=== PATIENT | female | born 1960 | race Caucasian/White ===

== ENCOUNTER 2019-10-17 05:40 | Emergency (ER) | payer MEDICAID, SELFPAY ==
[2019-10-17 05:41] VITALS: BP 102/75; PULSE 99; RESP 16; TEMP 36.6; O2SAT 94; BMI 17.9
--- NOTE | 2019-10-17 05:53 | W.ED.BACK ---
HPI - Back Pain/Injury General: Chief Complaint: Back Pain/Injury Stated Complaint: BACK PAIN Time Seen by Provider: 10/17/19 05:53 History of Present Illness: HPI Narrative: 58 yo female present by EMS with complaint of back pain that started 6 days ago. Pt states she pulled a muscle . She has had chronic back pain in the past. She also hsd neuropathy in her hands and feet, since this happened she reports increased pain in her arms and hands, particularly the L arm. She denies any dysuria urgency or frquency, no flank pain, no diarrhea, no abd pain. Pain is positional, she denies increased dyspnea. Pt reports hs has had small cell lung CA in the past and was told she was cured. She denies any known metastasis. MD elicited complaint: back pain Pertinent past history: prior back pain Onset (ago): day(s) (2) Timing: constant Severity: severe Similar Symptoms Previously: Yes Location: lumbar spine Radiation: none Exacerbating factors: movement Relieving factors: other (rest) Associated symptoms: Reports difficulty walking, fatigue, nausea, numbness and tingling/numbness/burning; Deny change in bowel habits, fecal incontinence, hematuria, myalgias, urinary frequency, urinary urgency, vomiting or weakness Review of Systems Const: Reports: fatigue ENMT: Denies: throat pain, ear pain, nasal discharge or nasal congestion Card: Denies: chest pain, edema, shortness of breath on exertion or shortness of breath when lying down Resp: Denies: shortness of breath, productive cough or non-productive cough GI: Reports: nausea; Denies: vomiting, fecal incontinence or change in bowel habits : Denies: urinary urgency or blood in urine Skin/Breast: Denies: rash or itching Neuro: Reports: difficulty walking PFSH ED PFSH: Statuses (acute, chronic, etc) shown below reflect problem list status as previously entered and may not be historically accurate Medical History Hypothyroidism (Acute) Small cell lung cancer in adult (Acute) Social History Smoking and tobacco status: former smoker Physical Exam Const: COMMON NORMALS: no apparent distress GENERAL APPEARANCE: cooperative and comfortable ORIENTATION/CONSCIOUSNESS: Yes awake, Yes oriented to person, Yes oriented to place and Yes oriented to time HENMT: COMMON NORMALS: normocephalic, head/scalp atraumatic, hearing grossly normal bilaterally, external ears normal, EAC's normal, TM's normal bilaterally, nasal mucous membranes and turbinates normal, moist oral mucous membranes and oropharynx normal HEAD & SCALP: normocephalic and atraumatic NOSE: nasal mucous membranes and turbinates normal EXTERNAL EAR: Yes external ears normal EXTERNAL AUDITORY CANAL: EAC's normal TYMPANIC MEMBRANE: TM's normal bilaterally Eye: COMMON NORMALS: PERRL, EOMs intact bilaterally, conjunctivae normal and no scleral icterus CONJUNCTIVA: Yes conjunctivae normal PUPIL: Yes PERRL Neck/C-Spine: COMMON NORMALS: full ROM, no lymphadenopathy, supple and no JVD Lymph: LYMPHATIC: no lymphadenopathy noted and no lymphedema noted Resp: COMMON NORMALS: normal respiratory effort, no retractions, no use of accessory muscles and clear to auscultation bilaterally AUSCULTATION: clear to auscultation bilaterally Cardio: COMMON NORMALS: no JVD, regular rate, regular rhythm and no murmurs RATE: regular rate RHYTHM: regular rhythm GI: COMMON NORMALS: soft to palpation and no hepatosplenomegaly AUSCULTATION: Yes normoactive bowel sounds PALPATION: Yes soft, No tender, No guarding and Yes no hepatosplenomegaly Back/Pelvis: OTHER: Tenderness to palpation on the middle thoracic spine T7-8-9 region. Extremity: COMMON NORMALS: normal to inspection, normal capillary refill, no clubbing, cyanosis or edema, no calf tenderness and no pedal edema Neuro: SENSORIUM/ORIENTATION: Yes oriented to person, Yes oriented to place and Yes oriented to time Skin: COMMON NORMALS: no rashes or lesions noted GENERAL SKIN EXAM: no rashes or lesions noted Course Vital Signs: Vital signs: Vital Signs Temperature 98 F 10/17/19 05:41 Pulse Rate 68 10/17/19 07:56 Respiratory Rate 15 10/17/19 07:56 Blood Pressure 122/68 10/17/19 07:56 Pulse Oximetry 95 10/17/19 07:56 MDM - Back Pain/Injury Lab Data: Labs: Lab Results 10/17/19 10/17/19 Range/Units 06:36 06:36 WBC 8.2 (4.0-10.0) 10^3/ uL RBC 4.19 (4.1-5.3) 10^6/u L Hgb 12.2 (11.5-15.3) g/dL Hct 37.6 (37.0-47.0) % MCV 89.7 (81-99) fL MCH 29.1 (28.0-34.0) pg MCHC 32.4 (30.0-36.0) g/dL RDW 13.9 (12.1-15.1) % Plt Count 275 (130-400) 10^3/c mm MPV 8.3 (7.4-10.4) fL Neut % (Auto) 69.9 % Lymph % (Auto) 20.4 % Gates % (Auto) 6.3 % Eos % (Auto) 1.8 % Baso % (Auto) 0.5 % Neut # (Auto) 5.7 (1.8-7.7) 10^3/u L Lymph # (Auto) 1.7 (0.8-4.8) 10^3/u L Gates # (Auto) 0.5 (0.2-0.9) 10^3/u L Eos # (Auto) 0.2 (0.0-0.8) 10^3/u L Baso # (Auto) 0.0 (0.0-0.1) 10^3/u L Nucleated RBC % (a uto) 0 % Nucleated RBCs # 0.0 /100WBC Sodium 139 (136-145) mmol/L Potassium 3.6 (3.5-5.1) mmol/L Chloride 99 (98-107) mmol/L Carbon Dioxide 26 (22-29) mmol/L Anion Gap 17.6 (5-19) BUN 6 (6-20) mg/dL Creatinine 0.5 (0.5-0.9) mg/dL GFR Calculation 126.7 (90-130) mL/min Glucose 108 (74-109) mg/dL Calcium 9.5 (8.5-10.5) mg/dL Total Bilirubin 0.2 (0.15-1.2) mg/dL AST 21 (0-32) U/L ALT 21 (0-33) U/L Alkaline Phosphata se 108 H (35-105) IU/L Total Protein 7.1 (6.6-8.7) g/dL Albumin 4.1 (3.5-5.2) g/dL Globulin 3.0 (1.3-4.6) g/dL Imaging Data^: Other CT: Radiologist's impression: FINDINGS: Tubes, catheters and devices: A right internal jugular vein central venous line is present with its tip at the level of the superior cavoatrial junction. Vertebrae: There is mild compression of the T7 vertebral body. Discs/Spinal canal/Neural foramina: No spinal canal stenosis. Soft tissues: Unremarkable. CT/CT thoracic spin wo con* [id number] IMPRESSION: Mild compression of the T7 vertebral body of indeterminate age. Radiation Dose CTDIVOL = (mGy): DLP = 691.96 (mGy-cm) Dictated By: Ancelmo Adames MD CXR: Radiologist's impression: FINDINGS: Lungs: There is a background of emphysematous change. Scattered calcified nodularity is are seen bilaterally that likely represent calcified granulomas. Pleural space: Unremarkable. No pleural effusion. No pneumothorax. Heart/Mediastinum: Unremarkable. No cardiomegaly. Vasculature: A MediPort is placed via the right internal jugular vein with its tip at the level of the superior cavoatrial junction. Bones/joints: Unremarkable. XR/XR chest 1V portable [id number] IMPRESSION: There are no acute chest findings. Dictated By: Ancelmo Adames MD Discharge Plan Discharge Patient Disposition: Home, Self-Care Clinical Impression: Acute midline thoracic back pain, Small cell lung cancer in adult Compression fracture of thoracic spine, non-traumatic Qualifiers: Encounter type: initial encounter Thoracic vertebra fracture level: T7 Qualified Code(s): M48.54XA - Collapsed vertebra, not elsewhere classified, thoracic region, initial encounter for fracture Hypothyroidism Qualifiers: Hypothyroidism type: acquired Qualified Code(s): E03.9 - Hypothyroidism, unspecified Condition: Stable Prescriptions: No Action gabapentin 600 mg Tablet 600 mg PO TID RF: 0 tizanidine 4 mg Tablet 4 mg PO Q8H PRN (Reason: Sleep) RF: 0 prednisone 20 mg Tablet 60 mg PO DAILY RF: 0 oxycodone-acetaminophen 5-325 mg Tablet 1 tab PO Q6H PRN (Reason: Pain) RF: 0 levothyroxine 88 mcg Tablet 88 mcg PO DAILY RF: 0 allopurinol 300 mg tablet 300 mg PO DAILY RF: 0 Adult One Daily Multivitamin 0.4 mg Tablet 0.4 mg PO DAILY RF: 0 Vitamin D3 2,000 unit Tablet 2,000 unit PO DAILY RF: 0 Stool Softener 50 mg 50 mg PO DAILY RF: 0 Referrals: Adela Stout [Family Provider] - Activity Restrictions/Additional Instructions: Case management will follow up with appointment to pain clinic for possible kyphoplasty. You should call you PCP for further evaluation as well. US previosuly prescribed pain meds. Discharge Date/Time: 10/17/19 07:56 Coding Level of Care Code ED Mobile [employer] G[employer]er for [employer] Fwd Exam Problem Focused
--- NOTE | 2019-10-17 06:02 | CTR_ITS ---
PROCEDURE INFORMATION: Exam: CT Thoracic Spine Without Contrast Exam date and time: 10/17/2019 6:04 AM Age: 58 years old Clinical indication: Pain in thoracic spine; Patient HX: Patient states she felt a pop in her upper back. C/O back pain. ; Additional info: Thoracic back pain. HX of small cell lung CA TECHNIQUE: Imaging protocol: Computed tomography images of the thoracic spine without contrast. Total DLP: 691.96 mGy-cm Radiation optimization: All CT scans at this facility use at least one of these dose optimization techniques: automated exposure control; mA and/or kV adjustment per patient size (includes targeted exams where dose is matched to clinical indication); or iterative reconstruction. COMPARISON: No relevant prior studies available. FINDINGS: Tubes, catheters and devices: A right internal jugular vein central venous line is present with its tip at the level of the superior cavoatrial junction. Vertebrae: There is mild compression of the T7 vertebral body. Discs/Spinal canal/Neural foramina: No spinal canal stenosis. Soft tissues: Unremarkable. CT/CT thoracic spin wo con* [id number] IMPRESSION: Mild compression of the T7 vertebral body of indeterminate age. Radiation Dose CTDIVOL = (mGy): DLP = 691.96 (mGy-cm)
--- NOTE | 2019-10-17 06:03 | XRR_ITS ---
PROCEDURE INFORMATION: Exam: XR Chest, 1 View Exam date and time: 10/17/2019 6:04 AM Age: 58 years old Clinical indication: Condition or disease; Lung condition and disease; Cancer of the lung; Left; [place]; Prior surgery; Surgery type: Port; Patient HX: History of lung cancer; Additional info: HX lung CA TECHNIQUE: Imaging protocol: XR of the chest Views: 1 view. COMPARISON: CR Chest 1 [place] [id number] 09/25/2018 2:24 PM FINDINGS: Lungs: There is a background of emphysematous change. Scattered calcified nodularity is are seen bilaterally that likely represent calcified granulomas. Pleural space: Unremarkable. No pleural effusion. No pneumothorax. Heart/Mediastinum: Unremarkable. No cardiomegaly. Vasculature: A MediPort is placed via the right internal jugular vein with its tip at the level of the superior cavoatrial junction. Bones/joints: Unremarkable. XR/XR chest 1V portable [id number] IMPRESSION: There are no acute chest findings.
[2019-10-17 06:41] LABS: Basophils % 0.5 %; Eosinophils # 0.2 10^3/uL (0.0-0.8); Eosinophils % 1.8 %; Hematocrit 37.6 % (37.0-47.0); Hemoglobin 12.2 g/dL (11.5-15.3); Lymphocytes # 1.7 10^3/uL (0.8-4.8); Lymphocytes % 20.4 %; Mean Corpuscular HGB Conc 32.4 g/dL (30.0-36.0); Mean Corpuscular Hemoglobin 29.1 pg (28.0-34.0); Mean Corpuscular Volume 89.7 fL (81-99); Mean Platelet Volume 8.3 fL (7.4-10.4); Monocytes # 0.5 10^3/uL (0.2-0.9); Monocytes % 6.3 %; Neutrophils # 5.7 10^3/uL (1.8-7.7); Neutrophils % 69.9 %; Nucleated Red Blood Cells % 0 %; Platelet Count 275 10^3/cmm (130-400); Red Blood Count 4.19 10^6/uL (4.1-5.3); Red Cell Distribution Width 13.9 % (12.1-15.1); White Blood Count 8.2 10^3/uL (4.0-10.0)
[2019-10-17 06:54] VITALS: RESP 16
[2019-10-17] MEDS: orphenadrine 30 mg/mL Inj 2 mL 60 MG IV (06:54)
[2019-10-17] MEDS: morphine 4 mg/mL SDV 1 mL IVP (06:54)
[2019-10-17 07:01] LABS: Alanine Aminotransferase 21 U/L (0-33); Albumin Level 4.1 g/dL (3.5-5.2); Alkaline Phosphatase 108 IU/L (35-105); Anion Gap 17.6 (5-19); Aspartate Amino Transferase 21 U/L (0-32); Blood Urea Nitrogen 6 mg/dL (6-20); Calcium 9.5 mg/dL (8.5-10.5); Carbon Dioxide 26 mmol/L (22-29); Chloride 99 mmol/L (98-107); Glomerular Filtration Rate 126.7 mL/min (90-130); Glucose 108 mg/dL (74-109); Potassium 3.6 mmol/L (3.5-5.1); Sodium 139 mmol/L (136-145); Total Bilirubin 0.2 mg/dL (0.15-1.2); Total Protein 7.1 g/dL (6.6-8.7)
[2019-10-17 07:56] VITALS: BP 122/68; PULSE 68; RESP 15; O2SAT 95
--- NOTE | 2019-10-19 14:09 | DCPLANNER ---
horse farm manager had message to schedule a follow up appointment for patient with the pain clinic for possible kyphoplasty. horse farm manager [place] [facility] [place] was told that they do not do that procedure at the clinic. horse farm manager called patient, and informed patient of this. Patient stated that she has an appointment at a pain clinic in [place] tomorrow, 10.20.19.
== END 2019-10-17 07:56 | disposition home or self-care (01) ==
PROVIDERS: Emergency Provider Family Medicine; Family Provider Internal Medicine
DX: S22.060A Wedge compression fracture of T7-T8 vertebra, initial encounter for closed fracture (principal); E03.9 Hypothyroidism, unspecified; C34.90 Malignant neoplasm of unspecified part of unspecified bronchus or lung; Z87.891 Personal history of nicotine dependence; X58.XXXA Exposure to other specified factors, initial encounter
CPT/HCPCS: 71045; 72128; 80053; 85025; 96365; 96374; 99281; J0131; J2270; J2360; L0456

== ENCOUNTER 2020-10-23 19:06 | Observation (INO) | payer MEDICARE, MEDICAID, SELFPAY ==
[2020-10-23 20:12] VITALS: BP 102/56; PULSE 99; RESP 20; TEMP 36.7; O2SAT 95; BMI 21.2
--- NOTE | 2020-10-23 20:51 | ECG_ITS ---
[facility] Test Date: 2020-10-23 Pat Name: Zulma Garcia Department: Room: Gender: Female [place]: : 1960 Requested By: Tyrell Willis Order Number: [id number] Darci MD: Keanu Lawson M.D. Measurements Intervals [place] Rate: 75 P: 78 FL: 168 QRS: 89 QRSD: 91 T: 80 QT: 389 QTc: 436 Interpretive Statements SINUS RHYTHM POSSIBLE RIGHT VENTRICULAR CONDUCTION DELAY [RSR (QR) IN V1/V2] Compared to ECG 09/25/2018 14:05:58 Sinus arrhythmia no longer present Electronically Signed On 10-24-2020 17:09:35 CHANNEL MANAGER by Keanu Lawson M.D. [email or web address]
--- NOTE | 2020-10-23 20:51 | XRR_ITS ---
PROCEDURE INFORMATION: Exam: XR Chest, 1 View Exam date and time: 10/23/2020 9:42 PM Age: 59 years old Clinical indication: Cough and shortness of breath; Prior surgery; Surgery type: Appy; Additional info: SOB x 3 days TECHNIQUE: Imaging protocol: XR of the chest Views: 1 view. COMPARISON: CR XR chest 1V portable [id number] 10/17/2019 6:15 AM FINDINGS: Lungs: Minor left mid lung pneumonitis, atelectasis or scarring. Suspect bilateral scattered calcified granulomata. Pleural spaces: Unremarkable. No pleural effusion. No pneumothorax. Heart/Mediastinum: Stable heart size. Bones/joints: Radiopaque material at T7. XR/XR chest 1V portable [id number] IMPRESSION: Left mid lung pneumonitis, atelectasis or scarring
--- NOTE | 2020-10-23 21:09 | W.ED.GENADLT ---
HPI - General Adult General: Chief complaint: General Medical Stated complaint: weakness, soreness, gen sick x3 days Time Seen by Provider: 10/23/20 20:32 History of Present Illness: HPI narrative: 59-year-old female with a history of non-small cell lung cancer presenting with widespread aches, night sweats, chills, generalized weakness, cough and wheezing for the past 3 days or so. She seems to be getting worse. Cough is essentially nonproductive. She has not had fever. No sick contacts. Onset (ago): day(s) Location: upper extremity and lower extremity Radiation: non-radiation Pain Consistency: constant Relieving factors: none Exacerbating factors: none Associated symptoms: Reports cough, decreased appetite, dyspnea, nausea and vomiting (once); Deny chest pain, headache(s), rash or palpitations Review of Systems Const: Reports: chills; Denies: fever(s) Eyes: Denies: change in vision ENMT: Reports: odynophagia and dental pain; Denies: swelling of lips/tongue, bleeding gums, change in hearing, epistaxis, post nasal drip or sinus pain Card: Denies: chest pain, palpitations, irregular heart rhythm, edema or swelling of feet/ankles Resp: Reports: dyspnea GI: Reports: nausea and vomiting (once) : Denies: dysuria, urinary frequency, urinary urgency or hematuria Musc: Reports: back pain; Denies: neck pain, joint redness or joint warmth Skin/Breast: Denies: rash or erythema Neuro: Denies: headache(s), dizziness or vertigo Psych: Denies: anxiety PFSH ED PFSH: Medical History (Updated 10/24/20 @ 01:29 by Jerri Gonzalez MD) COPD (chronic obstructive pulmonary disease) Former smoker Hypothyroidism Small cell lung cancer in adult Surgical History (Updated 10/24/20 @ 00:26 by Jerri Gonzalez MD) History of appendectomy Family History (Updated 10/24/20 @ 00:26 by Jerri Gonzalez MD) Father Cancer Lung cancer Social History (Updated 10/24/20 @ 00:26 by Jerri Gonzalez MD) Smoking and tobacco status: former smoker Alcohol intake: never Substance/Drug Use: never Household members: family Housing: House Physical Exam Const: GENERAL APPEARANCE: cooperative and frail appearing ORIENTATION/CONSCIOUSNESS: Yes oriented to person, Yes oriented to place and Yes oriented to time HENMT: COMMON NORMALS: normocephalic, external ears normal and Normal external nose present HEAD & SCALP: normocephalic FACE & SINUS: normal facial exam NOSE: Normal external nose present and No nasal discharge present EXTERNAL EAR: Yes external ears normal TEETH & GINGIVA: Yes abnormal tooth and associated gingiva (Swollen area to the gingiva behind the upper incisors. No pointing.), Yes poor dentition and Yes teeth discoloration THROAT: posterior oropharynx normal; no peritonsillar mass Eye: COMMON NORMALS: Equal, round and reactive pupils present, EOMs intact bilaterally and conjunctivae normal EYELID: eyelids normal CONJUNCTIVA: Yes conjunctivae normal PUPIL: Yes Equal, round and reactive pupils present Neck/C-Spine: GENERAL: No tracheal deviation CERVICAL SPINE: No Cervical spine tenderness Chest: COMMONS NORMALS: normal inspection of the chest CHEST: No tenderness Resp: COMMON NORMALS: clear to auscultation bilaterally EFFORT & INSPECTION: No tachypneic, No respiratory distress, No retractions, No uses accessory muscles and No tracheal deviation AUSCULTATION: clear to auscultation bilaterally, no rhonchi, wheezes and lung sounds not diminished Cardio: COMMON NORMALS: regular rate and regular rhythm RATE: regular rate RHYTHM: regular rhythm HEART SOUNDS: no murmurs PERIPHERAL PULSES: radial pulses present GI: INSPECTION: No abdominal distension AUSCULTATION: No Hyperactive bowel sounds present and No Hypoactive bowel sounds present PALPATION: No Guarding due to palpation present (GI) and No Rigid due to palpation PERCUSSION: no dullness to percussion and no tympanic to percussion Neuro: SENSORIUM/ORIENTATION: Yes oriented to person, Yes oriented to place and Yes oriented to time Psych: COMMON NORMALS: mental status grossly normal Skin: COMMON NORMALS: no rashes or lesions noted GENERAL SKIN EXAM: no rashes or lesions noted Course Consultations: Consultation #1: fartun Vital Signs: Vital signs: Vital Signs Temperature 98.0 F 10/24/20 01:52 Pulse Rate 92 10/24/20 02:35 Respiratory Rate 20 H 10/24/20 02:31 Blood Pressure 104/61 10/24/20 01:52 Pulse Oximetry 94 10/24/20 02:31 MDM - General Adult MDM Narrative: Medical decision making narrative: 59-year-old female with a history of lung cancer, COPD. She presents with chills and night sweats as well as shortness of breath and generalized weakness. She was not moving much air on exam and was found to be hypoxic on arrival. She does not normally use home oxygen, but was placed on 2 L with improvement in her oxygenation and breathing status. She was given a breathing treatment at which point she started to wheeze significantly. Blood pressure is 102/56 currently chest x-ray is free of infiltrate. Lab Data: Labs: Lab Results 10/23/20 10/23/20 10/23/20 Range/Units 21:41 21:41 21:41 WBC 6.4 (4.0-10.0) 10^3/ uL RBC 3.91 L (4.1-5.3) 10^6/u L Hgb 11.3 L (11.5-15.3) g/dL Hct 35.0 L (37.0-47.0) % MCV 89.5 (81-99) fL MCH 28.9 (28.0-34.0) pg MCHC 32.3 (30.0-36.0) g/dL RDW 13.8 (12.1-15.1) % Plt Count 223 (130-400) 10^3/c mm MPV 10.0 (7.4-10.4) fL Neut % (Auto) 58.2 % Lymph % (Auto) 30.0 % Brooke % (Auto) 7.4 % Eos % (Auto) 3.6 % Baso % (Auto) 0.8 % Neut # (Auto) 3.70 (1.8-7.7) 10^3/u L Lymph # (Auto) 1.9 (0.8-4.8) 10^3/u L Brooke # (Auto) 0.5 (0.2-0.9) 10^3/u L Eos # (Auto) 0.2 (0.0-0.8) 10^3/u L Baso # (Auto) 0.1 (0.0-0.1) 10^3/u L Nucleated RBC % (a uto) 0 % Nucleated RBCs # 0.0 /100WBC D-Dimer (0-0.59) ug/mIFE U Specimen Type Sample Site ABG pH (7.35-7.45) ABG pCO2 (35-45) mmHg ABG pO2 (80.0-100.0) mmH g ABG HCO3 (22-26) mmol/L ABG Base Excess (-2.0-2.0) mmol/ L Darrel Test Hematocrit (37-47) % Hgb O2 Saturation (95-100) % Carboxyhemoglobin (0.4-20.1) %THgb Methemoglobin (0.4-1.5) % Total Hemoglobin (12-16) g/dL O2 Delivery Device O2 Liters/Min % FiO2 % Senior Engineering Specialist ID Sodium Cancelled Potassium Cancelled Chloride Cancelled Carbon Dioxide Cancelled Anion Gap Cancelled BUN Cancelled Creatinine Cancelled GFR Calculation Cancelled Glucose Cancelled Calculated Osmolal ity Cancelled Lactic Acid Cancelled Lactate (0.5-2.2) mmol/L Calcium Cancelled Total Bilirubin Cancelled AST Cancelled ALT Cancelled Alkaline Phosphata se Cancelled NT-Pro-B Natriuret Pep Cancelled Total Protein Cancelled Albumin Cancelled Globulin Cancelled TSH (0.27-4.20) uIU/ mL Urine Color (Yellow) Urine Appearance (CLEAR) Urine pH (5-7) Ur Specific Gravit y (1.005-1.030) Urine Protein (Negative) Urine Glucose (UA) (Normal) Urine Ketones (Negative) Urine Blood (Negative) Urine Nitrate (Negative) Urine Bilirubin (Negative) Urine Urobilinogen (Negative) mg/dL Ur Leukocyte Kassandra ase (Negative) Influenza Type A A g (Negative) Influenza Type B A g (Negative) SARS-CoV-2 Ag (Rap id) (Negative) 10/23/20 10/23/20 10/23/20 Range/Units 21:41 21:41 21:50 WBC (4.0-10.0) 10^3/ uL RBC (4.1-5.3) 10^6/u L Hgb (11.5-15.3) g/dL Hct (37.0-47.0) % MCV (81-99) fL MCH (28.0-34.0) pg MCHC (30.0-36.0) g/dL RDW (12.1-15.1) % Plt Count (130-400) 10^3/c mm MPV (7.4-10.4) fL Neut % (Auto) % Lymph % (Auto) % Brooke % (Auto) % Eos % (Auto) % Baso % (Auto) % Neut # (Auto) (1.8-7.7) 10^3/u L Lymph # (Auto) (0.8-4.8) 10^3/u L Brooke # (Auto) (0.2-0.9) 10^3/u L Eos # (Auto) (0.0-0.8) 10^3/u L Baso # (Auto) (0.0-0.1) 10^3/u L Nucleated RBC % (a uto) % Nucleated RBCs # /100WBC D-Dimer (0-0.59) ug/mIFE U Specimen Type Arterial Sample Site Brachial, right ABG pH 7.39 (7.35-7.45) ABG pCO2 49.9 H (35-45) mmHg ABG pO2 77.8 L (80.0-100.0) mmH g ABG HCO3 30.0 H (22-26) mmol/L ABG Base Excess 4.1 H (-2.0-2.0) mmol/ L Darrel Test Pos Hematocrit 34.7 L (37-47) % Hgb O2 Saturation 94.0 L (95-100) % Carboxyhemoglobin 1.3 (0.4-20.1) %THgb Methemoglobin 0.7 (0.4-1.5) % Total Hemoglobin 11.3 L (12-16) g/dL O2 Delivery Device Nc O2 Liters/Min 2.0 % FiO2 28.0 % Senior Engineering Specialist ID [id number] Sodium Potassium Chloride Carbon Dioxide Anion Gap BUN Creatinine GFR Calculation Glucose Calculated Osmolal ity Lactic Acid Lactate (0.5-2.2) mmol/L Calcium Total Bilirubin AST ALT Alkaline Phosphata se NT-Pro-B Natriuret Pep Total Protein Albumin Globulin TSH (0.27-4.20) uIU/ mL Urine Color (Yellow) Urine Appearance (CLEAR) Urine pH (5-7) Ur Specific Gravit y (1.005-1.030) Urine Protein (Negative) Urine Glucose (UA) (Normal) Urine Ketones (Negative) Urine Blood (Negative) Urine Nitrate (Negative) Urine Bilirubin (Negative) Urine Urobilinogen (Negative) mg/dL Ur Leukocyte Kassandra ase (Negative) Influenza Type A A g Negative (Negative) Influenza Type B A g Negative (Negative) SARS-CoV-2 Ag (Rap id) Negative (Negative) 10/23/20 10/23/20 10/23/20 Range/Units 22:21 22:21 22:21 WBC (4.0-10.0) 10^3/ uL RBC (4.1-5.3) 10^6/u L Hgb (11.5-15.3) g/dL Hct (37.0-47.0) % MCV (81-99) fL MCH (28.0-34.0) pg MCHC (30.0-36.0) g/dL RDW (12.1-15.1) % Plt Count (130-400) 10^3/c mm MPV (7.4-10.4) fL Neut % (Auto) % Lymph % (Auto) % Brooke % (Auto) % Eos % (Auto) % Baso % (Auto) % Neut # (Auto) (1.8-7.7) 10^3/u L Lymph # (Auto) (0.8-4.8) 10^3/u L Brooke # (Auto) (0.2-0.9) 10^3/u L Eos # (Auto) (0.0-0.8) 10^3/u L Baso # (Auto) (0.0-0.1) 10^3/u L Nucleated RBC % (a uto) % Nucleated RBCs # /100WBC D-Dimer 0.37 (0-0.59) ug/mIFE U Specimen Type Sample Site ABG pH (7.35-7.45) ABG pCO2 (35-45) mmHg ABG pO2 (80.0-100.0) mmH g ABG HCO3 (22-26) mmol/L ABG Base Excess (-2.0-2.0) mmol/ L Darrel Test Hematocrit (37-47) % Hgb O2 Saturation (95-100) % Carboxyhemoglobin (0.4-20.1) %THgb Methemoglobin (0.4-1.5) % Total Hemoglobin (12-16) g/dL O2 Delivery Device O2 Liters/Min % FiO2 % Senior Engineering Specialist ID Sodium 138 Potassium 4.0 Chloride 103 Carbon Dioxide 30 H Anion Gap 9.0 BUN 6 Creatinine 0.6 GFR Calculation 102.3 Glucose 101 Calculated Osmolal ity 284 L Lactic Acid Lactate 0.7 (0.5-2.2) mmol/L Calcium 8.5 Total Bilirubin 0.3 AST 18 ALT 10 Alkaline Phosphata se 106 H NT-Pro-B Natriuret Pep 174 H Total Protein 6.0 L Albumin 3.5 Globulin 2.5 TSH (0.27-4.20) uIU/ mL Urine Color (Yellow) Urine Appearance (CLEAR) Urine pH (5-7) Ur Specific Gravit y (1.005-1.030) Urine Protein (Negative) Urine Glucose (UA) (Normal) Urine Ketones (Negative) Urine Blood (Negative) Urine Nitrate (Negative) Urine Bilirubin (Negative) Urine Urobilinogen (Negative) mg/dL Ur Leukocyte Kassandra ase (Negative) Influenza Type A A g (Negative) Influenza Type B A g (Negative) SARS-CoV-2 Ag (Rap id) (Negative) 10/23/20 10/24/20 Range/Units 22:21 00:13 WBC (4.0-10.0) 10^3/ uL RBC (4.1-5.3) 10^6/u L Hgb (11.5-15.3) g/dL Hct (37.0-47.0) % MCV (81-99) fL MCH (28.0-34.0) pg MCHC (30.0-36.0) g/dL RDW (12.1-15.1) % Plt Count (130-400) 10^3/c mm MPV (7.4-10.4) fL Neut % (Auto) % Lymph % (Auto) % Brooke % (Auto) % Eos % (Auto) % Baso % (Auto) % Neut # (Auto) (1.8-7.7) 10^3/u L Lymph # (Auto) (0.8-4.8) 10^3/u L Brooke # (Auto) (0.2-0.9) 10^3/u L Eos # (Auto) (0.0-0.8) 10^3/u L Baso # (Auto) (0.0-0.1) 10^3/u L Nucleated RBC % (a uto) % Nucleated RBCs # /100WBC D-Dimer (0-0.59) ug/mIFE U Specimen Type Sample Site ABG pH (7.35-7.45) ABG pCO2 (35-45) mmHg ABG pO2 (80.0-100.0) mmH g ABG HCO3 (22-26) mmol/L ABG Base Excess (-2.0-2.0) mmol/ L Darrel Test Hematocrit (37-47) % Hgb O2 Saturation (95-100) % Carboxyhemoglobin (0.4-20.1) %THgb Methemoglobin (0.4-1.5) % Total Hemoglobin (12-16) g/dL O2 Delivery Device O2 Liters/Min % FiO2 % Senior Engineering Specialist ID Sodium Potassium Chloride Carbon Dioxide Anion Gap BUN Creatinine GFR Calculation Glucose Calculated Osmolal ity Lactic Acid Lactate (0.5-2.2) mmol/L Calcium Total Bilirubin AST ALT Alkaline Phosphata se NT-Pro-B Natriuret Pep Total Protein Albumin Globulin TSH 0.51 (0.27-4.20) uIU/ mL Urine Color Yellow (Yellow) Urine Appearance Clear (CLEAR) Urine pH 6 (5-7) Ur Specific Gravit y 1.015 (1.005-1.030) Urine Protein Neg (Negative) Urine Glucose (UA) Norm (Normal) Urine Ketones Negative (Negative) Urine Blood Neg (Negative) Urine Nitrate Negative (Negative) Urine Bilirubin Neg (Negative) Urine Urobilinogen Norm (Negative) mg/dL Ur Leukocyte Kassandra ase Negative (Negative) Influenza Type A A g (Negative) Influenza Type B A g (Negative) SARS-CoV-2 Ag (Rap id) (Negative) Discharge Plan Discharge Patient Disposition: Admitted As Inpatient Admit Provider: Jerri Gonzalez Clinical Impression: Respiratory failure, COPD exacerbation Condition: Stable Coding Level of Care Code ED Slot Machine Repairer for Chg Fwd Exam Comprehensive
[2020-10-23 21:58] LABS: Basophils # 0.1 10^3/uL (0.0-0.1); Basophils % 0.8 %; Eosinophils # 0.2 10^3/uL (0.0-0.8); Eosinophils % 3.6 %; Hemoglobin 11.3 g/dL (11.5-15.3); Lymphocytes # 1.9 10^3/uL (0.8-4.8); Mean Corpuscular HGB Conc 32.3 g/dL (30.0-36.0); Mean Corpuscular Hemoglobin 28.9 pg (28.0-34.0); Mean Corpuscular Volume 89.5 fL (81-99); Monocytes # 0.5 10^3/uL (0.2-0.9); Monocytes % 7.4 %; Neutrophils % 58.2 %; Nucleated Red Blood Cells % 0 %; Platelet Count 223 10^3/cmm (130-400); Red Blood Count 3.91 10^6/uL (4.1-5.3); Red Cell Distribution Width 13.8 % (12.1-15.1); White Blood Count 6.4 10^3/uL (4.0-10.0)
[2020-10-23] MEDS: sodium chloride 0.9% 1,000 ML 999 ML IV (22:03)
[2020-10-23 22:05] LABS: ABG PCO2 49.9 mmHg (35-45); ABG PH Result 7.39 (7.35-7.45); Arterial Blood Gas Hematocrit 34.7 % (37-47); Base Excess ABG 4.1 mmol/L (-2.0-2.0); Blood Gas Allen Test Pos; Blood Gas Sample Site Brachial, right; Blood Gas Sample Type Arterial; Carboxyhemoglobin 1.3 %THgb (0.4-20.1); Methemoglobin 0.7 % (0.4-1.5); Oxygen Device NC; PO2 ABG 77.8 mmHg (80.0-100.0); Total Hemoglobin 11.3 g/dL (12-16)
[2020-10-23 22:23] VITALS: BP 110/56; PULSE 70; RESP 16; O2SAT 98
[2020-10-23 22:30] VITALS: BP 99/56; PULSE 79; RESP 16; O2SAT 99
[2020-10-23 22:57] LABS: Influenza A by IFA Negative (Negative); Influenza B by IFA Negative (Negative); SARS Covid-2 Antigen Negative (Negative)
[2020-10-23 23:00] VITALS: BP 109/64; PULSE 79; RESP 16; O2SAT 100
[2020-10-23 23:04] LABS: Lactate (Lactic Acid level) 0.7 mmol/L (0.5-2.2)
[2020-10-23 23:18] LABS: Alanine Aminotransferase 10 U/L (0-33); Albumin Level 3.5 g/dL (3.5-5.2); Alkaline Phosphatase 106 IU/L (35-105); Aspartate Amino Transferase 18 U/L (0-32); Blood Urea Nitrogen 6 mg/dL (6-20); Calcium 8.5 mg/dL (8.5-10.5); Carbon Dioxide 30 mmol/L (22-29); Chloride 103 mmol/L (98-107); Globulin 2.5 g/dL (1.3-4.6); Glomerular Filtration Rate 102.3 mL/min (90-130); Glucose 101 mg/dL (65-115); NT Pro B Type Natriuretic Pept 174 pg/mL (0-125); Osmolality Calculated 284 mOsm/kg (285-295); Sodium 138 mmol/L (136-145); Total Bilirubin 0.3 mg/dL (0.15-1.2)
[2020-10-23 23:45] VITALS: PULSE 87; RESP 20; O2SAT 95
[2020-10-23] MEDS: ipratropium-albuterol 3 mL Neb INHALATION (23:45)
[2020-10-24] VITALS (16 sets, daily range): BP systolic 95–149; BP diastolic 55–77; PULSE 80–105; RESP 17–20; TEMP 36.3–36.8; O2SAT 92–99
[2020-10-24 00:11] LABS: Reflex Lactate Order REFLEX LACTIC ORDERD
[2020-10-24 00:20] LABS: Add Urine Microscopic? NO
--- NOTE | 2020-10-24 00:24 | P.HP_ITS ---
Providers/Chief Complaint Primary Care Provider: Adela Stout Chief Complaint: weakness, soreness, gen sick x3 days History of Present Illness Zulma Garcia is a 59 year old female who has history of small cell lung cancer status post radiochemotherapy in remission since 2018 without any recurrence, recently had PICC line removed 1 month ago presented today with for generalized weakness and fatigue. Patient is stating that she also suffered from an ischemic stroke after her diagnosis of cancer which caused left-sided residual weakness, after chemo and radiotherapy she also suffered with neuropathy, she gets tremors in her arms and left side of the leg and uses wheelchair for ambulation but has some capacity to walk with assistance. The reason she presented to the hospital is because of worsening fatigue tiredness and she is also experiencing burning sensation in her back without any aggravating relieving factors. No vision changes. She has never been diagnosed with multiple sclerosis. Recently she has been tried on amitriptyline for neuropathic pains. She is denying fever, nausea, vomiting, dysuria, endorsing dry cough, rhinorrhea for last 2 to 3 days, alternating bowel movement with diarrhea and constipation. Diagnostics in the ER revealed acute hypoxic respiratory failure, tachycardia chest x-ray shows chronic changes no acute pathological findings ABG revealed relative hypoxia on 2 L nasal cannula no signs of sepsis no signs of pneumonia CBC unremarkable, UA unremarkable EKG showing sinus rhythm, Covid antigen negative requested PCR patient is endorsing that whenever she tries to eat everything feels very waxy however denying odynophagia and dysphagia, requested D-dimer, TSH Review of Systems Const: Reports: chills, body aches, change in appetite, fatigue, malaise and night sweats; Denies: fever(s) Eyes: Denies: change in vision ENMT: Reports: oral sores (Noticed a white patch around right side of heart palate) and dental pain; Denies: throat pain Card: Reports: chest pain and dyspnea on exertion; Denies: orthopnea Resp: Reports: dyspnea and non-productive cough GI: Reports: diarrhea and constipation; Denies: abdominal pain : Denies: flank pain Musc: Reports: muscle cramps; Denies: neck pain Skin/Breast: Reports: lesions Neuro: Denies: headache(s) Psych: Denies: anxiety Endo: Denies: polyuria Grabiel/Lymph: Denies: easy bruising All/Imm: Denies: urticaria Medications/Allergies Home Medications Medication Instructions Recorded Confirmed Last Taken Type Stool Softener 50 mg PO DAILY 10/17/19 10/17/19 Unknown History allopurinol 300 mg PO DAILY 10/17/19 10/17/19 Unknown History cholecalciferol (vitamin D3) 2,000 unit PO DAILY 10/17/19 10/17/19 Unknown History [Vitamin D3] gabapentin 600 mg PO TID 10/17/19 10/17/19 Unknown History levothyroxine 88 mcg PO DAILY 10/17/19 10/17/19 Unknown History multivit with min-folic acid 0.4 mg PO DAILY 10/17/19 10/17/19 Unknown History [Adult One Daily Multivitamin] oxycodone-acetaminophen 1 tab PO Q6H PRN 10/17/19 10/17/19 Unknown History prednisone 60 mg PO DAILY 10/17/19 10/17/19 Unknown History tizanidine 4 mg PO Q8H PRN 10/17/19 10/17/19 Unknown History Allergies Allergy/AdvReac Type Severity Reaction Status Date / Time ibuprofen Allergy ALGY-Swell Verified 10/23/20 20:23 Lip/Tongue/Throat flu shot Allergy Unknown Uncoded 10/23/20 20:23 PFSH Acute PFSH: Medical History (Updated 10/24/20 @ 01:29 by Jerri Gonzalez MD) COPD (chronic obstructive pulmonary disease) Former smoker Hypothyroidism Small cell lung cancer in adult Surgical History (Updated 10/24/20 @ 00:26 by Jerri Gonzalez MD) History of appendectomy Family History (Updated 10/24/20 @ 00:26 by Jerri Gonzalez MD) Father Cancer Lung cancer Social History (Updated 10/24/20 @ 00:26 by Jerri Gonzalez MD) Smoking and tobacco status: former smoker Alcohol intake: never Substance/Drug Use: never Household members: family Housing: House Vitals/I&O/Wt Last Vital Signs Temp 98.1 F 10/23/20 20:12 Pulse 95 10/24/20 00:00 Resp 19 H 10/24/20 00:00 BP 149/77 10/24/20 00:00 Pulse Ox 99 10/24/20 00:00 10/23/20 10/23/20 10/24/20 14:59 22:59 06:59 Intake Total 1000 / 1000 Balance 1000 / 1000 Weight last 48 hrs Weight 54.431 kg Physical Exam Narrative: EXAM NARRATIVE: elderly female who appears more than stated age Clinically looks dehydrated Poor dental hygiene She was sitting comfortably in her bed No audible wheezing however has mild expiratory wheezing on lung auscultation no acute respiratory distress was saturating well on 2 L nasal cannula S1, S2 sinus rhythm no murmur or signs of heart failure Left leg swollen as compared to right trace edema No skin cellulitis gangrene or ulcer No joint swelling EOMI, PERRLA no neurological deficit has chronic left sided residual weakness no facial droop, experiences tremors with voluntary movements Data : 10/23/20 21:41 10/23/20 22:21 Micro: Microbiology 10/23/20 22:21 Blood Culture - Preliminary Blood SPECIMEN COLLECTED 10/23/20 21:41 Blood Culture - Preliminary Blood SPECIMEN COLLECTED A&P Assessment and plan (1) COPD exacerbation: COPD exacerbation most likely due to recent sinusitis Chest x-ray unremarkable, would request procalcitonin level no signs of pneumonia or sepsis Covid antigen negative PCR requested I would start her on Augmentin for sinusitis DuoNeb with prednisone for mild wheezing Currently saturating well on 2 L nasal cannula rule out PE requested D-dimer Left leg swelling would get venous Doppler for DVT Status: Acute (2) Acute respiratory failure with hypoxia: Due to COPD exacerbation Follow-up with D-dimer No signs of pneumonia, rule out PE, no signs of heart failure, patient is not hypoventilating Patient does seem to have bicarb level of 30 which would explain possible obstructive sleep apnea, patient at home does not use any oxygen currently doing well on 2 L Will need home O2 evaluation before discharge Status: Acute Additional A&P Information Small cell lung cancer status post chemoradiotherapy in remission Anorexia without odynophagia or dysphagia, right hard palate white patches noted, does not show typical leukoplakia features, kindly reevaluate if she would benefit from a dermatology consult Hypothyroidism: Check TSH for now continue levothyroxine 88 mcg Full code Cardiac diet DVT prophylaxis Lovenox Attestations Medical Necessity Statement*: Anticipating discharge in less than 48 hours currently need evaluation and management for acute hypoxic respiratory failure has history of small cell lung cancer, rule out PE Time Spent in Patient Care: (>than 50% of time spent in counselling and/or direct pt care on unit) . 40mins Coding Level of Care Code Acute Identity Management Consultant for Beatrice Fwd Diagnoses COPD exacerbation J44.1 Acute respiratory failure with hypoxia J96.01
[2020-10-24] MEDS: morphine ER (12 HR) 30 mg tablet PO (01:02)
[2020-10-24] MEDS: morphine 4 mg/mL SDV 1 mL IVP (01:03)
[2020-10-24 01:25] LABS: Thyroid Stimulating Hormone 0.51 uIU/mL (0.27-4.20)
[2020-10-24 01:27] LABS: Bilirubin Urine Neg (Negative); Blood Urine Neg (Negative); Glucose Urine UA Norm (Normal); Ketones Urine Negative (Negative); Leukocyte Esterase Urine Negative (Negative); Nitrate Urine Negative (Negative); Protein Urine Neg (Negative); Specific Gravity, Urine 1.015 (1.005-1.030); Urine Appearance Clear (CLEAR); Urine Color Yellow (Yellow); Urobilinogen Urine Norm (Negative); pH Urine 6 (5-7)
[2020-10-24 01:39] LABS: D Dimer 0.37 ug/mIFEU (0-0.59)
[2020-10-24] MEDS: ipratropium-albuterol 3 mL Neb INHALATION (02:30)
[2020-10-24 02:57] LABS: Basophils % 0.5 %; Eosinophils % 0.5 %; Hematocrit 34.2 % (37.0-47.0); Hemoglobin 10.8 g/dL (11.5-15.3); Lymphocytes # 0.8 10^3/uL (0.8-4.8); Lymphocytes % 13.4 %; Mean Corpuscular HGB Conc 31.6 g/dL (30.0-36.0); Mean Corpuscular Hemoglobin 28.9 pg (28.0-34.0); Mean Corpuscular Volume 91.4 fL (81-99); Mean Platelet Volume 9.3 fL (7.4-10.4); Monocytes # 0.1 10^3/uL (0.2-0.9); Monocytes % 1.6 %; Neutrophils # 4.69 10^3/uL (1.8-7.7); Neutrophils % 83.6 %; Nucleated Red Blood Cells % 0 %; Platelet Count 208 10^3/cmm (130-400); Red Blood Count 3.74 10^6/uL (4.1-5.3); Red Cell Distribution Width 13.8 % (12.1-15.1); White Blood Count 5.6 10^3/uL (4.0-10.0)
[2020-10-24] MEDS: enoxaparin 40 mg/0.4 mL Syringe SUBCUT (03:07)
[2020-10-24 03:18] LABS: Lactic Acid level (Lactate) 1.9 mmol/L (0.5-2.2)
[2020-10-24 03:29] LABS: Procalcitonin 0.02 ng/mL (0-0.5)
[2020-10-24 03:42] LABS: Anion Gap 11.8 (5-19); Blood Urea Nitrogen 6 mg/dL (6-20); C Reactive Protein 5.1 mg/L (0.0-4.9); Calcium 8.6 mg/dL (8.5-10.5); Carbon Dioxide 29 mmol/L (22-29); Chloride 104 mmol/L (98-107); Creatinine Clr Calc Pharmacy 101.7687; Glomerular Filtration Rate 126.3 mL/min (90-130); Glucose 143 mg/dL (65-115); Osmolality Calculated 292 mOsm/kg (285-295); Potassium 3.8 mmol/L (3.5-5.1); Sodium 141 mmol/L (136-145)
--- NOTE | 2020-10-24 06:36 | USCV_ITS ---
Zulma Garcia Age: 59 Gender: F : 1960 Exam Date: 10/24/2020 08:48 Ordering Phys: Jerri Gonzalez MD Technologist: Denisse Garnett [place] [facility] [place]ication: LLE SWELLING HISTORY: Lower extremity swelling. PROCEDURES: Venous duplex imaging was performed in only the left lower extremity. The following venous structures were evaluated: common femoral vein, profunda vein, proximal portion of the greater saphenous vein, superficial femoral vein, and the popliteal vein. In addition, the posterior tibial veins were evaluated. Serial compression, augmentation maneuvers, and spectral Doppler flow evaluation were performed. FINDINGS: The veins of the left lower extremity are readily compressible with normal venous flow dynamics including spontaneous flow, respiratory phasic variation and augmentation. CONCLUSIONS No DVT left lower extremity. Dr. Deidre Hilliard DO (Electronically Signed) Final Date: 24 October 2020 09:19 S
[2020-10-24] MEDS: amoxicillin-clav 875-125 mg Tablet 1 TAB PO (08:14)
[2020-10-24] MEDS: gabapentin 300 mg Capsule PO ×3 (08:15→21:28)
[2020-10-24] MEDS: allopurinol 300 mg Tablet PO (08:15)
[2020-10-24] MEDS: predniSONE 20 mg Tablet 40 MG PO (08:15)
[2020-10-24] MEDS: levothyroxine 88 mcg Tablet PO (08:15)
[2020-10-24] MEDS: sennosides-docusate Tablet 1 TAB PO (08:15)
--- NOTE | 2020-10-24 09:38 | CT_ITS ---
WS: [id number] CT CHEST ANGIOGRAPHY WITH REFORMATS HISTORY: sob TECHNIQUE: Contiguous axial images are obtained through the chest during arterial injection of intrav enous contrast. Images are reconstructed to evaluate the pulmonary arteries. MIP imaging also reviewe d. All CT scans at [facility] use at least one of these dose optimization techniques: aut omated exposure control; mA and/or kV adjustment per patient size (includes targeted exams where dose is matched to clinical indication); or iterative reconstruction. CONTRAST: Omnipaque 350; 95 mL IV. DLP: 888.58 mGy.cm COMPARISON: 06/09/2018 Suboptimal opacification of the pulmonary arteries. Majority of the bolus is within the aorta. No isreal tral pulmonary embolism. Beyond the lobar branches the opacification is significantly suboptimal. Mil d enlargement of the pulmonary artery. Mild atherosclerosis of the aorta. No aneurysm. Heart size is normal. No pericardial or pleural effusions. Subcentimeter hilar lymph nodes. The LEFT hilar soft tis lennox mass is significantly decreased in size since the prior study. There is a soft tissue nodule at t he LEFT hilum measuring 7.6 mm in the region of bronchial wall thickening and probably postradiation changes. Moderate to severe centrilobular emphysema. There are a few benign calcified granulomata scattered th roughout both lungs. No mass or pneumonia. T7 vertebroplasty. Small hiatal hernia. Visualized liver and upper abdominal structures are negative. CT/CT angio chest PE protcl [id number] IMPRESSION: 1. Suboptimal opacification of the pulmonary arteries due to peripheral IV acc ess. 2. No central pulmonary embolism. 3. Chronic emphysema. 4. Significant resolution of the hilar and mediastinal lymph nodes and central lung mass since 06/09/2018. Now there are post radiation changes near the LEFT hilum.
--- NOTE | 2020-10-24 11:03 | P.PN_ITS ---
Subjective Subjective: Interval history: Patient was examined this morning, she is currently on 2 L, tells me that she came to [facility] because she was feeling weak fatigued and tired, shortness of breath at rest with exertion, denies any recent travel, denies any recent exposure to COVID-19, denies any cough, has not smoked in over 5 years, has had some left calf swelling, no chest pain, no lightheadedness, no dizziness denies a history of CHF, denies a history of CAD, no history of pulmonary emboli, no hemoptysis Vitals/I&O/Wt Last Vital Signs Temp 97.9 F 10/24/20 07:15 Pulse 96 10/24/20 07:15 Resp 18 10/24/20 07:15 BP 101/61 10/24/20 07:15 Pulse Ox 95 10/24/20 07:15 10/23/20 10/24/20 10/24/20 22:59 06:59 14:59 Intake Total 1000 / 1000 240 / 240 Output Total 0 / 0 Balance 1000 / 1000 240 / 240 Weight last 48 hrs Weight 54.431 kg Physical Exam Const: COMMON NORMALS: no acute distress and patient oriented x3 HENMT: COMMON NORMALS: normocephalic HEAD & SCALP: normocephalic Neck/C-Spine: COMMON NORMALS: no JVD Resp: COMMON NORMALS: normal respiratory effort, No retractions, No use of accessory muscles and clear to auscultation bilaterally AUSCULTATION: clear to auscultation bilaterally Cardio: COMMON NORMALS: no JVD, regular rate, regular rhythm, S1 normal heart sound present and S2 normal heart sound present RATE: regular rate RHYTHM: regular rhythm HEART SOUNDS: S1 normal heart sound present and S2 normal heart sound present GI: COMMON NORMALS: Normal to inspection, nondistended, normoactive bowel sounds present, Soft to palpation, non-tender, No hepatosplenomegaly present, no masses and no bruits PALPATION: Yes Soft to palpation and Yes No hepatosplenomegaly present Extremity: COMMON NORMALS: capillary refill normal, no clubbing, cyanosis or edema, no calf tenderness and no pedal edema Neuro: COMMON NORMALS: patient oriented x3 Psych: COMMON NORMALS: mental status grossly normal Data : 10/24/20 02:38 10/24/20 02:38 Micro: Microbiology 01/31/21 22:21 Blood Culture - Preliminary Blood SPECIMEN COLLECTED 10/23/20 21:41 Blood Culture - Preliminary Blood SPECIMEN COLLECTED A&P Assessment and plan (1) Acute respiratory failure with hypoxia: Likely secondary to COPD exacerbation Currently on 2 L Plan: -Solu-Medrol 40 every 12 hours -Ipratropium -Continue oxygen therapy -Change antibiotic therapy to Rocephin and azithromycin -Follow Covid PCR -Blood cultures, sputum cultures, urine bacterial antigens -Left lower extremity ultrasound to rule out DVT -Given her history of small cell lung cancer in the past, sudden onset of shortness of breath with rest and exertion, will order CT angiogram to rule out pulmonary emboli -In addition I have ordered a cardiac echocardiogram, as patient has received ra diation therapy to the chest, has a risk of radiation toxicity including heart failure Status: Acute (2) COPD exacerbation: Status: Acute Additional A&P Information Small cell lung cancer status post chemoradiotherapy in remission Anorexia without odynophagia or dysphagia, right hard palate white patches noted, does not show typical leukoplakia features, will have patient follow with dermatology as outpatient Hypothyroidism: TSH 0.51, for now continue levothyroxine 88 mcg Full code Cardiac diet DVT prophylaxis Lovenox Attestations Medical Necessity Statement*: Patient requires hospitalization for acute respiratory failure with hypoxia secondary to COPD Coding Level of Care Code Acute Device Processing Engineer for Beatrice Petersen Diagnoses Acute respiratory failure with hypoxia J96.01 COPD exacerbation J44.1
[2020-10-24] MEDS: iohexol 350 mg/mL 100 mL Btl IV (11:13)
--- NOTE | 2020-10-24 11:13 | ECG_ITS ---
[facility] Test Date: 2020-10-24 Pat Name: Zulma Garcia Department: Room: 252 Gender: Female Programming Internship: : 1960 Requested By: Damir Santoro Order Number: [id number] Darci MD: Keanu Lawson M.D. Measurements Intervals [place] Rate: 98 P: 81 FL: 174 QRS: 87 QRSD: 94 T: 73 QT: 349 QTc: 447 Interpretive Statements SINUS RHYTHM Compared to ECG 10/23/2020 22:20:19 No significant changes Electronically Signed On 10-24-2020 17:06:33 DYE RANGE TENDER by Keanu Lawson M.D. [email or web address] [email or web address] health madisonZYOMYXmercer county community hospitalFlareo/store/[id number]
[2020-10-24] MEDS: HYDROmorphone 1 mg/mL INJ 1 mL 0.5 MG IVP (12:09)
[2020-10-24] MEDS: cefTRIAXone 1,000 MG in sodium chloride 0.9% (plus) 50 ML 100 MG IV (12:09)
[2020-10-24] MEDS: azithromycin 500 MG in sodium chloride 0.9% 250 ML 250 MG IV (12:23)
--- NOTE | 2020-10-24 13:13 | ECG_ITS ---
[facility] Test Date: 2020-10-24 Pat Name: Zulma Garcia Department: Room: 252 Gender: Female Timber Buyer: : 1960 Requested By: Damir Santoro Order Number: [id number] Darci MD: Keanu Lawson M.D. Measurements Intervals [place] Rate: 91 P: 82 AL: 191 QRS: 84 QRSD: 90 T: 66 QT: 364 QTc: 448 Interpretive Statements SINUS RHYTHM MINIMAL ST DEPRESSION [0.025+ mV ST DEPRESSION] Compared to ECG 10/24/2020 13:03:49 ST (T wave) deviation now present Electronically Signed On 10-24-2020 17:10:21 HOGSHEAD WEIGHER by Keanu Lawson M.D. [id number]
[2020-10-24 13:58] LABS: Troponin(5th) Baseline 6 ng/L (0-10)
[2020-10-24 14:51] LABS: Coronavirus Test Green County Not Detected
[2020-10-24 16:00] LABS: Troponin 5 2HR Delta 0 ABS# (0-10)
--- NOTE | 2020-10-24 16:38 | PC.NURSE ---
Patient's son and bylmzksc-tr-sxd came in to see the patient today. Nurse was immediately called into the room. The son verbalized that he wanted to sign the patient out and wanted her to go to [place] for treatment for her lung cancer. Explained to the family that the patient was being treated for COPD exacerbation and that would need some antibiotics and steroids for a couple of days. Also explained to the family that the physician has not discharged the patient yet and if the patient wanted to leave as she was of sound mind; then it would considered AMA and the patient would be responsible for the hospital stay. Patient was unsure of what to do and asked to think. The family wanted to speak with the physician and then decide on what to do from there. Physician was contacted and was let known that the family wanted to speak to him via digiSchoole messaging by charge nurse.
--- NOTE | 2020-10-24 16:44 | PC.RESP ---
Pulmonary Rehab information sent to patient.
[2020-10-24] MEDS: ondansetron 2 mg/ML SDV 2 mL 4 MG IVP ×2 (17:35→22:55)
[2020-10-25] VITALS (16 sets, daily range): BP systolic 94–139; BP diastolic 53–76; PULSE 72–90; RESP 16–18; TEMP 36.6–37.2; O2SAT 87–100
[2020-10-25] MEDS: enoxaparin 40 mg/0.4 mL Syringe SUBCUT (01:58)
--- NOTE | 2020-10-25 05:00 | USCV_ITS ---
Jose Zulma Age: 59 Gender: F : 1960 Exam Date: 10/25/2020 06:10 Ordering Phys: Damir Santoro MD Technologist: Laith Chamberlain [place] [facility] [place]: CHEST PAIN BP: 101 / 61 HR: 101 Rhythm: Sinus Technical Quality: Fair MEASUREMENTS (Male / Female) Normal Values 2D ECHO LV Diastolic Diameter PLAX 3.5 cm 4.2 - 5.9 / 3.9 - 5.3 cm LV Systolic Diameter PLAX 1.9 cm IVS Diastolic Thickness 0.9 cm 0.6 - 1.0 / 0.6 - 0.9 cm IVS Systolic Thickness 1.0 cm LVPW Diastolic Thickness 1.0 cm 0.6 - 1.0 / 0.6 - 0.9 cm LVPW Systolic Thickness 1.1 cm LVOT Diameter 2.0 cm LV Ejection Fraction 2D Teich 75.6 % LV Ejection Fraction MOD 2C 72.3 % LV Ejection Fraction 2C AL 73.4 % LA Diameter 3.1 cm LA Width 2.9 cm LA Height 4.1 cm RA Width 3.2 cm RA Height 4.1 cm Aorta at Sinotubular Diameter 2.8 cm M-MODE LV Diastolic Diameter MM 4.1 cm 4.2 - 5.9 / 3.9 - 5.3 cm LV Systolic Diameter MM 2.9 cm LV Ejection Fraction MM Teich 56.7 % IVS Diastolic Thickness MM 0.9 cm 0.6 - 1.0 / 0.6 - 0.9 cm IVS Systolic Thickness MM 1.1 cm LVPW Diastolic Thickness MM 0.7 cm 0.6 - 1.0 / 0.6 - 0.9 cm LVPW Systolic Thickness MM 1.7 cm RV Diastolic Diameter MM 1.2 cm Aortic Annulus Diameter 3.5 cm LA Ao Ratio MM 1.0 MV E Point Septal Separation 1.2 cm DOPPLER AV Peak Velocity 149.0 cm/s LVOT Peak Velocity 118.0 cm/s AV Area Cont Eq vti 2.5 cm squared AV Area Cont Eq pk 2.4 cm squared MV Area PHT 5.0 cm squared Mitral E to A Ratio 1.2 MV E' Velocity 52.0 cm/s Mitral E to MV E' Ratio 6.5 Mitral E to LV E' Lateral Ratio 6.4 Mitral E to LV E' Septal Ratio 6.7 TR Peak Velocity 254.3 cm/s TR Peak Gradient 25.9 mmHg TV Peak E Velocity 98.0 cm/s Right Atrial Pressure 3.0 mmHg Pulmonary Artery Systolic Pressu 28.9 mmHg PV Peak Velocity 88.0 cm/s FINDINGS Left Ventricle Normal left ventricular size and systolic function, EF 69 %. No regional wall motion abnormalities. Right Ventricle Normal right ventricular size and systolic function. Right Atrium Appears to be of normal size Left Atrium Appears to be of normal size Mitral Valve Structurally normal mitral valve without significant stenosis or prolapse. There is no mitral regurgitation. Aortic Valve Yysa-lm-spmhfxyv aortic valve regurgitation. Tricuspid Valve Pdrl-ik-yomkbnfu tricuspid valve regurgitation. Pulmonic Valve Pulmonic valve not well visualized. Pericardium Normal pericardium without effusion. Aorta Normal ascending aorta dimension. CONCLUSIONS Normal left ventricular size and systolic function, EF 69 %. No significant wall motion normalities Bsbi-cj-jxvjiwwr aortic valve regurgitation. Shij-xv-kzwevrub tricuspid valve regurgitation. Similar pulmonary artery peak systolic pressure of 29 mmHg There is no pericardial effusion. Technically somewhat difficult study Dr Fe Negrete MD [facility] (Electronically Signed) Final Date: 25 October 2020 20:41 S
[2020-10-25 05:58] LABS: Hematocrit 39.3 % (37.0-47.0); Hemoglobin 12.4 g/dL (11.5-15.3); Lymphocytes # 0.6 10^3/uL (0.8-4.8); Lymphocytes % 9.2 %; Mean Corpuscular HGB Conc 31.6 g/dL (30.0-36.0); Mean Corpuscular Hemoglobin 28.5 pg (28.0-34.0); Mean Corpuscular Volume 90.3 fL (81-99); Mean Platelet Volume 9.6 fL (7.4-10.4); Monocytes # 0.1 10^3/uL (0.2-0.9); Monocytes % 2.2 %; Neutrophils # 5.67 10^3/uL (1.8-7.7); Neutrophils % 88.3 %; Nucleated Red Blood Cells % 0 %; Platelet Count 261 10^3/cmm (130-400); Red Blood Count 4.35 10^6/uL (4.1-5.3); Red Cell Distribution Width 13.7 % (12.1-15.1); White Blood Count 6.4 10^3/uL (4.0-10.0)
[2020-10-25 06:24] LABS: Alanine Aminotransferase 12 U/L (0-33); Albumin Level 4.1 g/dL (3.5-5.2); Alkaline Phosphatase 106 IU/L (35-105); Anion Gap 15.9 (5-19); Aspartate Amino Transferase 21 U/L (0-32); Blood Urea Nitrogen 11 mg/dL (6-20); Calcium 8.9 mg/dL (8.5-10.5); Carbon Dioxide 27 mmol/L (22-29); Chloride 99 mmol/L (98-107); Globulin 3.2 g/dL (1.3-4.6); Glomerular Filtration Rate 102.3 mL/min (90-130); Glucose 160 mg/dL (65-115); Osmolality Calculated 289 mOsm/kg (285-295); Phosphorus 3.8 mg/dL (2.5-4.5); Potassium 3.9 mmol/L (3.5-5.1); Sodium 138 mmol/L (136-145); Total Bilirubin 0.4 mg/dL (0.15-1.2); Total Protein 7.3 g/dL (6.6-8.7)
[2020-10-25 06:30] LABS: Procalcitonin 0.02 ng/mL (0-0.5)
[2020-10-25] MEDS: ondansetron 2 mg/ML SDV 2 mL 4 MG IVP (08:06)
[2020-10-25] MEDS: gabapentin 300 mg Capsule PO ×3 (08:06→23:06)
[2020-10-25] MEDS: sennosides-docusate Tablet 1 TAB PO (08:06)
[2020-10-25] MEDS: levothyroxine 88 mcg Tablet PO (08:06)
[2020-10-25] MEDS: allopurinol 300 mg Tablet PO (08:06)
[2020-10-25] MEDS: ipratropium-albuterol 3 mL Neb INHALATION ×3 (08:24→20:22)
--- NOTE | 2020-10-25 09:35 | PC.CHAP ---
Pastoral Care Encounter/Spiritual Assessment Type of Contact [] Declined bowl sander visit [] Patient/Family/Request visit [] Outpatient visit [] Follow-up visit [] Physician referral [] Code/Alert [x] Routine visit [] Staff referral [] Actively dying [] Patient sleeping [] Family support [] [] Out of room [] Palliative care [] [] Receiving care in room [] Pre-surgical visit [] Trauma [] Long length of stay [] ICU visit [] Other: Relational/Emotional Strength [x] Patient feels connected with others/family/visitors/staff [] Distress [] Loneliness/isolation [] Abandonment Spirituality of Patient [x] Person of Nancy [] Attends Buddhist of their Nancy [] Believes in Prayer [] Reads Bible or Rastafarian materials [] There are Spiritual issues to be addressed Clinical Laboratory Technologist Interventions [x] Prayer [x] Active listening [] Non-anxious presence [] Spiritual/emotional support [] Crisis/trauma care [] Spiritual counseling [] Bereavement support [] Provided bereavement packet [] Provided Bible/devotional materials [] Provided toy/stuffed animal, coloring book to patient or family member [] Provided Communion [] Anointing/[place] [] Salvation [] Completed spiritual assessment [] Other: Impact on Illness or Injury [] Angry [] Fearful [] Anxious [] Often cries [] Exhaustion [] Unable to work [] Unable to attend restoration [] Unable to walk/stand [] Unable to read [] Unable to drive [] Unable to eat/drink [] Unable to sleep [] Unable to be with family [] Patient intubated [] Other: Summary p[atient feeling much better today Time spent with patient 10 min
[2020-10-25] MEDS: HYDROmorphone 1 mg/mL INJ 1 mL 0.5 MG IVP ×3 (11:33→23:11)
--- NOTE | 2020-10-25 12:01 | P.PN_ITS ---
Subjective Subjective: Interval history: Patient reports that yesterday she was vomiting the whole day . Reports today she is feeling better and was able to keep down some food and drinks. Reports that breathing is comfortable. Denies cough or chest pain. Denies abdominal pain. Vitals/I&O/Wt Last Vital Signs Temp 98.6 F 10/25/20 11:22 Pulse 86 10/25/20 11:22 Resp 18 10/25/20 11:33 BP 117/64 10/25/20 11:22 Pulse Ox 100 10/25/20 11:22 10/24/20 10/25/20 10/25/20 22:59 06:59 14:59 Intake Total 240 / 780 120 / 120 Output Total 350 / 350 250 / 600 Balance -110 / 430 -250 / 180 120 / 120 Weight last 48 hrs Weight 54.431 kg Physical Exam Const: COMMON NORMALS: no acute distress and patient oriented x3 Resp: COMMON NORMALS: normal respiratory effort and clear to auscultation bilaterally AUSCULTATION: clear to auscultation bilaterally OTHER: Overall decreased air movement but clear. Cardio: COMMON NORMALS: regular rate, regular rhythm and S2 normal heart sound present RATE: regular rate RHYTHM: regular rhythm HEART SOUNDS: S2 normal heart sound present OTHER: No lower extremity edema GI: COMMON NORMALS: Normal to inspection, nondistended, normoactive bowel sounds present, Soft to palpation and non-tender PALPATION: Yes Soft to pa lpation Neuro: COMMON NORMALS: patient oriented x3 and no focal motor deficits Data : 10/25/20 05:17 10/25/20 05:17 Micro: Microbiology 10/23/20 21:41 Blood Culture - Preliminary Blood 10/23/20 22:21 Blood Culture - Preliminary Blood NEGATIVE TO DATE A&P Assessment and plan (1) Acute respiratory failure with hypoxia: Likely secondary to aspiration pneumonitis/pneumonia Currently on 2 L Plan: -Solu-Medrol 40 every 12 hours -Ipratropium -Continue oxygen therapy -Change antibiotic therapy to Rocephin and azithromycin -Follow Covid PCR -Blood cultures, sputum cultures, urine bacterial antigens -Left lower extremity ultrasound to rule out DVT -Given her history of small cell lung cancer in the past, sudden onset of shortness of breath with rest and exertion, will order CT angiogram to rule out pulmonary emboli -In addition I have ordered a cardiac echocardiogram, as patient has received radiation therapy to the chest, has a risk of radiation toxicity including heart failure Status: Acute (2) COPD exacerbation: Status: Acute Additional A&P Information Small cell lung cancer status post chemoradiotherapy in remission Anorexia without odynophagia or dysphagia, right hard palate white patches noted, does not show typical leukoplakia features, will have patient follow with dermatology as outpatient Hypothyroidism: TSH 0.51, for now continue levothyroxine 88 mcg Full code Cardiac diet DVT prophylaxis Lovenox PLAN: We will observe patient for 1 more day. Initiate nystatin swish and swallow. Continue antibiotic for now as pneumonia cannot be completely ruled out. If continues to improve we will discharge patient tomorrow morning. Attestations Medical Necessity Statement*: Patient with significant nausea and vomiting as well as hypoxic respiratory failure requires observation for monitoring and treatment. Time Spent in Patient Care: 16 - 35 minutes Coding Level of Care Code Acute Heavy Equipment Diesel Mechanic for Beatrice Petersen Diagnoses Acute respiratory failure with hypoxia J96.01 COPD exacerbation J44.1
[2020-10-25] MEDS: cefTRIAXone 1,000 MG in sodium chloride 0.9% (plus) 50 ML 100 MG IV (12:22)
[2020-10-25] MEDS: nystatin 100,000 unit/mL UDC 5 mL 500000 UNIT PO ×3 (12:25→23:06)
[2020-10-25] MEDS: azithromycin 500 MG in sodium chloride 0.9% 250 ML 250 MG IV (13:32)
[2020-10-26] VITALS (9 sets, daily range): BP systolic 98–110; BP diastolic 57–65; PULSE 67–92; RESP 16–18; TEMP 36.5–36.9; O2SAT 94–99
[2020-10-26] MEDS: enoxaparin 40 mg/0.4 mL Syringe SUBCUT (01:05)
[2020-10-26] MEDS: HYDROmorphone 1 mg/mL INJ 1 mL 0.5 MG IVP (02:54)
[2020-10-26] MEDS: ipratropium-albuterol 3 mL Neb INHALATION ×2 (03:21→08:28)
[2020-10-26 06:08] LABS: Hematocrit 39.8 % (37.0-47.0); Hemoglobin 12.4 g/dL (11.5-15.3); Lymphocytes # 0.5 10^3/uL (0.8-4.8); Lymphocytes % 8.9 %; Mean Corpuscular HGB Conc 31.2 g/dL (30.0-36.0); Mean Corpuscular Hemoglobin 28.6 pg (28.0-34.0); Mean Corpuscular Volume 91.7 fL (81-99); Mean Platelet Volume 9.7 fL (7.4-10.4); Monocytes # 0.1 10^3/uL (0.2-0.9); Monocytes % 1.5 %; Neutrophils # 5.24 10^3/uL (1.8-7.7); Neutrophils % 89.4 %; Nucleated Red Blood Cells % 0 %; Platelet Count 233 10^3/cmm (130-400); Red Blood Count 4.34 10^6/uL (4.1-5.3); Red Cell Distribution Width 13.6 % (12.1-15.1); White Blood Count 5.9 10^3/uL (4.0-10.0)
[2020-10-26 06:27] LABS: Alanine Aminotransferase 13 U/L (0-33); Albumin Level 4.1 g/dL (3.5-5.2); Alkaline Phosphatase 95 IU/L (35-105); Anion Gap 15.4 (5-19); Aspartate Amino Transferase 22 U/L (0-32); Blood Urea Nitrogen 14 mg/dL (6-20); Calcium 8.6 mg/dL (8.5-10.5); Carbon Dioxide 28 mmol/L (22-29); Chloride 97 mmol/L (98-107); Creatinine Clr Calc Pharmacy 101.7687; Globulin 3.1 g/dL (1.3-4.6); Glomerular Filtration Rate 126.3 mL/min (90-130); Glucose 173 mg/dL (65-115); Magnesium 2.1 mg/dL (1.7-2.3); Osmolality Calculated 289 mOsm/kg (285-295); Phosphorus 3.1 mg/dL (2.5-4.5); Potassium 3.4 mmol/L (3.5-5.1); Sodium 137 mmol/L (136-145); Total Bilirubin 0.3 mg/dL (0.15-1.2); Total Protein 7.2 g/dL (6.6-8.7)
[2020-10-26 07:29] LABS: Procalcitonin 0.03 ng/mL (0-0.5)
[2020-10-26] MEDS: gabapentin 300 mg Capsule PO (08:35)
[2020-10-26] MEDS: sennosides-docusate Tablet 1 TAB PO (08:35)
[2020-10-26] MEDS: allopurinol 300 mg Tablet PO (08:35)
[2020-10-26] MEDS: levothyroxine 88 mcg Tablet PO (08:35)
[2020-10-26] MEDS: nystatin 100,000 unit/mL UDC 5 mL 500000 UNIT PO ×2 (08:36→11:19)
[2020-10-26] MEDS: cefTRIAXone 1,000 MG in sodium chloride 0.9% (plus) 50 ML 100 MG IV (10:37)
[2020-10-26] MEDS: HYDROcodone-acetaminophen 5-325 mg Tablet 1 TAB PO (11:19)
--- NOTE | 2020-10-26 11:42 | PM.DCS ---
Discharge Providers Date of Admission: 10/24/20 01:50 Date of Discharge: October 26, 2020 Attending Provider at Admission: Jerri Gonazlez MD Attending Provider at Discharge: Todd Bernstein MD Primary Care Provider: Adela Stout Diagnoses at Discharge Discharge Diagnosis (1) Acute respiratory failure with hypoxia: Status: Acute Permanent problem details: Resolved (2) COPD exacerbation: Status: Acute Permanent problem details: Resolved (3) Pneumonitis: Status: Acute Reason for Visit Reason for Visit: weakness, soreness, gen sick x3 days Hospital Course Hospital Course Patient presents with 3 days of feeling ill and diagnosed with acute hypoxic respiratory failure and COPD exacerbation. Patient was treated with antibiotics and gradually improved and this morning reports feeling back to her normal baseline and wants to go home. She denies shortness of breath or chest pain. She walked yesterday and with ambulation did not require any oxygen. She was noted to have evidence of pneumonitis on imaging left perihilar area. This could be possibly related to post radiation changes but since infection process cannot be completely ruled out and since patient improved with treatment I will continue her on Augmentin for 5 more days. Patient denies any trouble swallowing or related cough. She denies chest pain. She mentioned that her oncologist wanted to have some test to be performed while she is here. At this point I do not see any need for inpatient work-up and patient was told to follow-up with oncologist after she is discharged. She had some findings of thrush therefore will give patient nystatin swish and swallow for several days. At this point I do not think patient requires any steroids. Patient has significant peripheral neuropathy and we will continue her home medications. Physical Exam Narrative: EXAM NARRATIVE: Exam shows overall decreased air movement but otherwise clear lungs. Heart is regular and lower extremities show no edema. Abdomen is soft and nontender with positive bowel sounds. Discharge Data Data Completed and Pending: Completed Studies During Hospitalization Category Date Time Status CT angio chest PE protcl 82129 Rout ine Cat Scan 10/24/20 09:38 Completed XR chest 1V mayco ble [id number] Urgent Exams 10/23/20 20:51 Completed CV echo complete* [id number] Routine Ultrasound 10/25/20 05:00 [place] [id number] Routin e Ultrasound 10/24/20 06:36 Completed Pending at discharge Category Date Time Status Bacterial Antigen Stat Lab 10/24/20 11:08 Uncollected Blood Culture Sta t Lab 10/23/20 22:21 Results Complete Blood Co unt w/Auto AM LABS Lab 10/27/20 04:00 Ordered Comprehensive Met abolic Panel AM LA BS Lab 10/27/20 04:00 Ordered Magnesium AM LABS Lab 10/27/20 04:00 Ordered Phosphorus AM LAB S Lab 10/27/20 04:00 Ordered Procalcitonin AM LABS Lab 10/27/20 04:00 Ordered Sputum Culture an d Gram Stain Stat Lab 10/23/20 20:52 Uncollected Labs from last 24 hours 10/26/20 10/26/20 10/26/20 05:03 05:03 05:03 WBC 5.9 RBC 4.34 Hgb 12.4 Hct 39.8 MCV 91.7 MCH 28.6 MCHC 31.2 RDW 13.6 Plt Count 233 MPV 9.7 Neut % (Auto) 89.4 Lymph % (Auto) 8.9 Hartley % (Auto) 1.5 Eos % (Auto) 0.0 Baso % (Auto) 0.0 Neut # (Auto) 5.24 Lymph # (Auto) 0.5 L Hartley # (Auto) 0.1 L Eos # (Auto) 0.0 Baso # (Auto) 0.0 Nucleated RBC % (a uto) 0 Nucleated RBCs # 0.0 Sodium 137 Potassium 3.4 L Chloride 97 L Carbon Dioxide 28 Anion Gap 15.4 BUN 14 Creatinine 0.5 GFR Calculation 126.3 Glucose 173 H Calculated Osmolal ity 289 Calcium 8.6 Phosphorus 3.1 Magnesium 2.1 Total Bilirubin 0.3 AST 22 ALT 13 Alkaline Phosphata se 95 Total Protein 7.2 Albumin 4.1 Globulin 3.1 Procalcitonin 0.03 Vitals: Last Vital Signs Temp 98.2 F 10/26/20 11:25 Pulse 84 10/26/20 11:25 Resp 18 10/26/20 11:25 BP 101/64 10/26/20 11:25 Pulse Ox 98 10/26/20 11:25 Discharge Plan Discharge Patient Disposition: Home Condition: Stable Prescriptions: New nystatin 100,000 unit/mL Suspension 500,000 unit PO QID Qty: 100 RF: 0 amoxicillin-pot clavulanate [Augmentin] 875-125 mg tablet 1 tab PO Q12H Qty: 10 RF: 0 albuterol sulfate 90 mcg/actuation HFA aerosol inhaler 1 inh inhalation Q6H PRN (Reason: shortness of breath or wheezing) Qty: 6.7 RF: 0 Continued gabapentin 600 mg Tablet 600 mg PO TID RF: 0 levothyroxine 88 mcg Tablet 88 mcg PO QAM RF: 0 allopurinol 300 mg tablet 300 mg PO QAM RF: 0 cholecalciferol (vitamin D3) [Vitamin D3] 2,000 unit Tablet 2,000 unit PO DAILY RF: 0 Stool Softener-Laxative 8.6-50 mg Tablet 2 tab PO BEDTIME RF: 0 morphine 30 mg tablet extended release 30 mg PO Q12H RF: 0 Tylenol Extra Strength 500 mg Tablet 1,000 mg PO PRN RF: 0 nortriptyline 25 mg capsule 25 - 50 mg PO DAILY RF: 0 Complete Multivitamin Tablet 1 tab PO DAILY RF: 0 duloxetine 20 mg capsule,delayed release(DR/EC) 40 mg PO BID RF: 0 oxycodone 10 mg tablet 10 mg PO Q6H PRN (Reason: Pain) RF: 0 gabapentin 300 mg capsule 300 mg PO BEDTIME RF: 0 Discharge Orders: Discharge Order (Routine); Ordered 10/26/20 Ordered By: Todd Bernstein Referrals: Adela Stout [Primary Care Provider] - 4-7 days Discharge Diet: Advance as tolerated Discharge Activity: Increase activity as tolerated Activity Restrictions/Additional Instructions: Please call your doctor or present to emergency department if your condition worsens or you develop diarrhea, lightheadedness, fatigue or see blood in your stool or black stool. Please follow-up with your oncologist regarding test you mentioned. Discharge Attestations Time Spent in Discharge Care*: greater than 30 min Quality Metrics Clinical Quality Measures During this hospital stay, did patient experience: None Coding Level of Care Code Acute Community Health Planning Director for Beatrice Fweagle Diagnoses Acute respiratory failure with hypoxia J96.01 COPD exacerbation J44.1 Pneumonitis J18.9
[2020-10-26] MEDS: potassium chloride ER 20 mEq Tablet 40 MEQ PO (11:43)
== END 2020-10-26 15:03 | disposition home or self-care (01) ==
LOC: ER 20:32 → MEDSURG 10-24 01:34
PROVIDERS: Family Medicine; Admitting Provider Internal Medicine; Emergency Provider Emergency Medicine; PCP Internal Medicine; Visit Provider Internal Medicine
DX: J44.1 Chronic obstructive pulmonary disease with (acute) exacerbation (principal); J96.01 Acute respiratory failure with hypoxia; J18.9 Pneumonia, unspecified organism; Z99.81 Dependence on supplemental oxygen; M79.89 Other specified soft tissue disorders; C34.90 Malignant neoplasm of unspecified part of unspecified bronchus or lung; R63.0 Anorexia; E03.9 Hypothyroidism, unspecified
CPT/HCPCS: 12345; 36415; 36600; 71045; 71275; 80048; 80053; 81003; 82805; 83605; 83735; 83880; 84100; 84145; 84443; 84484; 85025; 85378; 86140; 87040; 87205; 87426; 87635; 87804; 93005; 93306; 93971; 94640; 96361; 96372; 96374; 96375; 99283; 99285; G0378; J0456; J0696; J1170; J1650; J2270; J2405; J2920; J2930; J7030; J7050; J7512; Q9967

== ENCOUNTER 2021-03-28 12:25 | Inpatient (IN) | payer MEDICARE, MEDICAID, SELFPAY ==
[2021-03-28] VITALS (10 sets, daily range): BP systolic 92–107; BP diastolic 45–68; PULSE 76–94; RESP 16–20; TEMP 37.2; O2SAT 93–100; BMI 22.1
--- NOTE | 2021-03-28 13:07 | XRR_ITS ---
PROCEDURE INFORMATION: Exam: XR Chest Exam date and time: 03/28/2021 1:07 PM Age: 60 years old Clinical indication: Cough and fever; Additional info: Cough; Fever TECHNIQUE: Imaging protocol: XR of the chest. Views: 1 view. COMPARISON: CR XR chest 1V portable [id number] 10/23/2020 9:24 PM FINDINGS: Lungs: Unremarkable. No consolidation. Pleural spaces: Unremarkable. No pleural effusion. No pneumothorax. Heart/Mediastinum: Unremarkable. No cardiomegaly. Bones/joints: Unremarkable. XR/XR chest 1V portable [id number] IMPRESSION: No acute findings.
--- NOTE | 2021-03-28 13:07 | ECG_ITS ---
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
--- NOTE | 2021-03-28 13:17 | W.ED.FEVER ---
HPI - Fever General: Chief Complaint: Fever Stated Complaint: FEVER, COUGH, N/V, DIZZY, DIARRHEA Time Seen by Provider: 03/28/21 12:30 Source: patient and EMS Mode of arrival: EMS Limitations: no limitations History of Present Illness: HPI Narrative: Patient with complaints of fever since Saturday 3 days ago. Patient's had nonproductive cough, nausea, vomiting, diarrhea, mild right lower quadrant abdominal pain. Patient also has sore throat. She states she had temperature up to 102 today. She has not had any Tylenol today. Her oxygen saturation is 87% on room air. She states she normally wears oxygen at 2 L/min. When placed on oxygen at 2 L/min patient had oxygen saturation of 93 to 94%. Her blood pressure presently is 99/57 with heart rate of 83. Possible history includes COPD oxygen dependent, gout, hypothyroidism. Patient denies history of diabetes. Patient stop smoking 3 years ago. MD elicited complaint: fever and malaise Pertinent past history: other (COPD, gout, hypothyroidism) Onset (ago): day(s) (3) Exacerbating factors: nothing Relieving factors: nothing Associated symptoms: Reports abdominal pain, chills, cough, diarrhea, myalgias, nausea, short of breath, sore throat and vomiting; Deny flank pain (Mild lower back pain. No flank pain.), chest pain, confusion, dysuria, extremity pain, headache(s), nasal congestion or rash Treatments prior to arrival fever: none Review of Systems Const: Reports: fever(s), chills, body aches, fatigue and malaise Eyes: Denies: change in vision or blurry vision ENMT: Reports: throat pain; Denies: odynophagia or nasal congestion Card: Denies: chest pain, palpitations or lightheadedness Resp: Reports: non-productive cough; Denies: dyspnea, wheezing or stridor GI: Reports: abdominal pain, nausea, vomiting and diarrhea : Denies: flank pain (Mild lower back pain. No flank pain.) or dysuria Musc: Reports: back pain (Mild low back pain); Denies: neck pain, extremity pain, extremity swelling or joint pain Skin/Breast: Denies: rash or pruritus Neuro: Denies: headache(s) or confusion Psych: Denies: anxiety Grabiel/Lymph: Denies: enlarged lymph nodes PFSH ED PFSH: Medical History COPD (chronic obstructive pulmonary disease) Former smoker Hypothyroidism Small cell lung cancer in adult Surgical History History of appendectomy Family History Father Cancer Lung cancer Social History Smoking and tobacco status: former smoker Alcohol intake: never Household members: family Housing: House Physical Exam Const: COMMON NORMALS: patient oriented x3, no limitations, alert and well nourished EXAM LIMITATIONS: altered mental status GENERAL APPEARANCE: cooperative and disheveled ORIENTATION/CONSCIOUSNESS: Yes awake, Yes oriented to person, Yes oriented to place and Yes oriented to time OTHER: Moderate malaise. Blood pressure 94/58 with heart rate of 92, oxygen saturation 95% on 2.5 L/min by nasal cannula. Ox saturation was 87% on room air. HENMT: COMMON NORMALS: normocephalic and atraumatic HEAD & SCALP: normocephalic and atraumatic FACE & SINUS: normal facial exam MOUTH: Normal oral and palatal mucosa present THROAT: posterior oropharynx normal Eye: COMMON NORMALS: Equal, round and reactive pupils present and EOMs intact bilaterally PUPIL: Yes Equal, round and reactive pupils present Neck/C-Spine: COMMON NORMALS: full ROM, no lymphadenopathy, supple, no meningeal signs and no JVD GENERAL: Yes normal visual inspection Lymph: LYMPHATIC: no lymphadenopathy noted Chest: COMMONS NORMALS: normal inspection of the chest and normal palpation of entire chest wall CHEST: No Ecchymosis present and No rash Resp: COMMON NORMALS: normal respiratory effort and No retractions EFFORT & INSPECTION: No respiratory distress AUSCULTATION: wheezes (Bilateral expiratory wheezes.) expiratory wheezes Cardio: COMMON NORMALS: no JVD, regular rate, regular rhythm and Peripheral pulses 2+ throughout JUGULAR VENOUS DISTENTION: no JVD RATE: regular rate RHYTHM: regular rhythm PERIPHERAL PULSES: Peripheral pulses 2+ throughout GI: COMMON NORMALS: Normal to inspection, nondistended, normoactive bowel sounds present PALPATION: Yes Tenderness to palpation present (GI) (Mild right lower quad abdominal pain.) : COMMON NORMALS: Yes no CVA tenderness BLADDER/KIDNEY EXAM: Yes no CVA tenderness Back/Pelvis: COMMON NORMALS: no CVA tenderness Extremity: COMMON NORMALS: normal to inspection, full ROM and capillary refill normal Neuro: COMMON NORMALS: patient oriented x3, CN's II-XII intact bilaterally, no focal motor deficits and no sensory deficits noted SENSORIUM/ORIENTATION: Yes alert, Yes oriented to person, Yes oriented to place and Yes oriented to time MENINGEAL SIGNS: Yes no meningeal signs Psych: COMMON NORMALS: mental status grossly normal and Normal thought process present THOUGHT PROCESS: Normal thought process present Skin: COMMON NORMALS: no rashes or lesions noted and no wounds GENERAL SKIN EXAM: no rashes or lesions noted Course Vital Signs: Vital signs: Vital Signs Temperature 99 F 03/28/21 12:42 Pulse Rate 79 03/28/21 16:38 Respiratory Rate 18 03/28/21 16:38 Blood Pressure 102/52 03/28/21 16:38 Pulse Oximetry 100 03/28/21 16:38 MDM - Fever MDM Narrative: Medical decision making narrative: 1606: ct still pending. 1730: Discussed case with Dr. Patel. He wants patient admitted to [facility]. Lab Data: Attestation: I reviewed the patient's lab results. Labs: Lab Results 03/28/21 03/28/21 03/28/21 Range/Units 12:45 12:45 12:45 WBC 4.1 (4.0-10.0) 10^3/ uL RBC 4.31 (4.1-5.3) 10^6/u L Hgb 12.3 (11.5-15.3) g/dL Hct 38.5 (37.0-47.0) % MCV 89.3 (81-99) fL MCH 28.5 (28.0-34.0) pg MCHC 31.9 (30.0-36.0) g/dL RDW 13.9 (12.1-15.1) % Plt Count 207 (130-400) 10^3/c mm MPV 9.6 (7.4-10.4) fL Neut % (Auto) 59.7 % Lymph % (Auto) 30.2 % [place] % (Auto) 9.5 % Eos % (Auto) 0.2 % Baso % (Auto) 0.2 % Neut # (Auto) 2.45 (1.8-7.7) 10^3/u L Lymph # (Auto) 1.2 (0.8-4.8) 10^3/u L [place] # (Auto) 0.4 (0.2-0.9) 10^3/u L Eos # (Auto) 0.0 (0.0-0.8) 10^3/u L Baso # (Auto) 0.0 (0.0-0.1) 10^3/u L Nucleated RBC % (a uto) 0 % Nucleated RBCs # 0.0 /100WBC Sodium 133 L (136-145) mmol/L Potassium 4.3 (3.5-5.1) mmol/L Chloride 92 L (98-107) mmol/L Carbon Dioxide 32 H (22-29) mmol/L Anion Gap 13.3 (5-19) BUN 6 L (8-23) mg/dL Creatinine 0.7 (0.5-0.9) mg/dL GFR Calculation 85.4 L (90-130) mL/min Glucose 91 (65-115) mg/dL Calculated Osmolal ity 273 L (285-295) mOsm/k g Lactate 0.7 (0.5-2.2) mmol/L Calcium 8.0 L (8.5-10.5) mg/dL Total Bilirubin 0.2 (0.15-1.2) mg/dL AST 39 H (0-32) U/L ALT 20 (0-33) U/L Alkaline Phosphata se 113 H (35-105) IU/L NT-Pro-B Natriuret Pep 535 H (0-125) pg/mL Total Protein 6.4 L (6.6-8.7) g/dL Albumin 3.9 (3.5-5.2) g/dL Globulin 2.5 (1.3-4.6) g/dL Lipase 27 (13-60) U/L Urine Color (Yellow) Urine Appearance (CLEAR) Urine pH (5-7) Ur Specific Gravit y (1.005-1.030) Urine Protein (Negative) Urine Glucose (UA) (Normal) Urine Ketones (Negative) Urine Blood (Negative) Urine Nitrate (Negative) Urine Bilirubin (Negative) Urine Urobilinogen (Negative) mg/dL Ur Leukocyte Kassandra ase (Negative) Urine RBC (0-2) /hpf Urine WBC (0-5) /hpf Ur Squamous Epith Cells (0-5) /hpf Amorphous Sediment Urine Bacteria (NONE) /hpf Urine Mucus /hpf Influenza Type A A g (Negative) Influenza Type B A g (Negative) SARS-CoV-2 Ag (Rap id) (Negative) Group A Strep Rapi d (Negative) 03/28/21 03/28/21 03/28/21 Range/Units 13:50 13:50 14:00 WBC (4.0-10.0) 10^3/ uL RBC (4.1-5.3) 10^6/u L Hgb (11.5-15.3) g/dL Hct (37.0-47.0) % MCV (81-99) fL MCH (28.0-34.0) pg MCHC (30.0-36.0) g/dL RDW (12.1-15.1) % Plt Count (130-400) 10^3/c mm MPV (7.4-10.4) fL Neut % (Auto) % Lymph % (Auto) % [place] % (Auto) % Eos % (Auto) % Baso % (Auto) % Neut # (Auto) (1.8-7.7) 10^3/u L Lymph # (Auto) (0.8-4.8) 10^3/u L [place] # (Auto) (0.2-0.9) 10^3/u L Eos # (Auto) (0.0-0.8) 10^3/u L Baso # (Auto) (0.0-0.1) 10^3/u L Nucleated RBC % (a uto) % Nucleated RBCs # /100WBC Sodium (136-145) mmol/L Potassium (3.5-5.1) mmol/L Chloride (98-107) mmol/L Carbon Dioxide (22-29) mmol/L Anion Gap (5-19) BUN (8-23) mg/dL Creatinine (0.5-0.9) mg/dL GFR Calculation (90-130) mL/min Glucose (65-115) mg/dL Calculated Osmolal ity (285-295) mOsm/k g Lactate (0.5-2.2) mmol/L Calcium (8.5-10.5) mg/dL Total Bilirubin (0.15-1.2) mg/dL AST (0-32) U/L ALT (0-33) U/L Alkaline Phosphata se (35-105) IU/L NT-Pro-B Natriuret Pep (0-125) pg/mL Total Protein (6.6-8.7) g/dL Albumin (3.5-5.2) g/dL Globulin (1.3-4.6) g/dL Lipase (13-60) U/L Urine Color (Yellow) Urine Appearance (CLEAR) Urine pH (5-7) Ur Specific Gravit y (1.005-1.030) Urine Protein (Negative) Urine Glucose (UA) (Normal) Urine Ketones (Negative) Urine Blood (Negative) Urine Nitrate (Negative) Urine Bilirubin (Negative) Urine Urobilinogen (Negative) mg/dL Ur Leukocyte Kassandra ase (Negative) Urine RBC (0-2) /hpf Urine WBC (0-5) /hpf Ur Squamous Epith Cells (0-5) /hpf Amorphous Sediment Urine Bacteria (NONE) /hpf Urine Mucus /hpf Influenza Type A A g Negative (Negative) Influenza Type B A g Negative (Negative) SARS-CoV-2 Ag (Rap id) Positive H (Negative) Group A Strep Rapi d Negative (Negative) 03/28/21 Range/Units 14:45 WBC (4.0-10.0) 10^3/ uL RBC (4.1-5.3) 10^6/u L Hgb (11.5-15.3) g/dL Hct (37.0-47.0) % MCV (81-99) fL MCH (28.0-34.0) pg MCHC (30.0-36.0) g/dL RDW (12.1-15.1) % Plt Count (130-400) 10^3/c mm MPV (7.4-10.4) fL Neut % (Auto) % Lymph % (Auto) % [place] % (Auto) % Eos % (Auto) % Baso % (Auto) % Neut # (Auto) (1.8-7.7) 10^3/u L Lymph # (Auto) (0.8-4.8) 10^3/u L [place] # (Auto) (0.2-0.9) 10^3/u L Eos # (Auto) (0.0-0.8) 10^3/u L Baso # (Auto) (0.0-0.1) 10^3/u L Nucleated RBC % (a uto) % Nucleated RBCs # /100WBC Sodium (136-145) mmol/L Potassium (3.5-5.1) mmol/L Chloride (98-107) mmol/L Carbon Dioxide (22-29) mmol/L Anion Gap (5-19) BUN (8-23) mg/dL Creatinine (0.5-0.9) mg/dL GFR Calculation (90-130) mL/min Glucose (65-115) mg/dL Calculated Osmolal ity (285-295) mOsm/k g Lactate (0.5-2.2) mmol/L Calcium (8.5-10.5) mg/dL Total Bilirubin (0.15-1.2) mg/dL AST (0-32) U/L ALT (0-33) U/L Alkaline Phosphata se (35-105) IU/L NT-Pro-B Natriuret Pep (0-125) pg/mL Total Protein (6.6-8.7) g/dL Albumin (3.5-5.2) g/dL Globulin (1.3-4.6) g/dL Lipase (13-60) U/L Urine Color Yellow (Yellow) Urine Appearance Clear (CLEAR) Urine pH 5 (5-7) Ur Specific Gravit y 1.015 (1.005-1.030) Urine Protein Neg (Negative) Urine Glucose (UA) Norm (Normal) Urine Ketones 1+ H (Negative) Urine Blood Neg (Negative) Urine Nitrate Negative (Negative) Urine Bilirubin Neg (Negative) Urine Urobilinogen Norm (Negative) mg/dL Ur Leukocyte Kassandra ase Negative (Negative) Urine RBC None (0-2) /hpf Urine WBC 0-4 H (0-5) /hpf Ur Squamous Epith Cells 0-4 H (0-5) /hpf Amorphous Sediment Not Reportable Urine Bacteria Trace (NONE) /hpf Urine Mucus 1+ /hpf Influenza Type A A g (Negative) Influenza Type B A g (Negative) SARS-CoV-2 Ag (Rap id) (Negative) Group A Strep Rapi d (Negative) Imaging Data^: CXR: Attestation: I personally reviewed and interpreted this imaging study as follows: My impression: Chest x-ray shows nothing acute. Radiologist's impression: Suresh Garcianolan #: [id number]: 1960cct#:[id number]/Sex: 60 / FADM Date: 03/28/21Loc: ERRoom/Bed:Attending Dr: Ordering Provider/Ordering MD: Anton Ames MD Date of Service: 03/28/21 Procedure(s): XR chest 1V portable [id number] Accession Number(s): [id number] Report Number: [id number] PROCEDURE INFORMATION: Exam: XR Chest Exam date and time: 03/28/2021 1:07 PM Age: 60 years old Clinical indication: Cough and fever; Additional info: Cough; Fever TECHNIQUE: Imaging protocol: XR of the chest. Views: 1 view. COMPARISON: CR XR chest 1V portable [id number] 10/23/2020 9:24 PM FINDINGS: Lungs: Unremarkable. No consolidation. Pleural spaces: Unremarkable. No pleural effusion. No pneumothorax. Heart/Mediastinum: Unremarkable. No cardiomegaly. Bones/joints: Unremarkable. XR/XR chest 1V portable [id number] IMPRESSION: No acute findings. Dictated By:Tiago Mcbride By:Tiago Mcbride Date/Time:03/28/[address] Abd/Pel: Radiologist's impression: JoseRichy #: [id number]: 1960cct#:[id number]/Sex: 60 / FADM Date: 03/28/21Loc: ERRoom/Bed:Attending Dr: Ordering Provider/Ordering MD: Anton Ames MD Date of Service: 03/28/21 Procedure(s): CT abdomen pelvis w con* [id number] Accession Number(s): [id number] Report Number: [id number] PROCEDURE INFORMATION: Exam: CT Abdomen And Pelvis With Contrast Exam date and time: 03/28/2021 1:56 PM Age: 60 years old Clinical indication: Abdominal pain; Acute; Prior surgery; Surgery date: 6+ months; Additional info: Rlq abd pain; N/v/d; Fever, h/o previous appendectomy TECHNIQUE: Imaging protocol: Computed tomography of the abdomen and pelvis with contrast. Radiation optimization: All CT scans at this facility use at least one of these dose optimization techniques: automated exposure control; mA and/or kV adjustment per patient size (includes targeted exams where dose is matched to clinical indication); or iterative reconstruction. Contrast material: OMNI 300; Contrast volume: 95 ml; Contrast route: INTRAVENOUS (IV); COMPARISON: CT Abdomen/Pelvis Renal [id number] 03/29/2018 5:03 PM RADIATION DOSE METRICS: Total DLP (mGy-cm): 909.85 FINDINGS: Liver: Normal. No mass. Gallbladder and bile ducts: Normal. No calcified stones. No ductal dilation. Pancreas: Normal. No ductal dilation. Spleen: Normal. No splenomegaly. Adrenal glands: Normal. No mass. Kidneys and ureters: Normal. No hydronephrosis. Stomach and bowel: Unremarkable. No obstruction. No mucosal thickening. Appendix: No evidence of appendicitis. Intraperitoneal space: Unremarkable. No free air. No significant fluid collection. Vasculature: Unremarkable. No abdominal aortic aneurysm. Lymph nodes: Unremarkable. No enlarged lymph nodes. Urinary bladder: Unremarkable as visualized. Reproductive: Unremarkable as visualized. Bones/joints: Unremarkable. No acute fracture. Soft tissues: Unremarkable. CT/CT abdomen pelvis w con* [id number] IMPRESSION: 1. No acute findings. 2. Negative abdomen and pelvis CT examination. Radiation Dose CTDIVOL = (mGy): DLP = 909.85 (mGy-cm) Dictated By:Tiago Mcbride By:Tiago Mcbride Date/Time:03/28/21 1643 EKG Data^: EKG 1: Attestation: I personally reviewed and interpreted this EKG as follows: EKG interpretation date: 03/28/21 EKG interpretation time: 13:41 Prior EKG tracings: not available for review Interpretation: EKG shows normal sinus rhythm with normal QRS normal P wave, normal CT interval, normal ST segment, normal T waves, normal axis, impression normal EKG. Critical Care Time Critical Care Time: Critical Care Time: Yes Total Critical Care Time: 50 Attestation: Hypoxia, mild hypotension, see orders Discharge Plan Discharge Patient Disposition: Admitted As Inpatient Clinical Impression: COVID-19, Hypoxia, Diarrhea due to COVID-19 Abdominal pain Qualifiers: Abdominal location: right lower quadrant Qualified Code(s): R10.31 - Right lower quadrant pain Nausea & vomiting Qualifiers: Vomiting type: unspecified Vomiting Intractability: non-intractable Qualified Code(s): R11.2 - Nausea with vomiting, unspecified Condition: Stable Coding Level of Care Code ED Sulky Driver for Chg Fwd Exam Comprehensive
[2021-03-28 13:21] LABS: Basophils % 0.2 %; Eosinophils % 0.2 %; Hematocrit 38.5 % (37.0-47.0); Hemoglobin 12.3 g/dL (11.5-15.3); Lymphocytes # 1.2 10^3/uL (0.8-4.8); Lymphocytes % 30.2 %; Mean Corpuscular HGB Conc 31.9 g/dL (30.0-36.0); Mean Corpuscular Hemoglobin 28.5 pg (28.0-34.0); Mean Corpuscular Volume 89.3 fL (81-99); Mean Platelet Volume 9.6 fL (7.4-10.4); Monocytes # 0.4 10^3/uL (0.2-0.9); Monocytes % 9.5 %; Neutrophils # 2.45 10^3/uL (1.8-7.7); Neutrophils % 59.7 %; Nucleated Red Blood Cells % 0 %; Platelet Count 207 10^3/cmm (130-400); Red Blood Count 4.31 10^6/uL (4.1-5.3); Red Cell Distribution Width 13.9 % (12.1-15.1); White Blood Count 4.1 10^3/uL (4.0-10.0)
[2021-03-28 13:34] LABS: Lactate (Lactic Acid level) 0.7 mmol/L (0.5-2.2)
[2021-03-28 13:44] LABS: Alanine Aminotransferase 20 U/L (0-33); Albumin Level 3.9 g/dL (3.5-5.2); Alkaline Phosphatase 113 IU/L (35-105); Anion Gap 13.3 (5-19); Aspartate Amino Transferase 39 U/L (0-32); Blood Urea Nitrogen 6 mg/dL (8-23); Carbon Dioxide 32 mmol/L (22-29); Chloride 92 mmol/L (98-107); Globulin 2.5 g/dL (1.3-4.6); Glomerular Filtration Rate 85.4 mL/min (90-130); Glucose 91 mg/dL (65-115); Lipase 27 U/L (13-60); NT Pro B Type Natriuretic Pept 535 pg/mL (0-125); Osmolality Calculated 273 mOsm/kg (285-295); Potassium 4.3 mmol/L (3.5-5.1); Sodium 133 mmol/L (136-145); Total Bilirubin 0.2 mg/dL (0.15-1.2); Total Protein 6.4 g/dL (6.6-8.7)
[2021-03-28] MEDS: albuterol 8 gm MDI 2 PUFF INHALATION (13:45)
--- NOTE | 2021-03-28 13:56 | CTR_ITS ---
PROCEDURE INFORMATION: Exam: CT Abdomen And Pelvis With Contrast Exam date and time: 03/28/2021 1:56 PM Age: 60 years old Clinical indication: Abdominal pain; Acute; Prior surgery; Surgery date: 6+ months; Additional info: Rlq abd pain; N/v/d; Fever, h/o previous appendectomy TECHNIQUE: Imaging protocol: Computed tomography of the abdomen and pelvis with contrast. Radiation optimization: All CT scans at this facility use at least one of these dose optimization techniques: automated exposure control; mA and/or kV adjustment per patient size (includes targeted exams where dose is matched to clinical indication); or iterative reconstruction. Contrast material: OMNI 300; Contrast volume: 95 ml; Contrast route: INTRAVENOUS (IV); COMPARISON: CT Abdomen/Pelvis Renal [id number] 03/29/2018 5:03 PM RADIATION DOSE METRICS: Total DLP (mGy-cm): 909.85 FINDINGS: Liver: Normal. No mass. Gallbladder and bile ducts: Normal. No calcified stones. No ductal dilation. Pancreas: Normal. No ductal dilation. Spleen: Normal. No splenomegaly. Adrenal glands: Normal. No mass. Kidneys and ureters: Normal. No hydronephrosis. Stomach and bowel: Unremarkable. No obstruction. No mucosal thickening. Appendix: No evidence of appendicitis. Intraperitoneal space: Unremarkable. No free air. No significant fluid collection. Vasculature: Unremarkable. No abdominal aortic aneurysm. Lymph nodes: Unremarkable. No enlarged lymph nodes. Urinary bladder: Unremarkable as visualized. Reproductive: Unremarkable as visualized. Bones/joints: Unremarkable. No acute fracture. Soft tissues: Unremarkable. CT/CT abdomen pelvis w con* [id number] IMPRESSION: 1. No acute findings. 2. Negative abdomen and pelvis CT examination. Radiation Dose CTDIVOL = (mGy): DLP = 909.85 (mGy-cm)
[2021-03-28] MEDS: acetaminophen 500 mg Tablet 1000 MG PO (13:57)
[2021-03-28] MEDS: sodium chloride 0.9% 500 ML 1000 ML IV (13:58)
[2021-03-28] MEDS: ondansetron 2 mg/ML SDV 2 mL 4 MG IVP (13:58)
[2021-03-28 14:16] LABS: Rapid Strep A Test Negative (Negative)
[2021-03-28 14:29] LABS: SARS Covid-2 Antigen Positive (Negative)
[2021-03-28 14:30] LABS: Influenza A by IFA Negative (Negative); Influenza B by IFA Negative (Negative)
[2021-03-28 15:04] LABS: Urine Color Yellow (Yellow)
[2021-03-28 15:05] LABS: Bilirubin Urine Neg (Negative); Blood Urine Neg (Negative); Glucose Urine UA Norm (Normal); Ketones Urine 1+ (Negative); Leukocyte Esterase Urine Negative (Negative); Mucus Urine 1+ /hpf; Nitrate Urine Negative (Negative); Protein Urine Neg (Negative); Specific Gravity, Urine 1.015 (1.005-1.030); Urine Appearance Clear (CLEAR); Urobilinogen Urine Norm (Negative); pH Urine 5 (5-7)
[2021-03-28 15:06] LABS: Add Urine Culture? No; Bacteria Urine TRACE /hpf; Squamous Epithelial Cell Urine 0-4 /hpf (0-5); WBC Urine 0-4 /hpf (0-5)
[2021-03-28] MEDS: iohexol 300 mg/mL 100 mL Btl IV (16:09)
--- NOTE | 2021-03-28 18:35 | P.HP_ITS ---
Providers/Chief Complaint Admitting Physician: Uvaldo Patel MD Primary Care Provider: Adela Stout Chief Complaint: FEVER, COUGH, N/V, DIZZY, DIARRHEA History of Present Illness Zulma Garcia is a 60 year old female with pmh of COPD on 2ls home oxygen,hypothyroidism, small cell lung cancer status post chemo radiochemotherapy in remission since 2018 without any recurrence,CVA with r esidual lt sided weakness, came in with c/o fever since Saturday, nonproductive cough, nausea, vomiting, diarrhea, mild right lower quadrant abdominal pain and sore throat. She states she had temperature up to 102 today. upon arrival in the ER her oxygen saturation was 87% on room air. She was worked up for above mention complaint: Imaging studies : XR chest: No infiltrates, no effusion. C.T abdomen and pelvis without contrast:No acute findings. Pertinent Labs : CBC :WNL COVID Rapid antigen :Positive Review of Systems Const: Denies: change in appetite or diaphoresis Card: Denies: palpitations, edema or swelling of feet/ankles Resp: Denies: wheezing or pain on inspiration : Denies: flank pain Musc: Denies: extremity swelling Neuro: Denies: headache(s) Medications/Allergies Home Medications Medication Instructions Recorded Confirmed Last Taken Type allopurinol 300 mg PO DAILY@0600 10/17/19 03/28/21 03/28/21 History cholecalciferol (vitamin D3) 2,000 unit PO DAILY@0800 10/17/19 03/28/21 03/27/21 History [Vitamin D3] gabapentin 600 mg PO TID@0800,1200,1800 10/17/19 03/28/21 03/28/21 History levothyroxine 88 mcg PO DAILY@0800 10/17/19 03/28/21 03/28/21 History acetaminophen [Tylenol Extra 1,000 mg PO PRN 10/24/20 03/28/21 Unknown History Strength] duloxetine 40 mg PO BID@0800,1800 10/24/20 03/28/21 03/28/21 History gabapentin 300 mg PO BEDTIME@1800 10/24/20 03/28/21 03/27/21 History nortriptyline 25 - 50 mg PO DAILY 10/24/20 03/28/21 03/27/21 History oxycodone 10 mg PO Q6H PRN 10/24/20 03/28/21 03/28/21 History sennosides-docusate sodium [Stool 2 tab PO BEDTIME 10/24/20 03/28/21 Unknown H istory Softener-Laxative] nystatin 500,000 unit PO QID #100 ml 10/26/20 03/28/21 Unknown Rx ukdpjgmo-bib-CH-lycopen-lutein 1 tab PO DAILY@0800 03/28/21 03/28/21 03/28/21 History [Complete Multi 50+] ondansetron 4 mg PO Q8H PRN 03/28/21 03/28/21 Unknown History Allergies Allergy/AdvReac Type Severity Reaction Status Date / Time ibuprofen Allergy ALGY-Swell Verified 10/23/20 20:23 Lip/Tongue/Throat flu shot Allergy Unknown Uncoded 10/23/20 20:23 PFSH Acute PFSH: Medical History COPD (chronic obstructive pulmonary disease) Former smoker Hypothyroidism Small cell lung cancer in adult Surgical History History of appendectomy Family History Father Cancer Lung cancer Social History Smoking and tobacco status: former smoker Alcohol intake: never Household members: family Housing: House Vitals/I&O/Wt Last Vital Signs Temp 99 F 03/28/21 12:42 Pulse 76 03/28/21 18:20 Resp 18 03/28/21 16:38 BP 107/61 03/28/21 18:20 Pulse Ox 100 03/28/21 18:20 03/28/21 03/28/21 03/28/21 06:59 14:59 22:59 Intake Total 500 / 500 Balance 500 / 500 Weight last 48 hrs Weight 56.699 kg Physical Exam Const: COMMON NORMALS: patient oriented x3 HENMT: COMMON NORMALS: normocephalic and atraumatic Resp: OTHER: B/L Diminished air entry Cardio: COMMON NORMALS: regular rate, regular rhythm, S1 normal heart sound present, S2 normal heart sound present, No gallops present (Cardio), No murmurs present (Cardio), No rub (Cardio) and Peripheral pulses 2+ throughout RATE: regular rate RHYTHM: regular rhythm HEART SOUNDS: S1 normal heart sound present and S2 normal heart sound present PERIPHERAL PULSES: Peripheral pulses 2+ throughout GI: COMMON NORMALS: Normal to inspection, nondistended, normoactive bowel sounds present, Soft to palpation, non-tender, No hepatosplenomegaly present and no masses AUSCULTATION: Yes normoactive bowel sounds PALPATION: Yes Soft to palpation and Yes No hepatosplenomegaly present RECTAL EXAM: deferred Extremity: COMMON NORMALS: no clubbing, cyanosis or edema and no pedal edema Neuro: COMMON NORMALS: patient oriented x3 Data : 03/28/21 12:45 03/28/21 12:45 Micro: Microbiology 03/28/21 13:40 Blood Culture - Preliminary Blood SPECIMEN COLLECTED 03/28/21 13:35 Blood Culture - Preliminary Blood SPECIMEN COLLECTED A&P Assessment and plan (1) Pneumonia due to COVID-19 virus: Currently on COVID Protocol D-dimer ESR CRP Ferittin Fibrinigen Remdesivir 5 Day course Dexamethasone 6 mg I.V Daily Cef 1gm q24h Azithromycin 500 mg I.V Daily Lovenox 40 mg sc Daily Advair inhalation Pulmicort inhalation Ascorbic acid po Zinc gluconate po Incentive Spirometry flutter valve Supplemental oxygen Status: Acute (2) Hypothyroidism: Status: Acute Qualifiers: Hypothyroidism type: acquired Qualified Code(s): E03.9 - Hyp othyroidism, unspecified (3) Hypothyroidism: Status: Acute (4) H/O: CVA (cerebrovascular accident): Status: Acute (5) Small cell lung cancer in adult: H/O Small cell lung cancer Status: Acute Additional A&P Information Code Status :Full code DVT PPX: Lovenox Disposition : Discharge to home. Attestations Medical Necessity Statement*: Patient needs to be in hospital for the management of COVID PNA.Anticipated LOS Greater then 2 midnights. Coding Level of Care Code Acute [place] Floor for [facility] Fwd Exam Detailed Diagnoses Pneumonia due to COVID-19 virus U07.1; J12.82 Hypothyroidism E03.9 Hypothyroidism type: acquired Hypothyroidism E03.9 H/O: CVA (cerebrovascular accident) Z86.73 Small cell lung cancer in adult C34.90
[2021-03-28] MEDS: remdesivir 200 MG in sodium chloride 0.9% (100 ml) 100 ML 100 MG IV (19:04)
--- NOTE | 2021-03-28 19:24 | PC.NURSE ---
tried to call report>>room is not clean will call us when room is ready
--- NOTE | 2021-03-28 21:13 | PC.NURSE ---
report to Torie FERREIRA
[2021-03-29] VITALS (12 sets, daily range): BP systolic 90–120; BP diastolic 50–66; PULSE 67–102; RESP 13–20; TEMP 36.6–37.7; O2SAT 93–98
[2021-03-29] MEDS: cefTRIAXone 1,000 MG in sodium chloride 0.9% (plus) 50 ML 100 MG IV ×2 (00:02→23:17)
[2021-03-29] MEDS: dexamethasone 4 mg/mL INJ 6 MG IVP ×2 (00:02→23:48)
[2021-03-29] MEDS: oxyCODONE-APAP 5-325 mg Tablet 1 TAB PO ×2 (01:36→10:46)
[2021-03-29] MEDS: allopurinol 300 mg Tablet PO (05:40)
[2021-03-29 06:44] LABS: Hematocrit 41.1 % (37.0-47.0); Hemoglobin 13.2 g/dL (11.5-15.3); Lymphocytes # 0.4 10^3/uL (0.8-4.8); Lymphocytes % 13.3 %; Mean Corpuscular HGB Conc 32.1 g/dL (30.0-36.0); Mean Corpuscular Hemoglobin 28.3 pg (28.0-34.0); Mean Platelet Volume 9.8 fL (7.4-10.4); Monocytes # 0.1 10^3/uL (0.2-0.9); Monocytes % 2.9 %; Neutrophils # 2.59 10^3/uL (1.8-7.7); Neutrophils % 83.8 %; Nucleated Red Blood Cells % 0 %; Platelet Count 207 10^3/cmm (130-400); Red Blood Count 4.67 10^6/uL (4.1-5.3); Red Cell Distribution Width 14.1 % (12.1-15.1); White Blood Count 3.1 10^3/uL (4.0-10.0)
[2021-03-29 07:13] LABS: Fibrinogen 516 mg/dL (174-498)
[2021-03-29 07:15] LABS: D Dimer 0.48 ug/mIFEU (0-0.59)
[2021-03-29 07:21] LABS: Anion Gap 16.4 (5-19); Blood Urea Nitrogen 9 mg/dL (8-23); Calcium 8.5 mg/dL (8.5-10.5); Carbon Dioxide 31 mmol/L (22-29); Chloride 94 mmol/L (98-107); Glucose 145 mg/dL (65-115); Osmolality Calculated 285 mOsm/kg (285-295); Potassium 4.4 mmol/L (3.5-5.1); Sodium 137 mmol/L (136-145)
[2021-03-29 07:26] LABS: Procalcitonin 0.03 ng/mL (0-0.5)
[2021-03-29] MEDS: ascorbic acid 500 mg Tablet PO (10:25)
[2021-03-29] MEDS: duloxetine 20 mg Capsule 40 MG PO ×2 (10:25→17:31)
[2021-03-29] MEDS: zinc gluconate 50 mg Tablet PO (10:25)
[2021-03-29] MEDS: nortriptyline 25 mg Capsule PO (10:26)
[2021-03-29] MEDS: levothyroxine 88 mcg Tablet PO (10:47)
[2021-03-29] MEDS: enoxaparin 40 mg/0.4 mL Syringe SUBCUT (10:48)
[2021-03-29] MEDS: cholecalciferol (vitamin D3) 1,000 unit Tablet 2000 UNIT PO (10:48)
--- NOTE | 2021-03-29 12:39 | PM.PN ---
Subjective Subjective: Interval history: Patient was seen and examined this morning, overall she is feeling better today, has remained afebrile, coughing has improved, shortness of breath has improved. Her other vitals and labs have been reviewed. Medications: Reviewed: Yes Vitals/I&O/Wt Last Vital Signs Temp 98.2 F 03/29/21 12:00 Pulse 67 03/29/21 12:00 Resp 18 03/29/21 12:00 BP 120/57 03/29/21 12:00 Pulse Ox 94 03/29/21 12:00 03/28/21 03/29/21 03/29/21 22:59 06:59 14:59 Intake Total 150 / 650 120 / 120 Output Total 400 / 400 150 / 150 Balance -250 / 250 -30 / -30 Weight last 48 hrs Weight 56.699 kg Physical Exam Const: COMMON NORMALS: patient oriented x3 HENMT: COMMON NORMALS: normocephalic and atraumatic HEAD & SCALP: normocephalic and atraumatic Resp: OTHER: B/L Diminished air entry Cardio: COMMON NORMALS: regular rate, regular rhythm, S1 normal heart sound present, S2 normal heart sound present, No gallops present (Cardio), No murmurs present (Cardio), No rub (Cardio) and Peripheral pulses 2+ throughout RATE: regular rate RHYTHM: regular rhythm HEART SOUNDS: S1 normal heart sound present and S2 normal heart sound present PERIPHERAL PULSES: Peripheral pulses 2+ throughout GI: COMMON NORMALS: Normal to inspection, nondistended, normoactive bowel sounds present, Soft to palpation, non-tender, No hepatosplenomegaly present and no masses AUSCULTATION: Yes normoactive bowel sounds PALPATION: Yes Soft to palpation and Yes No hepatosplenomegaly present RECTAL EXAM: deferred Extremity: COMMON NORMALS: no clubbing, cyanosis or edema and no pedal edema Neuro: COMMON NORMALS: patient oriented x3 Data : 03/29/21 05:57 03/29/21 05:57 Micro: Microbiology 03/28/21 13:40 Blood Culture - Preliminary Blood SPECIMEN COLLECTED 03/28/21 13:35 Blood Culture - Preliminary Blood SPECIMEN COLLECTED A&P Assessment and plan (1) Pneumonia due to COVID-19 virus: Currently on COVID Protocol D-dimer: ESR CRP Ferittin Fibrinigen Remdesivir 5 Day course Dexamethasone 6 mg I.V Daily Cef 1gm q24h Azithromycin 500 mg I.V Daily Lovenox 40 mg sc Daily Advair inhalation Pulmicort inhalation Ascorbic acid po Zinc gluconate po Incentive Spirometry flutter valve Supplemental oxygen Status: Acute (2) Hypothyroidism: Levothyroxine 88 mcg p.o. daily Status: Acute Qualifiers: Hypothyroidism type: acquired Qualified Code(s): E03.9 - Hypothyroidism, unspecified (3) H/O: CVA (cerebrovascular accident): Status: Acute (4) Small cell lung cancer in adult: H/O Small cell lung cancer Status: Acute (5) Gout: Allopurinol 300 mg po daily Status: Acute Additional A&P Information Code Status :Full code DVT PPX: Lovenox Disposition : Discharge to home. Attestations Medical Necessity Statement*: Patient needs to be in the hospital for management of Covid pneumonia. Coding Level of Care Code Acute Land Clearer for [facility] Fwd Diagnoses Pneumonia due to COVID-19 virus U07.1; J12.82 Hypothyroidism E03.9 Hypothyroidism type: acquired H/O: CVA (cerebrovascular accident) Z86.73 Small cell lung cancer in adult C34.90 Gout M10.9
[2021-03-29] MEDS: ondansetron 2 mg/ML SDV 2 mL 4 MG IVP (17:31)
[2021-03-29] MEDS: gabapentin 300 mg Capsule PO (17:31)
[2021-03-29] MEDS: remdesivir 100 MG in sodium chloride 0.9% (100 ml) 100 ML IV (18:27)
[2021-03-29] MEDS: albuterol 8 gm MDI 2 PUFF INHALATION (20:52)
[2021-03-30] VITALS (12 sets, daily range): BP systolic 100–107; BP diastolic 56–63; PULSE 70–90; RESP 16–18; TEMP 36.7–37.2; O2SAT 94–98
[2021-03-30] MEDS: vancomycin 1,000 MG in sodium chloride 0.9% 250 ML 250 MG IV (00:28)
[2021-03-30] MEDS: ondansetron 2 mg/ML SDV 2 mL 4 MG IVP ×2 (01:08→15:53)
[2021-03-30] MEDS: oxyCODONE-APAP 5-325 mg Tablet 1 TAB PO ×2 (03:57→13:50)
[2021-03-30] MEDS: allopurinol 300 mg Tablet PO (05:36)
[2021-03-30 06:56] LABS: Basophils % 0.3 %; Hematocrit 39.5 % (37.0-47.0); Hemoglobin 12.4 g/dL (11.5-15.3); Lymphocytes # 0.4 10^3/uL (0.8-4.8); Lymphocytes % 12.5 %; Mean Corpuscular HGB Conc 31.4 g/dL (30.0-36.0); Mean Corpuscular Hemoglobin 28.2 pg (28.0-34.0); Mean Corpuscular Volume 89.8 fL (81-99); Mean Platelet Volume 9.1 fL (7.4-10.4); Monocytes # 0.2 10^3/uL (0.2-0.9); Monocytes % 4.4 %; Neutrophils # 2.84 10^3/uL (1.8-7.7); Neutrophils % 82.5 %; Nucleated Red Blood Cells % 0 %; Platelet Count 213 10^3/cmm (130-400); White Blood Count 3.4 10^3/uL (4.0-10.0)
[2021-03-30 07:04] LABS: D Dimer 0.43 ug/mIFEU (0-0.59)
[2021-03-30 07:16] LABS: Anion Gap 15.8 (5-19); Blood Urea Nitrogen 14 mg/dL (8-23); C Reactive Protein 13.7 mg/L (0.0-4.9); Calcium 8.3 mg/dL (8.5-10.5); Carbon Dioxide 28 mmol/L (22-29); Chloride 99 mmol/L (98-107); Glucose 175 mg/dL (65-115); Osmolality Calculated 291 mOsm/kg (285-295); Potassium 4.8 mmol/L (3.5-5.1); Sodium 138 mmol/L (136-145)
--- NOTE | 2021-03-30 07:23 | PC.RESP ---
PULMONARY REHAB INFORMATION SENT TO PATIENT.
[2021-03-30] MEDS: cholecalciferol (vitamin D3) 1,000 unit Tablet 2000 UNIT PO (09:16)
[2021-03-30] MEDS: nortriptyline 25 mg Capsule PO (09:16)
[2021-03-30] MEDS: ascorbic acid 500 mg Tablet PO (09:16)
[2021-03-30] MEDS: levothyroxine 88 mcg Tablet PO (09:16)
[2021-03-30] MEDS: duloxetine 20 mg Capsule 40 MG PO ×2 (09:16→17:25)
[2021-03-30] MEDS: zinc gluconate 50 mg Tablet PO (09:16)
[2021-03-30] MEDS: enoxaparin 40 mg/0.4 mL Syringe SUBCUT (09:16)
--- NOTE | 2021-03-30 14:50 | PM.PN ---
Subjective Subjective: Interval history: Patient was seen and examined this morning,complaining of nausea and 2 episodes of loose stool.Has minimal coughing. Medications: Reviewed: Yes Vitals/I&O/Wt Last Vital Signs Temp 98.9 F 03/30/21 13:03 Pulse 82 03/30/21 13:03 Resp 17 03/30/21 13:50 BP 100/61 03/30/21 13:03 Pulse Ox 94 03/30/21 13:03 03/29/21 03/30/21 03/30/21 22:59 06:59 14:59 Intake Total 340 / 580 780 / 1360 240 / 240 Output Total 125 / 275 50 / 50 Balance 340 / 430 655 / 1085 190 / 190 Physical Exam Const: COMMON NORMALS: patient oriented x3 HENMT: COMMON NORMALS: normocephalic and atraumatic HEAD & SCALP: normocephalic and atraumatic Resp: OTHER: Slightly diminished air entry at bases, mostly clear to auscultation bilaterally Cardio: COMMON NORMALS: regular rate, regular rhythm, S1 normal heart sound present, S2 normal heart sound present, No gallops present (Cardio), No murmurs present (Cardio), No rub (Cardio) and Peripheral pulses 2+ throughout RATE: regular rate RHYTHM: regular rhythm HEART SOUNDS: S1 normal heart sound present and S2 normal heart sound present PERIPHERAL PULSES: Peripheral pulses 2+ throughout GI: COMMON NORMALS: Normal to inspection, nondistended, normoactive bowel sounds present, Soft to palpation, non-tender, No hepatosplenomegaly present and no masses AUSCULTATION: Yes normoactive bowel sounds PALPATION: Yes Soft to palpation and Yes No hepatosplenomegaly present RECTAL EXAM: deferred Extremity: COMMON NORMALS: no clubbing, cyanosis or edema and no pedal edema Neuro: COMMON NORMALS: patient oriented x3 Data : 03/30/21 06:39 03/30/21 06:39 Micro: Microbiology 03/28/21 13:40 Blood Culture - Preliminary Blood Coagulase negativ staphylococc 03/28/21 14:45 Urine Culture - Preliminary Urine Catheterized Enterococcus species 03/28/21 13:35 Blood Culture - Preliminary Blood NEGATIVE TO DATE A&P Assessment and plan (1) Pneumonia due to COVID-19 virus: Currently on COVID Protocol D-dimer: ESR CRP Ferittin Fibrinigen Remdesivir 5 Day course Dexamethasone 6 mg I.V Daily Cef 1gm q24h Azithromycin 500 mg I.V Daily Lovenox 40 mg sc Daily Advair inhalation Pulmicort inhalation Ascorbic acid po Zinc gluconate po Incentive Spirometry flutter valve Supplemental oxygen Status: Acute (2) Hypothyroidism: Levothyroxine 88 mcg p.o. daily Status: Acute Qualifiers: Hypothyroidism type: acquired Qualified Code(s): E03.9 - Hypothyroidism, unspecified (3) H/O: CVA (cerebrovascular accident): Status: Acute (4) Small cell lung cancer in adult: H/O Small cell lung cancer Status: Acute (5) Gout: Allopurinol 300 mg po daily Status: Acute Additional A&P Information Code Status :Full code DVT PPX: Lovenox Disposition : Discharge to home. Attestations Medical Necessity Statement*: Patient needs to in hospital for management of Covid pneumonia. Coding Level of Care Code Acute Portfolio Director for [facility] Fwd Diagnoses Pneumonia due to COVID-19 virus U07.1; J12.82 Hypothyroidism E03.9 Hypothyroidism type: acquired H/O: CVA (cerebrovascular accident) Z86.73 Small cell lung cancer in adult C34.90 Gout M10.9
[2021-03-30] MEDS: gabapentin 300 mg Capsule PO (17:25)
[2021-03-30] MEDS: remdesivir 100 MG in sodium chloride 0.9% (100 ml) 100 ML IV (17:25)
[2021-03-30] MEDS: albuterol 8 gm MDI 2 PUFF INHALATION (22:29)
[2021-03-30] MEDS: cefTRIAXone 1,000 MG in sodium chloride 0.9% (plus) 50 ML 100 MG IV (23:19)
[2021-03-30] MEDS: dexamethasone 4 mg/mL INJ 6 MG IVP (23:28)
[2021-03-31] VITALS (8 sets, daily range): BP systolic 101–109; BP diastolic 57–67; PULSE 66–80; RESP 16–18; TEMP 36.4–37.2; O2SAT 92–96
[2021-03-31] MEDS: oxyCODONE-APAP 5-325 mg Tablet 1 TAB PO ×2 (05:14→09:30)
[2021-03-31] MEDS: allopurinol 300 mg Tablet PO (05:14)
[2021-03-31] MEDS: ondansetron 2 mg/ML SDV 2 mL 4 MG IVP (05:46)
[2021-03-31 06:43] LABS: Basophils % 0.3 %; Hematocrit 38.5 % (37.0-47.0); Lymphocytes # 0.4 10^3/uL (0.8-4.8); Lymphocytes % 12.2 %; Mean Corpuscular HGB Conc 31.2 g/dL (30.0-36.0); Mean Corpuscular Hemoglobin 27.9 pg (28.0-34.0); Mean Corpuscular Volume 89.5 fL (81-99); Mean Platelet Volume 9.6 fL (7.4-10.4); Monocytes # 0.1 10^3/uL (0.2-0.9); Monocytes % 3.6 %; Neutrophils % 83.6 %; Nucleated Red Blood Cells % 0 %; Platelet Count 217 10^3/cmm (130-400); Red Cell Distribution Width 14.1 % (12.1-15.1); White Blood Count 3.4 10^3/uL (4.0-10.0)
[2021-03-31 06:56] LABS: D Dimer 0.41 ug/mIFEU (0-0.59)
[2021-03-31 07:02] LABS: Blood Urea Nitrogen 11 mg/dL (8-23); C Reactive Protein 8.6 mg/L (0.0-4.9); Calcium 8.5 mg/dL (8.5-10.5); Carbon Dioxide 30 mmol/L (22-29); Chloride 98 mmol/L (98-107); Glucose 156 mg/dL (65-115); Osmolality Calculated 291 mOsm/kg (285-295); Sodium 139 mmol/L (136-145)
[2021-03-31 07:10] LABS: Anion Gap 15.1 (5-19); Potassium 4.1 mmol/L (3.5-5.1)
[2021-03-31] MEDS: albuterol 8 gm MDI 2 PUFF INHALATION (08:40)
[2021-03-31] MEDS: cholecalciferol (vitamin D3) 1,000 unit Tablet 2000 UNIT PO (09:20)
[2021-03-31] MEDS: enoxaparin 40 mg/0.4 mL Syringe SUBCUT (09:21)
[2021-03-31] MEDS: zinc gluconate 50 mg Tablet PO (09:21)
[2021-03-31] MEDS: ascorbic acid 500 mg Tablet PO (09:21)
[2021-03-31] MEDS: duloxetine 20 mg Capsule 40 MG PO (09:21)
[2021-03-31] MEDS: nortriptyline 25 mg Capsule PO (09:21)
[2021-03-31] MEDS: levothyroxine 88 mcg Tablet PO (09:21)
--- NOTE | 2021-03-31 10:28 | PM.PN ---
Vitals/I&O/Wt Last Vital Signs Temp 98.9 F 03/31/21 08:00 Pulse 76 03/31/21 08:45 Resp 18 03/31/21 09:30 BP 105/57 03/31/21 08:00 Pulse Ox 93 03/31/21 08:45 03/30/21 03/31/21 03/31/21 22:59 06:59 14:59 Intake Total 250 / 490 50 / 540 240 / 240 Output Total 100 / 150 150 / 300 Balance 150 / 340 -100 / 240 240 / 240 Data : 03/31/21 05:40 03/31/21 05:40 Micro: Microbiology 03/28/21 14:00 Group A Streptococcus Rapid Screen - Preliminary Throat 03/28/21 13:40 Blood Culture - Preliminary Blood Coagulase negativ staphylococc 03/28/21 14:45 Urine Culture - Preliminary Urine Catheterized Enterococcus species Coding Level of Care Code Acute 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
--- NOTE | 2021-03-31 11:09 | PM.DCS ---
Discharge Providers Date of Admission: 03/28/21 17:33 Date of Discharge: March 31, 2021 Attending Provider at Admission: Uvaldo Patel MD Attending Provider at Discharge: Uvaldo Patel MD Primary Care Provider: Adela Stout Diagnoses at Discharge Discharge Diagnosis (1) Pneumonia due to COVID-19 virus: Status: Resolved (2) Hypothyroidism: Status: Chronic Qualifiers: Hypothyroidism type: acquired Qualified Code(s): E03.9 - Hypothyroidism, unspecified (3) H/O: CVA (cerebrovascular accident): Status: Chronic (4) Small cell lung cancer in adult: Status: Acute Permanent problem details: History of small cell lung cancer (5) Gout: Status: Chronic Reason for Visit Reason for Visit: FEVER, COUGH, N/V, DIZZY, DIARRHEA Hospital Course Hospital Course 60 year old female with pmh of COPD on 2ls home oxygen,hypothyroidism, small cell lung cancer status post chemo radiochemotherapy in remission since 2017 without any recurrence,CVA with residual lt sided weakness, came in with c/o fever since Saturday, nonproductive cough, nausea, worsening shortness of breath, increasing oxygen requirement from her baseline , vomiting, diarrhea, mild right lower quadrant abdominal pain and sore throat. Upon arrival in the ER she was worked up with above-mentioned complaint, XR chest: No infiltrates, no effusion. C.T abdomen and pelvis without contrast:No acute findings. COVID Rapid antigen :Positive. She was admitted for the management of Covid pneumonia. She was kept on Covid protocol received short course of remdesivir, IV dexamethasone, broad-spectrum antibiotic, inflammatory markers were trended. Blood culture grew staph coagulase-negative staph in 1 bottle, urine culture grew E faecalis, sensitive to ampicillin. At the time of discharge she was not complaining of any nausea vomiting diarrhea abdominal pain, shortness of breath has improved a lot, she was at her baseline oxygen requirement, she was afebrile during the entire hospital stay. She was discharged on Augmentin for additional 7 days.Repeat blood culture have been drawn given the fact that 1 out of 4 bottles grew coagulase-negative staph, likely contaminant. Patient has overall responded well to the above medical management and is being discharged in stable condition to home.Patient will continue to follow the primary care physician as an outpatient. Physical Exam Const: COMMON NORMALS: patient oriented x3 HENMT: COMMON NORMALS: normocephalic and atraumatic HEAD & SCALP: normocephalic and atraumatic Cardio: COMMON NORMALS: regular rate, regular rhythm, S1 normal heart sound present, S2 normal heart sound present, No gallops present (Cardio), No murmurs present (Cardio), No rub (Cardio) and Peripheral pulses 2+ throughout RATE: regular rate RHYTHM: regular rhythm HEART SOUNDS: S1 normal heart sound present and S2 normal heart sound present PERIPHERAL PULSES: Peripheral pulses 2+ throughout GI: COMMON NORMALS: Normal to inspection, nondistended, normoactive bowel sounds present, Soft to palpation, non-tender, No hepatosplenomegaly present and no masses AUSCULTATION: Yes normoactive bowel sounds PALPATION: Yes Soft to palpation and Yes No hepatosplenomegaly present RECTAL EXAM: deferred Extremity: COMMON NORMALS: no clubbing, cyanosis or edema and no pedal edema Neuro: COMMON NORMALS: patient oriented x3 Discharge Data Data Completed and Pending: Completed Studies During Hospitalization Category Date Time Status CT abdomen pelvis w con* [id number] Urge nt Cat Scan 03/28/21 13:56 Completed XR chest 1V mayco ble [id number] Urgent Exams 03/28/21 13:07 Completed Pending at discharge Category Date Time Status Blood Culture Sta t Lab 03/28/21 13:35 Results Blood Culture Sta t Lab 03/31/21 10:41 Ordered Streptococcus Cul ture Group A Stat Lab 03/28/21 14:00 Results Urine Culture Sta t Lab 03/28/21 14:45 Results Urine Culture Sta t Lab 03/31/21 10:41 Uncollected Labs from last 24 hours 03/31/21 03/31/21 03/31/21 05:40 05:40 05:40 WBC 3.4 L RBC 4.30 Hgb 12.0 Hct 38.5 MCV 89.5 MCH 27.9 L MCHC 31.2 RDW 14.1 Plt Count 217 MPV 9.6 Neut % (Auto) 83.6 Lymph % (Auto) 12.2 [place] % (Auto) 3.6 Eos % (Auto) 0.0 Baso % (Auto) 0.3 Neut # (Auto) 2.80 Lymph # (Auto) 0.4 L [place] # (Auto) 0.1 L Eos # (Auto) 0.0 Baso # (Auto) 0.0 Nucleated RBC % (a uto) 0 Nucleated RBCs # 0.0 D-Dimer 0.41 Sodium 139 Potassium 4.1 Chloride 98 Carbon Dioxide 30 H Anion Gap 15.1 BUN 11 Creatinine 0.6 GFR Calculation 102.0 Glucose 156 H Calculated Osmolal ity 291 Calcium 8.5 C-Reactive Protein 8.6 H Vitals: Last Vital Signs Temp 98.9 F 03/31/21 08:00 Pulse 76 03/31/21 08:45 Resp 18 03/31/21 09:30 BP 105/57 03/31/21 08:00 Pulse Ox 93 03/31/21 08:45 Discharge Plan Discharge Patient Disposition: Home Condition: Stable Prescriptions: New budesonide 90 mcg/actuation aerosol powdr breath activated 1 inh inhalation BID Qty: 1 RF: 0 Augmentin 500-125 mg tablet 1 tab PO BID Qty: 14 RF: 0 Continued gabapentin 600 mg Tablet 600 mg PO TID@0800,1200,1800 RF: 0 levothyroxine 88 mcg Tablet 88 mcg PO DAILY@0800 RF: 0 allopurinol 300 mg tablet 300 mg PO DAILY@0600 RF: 0 cholecalciferol (vitamin D3) [Vitamin D3] 2,000 unit Tablet 2,000 unit PO DAILY@0800 RF: 0 sennosides-docusate sodium [Stool Softener-Laxative] 8.6-50 mg Tablet 2 tab PO BEDTIME RF: 0 acetaminophen [Tylenol Extra Strength] 500 mg Tablet 1,000 mg PO PRN RF: 0 nortriptyline 25 mg capsule 25 - 50 mg PO DAILY RF: 0 duloxetine 20 mg capsule,delayed release(DR/EC) 40 mg PO BID@0800,1800 RF: 0 oxycodone 10 mg tablet 10 mg PO Q6H PRN (Reason: Pain) RF: 0 gabapentin 300 mg capsule 300 mg PO BEDTIME@1800 RF: 0 nystatin 100,000 unit/mL Suspension 500,000 unit PO QID Qty: 100 RF: 0 mkcmpwlf-miu-ZI-lycopen-lutein 500-300-250 mcg Tablet 1 tab PO DAILY@0800 RF: 0 ondansetron 4 mg tablet,disintegrating 4 mg PO Q8H PRN (Reason: NAUSEA/VOMITING) 7 Days Qty: 21 RF: 0 Discharge Orders: Discharge Order (Routine); Ordered 03/31/21 Ordered By: Uvaldo Patel Referrals: Adela Stout [Primary Care Provider] - 2 weeks (please call and set up an appt with Girish within the next two weeks.) Discharge Diet: Regular Discharge Activity: Resume usual activity Patient Instructions: Amoxicillin/Clavulanate Potassium (By mouth), Viral Pneumonia (DC), Using Oxygen at Home (DC), Abdominal Pain (ED), Opioid Safety Discharge Attestations Time Spent in Discharge Care*: less than 30 min Specific Discharge Activities: educating patient, educating and/or supporting family/caregiver, discussing with pcp/other providers, discussing with disability case manager/social workers/dc planners, documenting/other paperwork and evaluating patient/reviewing data Status at Discharge: Cognitive status at discharge: cognitively intact, Behavioral status at discharge: cooperative, Functional status at discharge: uses cane/walker Overall status at discharge: patient is back to baseline Quality Metrics Clinical Quality Measures During this hospital stay, did patient experience: None Coding Level of Care Code Acute Chg FW DC note Diagnoses Pneumonia due to COVID-19 virus U07.1; J12.82 Hypothyroidism E03.9 Hypothyroidism type: acquired H/O: CVA (cerebrovascular accident) Z86.73 Small cell lung cancer in adult C34.90 Gout M10.9
--- NOTE | 2021-03-31 11:34 | PC.SOCIAL ---
IMM UPDATE Gave patient IMM update. She verbalized understanding. 03/31/21 @ 1055. Initialed, dated, timed and placed in chart.
== END 2021-03-31 14:00 | disposition home or self-care (01) | DRG 177 ==
LOC: ER 17:31 → MEDSURG 20:33
PROVIDERS: Admitting Provider Internal Medicine; Emergency Provider Family Medicine; PCP Internal Medicine; Visit Provider Internal Medicine
DX: U07.1 COVID-19 (principal); J12.82 Pneumonia due to coronavirus disease 2019; I69.954 Hemiplegia and hemiparesis following unspecified cerebrovascular disease affecting left non-dominant side; J44.9 Chronic obstructive pulmonary disease, unspecified; E03.9 Hypothyroidism, unspecified; Z85.118 Personal history of other malignant neoplasm of bronchus and lung; Z92.3 Personal history of irradiation; Z92.21 Personal history of antineoplastic chemotherapy; M10.9 Gout, unspecified; B96.89 Other specified bacterial agents as the cause of diseases classified elsewhere; Z79.891 Long term (current) use of opiate analgesic
CPT/HCPCS: 36415; 71045; 74177; 80048; 80053; 81001; 83605; 83690; 83880; 84145; 85025; 85378; 85384; 86140; 87040; 87077; 87081; 87086; 87186; 87205; 87426; 87804; 87880; 93005; 94640; 96372; J0696; J1100; J1650; J2405; J3370; J3535; J7050; Q9967

== ENCOUNTER 2021-07-23 17:57 | Emergency (ER) | payer MEDICARE, MEDICAID, SELFPAY ==
--- NOTE | 2021-07-23 18:01 | XRR_ITS ---
PROCEDURE INFORMATION: Exam: XR Chest Exam date and time: 07/23/2021 6:01 PM Age: 60 years old Clinical indication: Pain; Chest pressure; Additional info: Cp TECHNIQUE: Imaging protocol: XR of the chest. Views: 1 view. Total images: 1 COMPARISON: CR XR chest 1V portable [id number] 03/28/2021 1:13 PM FINDINGS: Lungs: No visible active interstitial or alveolar airspace disease. Evidence of antecedent granulomatous disease. COPD/chronic bronchitis. Minimal scar atelectasis left mid lung. Pleural spaces: No pleural effusion. No pneumothorax. Heart/Mediastinum: Cardiac structures and configuration stable and unremarkable for age. Bones/joints: Suspected previous midthoracic vertebroplasty. XR/XR chest 1V portable [id number] IMPRESSION: Nonacute. Radiation Dose CTDIVOL = (mGy): DLP = (mGy-cm)
--- NOTE | 2021-07-23 18:01 | ECG_ITS ---
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: : 1960 Requested By: Ely Feliciano Order Number: [id number] Reading MD: PATRICIA CARUSO Measurements Intervals [place] Rate: 85 P: 74 IN: 174 QRS: 78 QRSD: 90 T: 62 QT: 354 QTc: 422 Interpretive Statements SINUS RHYTHM POSSIBLE RIGHT VENTRICULAR CONDUCTION DELAY [RSR (QR) IN V1/V2] MODERATE T-WAVE ABNORMALITY, CONSIDER ANTERIOR ISCHEMIA [-0.1+ mV T-WAVE IN V3/V4] Compared to ECG 03/28/2021 13:38:27 T-wave abnormality now present Possible ischemia now present Electronically Signed On 07-24-2021 0:10:17 CDT by PATRICIA CARUSO [email or web address]
[2021-07-23 18:05] VITALS: BP 93/58; PULSE 90; RESP 9; TEMP 36.1; O2SAT 90; BMI 23.6
--- NOTE | 2021-07-23 18:07 | ED_ITS ---
HPI - Chest Pain General: Chief Complaint: Chest Pain Stated Complaint: RIGHT SIDE CHEST PAIN Time Seen by Provider: 07/23/21 18:00 Source: patient and EMS Mode of arrival: EMS Limitations: no limitations History of Present Illness: HPI narrative: 60-year-old female states that she been having some right-sided chest pain since yesterday morning. States the pain worsened today is on the right side is a pressure type pain she rates it a 3 out of 10 currently denies any nausea vomiting or shortness of breath denies any worsening improving factors. Patient was given aspirin in route. Associated symptoms: Deny abdominal pain, dyspnea, fever(s), nausea or vomiting Review of Systems Const: Denies: fever(s), chills, body aches or change in appetite Eyes: Denies: blurry vision or eye discomfort ENMT: Denies: throat pain or dental pain Card: Reports: chest pain Resp: Denies: dyspnea GI: Denies: abdominal pain, nausea, vomiting or diarrhea : Denies: dysuria Musc: Denies: neck pain or back pain Skin/Breast: Denies: rash Neuro: Denies: headache(s) Psych: Denies: depression Grabiel/Lymph: Denies: easy bruising All/Imm: Denies: urticaria PFSH ED PFSH: Medical History Abdominal pain COPD (chronic obstructive pulmonary disease) COVID-19 Diarrhea due to COVID-19 Former smoker Gout H/O: CVA (cerebrovascular accident) Hypothyroidism Hypothyroidism Hypoxia Nausea & vomiting Pneumonia due to COVID-19 virus Small cell lung cancer in adult History of small cell lung cancer Surgical History History of appendectomy Family History Father Cancer Lung cancer Social History Smoking and tobacco status: former smoker Alcohol intake: never Household members: family Housing: House Physical Exam Const: COMMON NORMALS: no acute distress, patient oriented x3 and healthy appearing HENMT: COMMON NORMALS: normocephalic and atraumatic HEAD & SCALP: normocephalic and atraumatic Eye: COMMON NORMALS: Equal, round and reactive pupils present and EOMs intact bilaterally PUPIL: Yes Equal, round and reactive pupils present Neck/C-Spine: COMMON NORMALS: full ROM and supple Chest: COMMONS NORMALS: normal inspection of the chest and normal palpation of entire chest wall Resp: COMMON NORMALS: normal respiratory effort, No retractions, No use of accessory muscles and clear to auscultation bilaterally AUSCULTATION: clear to auscultation bilaterally Cardio: COMMON NORMALS: regular rate, regular rhythm and No murmurs present (Cardio) RATE: regular rate RHYTHM: regular rhythm GI: COMMON NORMALS: Normal to inspection, nondistended, normoactive bowel sounds present, Soft to palpation, non-tender and no masses PALPATION: Yes Soft to palpation Extremity: COMMON NORMALS: normal to inspection and full ROM Neuro: COMMON NORMALS: patient oriented x3, moves all extremities and no focal motor deficits Psych: COMMON NORMALS: mental status grossly normal, Normal thought process present and cooperative THOUGHT PROCESS: Normal thought process present Skin: COMMON NORMALS: no rashes or lesions noted and no wounds GENERAL SKIN EXAM: no rashes or lesions noted Course Vital Signs: Vital signs: Vital Signs Temperature 97.0 F L 07/23/21 18:05 Pulse Rate 94 07/23/21 20:31 Respiratory Rate 16 07/23/21 20:31 Blood Pressure 118/67 07/23/21 20:31 Pulse Oximetry 97 07/23/21 20:31 MDM - Chest Pain MDM Narrative: Medical decision making narrative: 60-year-old female who presents here with chest pain is atypical in nature initial and repeat troponins are negative x-ray is normal she feels improved here she has no signs of pulmonary embolism or acute coronary syndrome she is stable for discharge she is to follow-up with PCP and return if worsening she understands agrees to plan. Lab Data: Labs: Lab Results 07/23/21 07/23/21 07/23/21 18:41 18:41 18:41 WBC 7.6 10^3/uL 10^3/ uL (4.0-10.0) RBC 4.32 10^6/uL 10^6 /uL (4.1-5.3) Hgb 12.2 g/dL g/dL (11.5-15.3) Hct 39.6 % % (37.0-47.0) MCV 91.7 fl fl (81-99) MCH 28.2 pg pg (28.0-34.0) MCHC 30.8 g/dL g/dL (30.0-36.0) RDW 13.2 % % (12.1-15.1) Plt Count 258 10^3/cmm 10^3 /cmm (130-400) MPV 9.1 fL fL (7.4-10.4) Neut % (Auto) 67.6 % % Lymph % (Auto) 22.0 % % [place] % (Auto) 7.1 % % Eos % (Auto) 2.1 % % Baso % (Auto) 0.9 % % Neut # (Auto) 5.12 10^3/uL 10^3 /uL (1.8-7.7) Lymph # (Auto) 1.7 10^3/uL 10^3/ uL (0.8-4.8) [place] # (Auto) 0.5 10^3/uL 10^3/ uL (0.2-0.9) Eos # (Auto) 0.2 10^3/uL 10^3/ uL (0.0-0.8) Baso # (Auto) 0.1 10^3/uL 10^3/ uL (0.0-0.1) Nucleated RBC % (a uto) 0 % % Nucleated RBCs # 0.0 /100WBC /100W BC Sodium 137 mmol/L mmol/L (136-145) Potassium 4.7 mmol/L mmol/L (3.5-5.1) Chloride 99 mmol/L mmol/L (98-107) Carbon Dioxide 27 mmol/L mmol/L (22-29) Anion Gap 15.7 (5-19) BUN 8 mg/dL mg/dL (8-23) Creatinine 0.6 mg/dL mg/dL (0.5-0.9) GFR Calculation 102.0 mL/min mL/m in (90-130) Glucose 105 mg/dL mg/dL (65-115) Calculated Osmolal ity 283 mOsm/kg L mOs m/kg (285-295) Calcium 9.1 mg/dL mg/dL (8.5-10.5) Total Bilirubin 0.2 mg/dL mg/dL (0.15-1.2) AST 32 U/L U/L (0-32) ALT 16 U/L U/L (0-33) Alkaline Phosphata se 116 IU/L H IU/L (35-105) Troponin T Baselin e 6 ng/L ng/L (0-10) Troponin T 120 Min [place] Troponin T Total Protein 6.9 g/dL g/dL (6.6-8.7) Albumin 4.0 g/dL g/dL (3.5-5.2) Globulin 2.9 g/dL g/dL (1.3-4.6) Lipase 17 U/L U/L (13-60) 07/23/21 20:53 WBC RBC Hgb Hct MCV MCH MCHC RDW Plt Count MPV Neut % (Auto) Lymph % (Auto) [place] % (Auto) Eos % (Auto) Baso % (Auto) Neut # (Auto) Lymph # (Auto) [place] # (Auto) Eos # (Auto) Baso # (Auto) Nucleated RBC % (a uto) Nucleated RBCs # Sodium Potassium Chloride Carbon Dioxide Anion Gap BUN Creatinine GFR Calculation Glucose Calculated Osmolal ity Calcium Total Bilirubin AST ALT Alkaline Phosphata se Troponin T Baselin e Troponin T 120 Min [place] 6.00 ng/L ng/L (0-10) Delta Troponin T 0 ABS# ABS# (0-10) Total Protein Albumin Globulin Lipase Imaging Data^: CXR: Attestation: I personally reviewed and interpreted this imaging study as follows: Radiologist's impression: [address] [address] XRay Report Signed Patient: Zulma Garcia Unit #: [id number] : 1960 Age/Sex: 60 / F ADM Date: 07/23/21 Loc: ER Room/Bed: Attending Dr: Ordering Provider/Ordering MD: Ely Feliciano MD Date of Service: 07/23/21 Procedure(s): XR chest 1V portable [id number] Accession Number(s): [id number] Report Number: [id number] PROCEDURE INFORMATION: Exam: XR Chest Exam date and time: 07/23/2021 6:01 PM Age: 60 years old Clinical indication: Pain; Chest pressure; Additional info: Cp TECHNIQUE: Imaging protocol: XR of the chest. Views: 1 view. Total images: 1 COMPARISON: CR XR chest 1V portable [id number] 03/28/2021 1:13 PM FINDINGS: Lungs: No visible active interstitial or alveolar airspace disease. Evidence of antecedent granulomatous disease. COPD/chronic bronchitis. Minimal scar atelectasis left mid lung. Pleural spaces: No pleural effusion. No pneumothorax. Heart/Mediastinum: Cardiac structures and configuration stable and unremarkable for age. Bones/joints: Suspected previous midthoracic vertebroplasty. XR/XR chest 1V portable [id number] IMPRESSION: Nonacute. Radiation Dose CTDIVOL = (mGy): DLP = (mGy-cm) Dictated By: Aguilar Martin Signed By: Aguilar Martin Signed Date/Time: 07/23/211919 DD/ 00 EKG Data^: EKG 1: Attestation: I personally reviewed and interpreted this EKG as follows: EKG interpretation date: 07/23/21 EKG interpretation time: 18:26 Interpretation: nsr hr [address] or t wave abnormalities qrs 90 qtc 396 EKG 2: Attestation: I personally reviewed and interpreted this EKG as follows: EKG interpretation date: 07/23/21 EKG interpretation time: 20:55 Interpretation: nsr hr [address] or t wave abnormalities qrs 87 qtc 405 Discharge Plan Discharge Patient Disposition: Home Clinical Impression: Chest pain Qualifiers: Chest pain type: unspecified Qualified Code(s): R07.9 - Chest pain, unspecified Condition: Stable Prescriptions: No Action gabapentin 600 mg Tablet 600 mg PO TID@0800,1200,1800 RF: 0 levothyroxine 88 mcg Tablet 88 mcg PO DAILY@0800 RF: 0 allopurinol 300 mg tablet 300 mg PO DAILY@0600 RF: 0 cholecalciferol (vitamin D3) [Vitamin D3] 2,000 unit Tablet 2,000 unit PO DAILY@0800 RF: 0 sennosides-docusate sodium [Stool Softener-Laxative] 8.6-50 mg Tablet 2 tab PO BEDTIME RF: 0 acetaminophen [Tylenol Extra Strength] 500 mg Tablet 1,000 mg PO PRN RF: 0 nortriptyline 25 mg capsule 25 - 50 mg PO DAILY RF: 0 duloxetine 20 mg capsule,delayed release(DR/EC) 40 mg PO BID@0800,1800 RF: 0 oxycodone 10 mg tablet 10 mg PO Q6H PRN (Reason: Pain) RF: 0 gabapentin 300 mg capsule 300 mg PO BEDTIME@1800 RF: 0 nystatin 100,000 unit/mL Suspension 500,000 unit PO QID Qty: 100 RF: 0 ohlaigce-wms-CN-lycopen-lutein 500-300-250 mcg Tablet 1 tab PO DAILY@0800 RF: 0 ondansetron 4 mg tablet,disintegrating 4 mg PO Q8H PRN (Reason: NAUSEA/VOMITING) 7 Days Qty: 21 RF: 0 budesonide 90 mcg/actuation aerosol powdr breath activated 1 inh inhalation BID Qty: 1 RF: 0 Augmentin 500-125 mg tablet 1 tab PO BID Qty: 14 RF: 0 Discharge Orders: Discharge ED (Routine); Ordered 07/23/21 Ordered By: Ely Feliciano Referrals: Adela Stout [Primary Care Provider] - 1-3 days Discharge Diet: Advance as tolerated Discharge Activity: Resume usual activity Patient Instructions: Chest Pain (ED) Coding Level of Care Code ED Tomato Pulper Operator for Chg Fwd Exam Comprehensive
--- NOTE | 2021-07-23 18:43 | PC.NURSE ---
PT PLACED ON CONTINUOUS SPO2, NIBP, AND CM.
[2021-07-23 18:44] VITALS: BP 111/57; PULSE 90; RESP 21; O2SAT 100
[2021-07-23 18:47] LABS: Basophils # 0.1 10^3/uL (0.0-0.1); Basophils % 0.9 %; Eosinophils # 0.2 10^3/uL (0.0-0.8); Eosinophils % 2.1 %; Hematocrit 39.6 % (37.0-47.0); Hemoglobin 12.2 g/dL (11.5-15.3); Lymphocytes # 1.7 10^3/uL (0.8-4.8); Mean Corpuscular HGB Conc 30.8 g/dL (30.0-36.0); Mean Corpuscular Hemoglobin 28.2 pg (28.0-34.0); Mean Corpuscular Volume 91.7 fl (81-99); Mean Platelet Volume 9.1 fL (7.4-10.4); Monocytes # 0.5 10^3/uL (0.2-0.9); Monocytes % 7.1 %; Neutrophils # 5.12 10^3/uL (1.8-7.7); Neutrophils % 67.6 %; Nucleated Red Blood Cells % 0 %; Platelet Count 258 10^3/cmm (130-400); Red Blood Count 4.32 10^6/uL (4.1-5.3); Red Cell Distribution Width 13.2 % (12.1-15.1); White Blood Count 7.6 10^3/uL (4.0-10.0)
[2021-07-23] MEDS: sodium chloride 0.9% 1,000 ML 999 ML IV (18:54)
[2021-07-23 19:04] LABS: Troponin(5th) Baseline 6 ng/L (0-10)
[2021-07-23 19:06] LABS: Alanine Aminotransferase 16 U/L (0-33); Alkaline Phosphatase 116 IU/L (35-105); Blood Urea Nitrogen 8 mg/dL (8-23); Calcium 9.1 mg/dL (8.5-10.5); Carbon Dioxide 27 mmol/L (22-29); Chloride 99 mmol/L (98-107); Globulin 2.9 g/dL (1.3-4.6); Glucose 105 mg/dL (65-115); Lipase 17 U/L (13-60); Osmolality Calculated 283 mOsm/kg (285-295); Sodium 137 mmol/L (136-145); Total Bilirubin 0.2 mg/dL (0.15-1.2); Total Protein 6.9 g/dL (6.6-8.7)
--- NOTE | 2021-07-23 19:06 | PC.NURSE ---
REPORT GIVEN TO ALMA DELIA FERREIRA ASSUMED CARE.
[2021-07-23 19:07] LABS: Anion Gap 15.7 (5-19); Aspartate Amino Transferase 32 U/L (0-32); Potassium 4.7 mmol/L (3.5-5.1)
--- NOTE | 2021-07-23 20:01 | ECG_ITS ---
[facility] Test Date: 2021-07-23 Pat Name: Zulma Garcia Department: Room: Gender: Female Director Strategy: : 1960 Requested By: Ely Feliciano Order Number: [id number] Reading MD: PATRICIA CARUSO Measurements Intervals [place] Rate: 87 P: 75 VA: 165 QRS: 81 QRSD: 87 T: 70 QT: 360 QTc: 435 Interpretive Statements SINUS RHYTHM WITH MARKED SINUS ARRHYTHMIA POSSIBLE RIGHT VENTRICULAR CONDUCTION DELAY [RSR (QR) IN V1/V2] NONSPECIFIC T-WAVE ABNORMALITY Compared to ECG 07/23/2021 18:26:32 Possible ischemia no longer present T-wave abnormality still present Electronically Signed On 07-24-2021 0:15:23 CDT by PATRICIA CARUSO [id number]
[2021-07-23 20:31] VITALS: BP 118/67; PULSE 94; RESP 16; O2SAT 97
[2021-07-23 21:32] LABS: Troponin 5 2HR Delta 0 ABS# (0-10)
[2021-07-23 22:05] VITALS: BP 124/97; PULSE 97; RESP 16; O2SAT 98
== END 2021-07-23 22:07 | disposition home or self-care (01) ==
PROVIDERS: Emergency Provider Emergency Medicine; PCP Internal Medicine
DX: R07.89 Other chest pain (principal); Z87.891 Personal history of nicotine dependence; Z86.16 Personal history of COVID-19; Z85.118 Personal history of other malignant neoplasm of bronchus and lung
CPT/HCPCS: 36415; 71045; 80053; 83690; 84484; 85025; 93005; 96360; 99283; J7030

== ENCOUNTER 2022-07-18 02:26 | Observation (INO) | payer MEDICARE, MEDICAID, SELFPAY ==
[2022-07-18] VITALS (9 sets, daily range): BP systolic 121–138; BP diastolic 55–78; PULSE 79–94; RESP 14–18; TEMP 36.6–36.9; O2SAT 90–97; BMI 24.1
--- NOTE | 2022-07-18 02:32 | CTR_ITS ---
PROCEDURE INFORMATION: Exam: CT Head Without Contrast Exam date and time: 07/18/2022 2:53 AM Age: 61 years old Clinical indication: Weakness, extremity; Bilateral; Patient HX: General weakness with numbness to bilat lower ext. History of CVA. TECHNIQUE: Imaging protocol: Computed tomography of the head without contrast. Radiation optimization: All CT scans at this facility use at least one of these dose optimization techniques: automated exposure control; mA and/or kV adjustment per patient size (includes targeted exams where dose is matched to clinical indication); or iterative reconstruction. COMPARISON: CT head wo con* [id number] 06/10/2018 10:56 AM RADIATION DOSE METRICS: Total DLP (mGy-cm): 944.98 FINDINGS: Brain: No acute intracranial hemorrhage or mass effect. No definite acute infarct by CT. MRI could be more sensitive/specific for detection, as clinically directed. Cerebral ventricles: Ventricle size is normal for age. Paranasal sinuses: Included paranasal sinuses are essentially clear. Mastoid air cells: No significant acute finding. Bones/joints: No definite acute skull fracture. Soft tissues: No significant acute finding. CT/CT head wo con* [id number] IMPRESSION: 1. No acute intracranial hemorrhage or mass effect. 2. No definite acute infarct by CT, see above. 3. Other findings discussed above.
--- NOTE | 2022-07-18 02:35 | ED_ITS ---
HPI - Female Genitourinary General: Chief complaint: Urogenital-Female Stated complaint: Possible UTI/Numbness/Weakness Time Seen by Provider: 07/18/22 02:28 Source: patient and EMS Mode of arrival: EMS Limitations: no limitations History of Present Illness: 61-year-old female who states that today she has been having dysuria along with vomiting and generalized weakness. He states she has weakness and tingling down both legs having difficulty walking due to the weakness in her legs she has no other deficits no upper extremity weakness no slurred speech or change in vision she states she has had this before when she has a UTI she states she has extreme burning with urination. Denies any pain at rest Associated symptoms: Reports nausea; Deny abdominal pain or headache(s) Review of Systems Const: Denies: fever(s), chills, body aches or change in appetite Eyes: Denies: blurry vision or eye discomfort ENMT: Denies: throat pain or dental pain Card: Denies: chest pain Resp: Denies: dyspnea GI: Reports: nausea and vomiting; Denies: abdominal pain or diarrhea : Reports: dysuria Musc: Denies: neck pain or back pain Skin/Breast: Denies: rash Neuro: Reports: weakness in extremities; Denies: headache(s) Psych: Denies: depression Grabiel/Lymph: Denies: easy bruising All/Imm: Denies: urticaria PFSH ED PFSH: Medical History Abdominal pain COPD (chronic obstructive pulmonary disease) COVID-19 Diarrhea due to COVID-19 Former smoker Gout H/O: CVA (cerebrovascular accident) Hypothyroidism Hypothyroidism Hypoxia Nausea & vomiting Pneumonia due to COVID-19 virus Small cell lung cancer in adult History of small cell lung cancer Surgical History History of appendectomy Family History Father Cancer Lung cancer Social History Smoking and tobacco status: former smoker Alcohol intake: never Household members: family Housing: House Physical Exam Const: COMMON NORMALS: no acute distress, patient oriented x3 and healthy appearing HENMT: COMMON NORMALS: normocephalic and atraumatic HEAD & SCALP: normocephalic and atraumatic Eye: COMMON NORMALS: Equal, round and reactive pupils present and EOMs intact bilaterally PUPIL: Yes Equal, round and reactive pupils present Neck/C-Spine: COMMON NORMALS: full ROM and supple Chest: COMMONS NORMALS: normal inspection of the chest and normal palpation of entire chest wall Resp: COMMON NORMALS: normal respiratory effort, No retractions, No use of accessory muscles and clear to auscultation bilaterally AUSCULTATION: clear to auscultation bilaterally Cardio: COMMON NORMALS: regular rate, regular rhythm and No murmurs present (Cardio) RATE: regular rate RHYTHM: regular rhythm GI: COMMON NORMALS: Normal to inspection, nondistended, normoactive bowel sounds present, Soft to palpation, non-tender and no masses PALPATION: Yes Soft to palpation Extremity: COMMON NORMALS: normal to inspection and full ROM Neuro: COMMON NORMALS: patient oriented x3 CRANIAL NERVES: Yes CN normal except as noted SPEECH: speech normal OTHER: 5 out of 5 strength bilateral upper extremities minimal movement against gravity to bilateral lower extremities Psych: COMMON NORMALS: mental status grossly normal, Normal thought process present and cooperative THOUGHT PROCESS: Normal thought process present Skin: COMMON NORMALS: no rashes or lesions noted and no wounds GENERAL SKIN EXAM: no rashes or lesions noted Course Vital Signs: Vital signs: Vital Signs Temperature 97.9 F 07/18/22 02:27 Pulse Rate 88 07/18/22 02:27 Respiratory Rate 18 07/18/22 02:27 Blood Pressure 131/66 07/18/22 02:27 Pulse Oximetry 96 07/18/22 02:27 Oxygen Delivery Me thod 07/18/22 02:27 MDM - Female Medical Decision Making Patient presents with urinary tract infection along with weakness patient states she is not able ambulate she has had this before with UTI she also has had vomiting she is nonseptic appearing head CT shows no signs of stroke she has no focal deficits we will start on IV antibiotics I spoke to Dr. Vásquez and will admit for observation Lab Data : 07/18/22 02:45 07/18/22 02:[address] 07/18/22 02:32 IMPRESSION: 1. No acute intracranial hemorrhage or mass effect. 2. No definite acute infarct by CT, see above. 3. Other findings discussed above. Laboratory Results WBC 8.3 10^3/uL (4.0-10.0) 07/18/22 02:45 RBC 3.93 10^6/uL (4.1-5.3) L 07/18/22 02:45 Hgb 11.4 g/dL (11.5-15.3) L 07/18/22 02:45 Hct 35.6 % (37.0-47.0) L 07/18/22 02:45 MCV 90.6 fl (81-99) 07/18/22 02:45 MCH 29.0 pg (28.0-34.0) 07/18/22 02:45 MCHC 32.0 g/dL (30.0-36.0) 07/18/22 02:45 RDW 13.2 % (12.1-15.1) 07/18/22 02:45 Plt Count 246 10^3/cmm (130-400) 07/18/22 02:45 MPV 8.9 fL (7.4-10.4) 07/18/22 02:45 Neut % (Auto) 82.4 % 07/18/22 02:45 Lymph % (Auto) 10.7 % 07/18/22 02:45 [place] % (Auto) 5.4 % 07/18/22 02:45 Eos % (Auto) 0.5 % 07/18/22 02:45 Baso % (Auto) 0.4 % 07/18/22 02:45 Neut # (Auto) 6.81 10^3/uL (1.8-7.7) 07/18/22 02:45 Lymph # (Auto) 0.9 10^3/uL (0.8-4.8) 07/18/22 02:45 [place] # (Auto) 0.5 10^3/uL (0.2-0.9) 07/18/22 02:45 Eos # (Auto) 0.0 10^3/uL (0.0-0.8) 07/18/22 02:45 Baso # (Auto) 0.0 10^3/uL (0.0-0.1) 07/18/22 02:45 Nucleated RBC % (auto) 0 % 07/18/22 02:45 Nucleated RBCs # 0.0 /100WBC 07/18/22 02:45 Sodium 134 mmol/L (136-145) L 07/18/22 02:45 Potassium 3.8 mmol/L (3.5-5.1) 07/18/22 02:45 Chloride 96 mmol/L (98-107) L 07/18/22 02:45 Carbon Dioxide 26 mmol/L (22-29) 07/18/22 02:45 Anion Gap 15.8 (5-19) 07/18/22 02:45 BUN 7 mg/dL (8-23) L 07/18/22 02:45 Creatinine 0.6 mg/dL (0.5-0.9) 07/18/22 02:45 GFR Calculation 101.6 mL/min (90-130) 07/18/22 02:45 Glucose 94 mg/dL (65-115) 07/18/22 02:45 Calculated Osmolality 276 mOsm/kg (285-295) L 07/18/22 02:45 Calcium 8.9 mg/dL (8.5-10.5) 07/18/22 02:45 Total Bilirubin 0.3 mg/dL (0.15-1.2) 07/18/22 02:45 AST 36 U/L (0-32) H 07/18/22 02:45 ALT 27 U/L (0-33) 07/18/22 02:45 Alkaline Phosphatase 125 U/L (35-105) H 07/18/22 02:45 Total Protein 6.4 g/dL (6.6-8.7) L 07/18/22 02:45 Albumin 4.0 g/dL (3.5-5.2) 07/18/22 02:45 Globulin 2.4 g/dL (1.3-4.6) 07/18/22 02:45 Lipase 12 U/L (13-60) L 07/18/22 02:45 Urine Color Yellow (Yellow) 07/18/22 03:15 Urine Appearance Sl hazy (CLEAR) A 07/18/22 03:15 Urine pH 5 (5-7) 07/18/22 03:15 Ur Specific Glennie 1.020 (1.005-1.030) 07/18/22 03:15 Urine Protein Trace (Negative) 07/18/22 03:15 Urine Glucose (UA) Norm (Normal) 07/18/22 03:15 Urine Ketones 3+ (Negative) H 07/18/22 03:15 Urine Blood 2+ (Negative) H 07/18/22 03:15 Urine Nitrate Negative (Negative) 07/18/22 03:15 Urine Bilirubin Neg (Negative) 07/18/22 03:15 Urine Urobilinogen Norm mg/dL (Negative) 07/18/22 03:15 Ur Leukocyte Esterase 1+ (Negative) H 07/18/22 03:15 Urine RBC Too numerous to cnt /hpf (0-2) H 07/18/22 03:15 Urine WBC Too numerous to cnt /hpf (0-5) H 07/18/22 03:15 Ur Squamous Epith Cells 0-4 /hpf (0-5) H 07/18/22 03:15 Amorphous Sediment Not Reportable 07/18/22 03:15 Urine Bacteria 2+ /hpf (NONE) H 07/18/22 03:15 Discharge Plan Discharge Patient Disposition: Placed in Observation Clinical Impression: Urinary tract infection, Weakness Coding Level of Care Code ED Windows Desktop Engineer for Chg Fwd Exam Comprehensive
[2022-07-18] MEDS: ondansetron 2 mg/ML SDV 2 mL 4 MG IVP ×3 (02:45→21:51)
[2022-07-18] MEDS: sodium chloride 0.9% 1,000 ML 999 ML IV (02:45)
[2022-07-18 02:50] LABS: Basophils % 0.4 %; Eosinophils % 0.5 %; Hematocrit 35.6 % (37.0-47.0); Hemoglobin 11.4 g/dL (11.5-15.3); Lymphocytes # 0.9 10^3/uL (0.8-4.8); Lymphocytes % 10.7 %; Mean Corpuscular Volume 90.6 fl (81-99); Mean Platelet Volume 8.9 fL (7.4-10.4); Monocytes # 0.5 10^3/uL (0.2-0.9); Monocytes % 5.4 %; Neutrophils # 6.81 10^3/uL (1.8-7.7); Neutrophils % 82.4 %; Nucleated Red Blood Cells % 0 %; Platelet Count 246 10^3/cmm (130-400); Red Blood Count 3.93 10^6/uL (4.1-5.3); Red Cell Distribution Width 13.2 % (12.1-15.1); White Blood Count 8.3 10^3/uL (4.0-10.0)
[2022-07-18 03:11] LABS: Alanine Aminotransferase 27 U/L (0-33); Alkaline Phosphatase 125 U/L (35-105); Anion Gap 15.8 (5-19); Aspartate Amino Transferase 36 U/L (0-32); Blood Urea Nitrogen 7 mg/dL (8-23); Calcium 8.9 mg/dL (8.5-10.5); Carbon Dioxide 26 mmol/L (22-29); Chloride 96 mmol/L (98-107); Globulin 2.4 g/dL (1.3-4.6); Glomerular Filtration Rate 101.6 mL/min (90-130); Glucose 94 mg/dL (65-115); Lipase 12 U/L (13-60); Osmolality Calculated 276 mOsm/kg (285-295); Potassium 3.8 mmol/L (3.5-5.1); Sodium 134 mmol/L (136-145); Total Bilirubin 0.3 mg/dL (0.15-1.2); Total Protein 6.4 g/dL (6.6-8.7)
[2022-07-18 04:01] LABS: Urine Appearance SL Hazy (CLEAR); Urine Color Yellow (Yellow)
[2022-07-18 04:02] LABS: Add Urine Culture? Yes; Add Urine Microscopic? YES; Bacteria Urine 2+ /hpf; Bilirubin Urine Neg (Negative); Blood Urine 2+ (Negative); Glucose Urine UA Norm (Normal); Ketones Urine 3+ (Negative); Leukocyte Esterase Urine 1+ (Negative); Nitrate Urine Negative (Negative); Protein Urine Trace (Negative); RBC Urine TOO NUMEROUS TO CNT /hpf (0-2); Squamous Epithelial Cell Urine 0-4 /hpf (0-5); Urobilinogen Urine Norm (Negative); WBC Urine TOO NUMEROUS TO CNT /hpf (0-5); pH Urine 5 (5-7)
[2022-07-18] MEDS: cefTRIAXone 1,000 MG in sodium chloride 0.9% (plus) 50 ML 100 MG IV (04:34)
--- NOTE | 2022-07-18 05:07 | CT_ITS ---
WS: [id number] CT ABDOMEN AND PELVIS NONCONTRAST HISTORY: UTI, vomiting, hematuria TECHNIQUE: Imaging performed through the abdomen and pelvis. Coronal and sagittal reformats are submi tted. All CT scans at [facility] use at least one of these dose optimization techniques: auto mated exposure control; mA and/or kV adjustment per patient size (includes targeted exams where dose is matched to clinical indication); or iterative reconstruction. DLP: 387.29 mGy.cm COMPARISON: 03/28/2021 Lower thorax: Hyperinflated lung bases. Benign granulomata. Liver: Normal size liver. No mass or bile duct dilatation. Gallbladder: Normal gallbladder. Pancreas: Normal size and attenuation. Normal pancreatic duct. No pancreatitis or mass. Spleen: Normal. Adrenal glands: Normal. No mass. Right kidney: Normal size kidney with no mass or hydronephrosis. Left kidney: Normal size kidney with no mass or hydronephrosis. Aorta: Mild atherosclerosis abdominal aorta with no aneurysm. No free fluid, intraperitoneal air or significant lymphadenopathy. GI tract: Stomach is moderately distended with air and fluid. No small bowel obstruction. Appendix is normal. No colitis. Abdominal wall: Small hiatal hernia. Soft tissue stranding in the LEFT abdominal wall from a prior in jection site. Pelvis: No free fluid or adenopathy. Urinary bladder is well distended. Normal anteverted uterus. No adnexal mass. Osseous structures: Unremarkable. CT/CT kidney stone [id number] IMPRESSION: 1. No renal obstruction or calcification. 2. Negative urinary bladder on unenhanced CT imaging. 3. No GI tract obstruction.
--- NOTE | 2022-07-18 05:14 | MR_ITS ---
WS: [id number] MRI LUMBAR SPINE NONCONTRAST TECHNIQUE: Sagittal T1, T2 and STIR imaging. Axial T1 and T2 imaging. CLINICAL INFORMATION: Reported could not feel her legs in ambulance COMPARISON: None. FINDINGS: Mild lumbar curve. No acute compression. No high-grade central canal stenosis. A few Schmorl's nodes in the lower thoracic spine. L1-L2: Normal. L2-L3: Mild annular bulging. Mild facet arthropathy. Tiny LEFT foraminal protrusion with mild LEFT fo raminal narrowing. Spinal canal is patent. L3-L4: Mild annular bulging. Mild LEFT and no significant RIGHT foraminal narrowing. Mild facet arthr opathy. Spinal canal is patent. L4-L5: Mild disc bulging with a tiny shallow central protrusion. Slight effacement of ventral thecal sac. Slight impingement traversing L5 nerve roots bilaterally. Mild LEFT foraminal narrowing. RIGHT f oramen is patent. Moderate facet arthropathy. L5-S1: No significant disc bulging. Spinal canal and foramen are patent. Mild to moderate facet arthr opathy. Visualized pelvic bony structures: Normal. Paravertebral soft tissues: Normal. MR/MR lumbar spine wo con* [id number] IMPRESSION: 1. Mild lumbar curve. No acute compression. No high-grade central canal stenos is. 2. Mild annular bulging with narrowing of the subarticular recess bilaterally L4-L5. Slight impingement traversing L5 nerve roots LEFT greater than RIGHT. 3. Mild LEFT L4-L5 foraminal narrowing. 4. Mild LEFT L3-L4 foraminal narrowing. 5. Moderate facet arthropathy L4-L5 and L5-S1.
--- NOTE | 2022-07-18 05:17 | P.HP_ITS ---
Providers/Chief Complaint Admitting Physician: Matt Loredo Primary Care Provider: Adela Stout Chief Complaint: Possible UTI/Numbness/Weakness History of Present Illness Pleasant 61-year-old lady with history of COPD, hypothyroidism, small cell lung cancer in remission since 2018, prior T7 compression fracture, prior CVA with residual left-sided weakness, presented to ER for evaluation due to generalized weakness, recurrent vomiting, weakness to the point of difficulty walking. She states she was feeling well up until Saturday, then she states that it hurt like a ton of bricks with feeling generally weak, and recurrent vomiting. She is having mild headache, she is having mild cough. Nonproductive. She states she was tested for COVID yesterday at [facility] ER and was negative there. In ER here UA suggestive of UTI with both RBC and WBC too numerous to count. 2+ bacteria. Head CT without acute intracranial hemorrhage or mass-effect. She reports also in the ambulance on assessment could not feel her legs, although this so far has resolved. She states only other time this is ever occurred was when she had UTI previously. Review of Systems Const: Denies: fever(s), chills, body aches or malaise Eyes: Denies: change in vision, eye discomfort or eye redness ENMT: Denies: throat pain, oral sores or ear or mastoid pain Card: Denies: chest pain, edema, pre-syncope or dyspnea on exertion Resp: Denies: dyspnea, productive cough, change in phlegm color or hemoptysis GI: Reports: nausea and vomiting; Denies: abdominal pain, diarrhea, constipation, hematochezia or melena : Reports: flank pain (R); Denies: urinary frequency or hematuria Musc: Reports: back pain; Denies: joint swelling or joint redness Skin/Breast: Denies: rash or new lesions Neuro: Denies: headache(s), numbness in extremities, weakness in extremities, dizziness, confusion or seizure-like activity Endo: Denies: polyuria or polydipsia Grabiel/Lymph: Denies: easy bleeding or tender lymph nodes All/Imm: Denies: urticaria or tongue swelling Medications/Allergies Home Medications Medication Instructions Recorded Confirmed Last Taken Type allopurinol 300 mg tablet 300 mg PO DAILY@0600 10/17/19 03/28/21 03/28/21 History cholecalciferol (vitamin D3) 50 2,000 unit PO DAILY@0800 10/17/19 03/28/21 03/27/21 History mcg (2,000 unit) tablet (Vitamin D3) gabapentin 600 mg tablet 600 mg PO TID@0800,1200,1800 10/17/19 03/28/21 03/28/21 History levothyroxine 88 mcg tablet 88 mcg PO DAILY@0800 10/17/19 03/28/21 03/28/21 History acetaminophen 500 mg tablet 1,000 mg PO PRN 10/24/20 03/28/21 Unknown History (Tylenol Extra Strength) duloxetine 20 mg capsule,delayed 40 mg PO BID@0800,1800 10/24/20 03/28/21 03/28/21 History release gabapentin 300 mg capsule 300 mg PO BEDTIME@1800 10/24/20 03/28/21 03/27/21 History nortriptyline 25 mg capsule 25 - 50 mg PO DAILY 10/24/20 03/28/21 03/27/21 History oxycodone 10 mg tablet 10 mg PO Q6H PRN Pain 10/24/20 03/28/21 03/28/21 History sennosides 8.6 mg-docusate sodium 2 tab PO BEDTIME 10/24/20 03/28/21 Unknown History 50 mg tablet (Stool Softener-Laxative) nystatin 100,000 unit/mL oral 500,000 unit (5 mL) PO QID #100 mL 10/26/20 03/28/21 Unknown Rx suspension yhhirxvb-yaq-nygyg acid 500 1 tab PO DAILY@0800 03/28/21 03/28/21 03/28/21 History mcg-lycopene 300 mcg-lutein 250 mcg tablet amoxicillin 500 mg-potassium 1 tab PO BID #14 tabs 03/31/21 Unknown Rx clavulanate 125 mg tablet (Augmentin) budesonide 90 mcg/actuation breath 1 inh inhalation BID #1 ea 03/31/21 Unknown Rx activated powder inhaler ondansetron 4 mg disintegrating 4 mg PO Q8H PRN NAUSEA/VOMITING 7 03/31/21 Unknown Rx tablet days #21 tabs ondansetron 4 mg disintegrating 4 mg PO Q6H PRN nausea and 07/23/21 Unknown Rx tablet vomiting #14 tabs Allergies Allergy/AdvReac Type Severity Reaction Status Date / Time ibuprofen Allergy ROCKY-Swell Verified 10/23/20 20:23 Lip/Tongue/Throat flu shot Allergy Unknown Uncoded 10/23/20 20:23 PFSH Acute PFSH: Medical History Abdominal pain Compression fracture of T7 vertebra COPD (chronic obstructive pulmonary disease) COVID-19 Diarrhea due to COVID-19 Former smoker Gout H/O: CVA (cerebrovascular accident) Hypothyroidism Hypothyroidism Hypoxia Nausea & vomiting Pneumonia due to COVID-19 virus Small cell lung cancer in adult History of small cell lung cancer Surgical History History of appendectomy Family History Father Cancer Lung cancer Social History Smoking and tobacco status: former smoker Alcohol intake: never Household members: family Housing: House Vitals/I&O/Wt Last Vital Signs Temp 97.9 F 07/18/22 02:27 Pulse 94 07/18/22 04:35 Resp 17 07/18/22 04:35 BP 138/55 07/18/22 04:35 Pulse Ox 95 07/18/22 04:35 O2 Del Method 07/18/22 04:35 07/17/22 07/17/22 07/18/22 14:59 22:59 06:59 Intake Total 1050 / 1050 Balance 1050 / 1050 Physical Exam Const: COMMON NORMALS: patient oriented x3 and alert GENERAL APPEARANCE: cooperative ORIENTATION/CONSCIOUSNESS: Yes awake HENMT: COMMON NORMALS: oropharynx normal Neck/C-Spine: COMMON NORMALS: no JVD Resp: COMMON NORMALS: normal respiratory effort and clear to auscultation bilaterally AUSCULTATION: clear to auscultation bilaterally Cardio: COMMON NORMALS: no JVD, regular rhythm, S1 normal heart sound present, S2 normal heart sound present and No murmurs present (Cardio) RHYTHM: regular rhythm HEART SOUNDS: S1 normal heart sound present and S2 normal heart sound present GI: COMMON NORMALS: Normal to inspection, nondistended, normoactive bowel sounds present, Soft to palpation and non-tender PALPATION: Yes Soft to palpation Extremity: COMMON NORMALS: no joint enlargement and no pedal edema OTHER: Can move BL LE. Sensation symmetrical. Neuro: COMMON NORMALS: patient oriented x3 and moves all extremities SEN SORIUM/ORIENTATION: Yes alert Skin: COMMON NORMALS: no rashes or lesions noted GENERAL SKIN EXAM: no rashes or lesions noted Data : 07/18/22 02:45 07/18/22 02:45 A&P Assessment and plan (1) Urinary tract infection: Noted UTI both with RBC and WBC. She reports some lower back, right flank pain. With vomiting. We will additionally assess CT kidney stone. Continue ceftriaxone. Follow-up urine culture. (2) Recurrent vomiting: Recurrent vomiting, possibly secondary to UTI, additional assessment as above for kidney stone. Zofran as needed. PPI. Additional assessment for COVID-19 by PCR. Yesterday was found negative states at [facility], although unclear if this was a rapid test or PCR. (3) Weakness: Generalized weakness, related to UTI, but reports also lower extremity sensory loss that she felt in the ambulance on the way here. Having some lower back pain. Does have some history of lung cancer. We will additionally assess MRI lumbar spine. Mild transaminitis. Check CK. With vomiting, mild cough, mild headache. Check COVID-19 PCR Check TSH. PT evaluation. (4) Transaminitis: Check CK, COVID-19 PCR. Follow-up liver parameters. Plan Please review and order home medications once they are confirmed. COPD, Hypothyroidism, check TSH Small cell lung cancer in remission since 2018, Prior T7 compression fracture, Prior CVA with residual left-sided weakness Attestations Medical Necessity Statement*: Place in observation for additional assessment and management of recurrent vomiting, additional assessment of UTI with hematuria, flank pain, generalized weakness, lower extremity weakness and transient sensory deficits. Coding Level of Care Code Acute Peoplesoft Consultant for Chg Fwd Diagnoses Urinary tract infection N39.0 Recurrent vomiting R11.10 Weakness R53.1 Transaminitis R74.01
[2022-07-18] MEDS: heparin 5,000 unit/mL INJ 1 mL 5000 UNIT SUBCUT ×2 (05:21→17:49)
--- NOTE | 2022-07-18 05:22 | XR_ITS ---
WS: [id number] Exam: XR chest 1V portable [id number] Date/Time of Exam: 07/18/2022 5:27 AM Reason For Exam: weak, mild cough Comparison 07/23/2021. The lungs are clear and hyperinflated. Normal cardiomediastinal silhouette. No pleural effusions. Chr onic plaque atelectasis in the mid left lung. Signs of kyphoplasty involving a single midthoracic donavon tebra. Remaining bony structures are unremarkable. XR/XR chest 1V portable [id number] IMPRESSION: 1. Pulmonary hyperinflation. No acute process.
--- NOTE | 2022-07-18 05:29 | MR_ITS ---
WS: [id number] MRI THORACIC SPINE WITHOUT CONTRAST TECHNIQUE: Sagittal T1, T2 and STIR imaging. Axial T2 imaging. Noncontrast imaging obtained. CLINICAL INFORMATION: Reported could not feel her legs in ambulance COMPARISON: CT October 17, 2019 FINDINGS: Mild thoracic curve. Mild thoracic kyphosis. No acute compression fractures. Chronic compression with kyphoplasty changes in the mid thoracic spine at T7. Cord signal is normal. Mild to moderate facet arthropathy lower thoracic spine. Small central disc protrusion C6-C7 with mil d central canal stenosis. Slight contact of the cervical cord. A few Schmorl's nodes in the lower tho racic spine. Mild LEFT T9-T10 foraminal narrowing with a small LEFT foraminal superior foraminal prot rusion. Mild LEFT T10-T11 bony foraminal narrowing. Normal caliber descending thoracic aorta. MR/MR thoracic spin wo con* [id number] IMPRESSION: 1. Mild thoracic curve. Mild thoracic kyphosis. 2. Chronic compression with kyphoplasty changes at T7. No acute compression fr actures. 3. Mild to moderate facet arthropathy lower thoracic spine. 4. Mild LEFT T9-T10 and LEFT T10-T11 foraminal narrowing. 5. Small central protrusion C6-C7 with mild central canal stenosis and slight contact of the cervical cord.
[2022-07-18 05:43] LABS: Creatine Phosphokinase 66 U/L (26-192)
[2022-07-18] MEDS: acetaminophen 325 mg Tablet 650 MG PO ×3 (06:29→21:56)
[2022-07-18 09:31] LABS: Adenovirus Not Detected (NOT DETECT); Chlamydia Pneumoniae Not Detected (NOT DETECT); Coronavirus 229E,HKU1,NL63,OC4 Not Detected (NOT DETECT); Human Metapneumovirus Not Detected (NOT DETECT); Human Rhinovirus/Enterovirus Not Detected (NOT DETECT); Influenza A Not Detected (NOT DETECT); Influenza A H1 Not Detected (NOT DETECT); Influenza A H1-2009 Not Detected (NOT DETECT); Influenza A H3 Not Detected (NOT DETECT); Influenza B Not Detected (NOT DETECT); Mycoplasma Pneumoniae Not Detected (NOT DETECT); Parainfluenza Virus Type 1 Not Detected (NOT DETECT); Parainfluenza Virus Type 2 Not Detected (NOT DETECT); Parainfluenza Virus Type 3 Not Detected (NOT DETECT); Parainfluenza Virus Type 4 Not Detected (NOT DETECT); Respiratory Syncytial Virus A Not Detected (NOT DETECT); Respiratory Syncytial Virus B Not Detected (NOT DETECT); SARS-COV-2 Not Detected (NOT DETECT)
[2022-07-18] MEDS: pantoprazole DR 40 mg Tablet PO (09:39)
--- NOTE | 2022-07-18 11:20 | PM.MISC ---
Miscellaneous Note Note: Seen this AM. no acute events overnight pt feels slightly better. abdomen soft, non tender lungs cta, continue mgmt as per HnP document.
--- NOTE | 2022-07-18 12:30 | PC.NURSE ---
1122 pt to MRI via Wheel chair
[2022-07-18] MEDS: lanolin oint 7 gm 1 APPLIC TOPICAL (19:24)
[2022-07-18] MEDS: duloxetine 20 mg Capsule 40 MG PO (22:25)
[2022-07-18] MEDS: oxyCODONE 5 mg IR Tab/Cap 10 MG PO (23:44)
[2022-07-19] VITALS (8 sets, daily range): BP systolic 120–181; BP diastolic 64–94; PULSE 78–91; RESP 14–24; TEMP 36.5–36.9; O2SAT 93–96
[2022-07-19] MEDS: heparin 5,000 unit/mL INJ 1 mL 5000 UNIT SUBCUT ×2 (04:19→17:33)
[2022-07-19] MEDS: cefTRIAXone 1,000 MG in sodium chloride 0.9% (plus) 50 ML 100 MG IV (04:19)
[2022-07-19] MEDS: allopurinol 300 mg Tablet PO (05:04)
[2022-07-19 05:14] LABS: Basophils % 0.6 %; Eosinophils % 0.6 %; Hemoglobin 10.9 g/dL (11.5-15.3); Lymphocytes # 1.3 10^3/uL (0.8-4.8); Mean Corpuscular HGB Conc 32.1 g/dL (30.0-36.0); Mean Corpuscular Hemoglobin 29.3 pg (28.0-34.0); Mean Corpuscular Volume 91.4 fl (81-99); Mean Platelet Volume 8.9 fL (7.4-10.4); Monocytes # 0.3 10^3/uL (0.2-0.9); Monocytes % 5.4 %; Neutrophils # 3.67 10^3/uL (1.8-7.7); Neutrophils % 68.7 %; Nucleated Red Blood Cells % 0 %; Platelet Count 258 10^3/cmm (130-400); Red Blood Count 3.72 10^6/uL (4.1-5.3); Red Cell Distribution Width 13.2 % (12.1-15.1); White Blood Count 5.3 10^3/uL (4.0-10.0)
[2022-07-19 05:54] LABS: Alanine Aminotransferase 21 U/L (0-33); Albumin Level 3.8 g/dL (3.5-5.2); Alkaline Phosphatase 115 U/L (35-105); Anion Gap 20.3 (5-19); Aspartate Amino Transferase 26 U/L (0-32); Blood Urea Nitrogen 8 mg/dL (8-23); Calcium 8.3 mg/dL (8.5-10.5); Carbon Dioxide 19 mmol/L (22-29); Chloride 96 mmol/L (98-107); Globulin 2.7 g/dL (1.3-4.6); Glomerular Filtration Rate 101.6 mL/min (90-130); Glucose 76 mg/dL (65-115); Osmolality Calculated 269 mOsm/kg (285-295); Potassium 4.3 mmol/L (3.5-5.1); Sodium 131 mmol/L (136-145); Thyroid Stimulating Hormone 0.98 uIU/mL (0.27-4.20); Total Bilirubin 0.3 mg/dL (0.15-1.2); Total Protein 6.5 g/dL (6.6-8.7)
[2022-07-19] MEDS: ondansetron 2 mg/ML SDV 2 mL 4 MG IVP (05:55)
[2022-07-19] MEDS: duloxetine 20 mg Capsule 40 MG PO ×2 (09:24→17:33)
[2022-07-19] MEDS: pantoprazole DR 40 mg Tablet PO (09:24)
[2022-07-19] MEDS: gabapentin 300 mg Capsule 600 MG PO ×3 (09:25→20:45)
[2022-07-19 10:04] LABS: Lactate (Lactic Acid level) 0.8 mmol/L (0.5-2.2)
--- NOTE | 2022-07-19 10:40 | PC.CHAP ---
Pastoral Care Encounter/Spiritual Assessment Type of Contact [] Declined lead project manager visit [] Patient/Family/Request visit [] Outpatient visit [] Follow-up visit [] Physician referral [] Code/Alert [x] Routine visit [] Staff referral [] Actively dying [] Patient sleeping [] Family support [] [] Out of room [] Palliative care [] [x] Receiving care in room [] Pre-surgical visit [] Trauma [] Long length of stay [] ICU visit [] Other: Relational/Emotional Strength [x] Patient feels connected with others/family/visitors/staff [] Distress [] Loneliness/isolation [] Abandonment Spirituality of Patient [x] Person of Nancy [] Attends Restoration of their Nancy [x] Believes in Prayer [] Reads Bible or Church materials [] There are Spiritual issues to be addressed Interactive Art Director Interventions [x] Prayer [x] Active listening [x] Non-anxious presence [x] Spiritual/emotional support [] Crisis/trauma care [x] Spiritual counseling [] Bereavement support [] Provided bereavement packet [] Provided Bible/devotional materials [] Provided toy/stuffed animal, coloring book to patient or family member [] Provided Communion [] Anointing/[place] [] Salvation [x] Completed spiritual assessment [] Other: Impact on Illness or Injury [] Angry [] Fearful [x] Anxious [] Often cries [] Exhaustion [] Unable to work [] Unable to attend tenriism [] Unable to walk/stand [] Unable to read [] Unable to drive [] Unable to eat/drink [] Unable to sleep [] Unable to be with family [] Patient intubated [] Other: Summary kindy infection feeling better has a good attitude going home soon Time spent with patient 10 mins
--- NOTE | 2022-07-19 11:14 | P.PN_ITS ---
Subjective Subjective: seen this morning pt states she had another episode of loss of sensation in lower extremity last n ight that went away on its own. MRI results discussed with patient Vitals/I&O/Wt Last Vital Signs Temp 98.5 F 07/19/22 04:00 Pulse 85 07/19/22 04:00 Resp 14 07/19/22 04:00 BP 132/67 07/19/22 08:00 Pulse Ox 95 07/19/22 04:00 O2 Del Method 07/19/22 04:00 07/18/22 07/19/22 07/19/22 22:59 06:59 14:59 Intake Total 360 / 360 110 / 470 0 / 0 Balance 360 / 360 110 / 470 0 / 0 Weight last 48 hrs Weight 60.98 kg Weight 61.83 kg Weight 64.07 kg Physical Exam Const: COMMON NORMALS: patient oriented x3 and alert GENERAL APPEARANCE: cooperative ORIENTATION/CONSCIOUSNESS: Yes awake HENMT: COMMON NORMALS: oropharynx normal Neck/C-Spine: COMMON NORMALS: no JVD Resp: COMMON NORMALS: normal respiratory effort and clear to auscultation bilaterally AUSCULTATION: clear to auscultation bilaterally Cardio: COMMON NORMALS: no JVD, regular rhythm, S1 normal heart sound present, S2 normal heart sound present and No murmurs present (Cardio) RHYTHM: regular rhythm HEART SOUNDS: S1 normal heart sound present and S2 normal heart sound present GI: COMMON NORMALS: Normal to inspection, nondistended, normoactive bowel sounds present, Soft to palpation and non-tender PALPATION: Yes Soft to palpation Extremity: COMMON NORMALS: no joint enlargement and no pedal edema OTHER: Can move BL LE. Sensation symmetrical. Neuro: COMMON NORMALS: patient oriented x3 and moves all extremities SENSORIUM/ORIENTATION: Yes alert Skin: COMMON NORMALS: no rashes or lesions noted GENERAL SKIN EXAM: no rashes or lesions noted Data : 07/19/22 04:56 07/19/22 04:56 A&P Assessment and plan (1) Urinary tract infection: Noted UTI both with RBC and WBC. She reports some lower back, right flank pain. With vomiting. CT abdomen pelvis did not show acute renal pathology. Continue ceftriaxone. Follow-up urine culture. (2) Recurrent vomiting: Recurrent vomiting, possibly secondary to UTI, additional assessment as above for kidney stone. Zofran as needed. PPI. Additional assessment for COVID-19 by PCR. Yesterday was found negative states at [facility], although unclear if this was a rapid test or PCR. (3) Weakness: Generalized weakness, related to UTI, but reports also lower extremity sensory loss that she felt in the ambulance on the way here. Having some lower back pain. Does have some history of lung cancer. We will additionally assess MRI lumbar spine. Mild transaminitis. Check CK. With vomiting, mild cough, mild headache. COVID negative TSH 0.98 PT evaluation. (4) Transaminitis: Check CK, COVID-19 PCR. Follow-up liver parameters. Plan COPD, Hypothyroidism, Small cell lung cancer in remission since 2018, Prior T7 compression fracture, Prior CVA with residual left-sided weakness MRI lumbar and thoracic spine reviewed. Consult Dr. Hays. Will follow recommendations. PT/OT Full Code Attestations Medical Necessity Statement*: Awaiting ortho consult. Coding Level of Care Code Acute Printing Specialist for Chg Fwd Diagnoses Urinary tract infection N39.0 Recurrent vomiting R11.10 Weakness R53.1 Transaminitis R74.01
--- NOTE | 2022-07-19 13:44 | PM.CONSULT ---
Providers/Reason For Consult Consulting Physician/Specialty*: Ortho Spine Reason for Consult*: Back and leg pain Attending Physician: Lisa Weeks MD Primary Care Provider: Adela Stout History of Present Illness History of Present Illness Zulma Garcia is a 61 year old female who is a patient on [facility] 259 bed 1. No family was present. Orthopedic spine was consulted for low back and leg pain. She does have a history of a kyphoplasty at T7 which was performed in [place] at [facility]. 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 She denies any specific injury to her low back denies any recent falls. She has had primarily low back pain with intermittent pains down her legs and weakness in the left lower extremity. Activities seem to make her symptoms much worse rest gives her some temporary relief. She denies any loss of bowel or bladder control. She tries to do home stretching exercises but its been difficult for her because of the pain. She denies any injections at a pain clinic. She ranks the pain as 7 out of 10 on the pain scale. An extensive review of the patient's past medical history, surgical history, allergies, medications, family history, social history, and review of systems was completed Review of Systems Const: Denies: fever(s), chills, body aches or malaise Eyes: Denies: change in vision, eye discomfort or eye redness ENMT: Denies: throat pain, oral sores or ear or mastoid pain Card: Denies: chest pain, edema, pre-syncope or dyspnea on exertion Resp: Denies: dyspnea, productive cough, change in phlegm color or hemoptysis GI: Reports: nausea and vomiting; Denies: abdominal pain, diarrhea, constipation, hematochezia or melena : Reports: flank pain (R); Denies: urinary frequency or hematuria Musc: Reports: back pain; Denies: joint swelling or joint redness Skin/Breast: Denies: rash or new lesions Neuro: Denies: headache(s), numbness in extremities, weakness in extremities, dizziness, confusion or seizure-like activity Endo: Denies: polyuria or polydipsia [place]/Lymph: Denies: easy bleeding or tender lymph nodes All/Imm: Denies: urticaria or tongue swelling Medications/Allergies Home Medications Medication Instructions Recorded Confirmed Last Taken Type allopurinol 300 mg tablet 300 mg PO DAILY@0600 10/17/19 07/18/22 03/28/21 History cholecalciferol (vitamin D3) 50 2,000 unit PO DAILY@0800 10/17/19 07/18/22 03/27/21 History mcg (2,000 unit) tablet (Vitamin D3) gabapentin 600 mg tablet 600 mg PO TID@0800,1200,1800 10/17/19 07/18/22 03/28/21 History levothyroxine 88 mcg tablet 88 mcg PO DAILY@0800 10/17/19 07/18/22 03/28/21 History acetaminophen 500 mg tablet 1,000 mg PO PRN 10/24/20 07/18/22 Unknown History (Tylenol Extra Strength) duloxetine 20 mg capsule,delayed 40 mg PO BID@0800,1800 10/24/20 07/18/22 03/28/21 History release gabapentin 300 mg capsule 300 mg PO BEDTIME@1800 10/24/20 07/18/22 03/27/21 History nortriptyline 25 mg capsule 25 - 50 mg PO DAILY 10/24/20 07/18/22 03/27/21 History oxycodone 10 mg tablet 10 mg PO Q6H PRN Pain 10/24/20 07/18/22 03/28/21 History sennosides 8.6 mg-docusate sodium 2 tab PO BEDTIME 10/24/20 07/18/22 Unknown History 50 mg tablet (Stool Softener-Laxative) hnluczga-gui-pzrdd acid 500 1 tab PO DAILY@0800 03/28/21 07/18/22 03/28/21 History mcg-lycopene 300 mcg-lutein 250 mcg tablet budesonide 90 mcg/actuation breath 1 inh inhalation BID #1 ea 03/31/21 07/18/22 Unknown Rx activated powder inhaler ondansetron 4 mg disintegrating 4 mg PO Q8H PRN NAUSEA/VOMITING 7 03/31/21 07/18/22 Unknown Rx tablet days #21 tabs Allergies Allergy/AdvReac Type Severity Reaction Status Date / Time ibuprofen Allergy ALGY-Swell Verified 10/23/20 20:23 Lip/Tongue/Throat flu shot Allergy Unknown Uncoded 10/23/20 20:23 Current Medications Generic Name Dose Route Start Last Admin Trade Name Freq PRN Reason Stop Dose Admin Acetaminophen 650 mg 07/18/22 05:10 07/18/22 21:56 Acetaminophen 325 Mg Tablet PO 650 mg Q6H PRN Administration Mild/Mod Pain Or Temp >/= 101 Allopurinol 300 mg 07/19/22 06:00 07/19/22 05:04 Allopurinol 300 Mg Tablet PO 300 mg DAILY@0600 KELLEN Administration Duloxetine HCl 40 mg 07/18/22 22:10 07/19/22 09:24 Duloxetine 20 Mg Capsule PO 40 mg BID@0800,1800 KELLEN Administration Gabapentin 600 mg 07/19/22 09:00 07/19/22 09:25 Gabapentin 300 Mg Capsule PO 600 mg TID KELLEN Administration Heparin Sodium (Porcine) 5,000 unit 07/18/22 05:15 07/19/22 04:19 Heparin 5,000 Unit/Ml Inj 1 Ml SUBCUT 5,000 unit Q12H KELLEN Administration Ceftriaxone Sodium 1,000 mg/ 50 mls @ 100 mls/hr 07/19/22 04:00 07/19/22 04:53 Sodium Chloride IV Infused Q24H KELLEN Infusion Protocol Lanolin 1 applic 07/18/22 19:18 07/18/22 19:24 Lanolin Oint 7 Gm TOPICAL 1 applic PRN PRN Administration DRYNESS Ondansetron HCl 4 mg 07/19/22 02:45 07/19/22 05:55 Ondansetron 2 Mg/Ml Sdv 2 Ml IVP 4 mg Q6H PRN Administration vomiting, or N/V if npo Oxycodone HCl 10 mg 07/18/22 22:06 07/18/22 23:44 Oxycodone 5 Mg Ir Tab/Cap PO 10 mg Q6H PRN Administration Pain Pantoprazole Sodium 40 mg 07/18/22 09:00 07/19/22 09:[address] 40 Mg Tablet PO 40 mg DAILY KELLEN Administration PFSH Acute PFSH: Medical History Abdominal pain Compression fracture of T7 vertebra COPD (chronic obstructive pulmonary disease) COVID-19 Diarrhea due to COVID-19 Former smoker Gout H/O: CVA (cerebrovascular accident) Hypothyroidism Hypothyroidism Hypoxia Nausea & vomiting Pneumonia due to COVID-19 virus Small cell lung cancer in adult History of small cell lung cancer Surgical History History of appendectomy Family History Father Cancer Lung cancer Social History Smoking and tobacco status: former smoker Alcohol intake: never Household members: family Housing: House Vitals/I&O/Wt Last Vital Signs Temp 97.7 F 07/19/22 11:32 Pulse 78 07/19/22 11:32 Resp 15 07/19/22 11:32 BP 120/67 07/19/22 11:32 Pulse Ox 93 07/19/22 11:32 O2 Del Method 07/19/22 11:32 07/18/22 07/19/22 07/19/22 22:59 06:59 14:59 Intake Total 360 / 360 110 / 470 0 / 0 Balance 360 / 360 110 / 470 0 / 0 Weight last 48 hrs Weight 134 lb 7 oz Weight 136 lb 5 oz Weight 141 lb 4 oz Physical Exam Narrative: She is alert orient x3 she has good general appearance normal mood and affect. She is sitting at the bedside having an afternoon meal. Patient does not appear in any apparent distress. She is tender with palpation diffusely through the paraspinous musculature of the lumbar spine. She is able to switch sides in the bed and stand with some instability due to her left-sided hemiplegia. She can forward bend approximately 35 degrees she extends to neutral she rotates without any apparent distress. She has normal station light touch down the right lower extremity numbness and tingling down the left. She has a left foot drop due to the hemiplegia. Her skin is warm to the touch feet are warm with good cap refill dorsalis pedis posterior pulses are weak but palpable. She has 5/5 strength in the right lower extremity in all motor groups. She has negative logroll bilaterally. She has full range of motion of both upper extremities at the shoulders elbows and wrists hands warm good cap refill. She has full range of motion of the cervical spine. She has good sensation light touch in all digits radial pulses are palpable. HENMT: COMMON NORMALS: normocephalic and atraumatic HEAD & SCALP: normocephalic and atraumatic Resp: COMMON NORMALS: normal respiratory effort Cardio: COMMON NORMALS: regular rate and regular rhythm RATE: regular rate RHYTHM: regular rhythm GI: COMMON NORMALS: Soft to palpation and non-tender PALPATION: Yes Soft to palpation : COMMON NORMALS: Yes no CVA tenderness BLADDER/KIDNEY EXAM: Yes no CVA tenderness Back/Pelvis: COMMON NORMALS: no CVA tenderness Psych: COMMON NORMALS: mental status grossly normal and cooperative Data : 07/19/22 04:56 07/19/22 04:56 MRI: Radiologist's impression: MR/MR thoracic spin wo con* [id number] IMPRESSION: ? 1.? Mild thoracic curve. Mild thoracic kyphosis. 2.? Chronic compression with kyphoplasty changes at T7. No acute compression fractures. 3.? Mild to moderate facet arthropathy lower thoracic spine. 4.? Mild LEFT T9-T10 and LEFT T10-T11 foraminal narrowing. 5.? Small central protrusion C6-C7 with mild central canal stenosis and slight contact of the cervical cor MR/MR lumbar spine wo con* [id number] IMPRESSION: ? 1.? Mild lumbar curve. No acute compression. No high-grade central canal stenosis. 2.? Mild annular bulging with narrowing of the subarticular recess bilaterally L4-L5. Slight impingement traversing L5 nerve roots LEFT greater than RIGHT. 3.? Mild LEFT L4-L5 foraminal narrowing. 4.? Mild LEFT L3-L4 foraminal narrowing. 5.? Moderate facet arthropathy L4-L5 and L5-S1. A&P Assessment and plan (1) Lumbar spondylosis: Discussed the MRI scan at length with her. Recommended basic conservative treatment course which includes: First being anaerobically active conditioning that should be done 4 to 6 days/week, 20 to 40 minutes/day and can include such activities as walking, stretching program, biking, pool aerobics, [place] track, elliptical cross business trainer and so forth. Secondly, core strengthening program. This program could be initiated in physical therapy to learn the proper lifting and stretching techniques. Pilates and/or yoga program would also be an additional option. Discussed physical therapy with her with home stretching exercises and consideration of an AFO for her left lower extremity due to the foot drop from the hemiplegia. Discussed with her also outpatient consultation with the pain clinic for consideration of facet blocks. We will see her back in the office in 6 weeks time for reevaluation after the pain clinic consultation. More than 50% of the time spent with the patient today involved coordination of care, counseling and discussion of conservative versus surgical treatment options. Total amount of time spent with the patient was 30 minutes. 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
--- NOTE | 2022-07-19 13:54 | PM.DCS ---
Discharge Providers Date of Admission: 07/18/22 04:33 Date of Discharge: July 19, 2022 Attending Provider at Admission: Matt Lordeo Attending Provider at Discharge: Lisa Weeks MD Primary Care Provider: Adela Stout Diagnoses at Discharge Discharge Diagnosis (1) Urinary tract infection: Status: Acute (2) Recurrent vomiting: Status: Acute (3) Weakness: Status: Acute (4) Transaminitis: Status: Acute Reason for Visit Reason for Visit: Possible UTI/Numbness/Weakness Brief History: Pleasant 61-year-old lady with history of COPD, hypothyroidism, small cell lung cancer in remission since 2018, prior T7 compression fracture, prior CVA with residual left-sided weakness, presented to ER for evaluation due to generalized weakness, recurrent vomiting, weakness to the point of difficulty walking.? She states she was feeling well up until Saturday, then she states that it hurt like a ton of bricks with feeling generally weak, and recurrent vomiting.? She is having mild headache, she is having mild cough.? Nonproductive.? She states she was tested for COVID yesterday at [facility] ER and was negative there. In ER here UA suggestive of UTI with both RBC and WBC too numerous to count.? 2+ bacteria.? Head CT without acute intracranial hemorrhage or mass-effect. She reports also in the ambulance on assessment could not feel her legs, although this so far has resolved.? She states only other time this is ever occurred was when she had UTI previously. Hospital Course Hospital Course Patient presented with nausea, vomiting, weakness to the point of difficulty walking. She was diagnosed with UTI. She was placed on IV antibiotics. Head CT negative for any mass-effect or intracranial hemorrhage. At 1 point in the ambulance she stated she could not feel her legs. MRI thoracic and lumbar spine were completed. MRI: ? ? ? Radiologist's impression: MR/MR thoracic spin wo con* [id number] IMPRESSION: ? 1.? Mild thoracic curve. Mild thoracic kyphosis. 2.? Chronic compression with kyphoplasty changes at T7. No acute compression fractures. 3.? Mild to moderate facet arthropathy lower thoracic spine. 4.? Mild LEFT T9-T10 and LEFT T10-T11 foraminal narrowing. 5.? Small central protrusion C6-C7 with mild central canal stenosis and slight contact of the cervical cor MR/MR lumbar spine wo con* [id number] IMPRESSION: ? 1.? Mild lumbar curve. No acute compression. No high-grade central canal stenosis. 2.? Mild annular bulging with narrowing of the subarticular recess bilaterally L4-L5. Slight impingement traversing L5 nerve roots LEFT greater than RIGHT. 3.? Mild LEFT L4-L5 foraminal narrowing. 4.? Mild LEFT L3-L4 foraminal narrowing. 5.? Moderate facet arthropathy L4-L5 and L5-S1. Patient was recommended conservative treatment. She was asked to follow-up with Dr. Hays as an outpatient for potential epidural injections for pain control. Dr. Hays will see her as an outpatient and then possibly refer her to pain management as well. No acute indication for surgery at this time. Patient was also evaluated by Dr. Hartman in the hospital in consultation. Patient agreeable and understands. He was also noted to be hyponatremic. Urine studies ordered. She was given IV fluids with improvement in sodium. She was asked to follow-up with primary care doctor outpatient and to have repeat BMP done in 1 week. For UTI she was given Augmentin. Home health was set up with the patient. Physical Exam Const: COMMON NORMALS: patient oriented x3 and alert GENERAL APPEARANCE: cooperative ORIENTATION/CONSCIOUSNESS: Yes awake HENMT: COMMON NORMALS: oropharynx normal Neck/C-Spine: COMMON NORMALS: no JVD Resp: COMMON NORMALS: normal respiratory effort and clear to auscultation bilaterally AUSCULTATION: clear to auscultation bilaterally Cardio: COMMON NORMALS: no JVD, regular rhythm, S1 normal heart sound present, S2 normal heart sound present and No murmurs present (Cardio) RHYTHM: regular rhythm HEART SOUNDS: S1 normal heart sound present and S2 normal heart sound present GI: COMMON NORMALS: Normal to inspection, nondistended, normoactive bowel sounds present, Soft to palpation and non-tender PALPATION: Yes Soft to palpation Extremity: COMMON NORMALS: no joint enlargement and no pedal edema OTHER: Can move BL LE. Sensation symmetrical. Neuro: COMMON NORMALS: patient oriented x3 and moves all extremities SENSORIUM/ORIENTATION: Yes alert Skin: COMMON NORMALS: no rashes or lesions noted GENERAL SKIN EXAM: no rashes or lesions noted Discharge Data Studies Completed and Pending Completed Studies During Hospitalization Category Date Time Status CT abdomen renal stone [CT kidney stone 11414] Routine Cat Scan 07/18/22 05:[address] head wo con* [id number] Stat Cat Scan 07/18/22 02:32 Completed CXRP [XR chest 1V portable [id number]] Routine Exams 07/18/22 05:22 Completed MR lumbar spine wo con* [id number] Routine MRI 07/18/22 05:14 Completed MR thoracic spin wo con* [id number] Routine MRI 07/18/22 05:29 Completed Pending at discharge Category Date Time Status Complete Blood Count w/Auto AM LABS Lab 07/20/22 04:00 Ordered Complete Blood Count w/Auto AM LABS Lab 07/21/22 04:00 Ordered Comprehensive Metabolic Panel AM LABS Lab 07/20/22 04:00 Ordered Comprehensive Metabolic Panel AM LABS Lab 07/21/22 04:00 Ordered Urine Culture Stat Lab 07/18/22 03:15 Received Radiology Impressions Head CT 07/18/22 02:32 IMPRESSION: 1. No acute intracranial hemorrhage or mass effect. 2. No definite acute infarct by CT, see above. 3. Other findings discussed above. Abdomen/Pelvis CT 07/18/22 05:07 IMPRESSION: 1. No renal obstruction or calcification. 2. Negative urinary bladder on unenhanced CT imaging. 3. No GI tract obstruction. Lumbar Spine MRI 07/18/22 05:14 IMPRESSION: 1. Mild lumbar curve. No acute compression. No high-grade central canal stenosis. 2. Mild annular bulging with narrowing of the subarticular recess bilaterally L4-L5. Slight impingement traversing L5 nerve roots LEFT greater than RIGHT. 3. Mild LEFT L4-L5 foraminal narrowing. 4. Mild LEFT L3-L4 foraminal narrowing. 5. Moderate facet arthropathy L4-L5 and L5-S1. Chest X-Ray 07/18/22 05:22 IMPRESSION: 1. Pulmonary hyperinflation. No acute process. Thoracic Spine MRI 07/18/22 05:29 IMPRESSION: 1. Mild thoracic curve. Mild thoracic kyphosis. 2. Chronic compression with kyphoplasty changes at T7. No acute compression fractures. 3. Mild to moderate facet arthropathy lower thoracic spine. 4. Mild LEFT T9-T10 and LEFT T10-T11 foraminal narrowing. 5. Small central protrusion C6-C7 with mild central canal stenosis and slight contact of the cervical cord. Laboratory Results WBC 5.3 10^3/uL (4.0-10.0) 07/19/22 04:56 RBC 3.72 10^6/uL (4.1-5.3) L 07/19/22 04:56 Hgb 10.9 g/dL (11.5-15.3) L 07/19/22 04:56 Hct 34.0 % (37.0-47.0) L 07/19/22 04:56 MCV 91.4 fl (81-99) 07/19/22 04:56 MCH 29.3 pg (28.0-34.0) 07/19/22 04:56 MCHC 32.1 g/dL (30.0-36.0) 07/19/22 04:56 RDW 13.2 % (12.1-15.1) 07/19/22 04:56 Plt Count 258 10^3/cmm (130-400) 07/19/22 04:56 MPV 8.9 fL (7.4-10.4) 07/19/22 04:56 Neut % (Auto) 68.7 % 07/19/22 04:56 Lymph % (Auto) 24.0 % 07/19/22 04:56 [place] % (Auto) 5.4 % 07/19/22 04:56 Eos % (Auto) 0.6 % 07/19/22 04:56 Baso % (Auto) 0.6 % 07/19/22 04:56 Neut # (Auto) 3.67 10^3/uL (1.8-7.7) 07/19/22 04:56 Lymph # (Auto) 1.3 10^3/uL (0.8-4.8) 07/19/22 04:56 [place] # (Auto) 0.3 10^3/uL (0.2-0.9) 07/19/22 04:56 Eos # (Auto) 0.0 10^3/uL (0.0-0.8) 07/19/22 04:56 Baso # (Auto) 0.0 10^3/uL (0.0-0.1) 07/19/22 04:56 Nucleated RBC % (auto) 0 % 07/19/22 04:56 Nucleated RBCs # 0.0 /100WBC 07/19/22 04:56 Sodium 131 mmol/L (136-145) L 07/19/22 04:56 Potassium 4.3 mmol/L (3.5-5.1) 07/19/22 04:56 Chloride 96 mmol/L (98-107) L 07/19/22 04:56 Carbon Dioxide 19 mmol/L (22-29) L 07/19/22 04:56 Anion Gap 20.3 (5-19) H 07/19/22 04:56 BUN 8 mg/dL (8-23) 07/19/22 04:56 Creatinine 0.6 mg/dL (0.5-0.9) 07/19/22 04:56 GFR Calculation 101.6 mL/min (90-130) 07/19/22 04:56 Glucose 76 mg/dL (65-115) 07/19/22 04:56 Calculated Osmolality 269 mOsm/kg (285-295) L 07/19/22 04:56 Lactate 0.8 mmol/L (0.5-2.2) 07/19/22 09:31 Calcium 8.3 mg/dL (8.5-10.5) L 07/19/22 04:56 Total Bilirubin 0.3 mg/dL (0.15-1.2) 07/19/22 04:56 AST 26 U/L (0-32) 07/19/22 04:56 ALT 21 U/L (0-33) 07/19/22 04:56 Alkaline Phosphatase 115 U/L (35-105) H 07/19/22 04:56 Creatine Kinase 66 U/L (26-192) 07/18/22 02:45 Total Protein 6.5 g/dL (6.6-8.7) L 07/19/22 04:56 Albumin 3.8 g/dL (3.5-5.2) 07/19/22 04:56 Globulin 2.7 g/dL (1.3-4.6) 07/19/22 04:56 Lipase 12 U/L (13-60) L 07/18/22 02:45 TSH 0.98 uIU/mL (0.27-4.20) 07/19/22 04:56 Urine Color Yellow (Yellow) 07/18/22 03:15 Urine Appearance Sl hazy (CLEAR) A 07/18/22 03:15 Urine pH 5 (5-7) 07/18/22 03:15 Ur Specific [place] 1.020 (1.005-1.030) 07/18/22 03:15 Urine Protein Trace (Negative) 07/18/22 03:15 Urine Glucose (UA) Norm (Normal) 07/18/22 03:15 Urine Ketones 3+ (Negative) H 07/18/22 03:15 Urine Blood 2+ (Negative) H 07/18/22 03:15 Urine Nitrate Negative (Negative) 07/18/22 03:15 Urine Bilirubin Neg (Negative) 07/18/22 03:15 Urine Urobilinogen Norm mg/dL (Negative) 07/18/22 03:15 Ur Leukocyte Esterase 1+ (Negative) H 07/18/22 03:15 Urine RBC Too numerous to cnt /hpf (0-2) H 07/18/22 03:15 Urine WBC Too numerous to cnt /hpf (0-5) H 07/18/22 03:15 Ur Squamous Epith Cells 0-4 /hpf (0-5) H 07/18/22 03:15 Amorphous Sediment Not Reportable 07/18/22 03:15 Urine Bacteria 2+ /hpf (NONE) H 07/18/22 03:15 Coronavirus 229E (PCR) Not detected (NOT DETECT) 07/18/22 05:24 SARS-CoV-2 (PCR) Not detected (NOT DETECT) 07/18/22 05:24 Vitals Last Vital Signs Temp 97.7 F 07/19/22 11:32 Pulse 78 07/19/22 11:32 Resp 15 07/19/22 11:32 BP 120/67 07/19/22 11:32 Pulse Ox 93 07/19/22 11:32 O2 Del Method 07/19/22 11:32 Discharge Plan Discharge Patient Disposition: Home Health Service Condition: Stable Prescriptions: New amoxicillin-pot clavulanate 875-125 mg tablet 1 tab PO BID 5 Days Qty: 10 0RF Continued gabapentin 600 mg Tablet 600 mg PO TID@0800,1200,1800 levothyroxine 88 mcg Tablet 88 mcg PO DAILY@0800 allopurinol 300 mg tablet 300 mg PO DAILY@0600 cholecalciferol (vitamin D3) [Vitamin D3] 2,000 unit Tablet 2,000 unit PO DAILY@0800 sennosides-docusate sodium [Stool Softener-Laxative] 8.6-50 mg Tablet 2 tab PO BEDTIME acetaminophen [Tylenol Extra Strength] 500 mg Tablet 1,000 mg PO PRN duloxetine 20 mg capsule,delayed release(DR/EC) 40 mg PO BID@0800,1800 oxycodone 10 mg tablet 10 mg PO Q6H PRN (Reason: Pain) gabapentin 300 mg capsule 300 mg PO BEDTIME@1800 ghabsezj-xvy-LR-lycopen-lutein 500-300-250 mcg Tablet 1 tab PO DAILY@0800 ondansetron 4 mg tablet,disintegrating 4 mg PO Q8H PRN (Reason: NAUSEA/VOMITING) 7 Days Qty: 21 0RF budesonide 90 mcg/actuation aerosol powdr breath activated 1 inh inhalation BID Qty: 1 0RF Held nortriptyline 25 mg capsule 25 - 50 mg PO DAILY Hold Instructions: see pcp before resuming Discharge Orders: Discharge Order (Routine); Ordered 07/20/22 Ordered By: Lisa Weeks Referrals: [facility] [Other] () Jesus Hays DO [Physician] - 07/31/22 2:15 pm Adela Stout [Primary Care Provider] - 07/25/22 3:00 pm Discharge Diet: Regular Discharge Activity: Resume usual activity Patient Instructions: Amoxicillin/Clavulanate Potassium (By mouth), Urinary Tract Infection in Women (DC), Degenerative Disc Disease (DC), Opioid Safety, Pain Management Activity Restrictions/Additional Instructions: Please follow up with your primary care doctor and orthopedic surgery as instructed during hospital stay. If your symptoms worsen or new symptoms develop, please return to ER immediately. Discharge Attestations Time Spent in Discharge Care*: less than 30 min Status at Discharge: Cognitive status at discharge: cognitively intact, Behavioral status at discharge: cooperative, Quality Metrics Clinical Quality Measures [ No reported AMI, CVA or VTE this stay] Coding Level of Care Code Acute Chg FW DC note Diagnoses Urinary tract infection N39.0 Recurrent vomiting R11.10 Weakness R53.1 Transaminitis R74.01
[2022-07-19] MEDS: oxyCODONE 5 mg IR Tab/Cap 10 MG PO (13:58)
[2022-07-19] MEDS: lactulose oral liq 20 gm/30 mL UDC PO (14:05)
[2022-07-19] MEDS: sodium chloride 0.9% 1,000 ML 100 ML IV (14:10)
[2022-07-19 15:27] LABS: Anion Gap 16.6 (5-19); Blood Urea Nitrogen 6 mg/dL (8-23); Calcium 8.3 mg/dL (8.5-10.5); Carbon Dioxide 20 mmol/L (22-29); Chloride 95 mmol/L (98-107); Glomerular Filtration Rate 101.6 mL/min (90-130); Glucose 107 mg/dL (65-115); Osmolality Calculated 264 mOsm/kg (285-295); Potassium 3.6 mmol/L (3.5-5.1); Sodium 128 mmol/L (136-145)
[2022-07-19] MEDS: gabapentin 300 mg Capsule PO (20:45)
[2022-07-20 02:29] VITALS: RESP 16
[2022-07-20] MEDS: oxyCODONE 5 mg IR Tab/Cap 10 MG PO ×2 (02:29→09:44)
[2022-07-20 03:32] VITALS: BP 125/66; PULSE 80; RESP 20; TEMP 36.5; O2SAT 92
[2022-07-20] MEDS: cefTRIAXone 1,000 MG in sodium chloride 0.9% (plus) 50 ML 100 MG IV (04:24)
[2022-07-20 04:39] LABS: Basophils % 0.7 %; Eosinophils # 0.2 10^3/uL (0.0-0.8); Eosinophils % 3.8 %; Hemoglobin 11.6 g/dL (11.5-15.3); Lymphocytes # 1.4 10^3/uL (0.8-4.8); Lymphocytes % 22.9 %; Mean Corpuscular HGB Conc 33.1 g/dL (30.0-36.0); Mean Corpuscular Hemoglobin 29.4 pg (28.0-34.0); Mean Corpuscular Volume 88.6 fl (81-99); Mean Platelet Volume 8.8 fL (7.4-10.4); Monocytes # 0.4 10^3/uL (0.2-0.9); Monocytes % 7.2 %; Neutrophils # 3.92 10^3/uL (1.8-7.7); Neutrophils % 63.9 %; Nucleated Red Blood Cells % 0 %; Platelet Count 305 10^3/cmm (130-400); Red Blood Count 3.95 10^6/uL (4.1-5.3); Red Cell Distribution Width 13.1 % (12.1-15.1); White Blood Count 6.1 10^3/uL (4.0-10.0)
[2022-07-20] MEDS: allopurinol 300 mg Tablet PO (05:03)
[2022-07-20] MEDS: heparin 5,000 unit/mL INJ 1 mL 5000 UNIT SUBCUT (05:03)
[2022-07-20 05:09] LABS: Alanine Aminotransferase 20 U/L (0-33); Albumin Level 3.8 g/dL (3.5-5.2); Alkaline Phosphatase 117 U/L (35-105); Anion Gap 17.5 (5-19); Aspartate Amino Transferase 27 U/L (0-32); Blood Urea Nitrogen 4 mg/dL (8-23); Calcium 8.6 mg/dL (8.5-10.5); Carbon Dioxide 22 mmol/L (22-29); Chloride 98 mmol/L (98-107); Globulin 2.7 g/dL (1.3-4.6); Glomerular Filtration Rate 101.6 mL/min (90-130); Glucose 91 mg/dL (65-115); Osmolality Calculated 274 mOsm/kg (285-295); Potassium 3.5 mmol/L (3.5-5.1); Sodium 134 mmol/L (136-145); Total Bilirubin 0.3 mg/dL (0.15-1.2); Total Protein 6.5 g/dL (6.6-8.7)
[2022-07-20 05:31] VITALS: BMI 23.8
[2022-07-20 08:00] VITALS: BP 117/57; PULSE 78; RESP 15; TEMP 36.7; O2SAT 91
[2022-07-20] MEDS: gabapentin 300 mg Capsule 600 MG PO (08:54)
[2022-07-20] MEDS: duloxetine 20 mg Capsule 40 MG PO (08:54)
[2022-07-20] MEDS: pantoprazole DR 40 mg Tablet PO (08:55)
[2022-07-20 09:44] VITALS: RESP 18
[2022-07-20 12:00] VITALS: BP 119/63; PULSE 81; RESP 14; TEMP 36.8; O2SAT 92
[2022-07-20 16:17] LABS: Osmolality Serum 277 mOsm/kg (278-305)
== END 2022-07-20 14:05 | disposition home health service (06) ==
LOC: ER 04:13 → MEDSURG 04:35
PROVIDERS: Admitting Provider Internal Medicine; Emergency Provider Emergency Medicine; PCP Internal Medicine; Visit Provider Internal Medicine
DX: N39.0 Urinary tract infection, site not specified (principal); R11.10 Vomiting, unspecified; R53.1 Weakness; R74.01 Elevation of levels of liver transaminase levels; J44.9 Chronic obstructive pulmonary disease, unspecified; E03.9 Hypothyroidism, unspecified; Z85.118 Personal history of other malignant neoplasm of bronchus and lung; Z86.16 Personal history of COVID-19; Z87.891 Personal history of nicotine dependence
CPT/HCPCS: 36415; 70450; 71045; 72146; 72148; 74176; 80048; 80053; 81001; 82550; 83605; 83690; 83930; 84443; 85025; 87086; 87635; 96365; 96366; 96372; 96375; 96376; 97110; 97161; 99285; G0378; J0696; J1644; J2405; J7030

== ENCOUNTER → 2022-08-09 13:30 | Outpatient (BNVA) | payer MEDICARE, MEDICAID, SELFPAY | PROVIDERS: PCP Internal Medicine; Visit Provider Physician Assistant | DX: M51.36 Other intervertebral disc degeneration, lumbar region (principal); M47.816 Spondylosis without myelopathy or radiculopathy, lumbar region; M85.88 Other specified disorders of bone density and structure, other site | CPT/HCPCS: 72110; 99213 ==

== ENCOUNTER 2023-10-31 21:20 | Emergency (ER) | payer MEDICARE, MEDICAID, SELFPAY ==
[2023-10-31] VITALS (7 sets, daily range): BP systolic 93–111; BP diastolic 57–64; PULSE 95–102; RESP 15–24; TEMP 36.7; O2SAT 92–95; BMI 25.1
--- NOTE | 2023-10-31 21:23 | ECG_ITS ---
[facility] Test Date: 2023-10-31 Pat Name: Zulma Garcia Department: Room: Gender: Female Nephrology Nurse: : 1960 Requested By: Myron Hurley Order Number: [id number] Darci MD: Keanu Lawson M.D. Measurements Intervals [place] Rate: 105 P: 79 MO: 168 QRS: 85 QRSD: 94 T: 72 QT: 333 QTc: 442 Interpretive Statements SINUS TACHYCARDIA INCOMPLETE RIGHT BUNDLE BRANCH BLOCK [90+ ms QRS DURATION, TERMINAL R IN V1/V2, 40+ ms S IN I/aVL/V4/V5/V6] ST DEVIATION AND MODERATE T-WAVE ABNORMALITY, CONSIDER ANTERIOR ISCHEMIA [-0.1+ mV T-WAVE IN V3/V4] Compared to ECG 07/23/2021 20:55:38 Incomplete right bundle-branch block now present Possible ischemia now present Sinus rhythm no longer present Sinus arrhythmia no longer present T-wave abnormality still present Electronically Signed On 11-01-2023 9:28:38 RISK DEVELOPER by Keanu Lawson M.D. [id number]
--- NOTE | 2023-10-31 21:29 | XRR_ITS ---
PROCEDURE INFORMATION: Exam: XR Chest Exam date and time: 10/31/2023 9:47 PM Age: 62 years old Clinical indication: Dyspnea TECHNIQUE: Imaging protocol: Radiologic exam of the chest. Views: 1 view. COMPARISON: CR XR chest 1V portable [id number] 07/18/2022 5:33 AM FINDINGS: Lungs: Unremarkable. No consolidation. Scattered calcified granulomas bilaterally of no clinical significance. Pleural spaces: Unremarkable. No pleural effusion. No pneumothorax. Heart/Mediastinum: Unremarkable. No cardiomegaly. Bones/joints: Unremarkable. XR/XR chest 1V portable [id number] IMPRESSION: No acute findings.
--- NOTE | 2023-10-31 21:32 | ED_ITS ---
HPI - Chest Pain 2 General: Chief Complaint: Chest Pain Stated Complaint: SOB, CP Time Seen by Provider: 10/31/23 21:21 History of Present Illness: 62-year-old female brought in by EMS for concerns of chest discomfort. Patient has a history of recurring chest pain. Patient also has a history of chronic back pain, hypothyroidism, COPD, lung cancer, CVA affecting the left side, surgical history of appendectomy. Patient reports tonight she has not felt well and had some chest discomfort. Patient reports it is similar to the last time she had come to the ER at that time she was diagnosed with a infection and dehydration. Patient appears chronically ill. Patient wears oxygen at 2 L per nasal cannula at all times at home. Patient appears in no pain at this time. Patient was given nitroglycerin, 325 mg of aspirin, 4 mg of Zofran, and 500 mL of saline per EMS and route. EMS reported that patient appeared pale and diaphoretic when they arrived on scene. Patient is much more alert and responsive at this time. Patient was afebrile and had a normal glucose per EMS. Review of Systems 2 General: Reports: 10 or more systems reviewed and unremarkable except in HPI and below PFSH ED 2 PFSH: Medical History Abdominal pain Compression fracture of T7 vertebra COPD (chronic obstructive pulmonary disease) COVID-19 Diarrhea due to COVID-19 Former smoker Gout H/O: CVA (cerebrovascular accident) Hypothyroidism Hypothyroidism Hypoxia Nausea & vomiting Pneumonia due to COVID-19 virus Small cell lung cancer in adult History of small cell lung cancer Surgical History History of appendectomy Family History Father Cancer Lung cancer Social History Smoking and tobacco/nicotine status: former use of tobacco/nicotine Alcohol intake: never Substance/Drug Use: never Household members: family Housing: House Physical Exam 2 Const: COMMON NORMALS: alert HENMT: COMMON NORMALS: normocephalic HEAD & SCALP: normocephalic Eye: COMMON NORMALS: EOMs intact bilaterally GENERAL EYE: appearance normal, both eyes and all related structures Neck/C-Spine: COMMON NORMALS: full ROM Chest: COMMONS NORMALS: normal inspection of the chest CHEST: Yes tenderness (Right anterior ribs) Resp: COMMON NORMALS: normal respiratory effort AUSCULTATION: wheezes Cardio: COMMON NORMALS: regular rate and regular rhythm RATE: regular rate RHYTHM: regular rhythm GI: COMMON NORMALS: Soft to palpation and non-tender PALPATION: Yes Soft to palpation : COMMON NORMALS: Yes no CVA tenderness BLADDER/KIDNEY EXAM: Yes no CVA tenderness Back/Pelvis: COMMON NORMALS: no CVA tenderness and thoracic and lumbar spine normal to inspection Extremity: COMMON NORMALS: normal to inspection Neuro: SENSORIUM/ORIENTATION: Yes alert Psych: COMMON NORMALS: cooperative Skin: COMMON NORMALS: turgor normal GENERAL SKIN EXAM: turgor normal Course 2 Vital Signs: Vital signs: Vital Signs Temperature 98.1 F 10/31/23 21:20 Pulse Rate 97 11/01/23 00:00 Respiratory Rate 15 11/01/23 00:00 Blood Pressure 114/59 11/01/23 00:00 Pulse Oximetry 94 11/01/23 00:00 Oxygen Delivery Me thod Nasal Cannula 10/31/23 23:16 Oxygen Flow Rate 2 10/31/23 23:16 MDM - Chest Pain Medical Decision Making 62-year-old female comes in today for complaints of chest discomfort. On exam patient appears chronically ill. Patient appears in no pain. Respirations are even lungs are decreased in the bases with some scattered wheezes. Oxygen saturation is 93% on room air. Patient does wear oxygen at 2 L all the time and rates 95%. Skin is warm and dry. No edema. Abdomen soft and nontender. Family reports that patient became suddenly pale and diaphoretic prior to EMS arriving which is what prompted them for the call. Exam noted some right rib tenderness. Differential diagnosis includes not limited to ACS, PE, rib fracture, vertebral fracture. CBC and CMP was unremarkable. Troponin started at 740 baseline and was 6 at 2 hours. No changes were noted in the EKG. Chest x-ray showed no abnormalities. Urinalysis was clean. CTA of the chest showed no PE, CT of the abdomen pelvis noted no organ injury or fractures. Patient did have a new nodule in her lung that was relayed to the family. I believe the patient's vasovagal response was probably more likely due to pain and dehydration. Patient was given half liter of fluid and 1 hydrocodone. Discussed need for follow-up with primary care or return to the ER for worsening symptoms. Family reported understanding agreed to plan. Reviewed this with Dr. Feliz who agreed with plan. Lab Data 10/31/23 21:37 10/31/23 21:37 Radiology Impressions Chest X-Ray 10/31/23 21:29 IMPRESSION: No acute findings. Chest/Abdomen/Pelvis CT 10/31/23 22:54 IMPRESSION: 1. There is a new spiculated nodule in the posterior aspect of the right lower lobe (series 4, image 29) measuring 1.9 x 1.2 cm. For both low risk and high risk patients, consider CT Chest at 3 months, PET/CT, or biopsy. IMPRESSION: 1. No solid organ injury in the abdomen or pelvis. 2. No secondary signs of bowel injury. No free air or significant free fluid in the abdomen or pelvis. 3. No fractures. Laboratory Results WBC 6.73 10^3/uL (3.29-11.43) 10/31/23 21:37 RBC 4.85 10^6/uL (3.85-5.65) 10/31/23 21:37 Hgb 13.30 g/dL (11.27-16.99) 10/31/23 21:37 Hct 41.3 % (36-47) 10/31/23 21:37 MCV 85.2 fl (85-98) 10/31/23 21:37 MCH 27.4 pg (27-33) 10/31/23 21:37 MCHC 32.2 g/dL (30-55) 10/31/23 21:37 RDW 13.9 % (12.1-15.1) 10/31/23 21:37 Plt Count 236 10^3/cmm (157-399) 10/31/23 21:37 MPV 8.9 fL (7.4-10.4) 10/31/23 21:37 Neut % (Auto) 76.9 % 10/31/23 21:37 Lymph % (Auto) 18.7 % 10/31/23 21:37 [place] % (Auto) 3.1 % 10/31/23 21:37 Eos % (Auto) 0.6 % 10/31/23 21:37 Baso % (Auto) 0.4 % 10/31/23 21:37 Neut # (Auto) 5.17 10^3/uL (1.8-7.7) 10/31/23 21:37 Lymph # (Auto) 1.3 10^3/uL (0.8-4.8) 10/31/23 21:37 [place] # (Auto) 0.2 10^3/uL (0.2-0.9) 10/31/23 21:37 Eos # (Auto) 0.0 10^3/uL (0.0-0.8) 10/31/23 21:37 Baso # (Auto) 0.0 10^3/uL (0.0-0.1) 10/31/23 21:37 Nucleated RBC % (auto) 0 % 10/31/23 21:37 Nucleated RBCs # 0.0 /100WBC 10/31/23 21:37 Sodium 136 mmol/L (136-145) 10/31/23 21:37 Potassium 4.0 mmol/L (3.5-5.1) 10/31/23 21:37 Chloride 98 mmol/L (98-107) 10/31/23 21:37 Carbon Dioxide 28 mmol/L (22-29) 10/31/23 21:37 Anion Gap 14.0 (5-19) 10/31/23 21:37 BUN 10 mg/dL (8-23) 10/31/23 21:37 Creatinine 0.7 mg/dL (0.5-0.9) 10/31/23 21:37 GFR Calculation 84.8 mL/min (90-130) L 10/31/23 21:37 Glucose 147 mg/dL (65-115) H 10/31/23 21:37 POC Glucose 138 mg/dL (70-110) H 10/31/23 21:42 Calculated Osmolality 284 mOsm/kg (285-295) L 10/31/23 21:37 Lactic Acid 1.6 mmol/L (0.5-2.2) 10/31/23 21:37 Calcium 8.5 mg/dL (8.5-10.5) 10/31/23 21:37 Total Bilirubin 0.4 mg/dL (0.15-1.2) 02/08/24 21:37 AST 22 U/L (0-32) 10/31/23 21:37 ALT 12 U/L (0-33) 10/31/23 21:37 Alkaline Phosphatase 122 U/L (35-105) H 10/31/23 21:37 Troponin T Baseline 7 ng/L (0-10) 10/31/23 21:37 Troponin T 120 Minute 6.00 ng/L (0-10) 10/31/23 23:33 Delta Troponin T -1.00 ABS# (0-10) L 10/31/23 23:33 NT-Pro-B Natriuret Pep 188 pg/mL (0-125) H 10/31/23 21:37 Total Protein 7.3 g/dL (6.6-8.7) 10/31/23 21:37 Albumin 4.3 g/dL (3.5-5.2) 10/31/23 21:37 Globulin 3.0 g/dL (1.3-4.6) 10/31/23 21:37 Lipase 25 U/L (13-60) 10/31/23 21:37 Urine Color Yellow (Yellow) 10/31/23 21:47 Urine Appearance Clear (CLEAR) 10/31/23 21:47 Urine pH 6 (5-7) 10/31/23 21:47 Ur Specific [place] 1.015 (1.005-1.030) 10/31/23 21:47 Urine Protein Neg (Negative) 10/31/23 21:47 Urine Glucose (UA) Norm (Normal) 10/31/23 21:47 Urine Ketones 1+ (Negative) H 10/31/23 21:47 Urine Blood Neg (Negative) 10/31/23 21:47 Urine Nitrate Negative (Negative) 10/31/23 21:47 Urine Bilirubin Neg (Negative) 10/31/23 21:47 Urine Urobilinogen Norm mg/dL (Negative) 10/31/23 21:47 Ur Leukocyte Esterase Negative (Negative) 10/31/23 21:47 All radiology interpretation(s) finalized by discharge EKG Data EKG 1: I personally reviewed and interpreted this EKG as follows: EKG interpretation date: 10/31/23 EKG interpretation time: 21:35 Prior EKG tracings: not available for review Interpretation: EKG shows a sinus rhythm with a regular rate at [address] elevation is noted. No ectopy is noted. There is some ST depression noted, no prior EKG tracings are available for review. Computer generated interpretation: Sinus tachycardia, incomplete right bundle branch block, ST deviation and moderate T wave abnormality, abnormal EKG, unconfirmed report. EKG 2: I personally reviewed and interpreted this EKG as follows: EKG interpretation date: 10/31/23 EKG interpretation time: 23:43 Prior EKG tracings: available for review Interpretation: EKG shows a sinus rhythm with a regular rate at 92 bpm. Nonspecific T wave abnormalities are noted. No significant changes from prior exam. Computer generated interpretation: sinus rhythm, possible right ventricular conduction delay, nonspecific T wave abnormality, borderline EKG, unconfirmed report. Discharge Plan Discharge Patient Disposition: Home Clinical Impression: Vasovagal episode Back pain Qualifiers: Back pain location: back pain in other location Chronicity: unspecified Q ualified Code(s): M54.89 - Other dorsalgia Condition: Stable Prescriptions: No Action gabapentin 600 mg Tablet 600 mg PO TID@0800,1200,1800 levothyroxine 88 mcg Tablet 88 mcg PO DAILY@0800 allopurinol 300 mg tablet 300 mg PO DAILY@0600 cholecalciferol (vitamin D3) [Vitamin D3] 2,000 unit Tablet 2,000 unit PO DAILY@0800 sennosides-docusate sodium [Stool Softener-Laxative] 8.6-50 mg Tablet 2 tab PO BEDTIME acetaminophen [Tylenol Extra Strength] 500 mg Tablet 1,000 mg PO PRN nortriptyline 25 mg capsule 25 - 50 mg PO DAILY Hold Instructions: see pcp before resuming duloxetine 20 mg capsule,delayed release(DR/EC) 40 mg PO BID@0800,1800 oxycodone 10 mg tablet 10 mg PO Q6H PRN (Reason: Pain) gabapentin 300 mg capsule 300 mg PO BEDTIME@1800 xjyfuezz-rxf-QG-lycopen-lutein 500-300-250 mcg Tablet 1 tab PO DAILY@0800 ondansetron 4 mg tablet,disintegrating 4 mg PO Q8H PRN (Reason: NAUSEA/VOMITING) 7 Days Qty: 21 0RF budesonide 90 mcg/actuation aerosol powdr breath activated 1 inh inhalation BID Qty: 1 0RF Discharge Orders: Discharge ED (Routine); Ordered 11/01/23 Ordered By: Myron Boykin Referrals: Adela Stout [Primary Care Provider] - Discharge Diet: Usual diet Discharge Activity: Increase activity as tolerated Patient Instructions: Syncope (ED) Activity Restrictions/Additional Instructions: Drink plenty of water and fluids. Continue with routine medications as directed. Follow-up with primary care or specialist for further evaluation and treatment. Coding Level of Care Code ED Grade Tamper for Beatrice Petersen
[2023-10-31 21:43] LABS: Basophils % 0.4 %; Eosinophils % 0.6 %; Hematocrit 41.3 % (36-47); Lymphocytes # 1.3 10^3/uL (0.8-4.8); Lymphocytes % 18.7 %; Mean Corpuscular HGB Conc 32.2 g/dL (30-55); Mean Corpuscular Hemoglobin 27.4 pg (27-33); Mean Corpuscular Volume 85.2 fl (85-98); Mean Platelet Volume 8.9 fL (7.4-10.4); Monocytes # 0.2 10^3/uL (0.2-0.9); Monocytes % 3.1 %; Neutrophils # 5.17 10^3/uL (1.8-7.7); Neutrophils % 76.9 %; Nucleated Red Blood Cells % 0 %; Platelet Count 236 10^3/cmm (157-399); Red Blood Count 4.85 10^6/uL (3.85-5.65); Red Cell Distribution Width 13.9 % (12.1-15.1); White Blood Count 6.73 10^3/uL (3.29-11.43)
[2023-10-31] MEDS: sodium chloride 0.9% 500 ML IV (21:50)
[2023-10-31 21:54] LABS: Add Urine Microscopic? NO; Charge for UA Resulting for Rev
[2023-10-31 21:55] LABS: Glucose Point of Care 138 mg/dL (70-110)
[2023-10-31 21:58] LABS: Lactic Sepsis W/Reflex 1.6 mmol/L (0.5-2.2)
[2023-10-31 22:01] LABS: Troponin(5th) Baseline 7 ng/L (0-10)
[2023-10-31 22:09] LABS: Alanine Aminotransferase 12 U/L (0-33); Albumin Level 4.3 g/dL (3.5-5.2); Alkaline Phosphatase 122 U/L (35-105); Aspartate Amino Transferase 22 U/L (0-32); Blood Urea Nitrogen 10 mg/dL (8-23); Calcium 8.5 mg/dL (8.5-10.5); Carbon Dioxide 28 mmol/L (22-29); Chloride 98 mmol/L (98-107); Creatinine Clr Calc Pharmacy 75.2505; Glomerular Filtration Rate 84.8 mL/min (90-130); Glucose 147 mg/dL (65-115); Lipase 25 U/L (13-60); NT Pro B Type Natriuretic Pept 188 pg/mL (0-125); Osmolality Calculated 284 mOsm/kg (285-295); Sodium 136 mmol/L (136-145); Total Bilirubin 0.4 mg/dL (0.15-1.2); Total Protein 7.3 g/dL (6.6-8.7)
[2023-10-31 22:13] LABS: Protein Urine Neg (Negative); Specific Gravity, Urine 1.015 (1.005-1.030); Urine Appearance Clear (CLEAR); Urine Color Yellow (Yellow); pH Urine 6 (5-7)
[2023-10-31 22:14] LABS: Bilirubin Urine Neg (Negative); Blood Urine Neg (Negative); Glucose Urine UA Norm (Normal); Ketones Urine 1+ (Negative); Leukocyte Esterase Urine Negative (Negative); Nitrate Urine Negative (Negative); Urobilinogen Urine Norm (Negative)
--- NOTE | 2023-10-31 22:54 | CTR_ITS ---
PROCEDURE INFORMATION: Exam: CTA Chest With Contrast Exam date and time: 10/31/2023 11:20 PM Age: 62 years old Clinical indication: Other: Syncope; Dyspnea; Patient HX: SOB, R/O pe per Dr son; Additional info: Syncope, right rib pain, recent fall TECHNIQUE: Imaging protocol: Computed tomographic angiography of the chest with contrast. Exam focused on the arteries. 3D rendering (Not supervised by radiologist): MIP and/or 3D reconstructed images were created by the technologist. Radiation optimization: All CT scans at this facility use at least one of these dose optimization techniques: automated exposure control; mA and/or kV adjustment per patient size (includes targeted exams where dose is matched to clinical indication); or iterative reconstruction. Contrast material: OMNI 350; Contrast volume: 100 ml; Contrast route: INTRAVENOUS (IV); COMPARISON: CT angio chest PE protcl [id number] 10/24/2020 10:50 AM RADIATION DOSE METRICS: Total DLP (mGy-cm): 767 FINDINGS: Pulmonary arteries: Normal. No pulmonary emboli. Aorta: Unremarkable. No aortic aneurysm. No aortic dissection. Lungs: There is a new spiculated nodule in the posterior aspect of the right lower lobe (series 4, image 29) measuring 1.9 x 1.2 cm. Irregular opacities in the left hilar station with air bronchograms, similar to the prior chest CT dated 10/24/2020. Pleural spaces: Unremarkable. No pneumothorax. No pleural effusion. Heart: Unremarkable. No cardiomegaly. No pericardial effusion. Coronary arteries: Coronary arterial atherosclerotic calcifications are present. Lymph nodes: Unremarkable. No enlarged lymph nodes. Bones/joints: Prior kyphoplasty at T7. Soft tissues: Unremarkable. (Reference: Eloina) 2. Irregular opacities in the left hilar station with air bronchograms, similar to the prior chest CT dated 10/24/2020. 3. No rib fractures. References: Eloina Henry et al. Guidelines for Management of Incidental Pulmonary Nodules Detected on CT Images: From the Fleischner Society 2017. Radiology. 2017;284(1):228-243. PROCEDURE INFORMATION: Exam: CT Abdomen And Pelvis With Contrast Exam date and time: 10/31/2023 11:20 PM Age: 62 years old Clinical indication: Other: Syncope; Dyspnea; Patient HX: SOB, R/O pe per Dr son; Additional info: Syncope, right rib pain, recent fall TECHNIQUE: Imaging protocol: Computed tomography of the abdomen and pelvis with contrast. Radiation optimization: All CT scans at this facility use at least one of these dose optimization techniques: automated exposure control; mA and/or kV adjustment per patient size (includes targeted exams where dose is matched to clinical indication); or iterative reconstruction. Contrast material: OMNI 350; Contrast volume: 100 ml; Contrast route: INTRAVENOUS (IV); COMPARISON: CT kidney stone [id number] 07/18/2022 11:25 AM RADIATION DOSE METRICS: Total DLP (mGy-cm): 767 FINDINGS: Liver: Normal. No mass. Gallbladder and bile ducts: Normal. No calcified stones. No ductal dilation. Pancreas: Normal. No ductal dilation. Spleen: Normal. No splenomegaly. Adrenal glands: Normal. No mass. Kidneys and ureters: Normal. No hydronephrosis. Stomach and bowel: Unremarkable. No obstruction. No mucosal thickening. Appendix: No evidence of appendicitis. Intraperitoneal space: Unremarkable. No free air. No significant fluid collection. Vasculature: Severe atherosclerotic disease of the abdominal aorta and right and left iliac arteries. Lymph nodes: Unremarkable. No enlarged lymph nodes. Urinary bladder: Unremarkable as visualized. Reproductive: Unremarkable as visualized. Bones/joints: Unremarkable. No acute fracture. Soft tissues: Unremarkable. CT/CT angio chest w abd pel w con IMPRESSION: 1. There is a new spiculated nodule in the posterior aspect of the right lower lobe (series 4, image 29) measuring 1.9 x 1.2 cm. For both low risk and high risk patients, consider CT Chest at 3 months, PET/CT, or biopsy. IMPRESSION: 1. No solid organ injury in the abdomen or pelvis. 2. No secondary signs of bowel injury. No free air or significant free fluid in the abdomen or pelvis. 3. No fractures.
[2023-10-31] MEDS: iohexol 350 mg/mL 500 mL Btl (per mL) IV (23:32)
--- NOTE | 2023-10-31 23:36 | ECG_ITS ---
[facility] Test Date: 2023-10-31 Pat Name: Zulma Garcia Department: Room: Gender: Female Angle Bender: : 1960 Requested By: Myron Hurley Order Number: [id number] Darci MD: Keanu Lawson M.D. Measurements Intervals [place] Rate: 92 P: 77 WV: 200 QRS: 84 QRSD: 90 T: 74 QT: 362 QTc: 448 Interpretive Statements SINUS RHYTHM POSSIBLE RIGHT VENTRICULAR CONDUCTION DELAY [RSR (QR) IN V1/V2] NONSPECIFIC T-WAVE ABNORMALITY Compared to ECG 07/23/2021 20:55:38 Sinus arrhythmia no longer present T-wave abnormality still present Electronically Signed On 11-01-2023 9:30:40 COMMERCIAL ACCOUNTANT by Keanu Lawson M.D. [id number]
[2023-11-01] VITALS: BP 114/59; PULSE 97; RESP 15; O2SAT 94
[2023-11-01] MEDS: HYDROcodone-acetaminophen 5-325 mg Tablet 1 TAB PO (00:06)
[2023-11-01 00:20] VITALS: PULSE 88; RESP 18; O2SAT 99
== END 2023-11-01 00:24 | disposition home or self-care (01) ==
PROVIDERS: Emergency Provider Nurse Practitioner Family; PCP Internal Medicine
DX: M54.89 Other dorsalgia (principal); R55 Syncope and collapse; J44.9 Chronic obstructive pulmonary disease, unspecified; Z86.73 Personal history of transient ischemic attack (TIA), and cerebral infarction without residual deficits; Z85.118 Personal history of other malignant neoplasm of bronchus and lung; Z87.891 Personal history of nicotine dependence
CPT/HCPCS: 36415; 36416; 51701; 71045; 71275; 74177; 80053; 81003; 82962; 83605; 83690; 83880; 84484; 85025; 87040; 93005; 96360; 96361; 99285; J7040; Q9967

== ENCOUNTER 2024-05-12 20:51 | Emergency (ER) | payer MEDICARE, MEDICAID, SELFPAY ==
[2024-05-12 20:55] VITALS: BP 131/69; PULSE 101; RESP 22; TEMP 36.3; O2SAT 98; BMI 25.1
[2024-05-12 21:00] VITALS: BP 103/68; PULSE 90; RESP 19; O2SAT 93
--- NOTE | 2024-05-12 21:01 | XRR_ITS ---
PROCEDURE INFORMATION: Exam: XR Chest Exam date and time: 05/12/2024 9:12 PM Age: 63 years old Clinical indication: Shortness of breath; Additional info: SOB TECHNIQUE: Imaging protocol: Radiologic exam of the chest. Views: 1 view. COMPARISON: 1. CT angio chest w abd pel w con 10/31/2023 11:20 PM 2. CR XR chest 1V portable [id number] 10/31/2023 9:47 PM FINDINGS: Lungs: Stable left mid lung zone scarring. Bilateral lower lung zone linear and reticular densities. Calcified granulomata. No consolidation. Pleural spaces: Unremarkable. No pleural effusion. No pneumothorax. Heart/Mediastinum: Unremarkable. No cardiomegaly. Bones/joints: T7 vertebral body augmentation. Other findings: Multiple small metallic densities project over the right hilar region. XR/XR chest 1V portable [id number] IMPRESSION: 1. Bilateral lower lung zone linear and reticular densities could represent scarring, possibly edema, inflammatory process or atypical infection. 2. Multiple small metallic densities project over the right hilar region could represent external artifact or interval postprocedural change.
[2024-05-12 21:25] LABS: Basophils # 0.1 10^3/uL (0.0-0.1); Basophils % 1.1 %; Eosinophils # 0.3 10^3/uL (0.0-0.8); Eosinophils % 6.8 %; Hematocrit 35.7 % (36-47); Lymphocytes # 1.7 10^3/uL (0.8-4.8); Lymphocytes % 36.5 %; Mean Corpuscular Hemoglobin 27.1 pg (27-33); Mean Corpuscular Volume 90.4 fl (85-98); Mean Platelet Volume 9.5 fL (7.4-10.4); Monocytes # 0.3 10^3/uL (0.2-0.9); Monocytes % 6.2 %; Neutrophils # 2.29 10^3/uL (1.8-7.7); Neutrophils % 48.8 %; Nucleated Red Blood Cells % 0 %; Platelet Count 387 10^3/cmm (157-399); Red Blood Count 3.95 10^6/uL (3.85-5.65); Red Cell Distribution Width 14.2 % (12.1-15.1); White Blood Count 4.69 10^3/uL (3.29-11.43)
--- NOTE | 2024-05-12 21:25 | ECG_ITS ---
[facility] Test Date: 2024-05-12 Pat Name: Zulma Garcia Department: Room: Gender: Female Manager Nc: : 1960 Requested By: Ely Feliciano Order Number: [id number] Darci MD: Fe Negrete M.D. Measurements Intervals [place] Rate: 87 P: 69 RI: 171 QRS: 68 QRSD: 88 T: 49 QT: 354 QTc: 427 Interpretive Statements SINUS RHYTHM LOW QRS VOLTAGE IN PRECORDIAL LEADS [QRS DEFLECTION < 1.0 mV IN CHEST LEADS] SEPTAL MYOCARDIAL INFARCTION , OF INDETERMINATE AGE [40+ ms Q WAVE IN V1/V2] Compared to ECG 10/31/2023 23:36:39 Low QRS voltage now present Myocardial infarct finding now present T-wave abnormality no longer present Electronically Signed On 05-12-2024 23:34:14 CDT by Fe Negrete M.D. [id number]
[2024-05-12 21:30] VITALS: BP 122/57; PULSE 93; RESP 15; O2SAT 95
--- NOTE | 2024-05-12 21:32 | ED_ITS ---
HPI - General Adult 2 General: Chief complaint: General Medical Stated complaint: low B/P Time Seen by Provider: 05/12/24 21:02 Source: patient Mode of arrival: ambulatory Limitations: no limitations History of Present Illness: 63-year-old female states she has a hist ory of lung cancer states that she is admitted at [facility] on was in the ICU on ventilation states she was discharged on Saturday was told she had a pneumonia patient is on 3 L of oxygen at home states that her blood pressure was in the 90s tonight 1 to make sure that she was okay she denies any increasing dyspnea denies any fevers. Associated symptoms: Deny chest pain, dyspnea, headache(s), nausea, rash or vomiting Related Data Home Medications Medication Instructions Recorded Confirmed allopurinol 300 mg tablet 300 mg PO DAILY@0600 10/17/19 08/09/22 cholecalciferol (vitamin D3) 50 2,000 unit PO DAILY@0800 10/17/19 08/09/22 mcg (2,000 unit) tablet (Vitamin D3) gabapentin 600 mg tablet 600 mg PO TID@0800,1200,1800 10/17/19 08/09/22 levothyroxine 88 mcg tablet 88 mcg PO DAILY@0800 10/17/19 08/09/22 acetaminophen 500 mg tablet 1,000 mg PO PRN 10/24/20 08/09/22 (Tylenol Extra Strength) duloxetine 20 mg capsule,delayed 40 mg PO BID@0800,1800 10/24/20 08/09/22 release gabapentin 300 mg capsule 300 mg PO BEDTIME@1800 10/24/20 08/09/22 nortriptyline 25 mg capsule 25 - 50 mg PO DAILY 10/24/20 08/09/22 oxycodone 10 mg tablet 10 mg PO Q6H PRN Pain 10/24/20 08/09/22 sennosides 8.6 mg-docusate sodium 2 tab PO BEDTIME 10/24/20 08/09/22 50 mg tablet (Stool Softener-Laxative) ahqrjgyy-uto-ljptp acid 500 1 tab PO DAILY@0800 03/28/21 08/09/22 mcg-lycopene 300 mcg-lutein 250 mcg tablet Previous Rx's Medication Instructions Recorded budesonide 90 mcg/actuation breath 1 inh inhalation BID #1 ea 03/31/21 activated powder inhaler ondansetron 4 mg disintegrating 4 mg PO Q8H PRN NAUSEA/VOMITING 7 03/31/21 tablet days #21 tabs Allergies Allergy/AdvReac Type Severity Reaction Status Date / Time ibuprofen Allergy ALGY-Swell Verified 08/09/22 13:19 Lip/Tongue/Throat flu shot Allergy Unknown Uncoded 08/09/22 13:19 Review of Systems 2 Const: Denies: fever(s), chills, body aches or change in appetite Eyes: Denies: eye discomfort ENMT: Denies: throat pain or dental pain Card: Denies: chest pain Resp: Denies: dyspnea GI: Denies: abdominal pain, nausea, vomiting or diarrhea : Denies: dysuria Musc: Denies: neck pain or back pain Skin/Breast: Denies: rash Neuro: Denies: headache(s) PFSH ED 2 PFSH: Medical History Compression fracture of T7 vertebra Gout H/O: CVA (cerebrovascular accident) Hypothyroidism Pneumonia due to COVID-19 virus Diarrhea due to COVID-19 Nausea & vomiting Abdominal pain Hypoxia COVID-19 Former smoker COPD (chronic obstructive pulmonary disease) Hypothyroidism Small cell lung cancer in adult History of small cell lung cancer Surgical History History of appendectomy Family History Father Cancer Lung cancer Social History Smoking and tobacco/nicotine status: former use of tobacco/nicotine Alcohol intake: never Substance/Drug Use: never Household members: family Housing: House Physical Exam 2 Const: COMMON NORMALS: patient oriented x3 HENMT: COMMON NORMALS: normocephalic and atraumatic HEAD & SCALP: n ormocephalic and atraumatic Eye: COMMON NORMALS: Equal, round and reactive pupils present and EOMs intact bilaterally PUPIL: Yes Equal, round and reactive pupils present Neck/C-Spine: COMMON NORMALS: full ROM and supple Chest: COMMONS NORMALS: normal inspection of the chest and normal palpation of entire chest wall Resp: COMMON NORMALS: normal respiratory effort, No retractions, No use of accessory muscles and clear to auscultation bilaterally AUSCULTATION: clear to auscultation bilaterally Cardio: COMMON NORMALS: regular rate, regular rhythm and No murmurs present (Cardio) RATE: regular rate RHYTHM: regular rhythm GI: COMMON NORMALS: Normal to inspection, nondistended, normoactive bowel sounds present, Soft to palpation, non-tender and no masses PALPATION: Yes Soft to palpation Extremity: COMMON NORMALS: normal to inspection and full ROM Neuro: COMMON NORMALS: patient oriented x3, moves all extremities and no focal motor deficits Psych: COMMON NORMALS: mental status grossly normal, Normal thought process present and cooperative THOUGHT PROCESS: Normal thought process present Skin: COMMON NORMALS: no rashes or lesions noted and no wounds GENERAL SKIN EXAM: no rashes or lesions noted Course 2 Vital Signs: Vital signs: Vital Signs Temperature 97.4 F L 05/12/24 20:55 Pulse Rate 101 H 05/12/24 20:55 Respiratory Rate 22 H 05/12/24 20:55 Blood Pressure 131/69 05/12/24 20:55 Pulse Oximetry 98 05/12/24 20:55 Oxygen Delivery Me thod Nasal Cannula 05/12/24 20:55 Oxygen Flow Rate 3 05/12/24 20:55 MDM - General Adult Medical Decision Making Patient presents here with hypotension at home she has been normotensive here with normal blood work x-ray showed no signs of pneumonia here she is going to start treatment for lung cancer she states in [place]. She has been in no distress she stable for discharge follow-up with PCP return if worsening. Medical Records I reviewed the patient's medical records. Lab Data I reviewed the patient's lab results. 05/12/24 21:17 05/12/24 21:17 Radiology Impressions Chest X-Ray 05/12/24 21:01 IMPRESSION: 1. Bilateral lower lung zone linear and reticular densities could represent scarring, possibly edema, inflammatory process or atypical infection. 2. Multiple small metallic densities project over the right hilar region could represent external artifact or interval postprocedural change. Laboratory Results WBC 4.69 10^3/uL (3.29-11.43) 05/12/24 21:17 RBC 3.95 10^6/uL (3.85-5.65) 05/12/24 21:17 Hgb 10.70 g/dL (11.27-16.99) L 05/12/24 21:17 Hct 35.7 % (36-47) L 05/12/24 21:17 MCV 90.4 fl (85-98) 05/12/24 21:17 MCH 27.1 pg (27-33) 05/12/24 21:17 MCHC 30.0 g/dL (30-55) 05/12/24 21:17 RDW 14.2 % (12.1-15.1) 05/12/24 21:17 Plt Count 387 10^3/cmm (157-399) 05/12/24 21:17 MPV 9.5 fL (7.4-10.4) 05/12/24 21:17 Neut % (Auto) 48.8 % 05/12/24 21:17 Lymph % (Auto) 36.5 % 05/12/24 21:17 [place] % (Auto) 6.2 % 05/12/24 21:17 Eos % (Auto) 6.8 % 05/12/24 21:17 Baso % (Auto) 1.1 % 05/12/24 21:17 Neut # (Auto) 2.29 10^3/uL (1.8-7.7) 05/12/24 21:17 Lymph # (Auto) 1.7 10^3/uL (0.8-4.8) 05/12/24 21:17 [place] # (Auto) 0.3 10^3/uL (0.2-0.9) 05/12/24 21:17 Eos # (Auto) 0.3 10^3/uL (0.0-0.8) 05/12/24 21:17 Baso # (Auto) 0.1 10^3/uL (0.0-0.1) 05/12/24 21:17 Nucleated RBC % (auto) 0 % 05/12/24 21:17 Nucleated RBCs # 0.0 /100WBC 05/12/24 21:17 Sodium 137 mmol/L (136-145) 05/12/24 21:17 Potassium 4.7 mmol/L (3.5-5.1) 05/12/24 21:17 Chloride 96 mmol/L (98-107) L 05/12/24 21:17 Carbon Dioxide 35 mmol/L (22-29) H 05/12/24 21:17 Anion Gap 10.7 (5-19) 05/12/24 21:17 BUN 7 mg/dL (8-23) L 05/12/24 21:17 Creatinine 0.6 mg/dL (0.5-0.9) 05/12/24 21:17 GFR Calculation 101.0 mL/min (90-130) 05/12/24 21:17 Glucose 121 mg/dL (65-115) H 05/12/24 21:17 Calculated Osmolality 283 mOsm/kg (285-295) L 05/12/24 21:17 Lactic Acid 1.7 mmol/L (0.5-2.2) 05/12/24 21:17 Calcium 8.7 mg/dL (8.5-10.5) 05/12/24 21:17 Total Bilirubin 0.2 mg/dL (0.15-1.2) 05/12/24 21:17 AST 57 U/L (0-32) H 05/12/24 21:17 ALT 25 U/L (0-33) 05/12/24 21:17 Alkaline Phosphatase 78 U/L (35-105) 05/12/24 21:17 NT-Pro-B Natriuret Pep 145 pg/mL (0-125) H 05/12/24 21:17 Total Protein 7.1 g/dL (6.6-8.7) 05/12/24 21:17 Albumin 3.7 g/dL (3.5-5.2) 05/12/24 21:17 Globulin 3.4 g/dL (1.3-4.6) 05/12/24 21:17 All radiology interpretation(s) finalized by discharge EKG Data EKG 1: I personally reviewed and interpreted this EKG as follows: EKG interpretation date: 05/12/24 EKG interpretation time: 21:25 Interpretation: nsr hr [address] or t wave abnormalities qrs 88 qtc 398 Computer generated interpretation: Chest X-Ray 05/12/24 21:01 IMPRESSION: 1. Bilateral lower lung zone linear and reticular densities could represent scarring, possibly edema, inflammatory process or atypical infection. 2. Multiple small metallic densities project over the right hilar region could represent external artifact or interval postprocedural change. Discharge Plan Discharge Patient Disposition: Home Clinical Impression: Hypotension Condition: Stable Prescriptions: No Action gabapentin 600 mg Tablet 600 mg PO TID@0800,1200,1800 levothyroxine 88 mcg Tablet 88 mcg PO DAILY@0800 allopurinol 300 mg tablet 300 mg PO DAILY@0600 cholecalciferol (vitamin D3) [Vitamin D3] 2,000 unit Tablet 2,000 unit PO DAILY@0800 sennosides-docusate sodium [Stool Softener-Laxative] 8.6-50 mg Tablet 2 tab PO BEDTIME acetaminophen [Tylenol Extra Strength] 500 mg Tablet 1,000 mg PO PRN nortriptyline 25 mg capsule 25 - 50 mg PO DAILY Hold Instructions: see pcp before resuming duloxetine 20 mg capsule,delayed release(DR/EC) 40 mg PO BID@0800,1800 oxycodone 10 mg tablet 10 mg PO Q6H PRN (Reason: Pain) gabapentin 300 mg capsule 300 mg PO BEDTIME@1800 qieukxrr-gms-YO-lycopen-lutein 500-300-250 mcg Tablet 1 tab PO DAILY@0800 ondansetron 4 mg tablet,disintegrating 4 mg PO Q8H PRN (Reason: NAUSEA/VOMITING) 7 Days Qty: 21 0RF budesonide 90 mcg/actuation aerosol powdr breath activated 1 inh inhalation BID Qty: 1 0RF Discharge Orders: Discharge ED (Routine); Ordered 05/12/24 Ordered By: Ely Feliciano Referrals: Adela Stout [Primary Care Provider] - Discharge Diet: Advance as tolerated Discharge Activity: Resume usual activity Patient Instructions: Hypotension (ED) Coding Level of Care Code ED Supervisor Fleshing for Beatrice Petersen
[2024-05-12] MEDS: sodium chloride 0.9% 1,000 ML 999 ML IV (21:39)
[2024-05-12 21:42] LABS: Lactic Sepsis W/Reflex 1.7 mmol/L (0.5-2.2)
[2024-05-12 21:53] LABS: Alanine Aminotransferase 25 U/L (0-33); Albumin Level 3.7 g/dL (3.5-5.2); Alkaline Phosphatase 78 U/L (35-105); Anion Gap 10.7 (5-19); Aspartate Amino Transferase 57 U/L (0-32); Blood Urea Nitrogen 7 mg/dL (8-23); Calcium 8.7 mg/dL (8.5-10.5); Carbon Dioxide 35 mmol/L (22-29); Chloride 96 mmol/L (98-107); Creatinine Clr Calc Pharmacy 86.6667; Globulin 3.4 g/dL (1.3-4.6); Glucose 121 mg/dL (65-115); NT Pro B Type Natriuretic Pept 145 pg/mL (0-125); Osmolality Calculated 283 mOsm/kg (285-295); Potassium 4.7 mmol/L (3.5-5.1); Sodium 137 mmol/L (136-145); Total Bilirubin 0.2 mg/dL (0.15-1.2); Total Protein 7.1 g/dL (6.6-8.7)
[2024-05-12 22:00] VITALS: BP 118/54; PULSE 80; RESP 18; O2SAT 100
[2024-05-12 22:30] VITALS: BP 118/63; PULSE 87; RESP 13; O2SAT 98
== END 2024-05-12 22:51 | disposition home or self-care (01) ==
PROVIDERS: Emergency Provider Emergency Medicine; PCP Internal Medicine
DX: I95.9 Hypotension, unspecified (principal); Z87.891 Personal history of nicotine dependence; Z86.73 Personal history of transient ischemic attack (TIA), and cerebral infarction without residual deficits; J44.9 Chronic obstructive pulmonary disease, unspecified; Z85.118 Personal history of other malignant neoplasm of bronchus and lung
CPT/HCPCS: 36415; 71045; 80053; 83605; 83880; 85025; 93005; 96360; 99285; J7030

== ENCOUNTER 2024-05-20 10:55 | Oncology outpatient (recurring) (ONCR) | payer MEDICARE, MEDICAID, SELFPAY ==
--- NOTE | 2024-05-18 10:51 | N.ONRAD NP_ITS ---
Radiation Oncology New Patient Visit Patient: Zulma Garcia MR#: [id number] : 1960> Age: 63> Sex: Female> Dictated by: Dr. Ni Hylton Date of Service: 05/18/2024 Referring Physician(s) : Diagnosis: Adenocarcinoma of the lung stage T1 N0 Radiotherapy to date: Summary > prior radiation in October 2018 60 [place] along with chemotherapy to the left lung Chief Complaint / History of Present Illness: Patient is a 63-year-old lady who is having history of a small cell carcinoma lung in 2019. She received radiation and chemotherapy for this. She recently had follow-up scans done in November 2023 and was found to have a right lower lobe mass. This measured 13 x 7 mm in size. Subsequent scan in February showed that the mass had uptake as well. She subsequently had a biopsy done and says that she suffered from a pneumothorax with the biopsy. The biopsy returned as adenocarcinoma. She has had fiducials placed on April 29. She is here today to discuss SBRT for solitary lung lesion which is adenocarcinoma. Current Medications: Allergies: Medical History: No history of collagen vascular disease. No previous radiation therapy. Small cell carcinoma of the lung, COPD, O2 at 3 L, compression fracture of T7, FEV1 of 0.65, cerebrovascular disease and stroke, gout, anemia, hypothyroidism, DJD Surgical History: Appendectomy Family History: Her father had lung cancer, her sister and brother have both had cancer Social History: Current Complaints / Review of Systems: . Vital Signs: Physical Exam: General Patient is an ill-appearing 63-year-old lady accompanied today by her daughter HEENT: Normocephalic atraumatic. Pupils are equal, sclera clear, extraocular muscles intact. Her hair is quite thin. Her coloring is quite pale. Pulmonary: Respiratory rate is regular and nonlabored. Lungs reveal decreased breath sounds throughout Cardiovascular: Regular rate and rhythm Abdomen: Moderately protuberant android pattern Extremities: Without significant edema or lymphedema Neurological: Patient is wheelchair-bound. Speech is intact. Alert and orient x 3 Psych: Patient's affect is appropriate for current situation Performance Status: 70 Pathology: Adenocarcinoma of the lung Lab: Imaging: See HPI Impression: Stage T1 N0 adenocarcinoma of the lung Plan: She had previously met with physicians to talk about stereotactic treatment for the lung nodule. We talked about the simulation process. We reviewed the daily treatment regiment. We discussed the risks and side effects both acute and long-term. At this point we also talked about a split course of 2 treatments per week for 2 weeks. She is still recovering from her pneumonia and has a little bit more trouble getting ready in the morning. This point she verbalized understanding of the above. She is agreed to proceed. She will return to undergo simulation and will begin her treatment shortly thereafter. Signed by: 05/18/2024 10:50:16 AM <<Signature on File>> Time spent with patient: 35 CPT Code: CPT Code:
== END 2024-05-23 23:59 | disposition home or self-care (01) ==
PROVIDERS: PCP Internal Medicine; Visit Provider Radiology Radiation Oncology
DX: Z53.9 Procedure and treatment not carried out, unspecified reason (principal)
CPT/HCPCS: 99205

== ENCOUNTER 2024-06-03 12:39 | Oncology outpatient (recurring) (ONCR) | payer MEDICARE, MEDICAID, SELFPAY | END 2024-06-03 23:59 | disposition home or self-care (01) | PROVIDERS: PCP Internal Medicine; Visit Provider Radiology Radiation Oncology | DX: Z51.0 Encounter for antineoplastic radiation therapy (principal); C34.31 Malignant neoplasm of lower lobe, right bronchus or lung | CPT/HCPCS: 77373 ==

== ENCOUNTER 2024-06-09 13:03 | Oncology outpatient (recurring) (ONCR) | payer MEDICARE, MEDICAID, SELFPAY ==
--- NOTE | 2024-06-09 14:26 | N.ONRD TS_ITS ---
Radiation Oncology Treatment Summary/ Management Patient: Kenisha MR#: [id number] : 1960> Age: 63> Sex: Female Dictated by: Dr. Ni Hylton Date of Service: 06/09/2024 Referring Physician(s) : Diagnosis: C34.91 - Malignant neoplasm of unspecified part of right bronchus or lung, Diagnosed 05/18/2024 (Active) Radiotherapy to Date: Course: Rt Lung SBRT, Treatment Site: Rt Lung 48Gy. Ref. ID: [id number], Energy: 6X, Dose/Fx (cGy): 1,200, #Fx: 4 / 4, Dose Correction (cGy): 0, Total Dose Delivered (cGy): 4,800, Start Date: 06/01/2024, End Date: 06/09/2024, Elapsed Days: 8 Clinical Summary: The patient tolerated RT well. She essentially had no issues during her course of treatment. She will be seeing the public health representative in a week and a half. She will be back here in about a month and at that point we will schedule her PET scan for 12 weeks from her completion date. Plan: End of treatment today. Continue on the above medication until the skin reaction resolves. Follow up in one month. Signed by: Dr. Ni Hylton>06/09/2024 2:25:19 PM <<Signature on File>>
== END 2024-06-22 23:59 | disposition home or self-care (01) ==
LOC: ONCMED 13:03
PROVIDERS: PCP Internal Medicine; Visit Provider Radiology Radiation Oncology
DX: Z51.0 Encounter for antineoplastic radiation therapy (principal); C34.31 Malignant neoplasm of lower lobe, right bronchus or lung; Z53.9 Procedure and treatment not carried out, unspecified reason; J44.9 Chronic obstructive pulmonary disease, unspecified; Z99.81 Dependence on supplemental oxygen
CPT/HCPCS: 77336; 77373; 99024

== ENCOUNTER 2024-06-26 09:49 | Observation (INO) | payer MEDICARE, MEDICAID, SELFPAY ==
[2024-06-26] VITALS (19 sets, daily range): BP systolic 94–143; BP diastolic 34–69; PULSE 71–117; RESP 16–26; TEMP 36.5–36.8; O2SAT 90–98; BMI 25.1
--- NOTE | 2024-06-26 10:14 | XR_ITS ---
WS: [id number] Exam: XR chest 1V portable [id number] Date/Time of Exam: 06/26/2024 10:19 AM Reason For Exam: sob Comparison 05/12/2024. Lungs are hyperinflated and clear. Scarring at the LEFT hilum. Metallic clips at the RIGHT hilum. Nor mal heart size. Mediastinum is normal in contour. No pleural effusion. Mid T-spine kyphoplasty. Bony structures are unremarkable. XR/XR chest 1V portable [id number] IMPRESSION: 1. Pulmonary hyperinflation which may indicate obstructive lung disease. Chroni c changes. 2. No acute process.
--- NOTE | 2024-06-26 10:15 | ED_ITS ---
Documented by User: CLEOPATRA Carlisle 06/26/24 12:56 HPI - SOB/Dyspnea 2 General: Chief Complaint: Shortness of Breath/Dyspnea Stated Complaint: SOB Time Seen by Provider: 06/26/24 09:52 Source: patient Mode of arrival: EMS Limitations: no limitations History of Present Illness: HPI Narrative: Patient is a 63-year-old female with a history of non-small cell lung cancer, COPD, hypothyroidism here for complaints of dyspnea. She states she normally wears 3 L of oxygen continuously. She states that 2 days ago she began noticing a productive cough and rhinorrhea. She felt like this morning when she woke up she could not get a good breath. She has not been running fevers. Denies any other symptoms at this time apart from cough, dyspnea, and runny nose. She states she normally does nebulizer treatments at home but missed her treatment yesterday evening and this morning. Patient states she just finished radiation therapy for her lung cancer. MD elicited complaint: shortness of breath and cough Pertinent past history: COPD and other (lung cancer) Onset (ago): day(s) Timing: constant Severity: severe Relieving factors: nothing Known history of: COPD and other (lung cancer) Associated symptoms: Reports chest congestion and cough; Deny abdominal pain, chest pain, dizziness, extremity pain, fever(s), hemoptysis, lightheadedness, nausea, palpitations, syncope or vomiting Treatment prior to arrival: oxygen and bronchodilator (duoneb in route) Related Data Home Medications Medication Instructions Recorded Confirmed allopurinol 300 mg tablet 300 mg PO DAILY@0600 10/17/19 06/26/24 cholecalciferol (vitamin D3) 50 2,000 unit PO DAILY@0810/17/19 06/26/24 mcg (2,000 unit) tablet (Vitamin D3) levothyroxine 88 mcg tablet 88 mcg PO DAILY@0800 10/17/19 06/26/24 acetaminophen 500 mg tablet 1,000 mg PO PRN 10/24/20 06/26/24 (Tylenol Extra Strength) gabapentin 300 mg capsule 300 mg PO BEDTIME@1800 10/24/20 06/26/24 xtyecxtv-nop-nozlg acid 500 1 tab PO DAILY@0800 03/28/21 06/26/24 mcg-lycopene 300 mcg-lutein 250 mcg tablet duloxetine 60 mg capsule,delayed 60 mg PO DAILY 06/26/24 06/26/24 release methenamine hippurate 1 gram tablet 1 g PO BID 06/26/24 06/26/24 nortriptyline 50 mg capsule 50 mg PO DAILY 06/26/24 06/26/24 Previous Rx's Medication Instructions Recorded ondansetron 4 mg disintegrating 4 mg PO Q8H PRN NAUSEA/VOMITING 7 03/31/21 tablet days #21 tabs Allergies Allergy/AdvReac Type Severity Reaction Status Date / Time ibuprofen Allergy ALGY-Swell Verified 08/09/22 13:19 Lip/Tongue/Throat flu shot Allergy Unknown Uncoded 08/09/22 13:19 Review of Systems 2 Const: Denies: fever(s), chills, body aches, fatigue or malaise ENMT: Reports: nasal discharge; Denies: throat pain, odynophagia, ear or mastoid pain, nasal congestion or sinus pain Card: Denies: chest pain, palpitations, irregular heart rhythm, edema, swelling of feet/ankles, lightheadedness, syncope or pre-syncope Resp: Reports: dyspnea, productive cough, wheezing and chest congestion; Denies: pain on inspiration or hemoptysis GI: Denies: abdominal pain, nausea, vomiting or diarrhea : Denies: flank pain or dysuria Musc: Denies: neck pain, back pain, extremity pain, extremity swelling, joint pain or joint swelling Skin/Breast: Denies: rash Neuro: Denies: headache(s), numbness in extremities, weakness in extremities, sensory changes or dizziness PFSH ED 2 PFSH: Medical History (Updated 06/26/24 @ 13:25 by Jong Trimble MD) Left-sided weakness Compression fracture of T7 vertebra Gout H/O: CVA (cerebrovascular accident) Hypothyroidism Pneumonia due to COVID-19 virus Diarrhea due to COVID-19 Nausea & vomiting Abdominal pain Hypoxia COVID-19 Former smoker COPD (chronic obstructive pulmonary disease) Small cell lung cancer in adult Post radiation 06/16 Surgical History History of appendectomy Family History Father Cancer Lung cancer Social History (Reviewed 06/26/24 @ 10:28 by DESEAN Carlisle Smoking and tobacco/nicotine status: former use of tobacco/nicotine Alcohol intake: never Substance/Drug Use: never Household members: family Housing: House Physical Exam 2 Const: COMMON NORMALS: average body habitus, patient oriented x3, no limitations, alert and well nourished GENERAL APPEARANCE: cooperative and in distress (acute respiratory distress with hypoxia and labored breathing) O RIENTATION/CONSCIOUSNESS: Yes awake, Yes oriented to person, Yes oriented to place and Yes oriented to time HENMT: COMMON NORMALS: normocephalic and atraumatic HEAD & SCALP: normal to inspection, normocephalic and atraumatic FACE & SINUS: normal facial exam Eye: GENERAL EYE: appearance normal, both eyes and all related structures Neck/C-Spine: COMMON NORMALS: no lymphadenopathy and no meningeal signs G ENERAL: Yes normal visual inspection Chest: COMMONS NORMALS: normal inspection of the chest and normal palpation of entire chest wall Resp: EFFORT & INSPECTION: Yes tachypneic, Yes respiratory distress, Yes labored, No grunting and No retractions AUSCULTATION: wheezes and diminished lung sounds Cardio: COMMON NORMALS: regular rhythm RATE: tachycardic RHYTHM: regular rhythm GI: COMMON NORMALS: Normal to inspection, nondistended, normoactive bowel sounds present, Soft to palpation and non-tender PALPATION: Yes Soft to palpation Extremity: COMMON NORMALS: no clubbing, cyanosis or edema, no calf tenderness and no pedal edema GENERAL: Yes normal exam except as noted Neuro: COMMON NORMALS: patient oriented x3, moves all extremities, no focal motor deficits and no sensory deficits noted SENSORIUM/ORIENTATION: Yes alert, Yes oriented to person, Yes oriented to place and Yes oriented to time MENINGEAL SIGNS: Yes no meningeal signs Skin: COMMON NORMALS: no rashes or lesions noted GENERAL SKIN EXAM: no rashes or lesions noted Course 2 Consultations: Consultation #1: Dr. Helms-accepts observation admit Vital Signs: Vital signs: Vital Signs Temperature 98.0 F 06/26/24 09:50 Pulse Rate 103 H 06/26/24 15:00 Respiratory Rate 16 06/26/24 15:00 Blood Pressure 94/34 06/26/24 15:00 Pulse Oximetry 94 06/26/24 15:00 Oxygen Delivery Me thod Simple Mask 06/26/24 15:00 Oxygen Flow Rate 2 06/26/24 15:00 MDM - SOB/Dyspnea Medical Decision Making Patient upon arrival is on 6 L nasal cannula. She was eventually tapered down to closer to 4?4.5L and then down to her normal 3 L but quickly desatted. She was doing quite a bit of mouth breathing. Ultimately she was placed on a mask on her normal 3 L and seem to be doing fairly well with this. She does remain mildly tachycardic. Her blood work overall is pretty good. Her CXR is unremarkable. Discussed going home versus observation. Patient feels nervous about going home. Family would like her to stay overnight. They state she has been sent home many times and comes back acutely worse would appreciate an observation stay. Discussed case with Dr. Helms who is agreeable to observation. Differential Diagnosis Likely acute exacerbation of chronic obstructive airways disease Lab Data 06/26/24 10:14 06/26/24 10:14 Labs/Radiology: Radiology Impressions Chest X-Ray 06/26/24 10:14 IMPRESSION: 1. Pulmonary hyperinflation which may indicate obstructive lung disease. Chronic changes. 2. No acute process. Laboratory Results WBC 5.16 10^3/uL (3.29-11.43) 06/26/24 10:14 RBC 4.20 10^6/uL (3.85-5.65) 06/26/24 10:14 Hgb 11.50 g/dL (11.27-16.99) 06/26/24 10:14 Hct 37.6 % (36-47) 06/26/24 10:14 MCV 89.5 fl (85-98) 06/26/24 10:14 MCH 27.4 pg (27-33) 06/26/24 10:14 MCHC 30.6 g/dL (30-55) 06/26/24 10:14 RDW 14.5 % (12.1-15.1) 06/26/24 10:14 Plt Count 180 10^3/cmm (157-399) 06/26/24 10:14 MPV 9.3 fL (7.4-10.4) 06/26/24 10:14 Neut % (Auto) 57.5 % 06/26/24 10:14 Lymph % (Auto) 24.4 % 06/26/24 10:14 Weber % (Auto) 7.2 % 06/26/24 10:14 Eos % (Auto) 9.7 % 06/26/24 10:14 Baso % (Auto) 0.8 % 06/26/24 10:14 Neut # (Auto) 2.97 10^3/uL (1.8-7.7) 06/26/24 10:14 Lymph # (Auto) 1.3 10^3/uL (0.8-4.8) 06/26/24 10:14 Weber # (Auto) 0.4 10^3/uL (0.2-0.9) 06/26/24 10:14 Eos # (Auto) 0.5 10^3/uL (0.0-0.8) 06/26/24 10:14 Baso # (Auto) 0.0 10^3/uL (0.0-0.1) 06/26/24 10:14 Nucleated RBC % (auto) 0 % 06/26/24 10:14 Nucleated RBCs # 0.0 /100WBC 06/26/24 10:14 D-Dimer 2.18 ug/mLFEU (0-0.59) H 06/26/24 10:14 Specimen Type Arterial 06/26/24 10:20 Sample Site Radial, left 06/26/24 10:20 ABG pH 7.36 (7.35-7.45) 06/26/24 10:20 ABG pCO2 58.7 mmHg (35-45) H 06/26/24 10:20 ABG pO2 60.4 mmHg (80.0-100.0) L 06/26/24 10:20 ABG HCO3 33.5 mmol/L (22-26) H 06/26/24 10:20 ABG O2 Saturation 91.0 06/26/24 10:20 ABG Base Excess 6.7 mmol/L (-2.0-2.0) H 06/26/24 10:20 Darrel Test Pos 06/26/24 10:20 A-a O2 Gradient 2.5 mmHg (5-10) L 06/26/24 10:20 Hematocrit 33.3 % (37-47) L 06/26/24 10:20 Hgb O2 Saturation 89.6 % (95-100) L 06/26/24 10:20 Carboxyhemoglobin 1.3 %THgb (0.4-20.1) 06/26/24 10:20 Methemoglobin 0.2 % (0.4-1.5) L 06/26/24 10:20 Total Hemoglobin 10.9 g/dL (12-16) L 06/26/24 10:20 Sodium 142.0 mmol/L (131-143) 06/26/24 10:20 Potassium 3.8 mmol/L (3.5-5.0) 06/26/24 10:20 Glucose 135.0 mg/dL (70-115) H 06/26/24 10:20 Ionized Calcium 1.1 mmol/L (1.1-1.4) 06/26/24 10:20 O2 Delivery Device Nc 06/26/24 10:20 O2 Liters/Min 4.0 % 06/26/24 10:20 Veterinarian Helper ID Walci 06/26/24 10:20 Sodium 143 mmol/L (136-145) 06/26/24 10:14 Potassium 4.0 mmol/L (3.5-5.1) 06/26/24 10:14 Chloride 100 mmol/L (98-107) 06/26/24 10:14 Carbon Dioxide 33 mmol/L (22-29) H 06/26/24 10:14 Anion Gap 14.0 (5-19) 06/26/24 10:14 BUN 7 mg/dL (8-23) L 06/26/24 10:14 Creatinine 0.7 mg/dL (0.5-0.9) 06/26/24 10:14 GFR Calculation 84.5 mL/min (90-130) L 06/26/24 10:14 Glucose 149 mg/dL (65-115) H 06/26/24 10:14 Calculated Osmolality 297 mOsm/kg (285-295) H 06/26/24 10:14 Lactic Acid 0.9 mmol/L (0.5-2.2) 06/26/24 10:14 Calcium 8.7 mg/dL (8.5-10.5) 06/26/24 10:14 Iron 38 ug/dL (37-145) 06/26/24 10:14 TIBC 319 mcg/dl 06/26/24 10:14 % Saturation 11.9 % (20-50) L 06/26/24 10:14 Unsat Iron Binding 281 ug/dL (112-347) 06/26/24 10:14 Total Bilirubin 0.3 mg/dL (0.15-1.2) 06/26/24 10:14 AST 26 U/L (0-32) 06/26/24 10:14 ALT 12 U/L (0-33) 06/26/24 10:14 Alkaline Phosphatase 98 U/L (35-105) 06/26/24 10:14 Troponin T Baseline 8 ng/L (0-10) 06/26/24 10:14 Troponin T 120 Minute 7.03 ng/L (0-10) 06/26/24 12:07 Delta Troponin T -0.97 ABS# (0-10) L 06/26/24 12:07 NT-Pro-B Natriuret Pep 156 pg/mL (0-125) H 06/26/24 10:14 Total Protein 6.8 g/dL (6.6-8.7) 06/26/24 10:14 Albumin 4.4 g/dL (3.5-5.2) 06/26/24 10:14 Globulin 2.4 g/dL (1.3-4.6) 06/26/24 10:14 Procalcitonin 0.02 ng/mL (0-0.5) 06/26/24 10:14 Procalcitonin 0.03 ng/mL (0-0.5) 06/26/24 10:14 TSH 1.16 uIU/mL (0.27-4.20) 06/26/24 10:14 Adenovirus (PCR) Not detected (NOT DETECT) 06/26/24 11:51 C. pneumoniae DNA (PCR) Not detected (NOT DETECT) 06/26/24 11:51 Coronavirus (PCR) Negative (Negative) 06/26/24 10:22 Coronavirus 229E (PCR) Not detected (NOT DETECT) 06/26/24 11:51 Human Metapneumovir PCR Not detected (NOT DETECT) 06/26/24 11:51 Influenza A (H1) PCR Not detected (NOT DETECT) 06/26/24 11:51 Influenza A (PCR) Negative (Negative) 06/26/24 10:22 Influ A (H1/09) PCR Not detected (NOT DETECT) 06/26/24 11:51 Influenza A (H3) PCR Not detected (NOT DETECT) 06/26/24 11:51 Influenza Type A (PCR) Not detected (NOT DETECT) 06/26/24 11:51 Influenza Type B (PCR) Not detected (NOT DETECT) 06/26/24 11:51 M. pneumoniae (PCR) Not detected (NOT DETECT) 06/26/24 11:51 Parainfluenza 1 (PCR) Not detected (NOT DETECT) 06/26/24 11:51 Parainfluenza 2 (PCR) Not detected (NOT DETECT) 06/26/24 11:51 Parainfluenza 3 (PCR) Not detected (NOT DETECT) 06/26/24 11:51 Parainfluenza 4 (PCR) Not detected (NOT DETECT) 06/26/24 11:51 RSV (PCR) Negative (Negative) 06/26/24 10:22 RSV Type A (PCR) Not detected (NOT DETECT) 06/26/24 11:51 RSV Type B (PCR) Not detected (NOT DETECT) 06/26/24 11:51 Entero/Rhino (PCR) Not detected (NOT DETECT) 06/26/24 11:51 SARS-CoV-2 (PCR) Not detected (NOT DETECT) 06/26/24 11:51 All radiology interpretation(s) finalized by discharge Discharge Plan Discharge Patient Disposition: Placed in Observation Admit Provider: Jong Trimble Clinical Impression: Chronic obstructive pulmonary disease with (acute) exacerbation Coding Level of Care Code ED Cyber Forensic Specialist for g Fwd Documented by User: Prasanth Michaud DO 06/26/24 15:34 HPI - SOB/Dyspnea 2 General: Chief Complaint: Shortness of Breath/Dyspnea Stated Complaint: SOB Time Seen by Provider: 06/26/24 09:52 Related Data Home Medications Medication Instructions Recorded Confirmed allopurinol 300 mg tablet 300 mg PO DAILY@0600 10/17/19 06/26/24 cholecalciferol (vitamin D3) 50 2,000 unit PO DAILY@0800 10/17/19 06/26/24 mcg (2,000 unit) tablet (Vitamin D3) levothyroxine 88 mcg tablet 88 mcg PO DAILY@0800 10/17/19 06/26/24 acetaminophen 500 mg tablet 1,000 mg PO PRN 10/24/20 06/26/24 (Tylenol Extra Strength) gabapentin 300 mg capsule 300 mg PO BEDTIME@1800 10/24/20 06/26/24 pexiuhkr-tkn-dhpzv acid 500 1 tab PO DAILY@0800 03/28/21 06/26/24 mcg-lycopene 300 mcg-lutein 250 mcg tablet duloxetine 60 mg capsule,delayed 60 mg PO DAILY 06/26/24 06/26/24 release methenamine hippurate 1 gram tablet 1 g PO BID 06/26/24 06/26/24 nortriptyline 50 mg capsule 50 mg PO DAILY 06/26/24 06/26/24 Previous Rx's Medication Instructions Recorded ondansetron 4 mg disintegrating 4 mg PO Q8H PRN NAUSEA/VOMITING 7 03/31/21 tablet days #21 tabs Allergies Allergy/AdvReac Type Severity Reaction Status Date / Time ibuprofen Allergy ALGY-Swell Verified 08/09/22 13:19 Lip/Tongue/Throat flu shot Allergy Unknown Uncoded 08/09/22 13:19 PFSH ED 2 PFSH: Medical History (Updated 06/26/24 @ 13:25 by Jong Trimble MD) Left-sided weakness Compression fracture of T7 vertebra Gout H/O: CVA (cerebrovascular accident) Hypothyroidism Pneumonia due to COVID-19 virus Diarrhea due to COVID-19 Nausea & vomiting Abdominal pain Hypoxia COVID-19 Former smoker COPD (chronic obstructive pulmonary disease) Small cell lung cancer in adult Post radiation 06/16 Surgical History History of appendectomy Family History Father Cancer Lung cancer Social History Smoking and tobacco/nicotine status: former use of tobacco/nicotine Alcohol intake: never Substance/Drug Use: never Household members: family Housing: House Course 2 Vital Signs: Vital signs: Vital Signs Temperature 98.0 F 06/26/24 09:50 Pulse Rate 103 H 06/26/24 15:00 Respiratory Rate 16 06/26/24 15:00 Blood Pressure 94/34 06/26/24 15:00 Pulse Oximetry 94 06/26/24 15:00 Oxygen Delivery Me thod Simple Mask 06/26/24 15:00 Oxygen Flow Rate 2 06/26/24 15:00 MDM - SOB/Dyspnea Medical Decision Making Patient upon arrival is on 6 L nasal cannula. She was eventually tapered down to closer to 4?4.5L and then down to her normal 3 L but quickly desatted. She was doing quite a bit of mouth breathing. Ultimately she was placed on a mask on her normal 3 L and seem to be doing fairly well with this. She does remain mildly tachycardic. Her blood work overall is pretty good. Her CXR is unremarkable. Discussed going home versus observation. Patient feels nervous about going home. Family would like her to stay overnight. They state she has been sent home many times and comes back acutely worse would appreciate an observation stay. Discussed case with Dr. Helms who is agreeable to observation. Chart reviewed and patient discussed with midlevel. Agree with assessment and plan. Lab Data 06/26/24 10:14 06/26/24 10:14 Labs/Radiology: Radiology Impressions Chest X-Ray 06/26/24 10:14 IMPRESSION: 1. Pulmonary hyperinflation which may indicate obstructive lung disease. Chronic changes. 2. No acute process. Laboratory Results WBC 5.16 10^3/uL (3.29-11.43) 06/26/24 10:14 RBC 4.20 10^6/uL (3.85-5.65) 06/26/24 10:14 Hgb 11.50 g/dL (11.27-16.99) 06/26/24 10:14 Hct 37.6 % (36-47) 06/26/24 10:14 MCV 89.5 fl (85-98) 06/26/24 10:14 MCH 27.4 pg (27-33) 06/26/24 10:14 MCHC 30.6 g/dL (30-55) 06/26/24 10:14 RDW 14.5 % (12.1-15.1) 06/26/24 10:14 Plt Count 180 10^3/cmm (157-399) 06/26/24 10:14 MPV 9.3 fL (7.4-10.4) 06/26/24 10:14 Neut % (Auto) 57.5 % 06/26/24 10:14 Lymph % (Auto) 24.4 % 06/26/24 10:14 Weber % (Auto) 7.2 % 06/26/24 10:14 Eos % (Auto) 9.7 % 06/26/24 10:14 Baso % (Auto) 0.8 % 06/26/24 10:14 Neut # (Auto) 2.97 10^3/uL (1.8-7.7) 06/26/24 10:14 Lymph # (Auto) 1.3 10^3/uL (0.8-4.8) 06/26/24 10:14 Weber # (Auto) 0.4 10^3/uL (0.2-0.9) 06/26/24 10:14 Eos # (Auto) 0.5 10^3/uL (0.0-0.8) 06/26/24 10:14 Baso # (Auto) 0.0 10^3/uL (0.0-0.1) 06/26/24 10:14 Nucleated RBC % (auto) 0 % 06/26/24 10:14 Nucleated RBCs # 0.0 /100WBC 06/26/24 10:14 D-Dimer 2.18 ug/mLFEU (0-0.59) H 06/26/24 10:14 Specimen Type Arterial 06/26/24 10:20 Sample Site Radial, left 06/26/24 10:20 ABG pH 7.36 (7.35-7.45) 06/26/24 10:20 ABG pCO2 58.7 mmHg (35-45) H 06/26/24 10:20 ABG pO2 60.4 mmHg (80.0-100.0) L 06/26/24 10:20 ABG HCO3 33.5 mmol/L (22-26) H 06/26/24 10:20 ABG O2 Saturation 91.0 06/26/24 10:20 ABG Base Excess 6.7 mmol/L (-2.0-2.0) H 06/26/24 10:20 Darrel Test Pos 06/26/24 10:20 A-a O2 Gradient 2.5 mmHg (5-10) L 06/26/24 10:20 Hematocrit 33.3 % (37-47) L 06/26/24 10:20 Hgb O2 Saturation 89.6 % (95-100) L 06/26/24 10:20 Carboxyhemoglobin 1.3 %THgb (0.4-20.1) 06/26/24 10:20 Methemoglobin 0.2 % (0.4-1.5) L 06/26/24 10:20 Total Hemoglobin 10.9 g/dL (12-16) L 06/26/24 10:20 Sodium 142.0 mmol/L (131-143) 06/26/24 10:20 Potassium 3.8 mmol/L (3.5-5.0) 06/26/24 10:20 Glucose 135.0 mg/dL (70-115) H 06/26/24 10:20 Ionized Calcium 1.1 mmol/L (1.1-1.4) 06/26/24 10:20 O2 Delivery Device Nc 06/26/24 10:20 O2 Liters/Min 4.0 % 06/26/24 10:20 Veterinarian Helper ID Walci 06/26/24 10:20 Sodium 143 mmol/L (136-145) 06/26/24 10:14 Potassium 4.0 mmol/L (3.5-5.1) 06/26/24 10:14 Chloride 100 mmol/L (98-107) 06/26/24 10:14 Carbon Dioxide 33 mmol/L (22-29) H 06/26/24 10:14 Anion Gap 14.0 (5-19) 06/26/24 10:14 BUN 7 mg/dL (8-23) L 06/26/24 10:14 Creatinine 0.7 mg/dL (0.5-0.9) 06/26/24 10:14 GFR Calculation 84.5 mL/min (90-130) L 06/26/24 10:14 Glucose 149 mg/dL (65-115) H 06/26/24 10:14 Calculated Osmolality 297 mOsm/kg (285-295) H 06/26/24 10:14 Lactic Acid 0.9 mmol/L (0.5-2.2) 06/26/24 10:14 Calcium 8.7 mg/dL (8.5-10.5) 06/26/24 10:14 Iron 38 ug/dL (37-145) 06/26/24 10:14 TIBC 319 mcg/dl 06/26/24 10:14 % Saturation 11.9 % (20-50) L 06/26/24 10:14 Unsat Iron Binding 281 ug/dL (112-347) 06/26/24 10:14 Total Bilirubin 0.3 mg/dL (0.15-1.2) 06/26/24 10:14 AST 26 U/L (0-32) 06/26/24 10:14 ALT 12 U/L (0-33) 06/26/24 10:14 Alkaline Phosphatase 98 U/L (35-105) 06/26/24 10:14 Troponin T Baseline 8 ng/L (0-10) 06/26/24 10:14 Troponin T 120 Minute 7.03 ng/L (0-10) 06/26/24 12:07 Delta Troponin T -0.97 ABS# (0-10) L 06/26/24 12:07 NT-Pro-B Natriuret Pep 156 pg/mL (0-125) H 06/26/24 10:14 Total Protein 6.8 g/dL (6.6-8.7) 06/26/24 10:14 Albumin 4.4 g/dL (3.5-5.2) 06/26/24 10:14 Globulin 2.4 g/dL (1.3-4.6) 06/26/24 10:14 Procalcitonin 0.02 ng/mL (0-0.5) 06/26/24 10:14 Procalcitonin 0.03 ng/mL (0-0.5) 06/26/24 10:14 TSH 1.16 uIU/mL (0.27-4.20) 06/26/24 10:14 Adenovirus (PCR) Not detected (NOT DETECT) 06/26/24 11:51 C. pneumoniae DNA (PCR) Not detected (NOT DETECT) 06/26/24 11:51 Coronavirus (PCR) Negative (Negative) 06/26/24 10:22 Coronavirus 229E (PCR) Not detected (NOT DETECT) 06/26/24 11:51 Human Metapneumovir PCR Not detected (NOT DETECT) 06/26/24 11:51 Influenza A (H1) PCR Not detected (NOT DETECT) 06/26/24 11:51 Influenza A (PCR) Negative (Negative) 06/26/24 10:22 Influ A (H1/09) PCR Not detected (NOT DETECT) 06/26/24 11:51 Influenza A (H3) PCR Not detected (NOT DETECT) 06/26/24 11:51 Influenza Type A (PCR) Not detected (NOT DETECT) 06/26/24 11:51 Influenza Type B (PCR) Not detected (NOT DETECT) 06/26/24 11:51 M. pneumoniae (PCR) Not detected (NOT DETECT) 06/26/24 11:51 Parainfluenza 1 (PCR) Not detected (NOT DETECT) 06/26/24 11:51 Parainfluenza 2 (PCR) Not detected (NOT DETECT) 06/26/24 11:51 Parainfluenza 3 (PCR) Not detected (NOT DETECT) 06/26/24 11:51 Parainfluenza 4 (PCR) Not detected (NOT DETECT) 06/26/24 11:51 RSV (PCR) Negative (Negative) 06/26/24 10:22 RSV Type A (PCR) Not detected (NOT DETECT) 06/26/24 11:51 RSV Type B (PCR) Not detected (NOT DETECT) 06/26/24 11:51 Entero/Rhino (PCR) Not detected (NOT DETECT) 06/26/24 11:51 SARS-CoV-2 (PCR) Not detected (NOT DETECT) 06/26/24 11:51 Discharge Plan Discharge Patient Disposition: Placed in Observation Admit Provider: Jong Trimble Clinical Impression: Chronic obstructive pulmonary disease with (acute) exacerbation Coding Level of Care Code ED Cyber Forensic Specialist for Beatrice Petersen
--- NOTE | 2024-06-26 10:16 | ECG_ITS ---
[facility] Test Date: 2024-06-26 Pat Name: Zulma Garcia Department: Room: Gender: Female Lay Out Inspector: : 1960 Requested By: Vandana Holly Order Number: [id number] Darci MD: Fe Negrete M.D. Measurements Intervals [place] Rate: 98 P: 75 MN: 174 QRS: 74 QRSD: 94 T: 48 QT: 341 QTc: 437 Interpretive Statements SINUS RHYTHM SEPTAL MYOCARDIAL INFARCTION , OF INDETERMINATE AGE [40+ ms Q WAVE IN V1/V2] Compared to ECG 05/12/2024 21:25:30 No significant changes Electronically Signed On 06-27-2024 20:54:36 CDT by Fe Negrete M.D. [id number]
[2024-06-26 10:20] LABS: Basophils % 0.8 %; Eosinophils # 0.5 10^3/uL (0.0-0.8); Eosinophils % 9.7 %; Hematocrit 37.6 % (36-47); Lymphocytes # 1.3 10^3/uL (0.8-4.8); Lymphocytes % 24.4 %; Mean Corpuscular HGB Conc 30.6 g/dL (30-55); Mean Corpuscular Hemoglobin 27.4 pg (27-33); Mean Corpuscular Volume 89.5 fl (85-98); Mean Platelet Volume 9.3 fL (7.4-10.4); Monocytes # 0.4 10^3/uL (0.2-0.9); Monocytes % 7.2 %; Neutrophils # 2.97 10^3/uL (1.8-7.7); Neutrophils % 57.5 %; Nucleated Red Blood Cells % 0 %; Platelet Count 180 10^3/cmm (157-399); Red Cell Distribution Width 14.5 % (12.1-15.1); White Blood Count 5.16 10^3/uL (3.29-11.43)
[2024-06-26] MEDS: methylPREDNISolone sod succ 125 mg/2 mL INJ IVP (10:26)
[2024-06-26 10:31] LABS: ABG PCO2 58.7 mmHg (35-45); ABG PH Result 7.36 (7.35-7.45); Alveolar-Arterial Oxygen Gradi 2.5 mmHg (5-10); Arterial Blood Gas Hematocrit 33.3 % (37-47); Base Excess ABG 6.7 mmol/L (-2.0-2.0); Blood Gas Allen Test Pos; Blood Gas Operator Identificat WALCI; Blood Gas Sample Site Radial, left; Blood Gas Sample Type Arterial; Carboxyhemoglobin 1.3 %THgb (0.4-20.1); HCO3 ABG 33.5 mmol/L (22-26); HGB O2 Sat 89.6 % (95-100); Ionized Calcium Level - ABG 1.1 mmol/L (1.1-1.4); Methemoglobin 0.2 % (0.4-1.5); Oxygen Device NC; PO2 ABG 60.4 mmHg (80.0-100.0); Potassium Level - ABG 3.8 mmol/L (3.5-5.0); Total Hemoglobin 10.9 g/dL (12-16)
[2024-06-26] MEDS: ipratropium-albuterol 3 mL Neb INHALATION ×3 (10:40)
[2024-06-26 10:41] LABS: Troponin(5th) Baseline 8 ng/L (0-10)
[2024-06-26 10:43] LABS: Lactic Sepsis W/Reflex 0.9 mmol/L (0.5-2.2)
[2024-06-26 10:44] LABS: Alanine Aminotransferase 12 U/L (0-33); Albumin Level 4.4 g/dL (3.5-5.2); Alkaline Phosphatase 98 U/L (35-105); Aspartate Amino Transferase 26 U/L (0-32); Blood Urea Nitrogen 7 mg/dL (8-23); Calcium 8.7 mg/dL (8.5-10.5); Carbon Dioxide 33 mmol/L (22-29); Chloride 100 mmol/L (98-107); Creatinine Clr Calc Pharmacy 74.2858; Globulin 2.4 g/dL (1.3-4.6); Glomerular Filtration Rate 84.5 mL/min (90-130); Glucose 149 mg/dL (65-115); Osmolality Calculated 297 mOsm/kg (285-295); Sodium 143 mmol/L (136-145); Total Bilirubin 0.3 mg/dL (0.15-1.2); Total Protein 6.8 g/dL (6.6-8.7)
[2024-06-26 10:51] LABS: Procalcitonin 0.02 ng/mL (0-0.5)
--- NOTE | 2024-06-26 11:02 | PC.NURSE ---
@ 1102- Per Vandana Holly MECHANICAL DESIGN ENGINE[employer], turn patients oxygen down to 3lnc ( baseline) from 4l.
[2024-06-26 11:18] LABS: Covid PCR NEGATIVE (Negative); Influenza A NEGATIVE (Negative); Influenza B NEGATIVE (Negative); Respiratory Syncytial Virus Ce NEGATIVE (Negative)
--- NOTE | 2024-06-26 11:20 | PC.NURSE ---
this nurse assumed pt care at 1105 from HANNA Ricks. pt in stable condition at this time.
--- NOTE | 2024-06-26 11:27 | PC.NURSE ---
pts O2 saturation dropped to 85% on 3L NC. this nurse titrated to 4.5 L to maintain an O2 above 90%.
--- NOTE | 2024-06-26 12:15 | ECG_ITS ---
[facility] Test Date: 2024-06-26 Pat Name: Zulma Garcia Department: Room: Gender: Female Wagon Driller: : 1960 Requested By: Vandana Holly Order Number: [id number] Darci MD: Fe Negrete M.D. Measurements Intervals [place] Rate: 100 P: 76 NC: 176 QRS: 70 QRSD: 86 T: 50 QT: 331 QTc: 428 Interpretive Statements SINUS TACHYCARDIA SEPTAL MYOCARDIAL INFARCTION , OF INDETERMINATE AGE [40+ ms Q WAVE IN V1/V2] Compared to ECG 06/26/2024 10:16:04 Sinus rhythm no longer present Myocardial infarct finding still present Electronically Signed On 06-27-2024 21:13:59 CDT by Fe Negrete M.D. [id number]
--- NOTE | 2024-06-26 12:19 | PC.NURSE ---
pts O2 cannula moved to pts mouth and turned down to 3L per provider, Vandana Holly. pt O2 saturation stayed between 84-87%. pt O2 titrated to 5L and O2 sats remained the same. pt placed on simple mask with O2 at 3L. pt O2 saturation between 92-98%.
[2024-06-26 12:28] LABS: Troponin 5 2HR 7.03 ng/L (0-10)
[2024-06-26 12:29] LABS: Troponin 5 2HR Delta -0.97 ABS# (0-10)
--- NOTE | 2024-06-26 13:07 | P.HP_ITS ---
Providers/Chief Complaint 2 Primary Care Provider: Adela Stout Chief Complaint: SOB History of Present Illness Zulma Garcia is a 63 year old female with past medical history of COPD, non- small cell lung cancer postradiation therapy within the last 2 weeks, recent hospitalization with intubation with the last 1 month for COPD and pneumonia, former smoker, hypothyroidism presented to the ER today because of difficulty in breathing which has been ongoing since last week worsened today morning. She is at baseline 3 L of oxygen supplementation though was requiring up to 6 L as per EMS as she was saturating in mid 70s on her baseline oxygen supplementation. In the ER she required nebulization treatment and steroid after which she is saturating around 90% on facemask of 3 L. Patient still complaining of difficulty in breathing and mild congestion in her lungs. She states she has been having congestion in her nose with runny nose along with sore throat for the last 1 week. Denies any nausea, vomiting, headache, dizziness, diarrhea. Review of Systems 2 General: Reports: 10 or more systems reviewed and unremarkable except in HPI and below Const: Denies: fever(s), chills, body aches, change in appetite, change in weight, malaise, night sweats, diaphoresis, change in sleep pattern, daytime sleepiness or snoring Eyes: Denies: change in vision, blurry vision, photophobia, eye discomfort or eye discharge ENMT: Denies: throat pain, enlarged tonsils, hoarseness, mouth pain, oral sores, dry mouth, tinnitus, nasal congestion or post nasal drip Card: Denies: chest pain, palpitations, irregular heart rhythm, edema, swelling of feet/ankles, lightheadedness, syncope, pre-syncope, dyspnea on exertion, orthopnea, leg pain with exertion or acrocyanosis Resp: Denies: dyspnea, productive cough, non-productive cough, wheezing, stridor, pain on inspiration, change in phlegm color, hemoptysis or chest congestion GI: Denies: abdominal pain, nausea, vomiting, hematemesis, coffee ground emesis, dysphagia, heartburn, diarrhea, constipation, bloating, GI cramping, change in bowel habits, pain on defecation, hematochezia or melena : Denies: flank pain, dysuria, urinary frequency, urinary urgency, urinary hesitancy, nocturia or hematuria Musc: Denies: neck pain, back pain, extremity pain, joint pain, joint swelling, joint redness, joint stiffness or limited range of motion Neuro: Denies: headache(s), numbness in extremities, weakness in extremities, sensory changes, lack of coordination, difficulty walking, frequent falls, dizziness, vertigo, confusion, Slurred speech present, difficulty communicating thoughts or seizure-like activity Psych: Denies: anxiety, depression, mood swings, panic attacks, hopelessness or irritability Endo: Denies: polyuria, polydipsia, tired all the time, cold intolerance, excessive sweating, flushing or heat intolerance [place]/Lymph: Denies: easy bruising or easy bleeding All/Imm: Denies: tongue swelling, facial swelling or acute wheezing Medications/Allergies Home Medications Medication Instructions Recorded Confirmed Last Taken Type allopurinol 300 mg tablet 300 mg PO DAILY@0600 10/17/19 06/26/24 06/26/24 History cholecalciferol (vitamin D3) 50 2,000 unit PO DAILY@0800 10/17/19 06/26/24 06/26/24 History mcg (2,000 unit) tablet (Vitamin D3) levothyroxine 88 mcg tablet 88 mcg PO DAILY@0800 10/17/19 06/26/24 06/26/24 History acetaminophen 500 mg tablet 1,000 mg PO PRN 10/24/20 06/26/24 Unknown History (Tylenol Extra Strength) gabapentin 300 mg capsule 300 mg PO BEDTIME@1800 10/24/20 06/26/24 06/25/24 History qjwatlpy-eyw-ngcpp acid 500 1 tab PO DAILY@0800 03/28/21 06/26/24 06/26/24 History mcg-lycopene 300 mcg-lutein 250 mcg tablet ondansetron 4 mg disintegrating 4 mg PO Q8H PRN NAUSEA/VOMITING 7 03/31/21 06/26/24 Unknown Rx tablet days #21 tabs duloxetine 60 mg capsule,delayed 60 mg PO DAILY 06/26/24 06/26/24 06/26/24 History release methenamine hippurate 1 gram tablet 1 g PO BID 06/26/24 06/26/24 06/26/24 History nortriptyline 50 mg capsule 50 mg PO DAILY 06/26/24 06/26/24 06/25/24 History Allergies Allergy/AdvReac Type Severity Reaction Status Date / Time ibuprofen Allergy ROCKY-Swell Verified 08/09/22 13:19 Lip/Tongue/Throat flu shot Allergy Unknown Uncoded 08/09/22 13:19 PFSH Acute 2 PFSH: Medical History (Updated 06/26/24 @ 13:25 by Jong Trimble MD) Left-sided weakness Compression fracture of T7 vertebra Gout H/O: CVA (cerebrovascular accident) Hypothyroidism Pneumonia due to COVID-19 virus Diarrhea due to COVID-19 Nausea & vomiting Abdominal pain Hypoxia COVID-19 Former smoker COPD (chronic obstructive pulmonary disease) Small cell lung cancer in adult Post radiation 06/16 Surgical History History of appendectomy Family History Father Cancer Lung cancer Social History Smoking and tobacco/nicotine status: former use of tobacco/nicotine Alcohol intake: never Substance/Drug Use: never Household members: family Housing: House Vitals/I&O/Wt Last Vital Signs Temp 98.0 F 06/26/24 09:50 Pulse 107 H 06/26/24 12:30 Resp 20 H 06/26/24 12:30 BP 98/55 06/26/24 12:30 Pulse Ox 98 06/26/24 12:30 O2 Del Method Simple Mask 06/26/24 12:30 O2 Flow Rate 3 06/26/24 12:30 Weight last 48 hrs Weight 64.41 kg Physical Exam 2 Narrative: General: No acute distress, AO x3, on facemask, having difficulty breathing on minimal conversation HEENT: PERRLA, pupils bilaterally equal and reactive Chest: Bilateral bronchial breath sounds all over lung avelar with occasional rhonchi CVS: S1-S2 regular, no murmurs, no tachycardia, no gallops, no rubs Abdomen: Soft, nontender, no organomegaly, bowel sounds present Neuro: No focal deficits, no facial deformity, AO x3, power 5/5 in all limbs Data 06/26/24 10:14 06/26/24 10:14 A&P Assessment and plan (1) Hypoxic respiratory failure: Most likely in setting of COPD exacerbation in setting of possible bronchitis. Respiratory viral panel sent in the ER. Currently pending. Recent history of admission to ICU with intubation within last 1 month. Will request documentation from outside hospital. Apparently patient had a bronchoscopy during that stay. Check blood culture, sputum culture, urine Legionella, bacterial antigen. For now start patient on oral azithromycin 500 mg oral daily. Low concerns for pneumonia otherwise. Check D-dimer. If elevated will plan for CTA. Check MRSA swab, sputum culture, blood culture, urine Legionella, bacterial antigen, procalcitonin, proBNP. Nebulization with ipratropium, Xopenex every 6 hour, Pulmicort twice daily. Solu-Medrol 40 mg IV every 12 hours. Oxygen supplementation keeping saturation over 88%. Appreciate last echocardiogram from 2020 showing normal EF with concerns for mild to moderate AI and TR with PASP of 29 mmHg. IV Lasix 40 mg one-time. Strict and proper charting. (2) Chronic obstructive pulmonary disease with (acute) exacerbation: Plan CODE STATUS: Discussed in detail with the patient. Patient's son will be the DPOA. Full code. Protonix OPD prophylaxis Regular diet Lovenox for DVT prophylaxis Attestations 2 Medical Necessity Statement*: Admission under observation for further evaluation and management of hypoxic respiratory failure in setting of COPD exacerbation Diagnoses Hypoxic respiratory failure J96.91 Chronic obstructive pulmonary disease with (acute) exacerbation J44.1
[2024-06-26 13:24] LABS: D Dimer 2.18 ug/mLFEU (0-0.59)
--- NOTE | 2024-06-26 13:25 | CT_ITS ---
WS: [id number] CT CHEST ANGIOGRAPHY WITH REFORMATS HISTORY: Hypoxic respiratory failure TECHNIQUE: Contiguous axial images are obtained through the chest during arterial injection of intrav enous contrast. Images are reconstructed to evaluate the pulmonary arteries. MIP imaging also reviewe d. All CT scans at [facility] use at least one of these dose optimization techniques: automat ed exposure control; mA and/or kV adjustment per patient size (includes targeted exams where dose is matched to clinical indication); or iterative reconstruction. CONTRAST: Omnipaque 350; 100 mL IV. DLP: 311.08 mGy.cm COMPARISON: 05/02/2024 Good opacification of the pulmonary arteries. No pulmonary emboli is identified. Normal thoracic aort a. No dissection. Normal size heart. No pericardial or pleural effusions. Centrilobular emphysema. There is a spiculated nodule superior segment RIGHT lower lobe abutting the fissure. This nodule is in an area of prior infarct and increased opacification seen on 05/02/2024 whi ch has since improved. This could potentially be the site of a treated neoplasm if there is a history of prior malignancy. There is additional soft tissue thickening at the LEFT hilum which is also leonel lar to 05/02/2024 and 03/13/2024. Mild pleural thickening at the lung bases. Mild dependent changes. Me diastinal and hilar lymph nodes have significantly decreased in size since 05/02/2024. Upper abdomen is negative. Small hiatal hernia. Very small nodule associated with the RIGHT adrenal g land. Prior kyphoplasty at T7. CT/CT angio chest PE protcl [id number] IMPRESSION: 1. No pulmonary embolism. 2. Spiculated nodule superior segment RIGHT lower lobe measures 1.4 cm. This m ay be an area of prior treated neoplasm. Recommend continued surveillance. 3. Stable soft tissue thickening at the LEFT hilum can also be evaluated on ad ditional follow-up exams. 4. Mediastinal and hilar lymphadenopathy has significantly improved since 05/02.
[2024-06-26 13:37] LABS: NT Pro B Type Natriuretic Pept 156 pg/mL (0-125); Procalcitonin 0.03 ng/mL (0-0.5); Thyroid Stimulating Hormone 1.16 uIU/mL (0.27-4.20)
[2024-06-26 13:48] LABS: Adenovirus Not Detected (NOT DETECT); Chlamydia Pneumoniae Not Detected (NOT DETECT); Coronavirus 229E,HKU1,NL63,OC4 Not Detected (NOT DETECT); Human Metapneumovirus Not Detected (NOT DETECT); Human Rhinovirus/Enterovirus Not Detected (NOT DETECT); Influenza A Not Detected (NOT DETECT); Influenza A H1 Not Detected (NOT DETECT); Influenza A H1-2009 Not Detected (NOT DETECT); Influenza A H3 Not Detected (NOT DETECT); Influenza B Not Detected (NOT DETECT); Mycoplasma Pneumoniae Not Detected (NOT DETECT); Parainfluenza Virus Type 1 Not Detected (NOT DETECT); Parainfluenza Virus Type 2 Not Detected (NOT DETECT); Parainfluenza Virus Type 3 Not Detected (NOT DETECT); Parainfluenza Virus Type 4 Not Detected (NOT DETECT); Respiratory Syncytial Virus A Not Detected (NOT DETECT); Respiratory Syncytial Virus B Not Detected (NOT DETECT); SARS-COV-2 Not Detected (NOT DETECT)
[2024-06-26 13:54] LABS: Iron 38 ug/dL (37-145); Percent Saturation 11.9 % (20-50); Total Iron Binding Capacity 319 mcg/dl; Unsaturated Iron Binding 281 ug/dL (112-347)
--- NOTE | 2024-06-26 13:55 | PC.NURSE ---
faxed release to [facility]
[2024-06-26] MEDS: FUROsemide 10 mg/mL SDV 4mL 40 MG IVP (14:02)
[2024-06-26] MEDS: levalbuterol 0.63 mg/3 mL Neb INHALATION ×2 (14:28→19:17)
[2024-06-26] MEDS: iohexol 350 mg/mL 500 mL Btl (per mL) IV (14:54)
[2024-06-26] MEDS: enoxaparin 40 mg/0.4 mL Syringe SUBCUT (16:12)
[2024-06-26] MEDS: azithromycin 250 mg Tablet 500 MG PO (16:12)
[2024-06-26] MEDS: gabapentin 300 mg Capsule PO (16:12)
[2024-06-26] MEDS: pantoprazole 40 mg SDV IVP (16:12)
[2024-06-26] MEDS: methylPREDNISolone sod succ 40 mg/mL INJ IVP (16:13)
--- NOTE | 2024-06-26 16:15 | ECG_ITS ---
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 Measurements Intervals [place] Rate: 102 P: 76 IN: 183 QRS: 64 QRSD: 94 T: 50 QT: 356 QTc: 464 Interpretive Statements SINUS TACHYCARDIA POSSIBLE LEFT ATRIAL ENLARGEMENT [-0.1mV P-WAVE IN V1/V2] SEPTAL MYOCARDIAL INFARCTION , OF INDETERMINATE AGE [40+ ms Q WAVE IN V1/V2] Compared to ECG 06/26/2024 12:18:49 No significant changes Electronically Signed On 06-27-2024 21:15:33 CDT by Fe Negrete M.D. [email or web address]
[2024-06-26 16:33] LABS: Vitamin B12 653 pg/mL (232-1245)
[2024-06-26] MEDS: lanolin oint 7 gm 1 APPLIC TOPICAL (17:13)
[2024-06-26] MEDS: acetaminophen 325 mg Tablet 650 MG PO ×2 (17:13→22:52)
[2024-06-26] MEDS: ipratropium 0.5 mg/2.5 mL Neb INHALATION (19:16)
[2024-06-26] MEDS: budesonide 0.5 mg/2 mL Neb INHALATION (19:16)
[2024-06-27] VITALS (8 sets, daily range): BP systolic 91–133; BP diastolic 48–54; PULSE 82–96; RESP 16–18; TEMP 36.7–36.9; O2SAT 90–95
[2024-06-27 00:29] LABS: Bilirubin Urine Negative (Negative); Blood Urine Negative (Negative); Glucose Urine UA 3+ (Normal); Ketones Urine Negative (Negative); Leukocyte Esterase Urine Negative (Negative); Nitrate Urine Positive (Negative); Protein Urine Negative (Negative); Urine Appearance Clear (CLEAR); Urine Color Yellow (Yellow); Urobilinogen Urine 0.2 mg/dL (Negative)
[2024-06-27 00:32] LABS: Add Urine Microscopic? YES; Bacteria Urine 4+ /hpf; Hyaline Casts Urine 1.65 /lpf; RBC Urine 0-2 /hpf (0-2); Squamous Epithelial Cell Urine 0-5 /hpf (0-5); WBC Urine 0-5 /hpf (0-5)
[2024-06-27 00:35] LABS: Specific Gravity, Urine 1.038 (1.005-1.030)
[2024-06-27] MEDS: levalbuterol 0.63 mg/3 mL Neb INHALATION ×2 (03:00→09:04)
[2024-06-27] MEDS: ipratropium 0.5 mg/2.5 mL Neb INHALATION ×2 (03:00→09:04)
[2024-06-27 04:18] LABS: Hematocrit 32.6 % (36-47); Lymphocytes # 0.6 10^3/uL (0.8-4.8); Mean Corpuscular HGB Conc 31.6 g/dL (30-55); Mean Corpuscular Hemoglobin 27.5 pg (27-33); Mean Corpuscular Volume 87.2 fl (85-98); Monocytes # 0.1 10^3/uL (0.2-0.9); Monocytes % 1.5 %; Neutrophils # 3.93 10^3/uL (1.8-7.7); Neutrophils % 84.9 %; Nucleated Red Blood Cells % 0 %; Platelet Count 195 10^3/cmm (157-399); Red Blood Count 3.74 10^6/uL (3.85-5.65); Red Cell Distribution Width 14.5 % (12.1-15.1); White Blood Count 4.63 10^3/uL (3.29-11.43)
[2024-06-27 04:28] LABS: Estmated Average Glucose 117; Hemoglobin A1C 5.7 % (4.0-6.0)
[2024-06-27 04:37] LABS: Alanine Aminotransferase 10 U/L (0-33); Albumin Level 4.2 g/dL (3.5-5.2); Alkaline Phosphatase 84 U/L (35-105); Anion Gap 12.9 (5-19); Aspartate Amino Transferase 19 U/L (0-32); Blood Urea Nitrogen 13 mg/dL (8-23); Calcium 8.5 mg/dL (8.5-10.5); Carbon Dioxide 33 mmol/L (22-29); Chloride 96 mmol/L (98-107); Chol HDL Ratio 2.65 mg/dL (0.0-4.40); Cholesterol 151 mg/dL (0-200); Creatinine Clr Calc Pharmacy 74.2858; Globulin 2.7 g/dL (1.3-4.6); Glomerular Filtration Rate 84.5 mL/min (90-130); Glucose 181 mg/dL (65-115); HDL Cholesterol 57 mg/dL (60-100); LDL Cholesterol Calculated 82 mg/dL (50-129); LDL HDL Ratio 1.44 RATIO (0.00-3.22); Magnesium 1.9 mg/dL (1.7-2.3); Osmolality Calculated 291 mOsm/kg (285-295); Phosphorus 2.6 mg/dL (2.5-4.5); Potassium 3.9 mmol/L (3.5-5.1); Sodium 138 mmol/L (136-145); Total Bilirubin 0.2 mg/dL (0.15-1.2); Total Protein 6.9 g/dL (6.6-8.7); Triglycerides 60 mg/dL (0-150)
[2024-06-27 04:43] LABS: Procalcitonin 0.03 ng/mL (0-0.5)
[2024-06-27 05:15] LABS: Folate Level 8.3 ng/mL (4.8-37.3)
[2024-06-27] MEDS: allopurinol 300 mg Tablet PO (06:06)
[2024-06-27] MEDS: duloxetine 60 mg Capsule PO (08:26)
[2024-06-27] MEDS: azithromycin 250 mg Tablet 500 MG PO (08:26)
[2024-06-27] MEDS: nortriptyline 25 mg Capsule 50 MG PO (08:26)
[2024-06-27] MEDS: methylPREDNISolone sod succ 40 mg/mL INJ IVP (08:26)
[2024-06-27] MEDS: levothyroxine 88 mcg Tablet PO (08:26)
[2024-06-27] MEDS: budesonide 0.5 mg/2 mL Neb INHALATION (09:04)
[2024-06-27] MEDS: acetaminophen 325 mg Tablet 650 MG PO (10:10)
--- NOTE | 2024-06-27 12:01 | P.DS_ITS ---
Discharge Providers Date of Admission: 06/26/24 14:59 Date of Discharge: June 27, 2024 Attending Provider at Admission: Jong Trimble MD Attending Provider at Discharge: Jong Trimble MD Primary Care Provider: Adela Stout Diagnoses at Discharge Discharge Diagnosis (1) Hypoxic respiratory failure: Status: Acute (2) Chronic obstructive pulmonary disease with (acute) exacerbation: Status: Acute Reason for Visit Reason for Visit: SOB Hospital Course Hospital Course Zulma Garcia is a 63 year old female with past medical history of COPD, non- small cell lung cancer postradiation therapy within the last 2 weeks, recent hospitalization with intubation with the last 1 month for COPD and pneumonia, former smoker, hypothyroidism presented to the ER today because of difficulty in breathing which has been ongoing since last week worsened today morning. She is at baseline 3 L of oxygen supplementation though was requiring up to 6 L as per EMS as she was saturating in mid 70s on her baseline oxygen supplementation. In the ER she required nebulization treatment and steroid after which she is saturating around 90% on facemask of 3 L. Patient still complaining of difficulty in breathing and mild congestion in her lungs. She states she has been having congestion in her nose with runny nose along with sore throat for the last 1 week. Denies any nausea, vomiting, headache, dizziness, diarrhea. Patient was admitted to the hospital further evaluation and management of hypoxia in setting of COPD exacerbation. She was started on nebulization treatment along with systemic steroids. She responded well to the treatment and her hospitalization remain unremarkable. She has been discharged in hemodynamically stable condition on oral steroid taper, nebulization treatment advised to follow-up with a primary care provider within next 1 week. Physical Exam Narrative: General: No acute distress, AO x3, on nasal cannula HEENT: PERRLA, pupils bilaterally equal and reactive Chest: Bilateral bronchial breath sounds all over lung avelar with occasional rhonchi CVS: S1-S2 regular, no murmurs, no tachycardia, no gallops, no rubs Abdomen: Soft, nontender, no organomegaly, bowel sounds present Neuro: No focal deficits, no facial deformity, AO x3, power 5/5 in all limbs Discharge Data Studies Completed and Pending Completed Studies During Hospitalization Category Date Time Status CTA chest [CT angio chest PE protcl [id number]] Stat Cat Scan 06/26/24 13:25 Completed XR chest 1V portable [id number] Urgent Exams 06/26/24 10:14 Completed Pending at discharge Category Date Time Status Blood Culture Stat Lab 06/26/24 13:48 Results Radiology Impressions Chest X-Ray 06/26/24 10:14 IMPRESSION: 1. Pulmonary hyperinflation which may indicate obstructive lung disease. Chronic changes. 2. No acute process. Chest CTA 06/26/24 13:25 IMPRESSION: 1. No pulmonary embolism. 2. Spiculated nodule superior segment RIGHT lower lobe measures 1.4 cm. This may be an area of prior treated neoplasm. Recommend continued surveillance. 3. Stable soft tissue thickening at the LEFT hilum can also be evaluated on additional follow-up exams. 4. Mediastinal and hilar lymphadenopathy has significantly improved since 05/02/2024. Laboratory Results WBC 4.63 10^3/uL (3.29-11.43) 06/27/24 04:03 RBC 3.74 10^6/uL (3.85-5.65) L 06/27/24 04:03 Hgb 10.30 g/dL (11.27-16.99) L 06/27/24 04:03 Hct 32.6 % (36-47) L 06/27/24 04:03 MCV 87.2 fl (85-98) 06/27/24 04:03 MCH 27.5 pg (27-33) 06/27/24 04:03 MCHC 31.6 g/dL (30-55) 06/27/24 04:03 RDW 14.5 % (12.1-15.1) 06/27/24 04:03 Plt Count 195 10^3/cmm (157-399) 06/27/24 04:03 MPV 9.0 fL (7.4-10.4) 06/27/24 04:03 Neut % (Auto) 84.9 % 06/27/24 04:03 Lymph % (Auto) 13.0 % 06/27/24 04:03 [place] % (Auto) 1.5 % 06/27/24 04:03 Eos % (Auto) 0.0 % 06/27/24 04:03 Baso % (Auto) 0.0 % 06/27/24 04:03 Neut # (Auto) 3.93 10^3/uL (1.8-7.7) 06/27/24 04:03 Lymph # (Auto) 0.6 10^3/uL (0.8-4.8) L 06/27/24 04:03 [place] # (Auto) 0.1 10^3/uL (0.2-0.9) L 06/27/24 04:03 Eos # (Auto) 0.0 10^3/uL (0.0-0.8) 06/27/24 04:03 Baso # (Auto) 0.0 10^3/uL (0.0-0.1) 06/27/24 04:03 Nucleated RBC % (auto) 0 % 06/27/24 04:03 Nucleated RBCs # 0.0 /100WBC 06/27/24 04:03 D-Dimer 2.18 ug/mLFEU (0-0.59) H 06/26/24 10:14 Specimen Type Arterial 06/26/24 10:20 Sample Site Radial, left 06/26/24 10:20 ABG pH 7.36 (7.35-7.45) 06/26/24 10:20 ABG pCO2 58.7 mmHg (35-45) H 06/26/24 10:20 ABG pO2 60.4 mmHg (80.0-100.0) L 06/26/24 10:20 ABG HCO3 33.5 mmol/L (22-26) H 06/26/24 10:20 ABG O2 Saturation 91.0 06/26/24 10:20 ABG Base Excess 6.7 mmol/L (-2.0-2.0) H 06/26/24 10:20 Adrrel Test Pos 06/26/24 10:20 A-a O2 Gradient 2.5 mmHg (5-10) L 06/26/24 10:20 Hematocrit 33.3 % (37-47) L 06/26/24 10:20 Hgb O2 Saturation 89.6 % (95-100) L 06/26/24 10:20 Carboxyhemoglobin 1.3 %THgb (0.4-20.1) 06/26/24 10:20 Methemoglobin 0.2 % (0.4-1.5) L 06/26/24 10:20 Total Hemoglobin 10.9 g/dL (12-16) L 06/26/24 10:20 Sodium 142.0 mmol/L (131-143) 06/26/24 10:20 Potassium 3.8 mmol/L (3.5-5.0) 06/26/24 10:20 Glucose 135.0 mg/dL (70-115) H 06/26/24 10:20 Ionized Calcium 1.1 mmol/L (1.1-1.4) 06/26/24 10:20 O2 Delivery Device Nc 06/26/24 10:20 O2 Liters/Min 4.0 % 06/26/24 10:20 [place] Super[employer] ID [place] 06/26/24 10:20 Sodium 138 mmol/L (136-145) 06/27/24 04:03 Potassium 3.9 mmol/L (3.5-5.1) 06/27/24 04:03 Chloride 96 mmol/L (98-107) L 06/27/24 04:03 Carbon Dioxide 33 mmol/L (22-29) H 06/27/24 04:03 Anion Gap 12.9 (5-19) 06/27/24 04:03 BUN 13 mg/dL (8-23) 06/27/24 04:03 Creatinine 0.7 mg/dL (0.5-0.9) 06/27/24 04:03 GFR Calculation 84.5 mL/min (90-130) L 06/27/24 04:03 Glucose 181 mg/dL (65-115) H 06/27/24 04:03 Estimat Average Glucose 117 06/27/24 04:03 Hemoglobin A1c 5.7 % (4.0-6.0) 06/27/24 04:03 Calculated Osmolality 291 mOsm/kg (285-295) 06/27/24 04:03 Lactic Acid 0.9 mmol/L (0.5-2.2) 06/26/24 10:14 Calcium 8.5 mg/dL (8.5-10.5) 06/27/24 04:03 Phosphorus 2.6 mg/dL (2.5-4.5) 06/27/24 04:03 Magnesium 1.9 mg/dL (1.7-2.3) 06/27/24 04:03 Iron 38 ug/dL (37-145) 06/26/24 10:14 TIBC 319 mcg/dl 06/26/24 10:14 % Saturation 11.9 % (20-50) L 06/26/24 10:14 Unsat Iron Binding 281 ug/dL (112-347) 06/26/24 10:14 Total Bilirubin 0.2 mg/dL (0.15-1.2) 06/27/24 04:03 AST 19 U/L (0-32) 06/27/24 04:03 ALT 10 U/L (0-33) 06/27/24 04:03 Alkaline Phosphatase 84 U/L (35-105) 06/27/24 04:03 Troponin T Baseline 8 ng/L (0-10) 06/26/24 10:14 Troponin T 120 Minute 7.03 ng/L (0-10) 06/26/24 12:07 Delta Troponin T -0.97 ABS# (0-10) L 06/26/24 12:07 Troponin T Hi Sens 6Hr 6.00 ng/L (0-10) 06/26/24 16:41 Troponin T Hi Sens 6Hr Delta -2.00 ng/L (0-12) L 06/26/24 16:41 NT-Pro-B Natriuret Pep 156 pg/mL (0-125) H 06/26/24 10:14 Total Protein 6.9 g/dL (6.6-8.7) 06/27/24 04:03 Albumin 4.2 g/dL (3.5-5.2) 06/27/24 04:03 Globulin 2.7 g/dL (1.3-4.6) 06/27/24 04:03 Triglycerides 60 mg/dL (0-150) 06/27/24 04:03 Cholesterol 151 mg/dL (0-200) 06/27/24 04:03 LDL Cholesterol, Calc 82 mg/dL (50-129) 06/27/24 04:03 HDL Cholesterol 57 mg/dL (60-100) L 06/27/24 04:03 LDL/HDL Ratio 1.44 RATIO (0.00-3.22) 06/27/24 04:03 Cholesterol/HDL Ratio 2.65 mg/dL (0.0-4.40) 06/27/24 04:03 Vitamin B12 653 pg/mL (232-1245) 06/26/24 10:14 Folate 8.3 ng/mL (4.8-37.3) 06/27/24 04:03 Procalcitonin 0.03 ng/mL (0-0.5) 06/27/24 04:03 TSH 1.16 uIU/mL (0.27-4.20) 06/26/24 10:14 Urine Color Yellow (Yellow) 06/26/24 21:21 Urine Appearance Clear (CLEAR) 06/26/24 21:21 Urine pH 5.0 (5-7) 06/26/24 21:21 Ur Specific [place] 1.038 (1.005-1.030) H 06/26/24 21:21 Urine Protein Negative (Negative) 06/26/24 21:21 Urine Glucose (UA) 3+ (Normal) H 06/26/24 21:21 Urine Ketones Negative (Negative) 06/26/24 21:21 Urine Blood Negative (Negative) 06/26/24 21:21 Urine Nitrate Positive (Negative) A 06/26/24 21:21 Urine Bilirubin Negative (Negative) 06/26/24 21:21 Urine Urobilinogen 0.2 mg/dL (Negative) 06/26/24 21:21 Ur Leukocyte Esterase Negative (Negative) 06/26/24 21:21 Urine RBC 0-2 /hpf (0-2) 06/26/24 21:21 Urine WBC 0-5 /hpf (0-5) 06/26/24 21:21 Ur Squamous Epith Cells 0-5 /hpf (0-5) 06/26/24 21:21 Amorphous Sediment Not Reportable 06/26/24 21:21 Urine Bacteria 4+ /hpf (NONE) H 06/26/24 21:21 Hyaline Casts 1.65 /lpf 06/26/24 21:21 Adenovirus (PCR) Not detected (NOT DETECT) 06/26/24 11:51 C. pneumoniae DNA (PCR) Not detected (NOT DETECT) 06/26/24 11:51 Coronavirus (PCR) Negative (Negative) 06/26/24 10:22 Coronavirus 229E (PCR) Not detected (NOT DETECT) 06/26/24 11:51 Human Metapneumovir PCR Not detected (NOT DETECT) 06/26/24 11:51 Influenza A (H1) PCR Not detected (NOT DETECT) 06/26/24 11:51 Influenza A (PCR) Negative (Negative) 06/26/24 10:22 Influ A (H1/09) PCR Not detected (NOT DETECT) 06/26/24 11:51 Influenza A (H3) PCR Not detected (NOT DETECT) 06/26/24 11:51 Influenza Type A (PCR) Not detected (NOT DETECT) 06/26/24 11:51 Influenza Type B (PCR) Not detected (NOT DETECT) 06/26/24 11:51 M. pneumoniae (PCR) Not detected (NOT DETECT) 06/26/24 11:51 Parainfluenza 1 (PCR) Not detected (NOT DETECT) 06/26/24 11:51 Parainfluenza 2 (PCR) Not detected (NOT DETECT) 06/26/24 11:51 Parainfluenza 3 (PCR) Not detected (NOT DETECT) 06/26/24 11:51 Parainfluenza 4 (PCR) Not detected (NOT DETECT) 06/26/24 11:51 RSV (PCR) Negative (Negative) 06/26/24 10:22 RSV Type A (PCR) Not detected (NOT DETECT) 06/26/24 11:51 RSV Type B (PCR) Not detected (NOT DETECT) 06/26/24 11:51 Entero/Rhino (PCR) Not detected (NOT DETECT) 06/26/24 11:51 SARS-CoV-2 (PCR) Not detected (NOT DETECT) 06/26/24 11:51 Vitals Last Vital Signs Temp 98.0 F 06/27/24 12:00 Pulse 82 06/27/24 12:00 Resp 16 06/27/24 12:00 BP 97/52 06/27/24 12:00 Pulse Ox 95 06/27/24 12:00 O2 Del Method Nasal Cannula 06/27/24 12:00 O2 Flow Rate 3 06/27/24 09:00 Discharge Plan Discharge Patient Disposition: Home Condition: Stable Prescriptions: New ipratropium bromide 0.02 % Solution 0.5 mg inhalation Q6H.RESP Qty: 150 0RF Rx Instructions: 4 times a day for next 2 weeks followed by twice daily prednisone 10 mg tablet See Taper PO DIRECTED Qty: 42 0RF Taper: predniSONE 60-10 40 mg Daily for 2 Days and 0 Hour 30 mg Daily for 2 Days and 0 Hour 20 mg Daily for 2 Days and 0 Hour 10 mg Daily for 2 Days and 0 Hour Rx Instructions: see taper instructions levalbuterol HCl 0.63 mg/3 mL Solution For Nebulization 0.63 mg inhalation Q6H.RESP Qty: 90 0RF Continued levothyroxine 88 mcg Tablet 88 mcg PO DAILY@0800 allopurinol 300 mg tablet 300 mg PO DAILY@0600 cholecalciferol (vitamin D3) [Vitamin D3] 2,000 unit Tablet 2,000 unit PO DAILY@0800 acetaminophen [Tylenol Extra Strength] 500 mg Tablet 1,000 mg PO PRN gabapentin 300 mg capsule 300 mg PO BEDTIME@1800 ottgiuzu-oqu-CE-lycopen-lutein 500-300-250 mcg Tablet 1 tab PO DAILY@0800 ondansetron 4 mg tablet,disintegrating 4 mg PO Q8H PRN (Reason: NAUSEA/VOMITING) 7 Days Qty: 21 0RF methenamine hippurate 1 gram tablet 1 g PO BID nortriptyline 50 mg capsule 50 mg PO DAILY duloxetine 60 mg capsule,delayed release(DR/EC) 60 mg PO DAILY Discharge Orders: Discharge Order (Routine); Ordered 06/27/24 Ordered By: Jong Trimble Referrals: Adela Stout [Primary Care Provider] - 7-10 days Discharge Diet: Regular Discharge Activity: Resume usual activity and Increase activity as tolerated Patient Instructions: Opioid Safety Activity Restrictions/Additional Instructions: Continue steroid taper as directed. Take ipratropium nebulization 4 times a day for next 2 weeks followed by twice daily. Continue with levalbuterol nebulization as before. Follow-up with a primary care provider within next 1 week. Discharge Attestations Time Spent in Discharge Care*: greater than 30 min Specific Discharge Activities: educating patient, educating and/or supporting family/caregiver, discussing with pcp/other providers, discussing with director case/social workers/dc planners, documenting/other paperwork and evaluating patient/reviewing data Status at Discharge: Cognitive status at discharge: cognitively intact , Behavioral status at discharge: cooperative , Functional status at discharge: uses cane/walker , Overall status at discharge: patient is back to baseline Quality Metrics Clinical Quality Measures [ No reported AMI, CVA or VTE this stay] Coding Level of Care Code 32555 Total time (in minutes) for Discharge: 60 Diagnoses Hypoxic respiratory failure J96.91 Chronic obstructive pulmonary disease with (acute) exacerbation J44.1
--- NOTE | 2024-06-27 12:19 | PC.NURSE ---
Prednisone called into [facility] pharmacy.
== END 2024-06-27 13:05 | disposition home or self-care (01) ==
LOC: ER 13:17 → MEDSURG 23:47
PROVIDERS: Admitting Provider Student in an Organized Health Care Education/Training Program; Emergency Provider Physician Assistant; PCP Internal Medicine; Visit Provider Student in an Organized Health Care Education/Training Program
DX: J96.91 Respiratory failure, unspecified with hypoxia (principal); J44.1 Chronic obstructive pulmonary disease with (acute) exacerbation; C34.90 Malignant neoplasm of unspecified part of unspecified bronchus or lung; Z87.891 Personal history of nicotine dependence; E03.9 Hypothyroidism, unspecified; Z99.81 Dependence on supplemental oxygen; Z86.73 Personal history of transient ischemic attack (TIA), and cerebral infarction without residual deficits; Z86.16 Personal history of COVID-19
CPT/HCPCS: 0241U; 36415; 36600; 71045; 71275; 80051; 80053; 80061; 81001; 82330; 82607; 82746; 82805; 83036; 83540; 83550; 83605; 83735; 83880; 84100; 84145; 84443; 84484; 85025; 85378; 86403; 87040; 87486; 87581; 87633; 93005; 94640; 94664; 96372; 96374; 99285; G0378; J1650; J1940; J2470; J2919; J7614; J7626; J7644; Q0144

== ENCOUNTER 2024-07-11 16:17 | Inpatient (IN) | payer MEDICARE, MEDICAID, SELFPAY ==
[2024-07-11] VITALS (13 sets, daily range): BP systolic 90–225; BP diastolic 58–184; PULSE 76–107; RESP 12–22; TEMP 36.7–36.9; O2SAT 92–97; BMI 25.1; BMI 25.9
--- NOTE | 2024-07-11 16:21 | XRR_ITS ---
PROCEDURE INFORMATION: Exam: XR Chest Exam date and time: 07/11/2024 4:59 PM Age: 63 years old Clinical indication: Shortness of breath; Patient HX: SOB; HX lung CA TECHNIQUE: Imaging protocol: Radiologic exam of the chest. Views: 1 view. COMPARISON: CT angio chest PE protcl [id number] 06/26/2024 2:48 PM FINDINGS: Tubes, catheters and devices: Surgical clips overlie the right mid lung avelra medially. Lungs: Incidental calcified granuloma in the left lung apex measuring 4 mm and other smaller scattered granulomatous calcifications. No pulmonary consolidation. Minimal linear scarring suggested extending laterally from the left hilum Pleural spaces: No pneumothorax or pleural effusion. Heart/Mediastinum: Normal size of the cardiac silhouette. Bones/joints: Prior kyphoplasty changes in the midthoracic spine. XR/XR chest 1V portable [id number] IMPRESSION: 1. No radiographically apparent acute cardiopulmonary disease. Chronic findings as above.
--- NOTE | 2024-07-11 16:22 | ECG_ITS ---
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
--- NOTE | 2024-07-11 16:24 | ED_ITS ---
HPI - SOB/Dyspnea 2 General: Chief Complaint: Shortness of Breath/Dyspnea Stated Complaint: SOB Time Seen by Provider: 07/11/24 16:18 History of Present Illness: HPI Narrative: 63-year-old female with a history of sma ll cell lung cancer in remission, COPD, chronic hypoxemic respiratory failure on 3 L nasal cannula at all times who presents to the emergency room with worsening shortness of breath and cough. She has had increased oxygen requirement. She has pain in her right chest that is pleuritic in nature. Related Data Home Medications Medication Instructions Recorded Confirmed allopurinol 300 mg tablet 300 mg PO DAILY@0600 10/17/19 06/26/24 cholecalciferol (vitamin D3) 50 2,000 unit PO DAILY@0800 10/17/19 06/26/24 mcg (2,000 unit) tablet (Vitamin D3) levothyroxine 88 mcg tablet 88 mcg PO DAILY@0800 10/17/19 06/26/24 acetaminophen 500 mg tablet 1,000 mg PO PRN 10/24/20 06/26/24 (Tylenol Extra Strength) gabapentin 300 mg capsule 300 mg PO BEDTIME@1800 10/24/20 06/26/24 ymmpfkhl-coo-xvlrh acid 500 1 tab PO DAILY@0800 03/28/21 06/26/24 mcg-lycopene 300 mcg-lutein 250 mcg tablet duloxetine 60 mg capsule,delayed 60 mg PO DAILY 06/26/24 06/26/24 release methenamine hippurate 1 gram tablet 1 g PO BID 06/26/24 06/26/24 nortriptyline 50 mg capsule 50 mg PO DAILY 06/26/24 06/26/24 Previous Rx's Medication Instructions Recorded ondansetron 4 mg disintegrating 4 mg PO Q8H PRN NAUSEA/VOMITING 7 03/31/21 tablet days #21 tabs ipratropium bromide 0.02 % 0.5 mg (2.5 mL) inhalation 06/27/24 solution for inhalation Q6H.RESP #150 mL levalbuterol HCl 0.63 mg/3 mL 0.63 mg (3 mL) inhalation Q6H.RESP 06/27/24 solution for nebulization #90 mL prednisone 10 mg tablet See Taper PO DIRECTED #42 tabs 06/27/24 Allergies Allergy/AdvReac Type Severity Reaction Status Date / Time ibuprofen Allergy ALGY-Swell Verified 08/09/22 13:19 Lip/Tongue/Throat flu shot Allergy Unknown Uncoded 08/09/22 13:19 Review of Systems 2 Narrative: Constitutional symptoms: Negative except as documented in HPI. Skin symptoms: Negative except as documented in HPI. Eye symptoms: Negative except as documented in HPI. ENMT symptoms: Negative except as documented in HPI. Respiratory symptoms: Negative except as documented in HPI. Cardiovascular symptoms: Negative except as documented in HPI. Gastrointestinal symptoms: Negative except as documented in HPI. Genitourinary symptoms: Negative except as documented in HPI. Musculoskeletal symptoms: Negative except as documented in HPI. Neurologic symptoms: Negative except as documented in HPI. Psychiatric symptoms: Negative except as documented in HPI. Endocrine symptoms: Negative except as documented in HPI. PFSH ED 2 PFSH: Medical History (Updated 07/11/24 @ 18:28 by Lisa Lynch MD) Left-sided weakness Compression fracture of T7 vertebra Gout H/O: CVA (cerebrovascular accident) Hypothyroidism Pneumonia due to COVID-19 virus Diarrhea due to COVID-19 Nausea & vomiting Abdominal pain Hypoxia COVID-19 Former smoker COPD (chronic obstructive pulmonary disease) Small cell lung cancer in adult Post radiation 06/16 Surgical History History of appendectomy Family History Father Cancer Lung cancer Social History Smoking and tobacco/nicotine status: former use of tobacco/nicotine Alcohol intake: never Substance/Drug Use: never Household members: family Housing: House Physical Exam 2 Narrative: EXAM NARRATIVE: General: Alert, moderate distress. Skin: Warm, dry. Head: Normocephalic, atraumatic. Neck: Supple, trachea midline. Eye: Extraocular movements are intact. Ears, nose, mouth and throat: Tacky oral mucosa Cardiovascular: Regular rate and rhythm, Normal peripheral perfusion. Respiratory: coarse, scattered wheeze, moderate increased wob. tachypnea, prolonged expiratory phase. breath sounds are equal, Symmetrical chest wall expansion. Gastrointestinal: Soft, Nontender, Non distended, Normal bowel sounds. Musculoskeletal: Normal ROM, no deformity. Neurological: Alert and oriented to person, place, time, and situation, No focal neurological deficit observed. Psychiatric: Cooperative, appropriate mood & affect. Course 2 Vital Signs: Vital signs: Vital Signs Temperature 98.2 F 07/11/24 16:19 Pulse Rate 99 07/11/24 17:30 Respiratory Rate 15 07/11/24 17:30 Blood Pressure 112/68 07/11/24 17:30 Pulse Oximetry 96 07/11/24 17:30 Oxygen Delivery Me thod Nasal Cannula 07/11/24 16:31 Oxygen Flow Rate 3 07/11/24 16:31 MDM - SOB/Dyspnea Medical Decision Making Differential diagnosis for patient with shortness of breath includes but is not limited to and based on the above HPI, review of systems and physical exam: Pneumonia. Bronchitis. Asthma or COPD with acute exacerbation. Acute coronary syndrome / MD. Pulmonary embolism. Anxiety. Congestive heart failure. Viral infections including influenza and Covid-19. Atrial fibrillation. Anxiety. Pleural effusion. Pneumothorax. Orders placed to evaluate differential diagnosis based on the above differential, HPI and physical exam EKG: Time 1628. Rate 101. Sinus tachycardia, No ST-T changes, no ectopy, normal OH & QRS intervals, This was reviewed and interpreted by myself the ER physician at 1630 Chest x-ray: No acute process. No infiltrate. No pneumothorax. This was reviewed and interpreted by myself the ER physician. Lab Review: Laboratory results were reviewed and interpreted by myself the emergency room physician. No leukocytosis. Hemoglobin is 10.5. BUN/creatinine are 10 and 0.7. LFTs are normal. Flu COVID and RSV are negative. AB.3 with an O2 sat of 95% on 3 L nasal cannula. I reviewed the patient's medical record. Reexamination: Patient still has considerable wheeze and some mild increased work of breathing. She is only requiring 3 L nasal cannula at rest however. No altered mental status. No focal motor deficits. Discussed admission with her and the family. Consultation: I spoke with Dr. Trimble who is on-call for the hospitalist service who agrees to admission. Assessment and plan: COPD with acute exacerbation Chronic hypoxemic respiratory failure ?Patient was requiring more oxygen at home. Currently on 3 L. Still rough sounding lungs. Admit to the hospitalist service. ? IV Solu-Medrol, 2 updrafts and IV doxycycline -I discussed the patient with the hospitalist on-call who is admitting the patient. - Discussed findings and plan with patient. Answered any questions. - All laboratory values were reviewed and interpreted personally by myself, the ER physician - All imaging was reviewed and interpreted personally by myself, the ER physician. - Evaluation and treatment of this problem were appropriate in the emergency setting Lab Data 07/11/24 16:34 07/11/24 16:34 Labs/Radiology: Laboratory Results WBC 4.26 10^3/uL (3.29-11.43) 07/11/24 16:34 RBC 3.87 10^6/uL (3.85-5.65) 07/11/24 16:34 Hgb 10.50 g/dL (11.27-16.99) L 07/11/24 16:34 Hct 35.1 % (36-47) L 07/11/24 16:34 MCV 90.7 fl (85-98) 07/11/24 16:34 MCH 27.1 pg (27-33) 07/11/24 16:34 MCHC 29.9 g/dL (30-55) L 07/11/24 16:34 RDW 14.3 % (12.1-15.1) 07/11/24 16:34 Plt Count 181 10^3/cmm (157-399) 07/11/24 16:34 MPV 9.3 fL (7.4-10.4) 07/11/24 16:34 Neut % (Auto) 57.6 % 07/11/24 16:34 Lymph % (Auto) 28.2 % 07/11/24 16:34 [place] % (Auto) 6.1 % 07/11/24 16:34 Eos % (Auto) 7.0 % 07/11/24 16:34 Baso % (Auto) 0.9 % 07/11/24 16:34 Neut # (Auto) 2.45 10^3/uL (1.8-7.7) 07/11/24 16:34 Lymph # (Auto) 1.2 10^3/uL (0.8-4.8) 07/11/24 16:34 [place] # (Auto) 0.3 10^3/uL (0.2-0.9) 07/11/24 16:34 Eos # (Auto) 0.3 10^3/uL (0.0-0.8) 07/11/24 16:34 Baso # (Auto) 0.0 10^3/uL (0.0-0.1) 07/11/24 16:34 Nucleated RBC % (auto) 0 % 07/11/24 16:34 Nucleated RBCs # 0.0 /100WBC 07/11/24 16:34 Specimen Type Arterial 07/11/24 16:29 Sample Site Radial, left 07/11/24 16:29 ABG pH 7.35 (7.35-7.45) 07/11/24 16:29 ABG pCO2 61.6 mmHg (35-45) H* 07/11/24 16:29 ABG pO2 74.2 mmHg (80.0-100.0) L 07/11/24 16:29 ABG HCO3 34.0 mmol/L (22-26) H 07/11/24 16:29 ABG O2 Saturation 95.2 07/11/24 16:29 ABG Base Excess 6.9 mmol/L (-2.0-2.0) H 07/11/24 16:29 Darrel Test Pos 07/11/24 16:29 A-a O2 Gradient 0.3 mmHg (5-10) L 07/11/24 16:29 Hematocrit 31.9 % (37-47) L 07/11/24 16:29 Hgb O2 Saturation 93.5 % (95-100) L 07/11/24 16:29 Carboxyhemoglobin 0.7 %THgb (0.4-20.1) 07/11/24 16:29 Methemoglobin 1.1 % (0.4-1.5) 07/11/24 16:29 Total Hemoglobin 10.4 g/dL (12-16) L 07/11/24 16:29 Sodium 141.0 mmol/L (131-143) 07/11/24 16:29 Potassium 3.7 mmol/L (3.5-5.0) 07/11/24 16:29 Glucose 135.0 mg/dL (70-115) H 07/11/24 16:29 Ionized Calcium 1.2 mmol/L (1.1-1.4) 07/11/24 16:29 O2 Delivery Device Nc 07/11/24 16:29 O2 Liters/Min 3.0 % 07/11/24 16:29 Purler ID Tu 07/11/24 16:29 Sodium 140 mmol/L (136-145) 07/11/24 16:34 Potassium 4.2 mmol/L (3.5-5.1) 07/11/24 16:34 Chloride 100 mmol/L (98-107) 07/11/24 16:34 Carbon Dioxide 34 mmol/L (22-29) H 07/11/24 16:34 Anion Gap 10.2 (5-19) 07/11/24 16:34 BUN 10 mg/dL (8-23) 07/11/24 16:34 Creatinine 0.7 mg/dL (0.5-0.9) 07/11/24 16:34 GFR Calculation 84.5 mL/min (90-130) L 07/11/24 16:34 Glucose 125 mg/dL (65-115) H 07/11/24 16:34 Calculated Osmolality 291 mOsm/kg (285-295) 07/11/24 16:34 Lactic Acid 1.0 mmol/L (0.5-2.2) 07/11/24 16:34 Calcium 8.3 mg/dL (8.5-10.5) L 07/11/24 16:34 Total Bilirubin 0.2 mg/dL (0.15-1.2) 07/11/24 16:34 AST 20 U/L (0-32) 07/11/24 16:34 ALT 13 U/L (0-33) 07/11/24 16:34 Alkaline Phosphatase 86 U/L (35-105) 07/11/24 16:34 Troponin T Baseline 11 ng/L (0-10) H 07/11/24 16:34 NT-Pro-B Natriuret Pep 190 pg/mL (0-125) H 07/11/24 16:34 Total Protein 5.9 g/dL (6.6-8.7) L 07/11/24 16:34 Albumin 3.8 g/dL (3.5-5.2) 07/11/24 16:34 Globulin 2.1 g/dL (1.3-4.6) 07/11/24 16:34 Coronavirus (PCR) Negative (Negative) 07/11/24 16:54 Influenza A (PCR) Negative (Negative) 07/11/24 16:54 Influenza Type B (PCR) Negative (Negative) 07/11/24 16:54 RSV (PCR) Negative (Negative) 07/11/24 16:54 All radiology interpretation(s) finalized by discharge Discharge Plan Discharge Patient Disposition: Admitted As Inpatient Clinical Impression: Acute exacerbation of chronic obstructive airways disease, Chronic hypoxemic respiratory failure Coding Level of Care Code ED Fill Technician for Beatrice Petersen
[2024-07-11 16:40] LABS: ABG PCO2 61.6 mmHg (35-45); ABG PH Result 7.35 (7.35-7.45); Alveolar-Arterial Oxygen Gradi 0.3 mmHg (5-10); Arterial Blood Gas Hematocrit 31.9 % (37-47); Base Excess ABG 6.9 mmol/L (-2.0-2.0); Blood Gas Allen Test Pos; Blood Gas Operator Identificat WALCI; Blood Gas Sample Site Radial, left; Blood Gas Sample Type Arterial; Carboxyhemoglobin 0.7 %THgb (0.4-20.1); HGB O2 Sat 93.5 % (95-100); Ionized Calcium Level - ABG 1.2 mmol/L (1.1-1.4); Methemoglobin 1.1 % (0.4-1.5); Oxygen Device NC; Oxygen Saturation ABG 95.2; PO2 ABG 74.2 mmHg (80.0-100.0); Potassium Level - ABG 3.7 mmol/L (3.5-5.0); Total Hemoglobin 10.4 g/dL (12-16)
[2024-07-11] MEDS: methylPREDNISolone sod succ 125 mg/2 mL INJ IVP (16:43)
[2024-07-11] MEDS: ipratropium-albuterol 3 mL Neb INHALATION (16:45)
[2024-07-11] MEDS: albuterol 2.5 mg/3 mL Neb INHALATION (16:46)
[2024-07-11 16:54] LABS: Basophils % 0.9 %; Eosinophils # 0.3 10^3/uL (0.0-0.8); Hematocrit 35.1 % (36-47); Lymphocytes # 1.2 10^3/uL (0.8-4.8); Lymphocytes % 28.2 %; Mean Corpuscular HGB Conc 29.9 g/dL (30-55); Mean Corpuscular Hemoglobin 27.1 pg (27-33); Mean Corpuscular Volume 90.7 fl (85-98); Mean Platelet Volume 9.3 fL (7.4-10.4); Monocytes # 0.3 10^3/uL (0.2-0.9); Monocytes % 6.1 %; Neutrophils # 2.45 10^3/uL (1.8-7.7); Neutrophils % 57.6 %; Nucleated Red Blood Cells % 0 %; Platelet Count 181 10^3/cmm (157-399); Red Blood Count 3.87 10^6/uL (3.85-5.65); Red Cell Distribution Width 14.3 % (12.1-15.1); White Blood Count 4.26 10^3/uL (3.29-11.43)
[2024-07-11 17:14] LABS: Troponin(5th) Baseline 11 ng/L (0-10)
[2024-07-11 17:22] LABS: Alanine Aminotransferase 13 U/L (0-33); Albumin Level 3.8 g/dL (3.5-5.2); Alkaline Phosphatase 86 U/L (35-105); Anion Gap 10.2 (5-19); Aspartate Amino Transferase 20 U/L (0-32); Blood Urea Nitrogen 10 mg/dL (8-23); Calcium 8.3 mg/dL (8.5-10.5); Carbon Dioxide 34 mmol/L (22-29); Chloride 100 mmol/L (98-107); Creatinine Clr Calc Pharmacy 74.2858; Globulin 2.1 g/dL (1.3-4.6); Glomerular Filtration Rate 84.5 mL/min (90-130); Glucose 125 mg/dL (65-115); NT Pro B Type Natriuretic Pept 190 pg/mL (0-125); Osmolality Calculated 291 mOsm/kg (285-295); Potassium 4.2 mmol/L (3.5-5.1); Sodium 140 mmol/L (136-145); Total Bilirubin 0.2 mg/dL (0.15-1.2); Total Protein 5.9 g/dL (6.6-8.7)
[2024-07-11 17:39] LABS: Covid PCR NEGATIVE (Negative); Influenza A NEGATIVE (Negative); Influenza B NEGATIVE (Negative); Respiratory Syncytial Virus Ce NEGATIVE (Negative)
--- NOTE | 2024-07-11 18:33 | ECG_ITS ---
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1960 Requested By: Lisa Roy Order Number: [id number] Reading MD: PATRICIA CARUSO Measurements Intervals [place] Rate: 92 P: 70 [place]: 200 QRS: 71 QRSD: 98 T: 61 QT: 358 QTc: 444 Interpretive Statements SINUS RHYTHM INCOMPLETE RIGHT BUNDLE BRANCH BLOCK [90+ ms QRS DURATION, TERMINAL R IN V1/V2, 40+ ms S IN I/aVL/V4/V5/V6] SEPTAL MYOCARDIAL INFARCTION , OF INDETERMINATE AGE [40+ ms Q WAVE IN V1/V2] Compared to ECG 07/11/2024 16:28:36 Incomplete right bundle-branch block now present Sinus tachycardia no longer present Myocardial infarct finding still present Electronically Signed On 07-14-2024 21:24:14 CDT by PATRICIA CARUSO [id number]
[2024-07-11 19:04] LABS: Troponin 5 2HR 8.58 ng/L (0-10); Troponin 5 2HR Delta -2.42 ABS# (0-10)
[2024-07-11] MEDS: doxycycline 100 MG in sodium chloride 0.9% (plus) 100 ML IV (19:14)
--- NOTE | 2024-07-11 19:17 | P.HP_ITS ---
Providers/Chief Complaint 2 Primary Care Provider: Adela Stout Chief Complaint: SOB History of Present Illness Zulma Garcia is a 63 year old female with past medical COPD, small cell lung cancer postradiation therapy within last 1 month, recent intubation within the last 2 months, last hospitalization within last 2 weeks of COPD exacerbation presents to ER today because of difficulty in breathing getting worse over last 2 days. Patient started having difficulty in breathing yesterday but got acutely worse today so presented to the ER with EMS. Patient was on steroid taper with last dose 3 days ago. Denies any nausea, ting, headache, sick contacts, runny nose, cough, URI-like symptoms, constipation. Does complain of mild diarrhea for last 2 days. Review of Systems 2 General: Reports: 10 or more systems reviewed and unremarkable except in HPI and below Const: Denies: fever(s), chills, body aches, change in appetite, change in weight, malaise, night sweats, diaphoresis, change in sleep pattern, daytime sleepiness or snoring Eyes: Denies: change in vision, blurry vision, photophobia, eye discomfort or eye discharge ENMT: Denies: throat pain, enlarged tonsils, hoarseness, mouth pain, oral sores, dry mouth, tinnitus, nasal congestion or post nasal drip Card: Denies: chest pain, palpitations, irregular heart rhythm, edema, swelling of feet/ankles, lightheadedness, syncope, pre-syncope, dyspnea on exertion, orthopnea, leg pain with exertion or acrocyanosis Resp: Denies: dyspnea, productive cough, non-productive cough, wheezing, stridor, pain on inspiration, change in phlegm color, hemoptysis or chest congestion GI: Denies: abdominal pain, nausea, vomiting, hematemesis, coffee ground emesis, dysphagia, heartburn, diarrhea, constipation, bloating, GI cramping, change in bowel habits, pain on defecation, hematochezia or melena : Denies: flank pain, dysuria, urinary frequency, urinary urgency, urinary hesitancy, nocturia or hematuria Musc: Denies: neck pain, back pain, extremity pain, joint pain, joint swelling, joint redness, joint stiffness or limited range of motion Neuro: Denies: headache(s), numbness in extremities, weakness in extremities, sensory changes, lack of coordination, difficulty walking, frequent falls, dizziness, vertigo, confusion, Slurred speech present, difficulty communicating thoughts or seizure-like activity Psych: Denies: anxiety, depression, mood swings, panic attacks, hopelessness or irritability Endo: Denies: polyuria, polydipsia, tired all the time, cold intolerance, excessive sweating, flushing or heat intolerance [place]/Lymph: Denies: easy bruising or easy bleeding All/Imm: Denies: tongue swelling, facial swelling or acute wheezing Medications/Allergies Home Medications Medication Instructions Recorded Confirmed Last Taken Type allopurinol 300 mg tablet 300 mg PO DAILY@0600 10/17/19 06/26/24 06/26/24 History cholecalciferol (vitamin D3) 50 2,000 unit PO DAILY@0800 10/17/19 06/26/24 06/26/24 History mcg (2,000 unit) tablet (Vitamin D3) levothyroxine 88 mcg tablet 88 mcg PO DAILY@0800 10/17/19 06/26/24 06/26/24 History acetaminophen 500 mg tablet 1,000 mg PO PRN 10/24/20 06/26/24 Unknown History (Tylenol Extra Strength) gabapentin 300 mg capsule 300 mg PO BEDTIME@1800 10/24/20 06/26/24 06/25/24 History rbmjfeza-hhy-xrajt acid 500 1 tab PO DAILY@0800 03/28/21 06/26/24 06/26/24 History mcg-lycopene 300 mcg-lutein 250 mcg tablet ondansetron 4 mg disintegrating 4 mg PO Q8H PRN NAUSEA/VOMITING 7 03/31/21 06/26/24 Unknown Rx tablet days #21 tabs duloxetine 60 mg capsule,delayed 60 mg PO DAILY 06/26/24 06/26/24 06/26/24 History release methenamine hippurate 1 gram tablet 1 g PO BID 06/26/24 06/26/24 06/26/24 History nortriptyline 50 mg capsule 50 mg PO DAILY 06/26/24 06/26/24 06/25/24 History ipratropium bromide 0.02 % 0.5 mg (2.5 mL) inhalation 06/27/24 Unknown Rx solution for inhalation Q6H.RESP #150 mL levalbuterol HCl 0.63 mg/3 mL 0.63 mg (3 mL) inhalation Q6H.RESP 06/27/24 Unknown Rx solution for nebulization #90 mL prednisone 10 mg tablet See Taper PO DIRECTED #42 tabs 06/27/24 Unknown Rx Allergies Allergy/AdvReac Type Severity Reaction Status Date / Time ibuprofen Allergy Stevie Verified 08/09/22 13:19 Lip/Tongue/Throat flu shot Allergy Unknown Uncoded 08/09/22 13:19 PFSH Acute 2 PFSH: Medical History (Updated 07/11/24 @ 18:28 by Lisa Lynch MD) Left-sided weakness Compression fracture of T7 vertebra Gout H/O: CVA (cerebrovascular accident) Hypothyroidism Pneumonia due to COVID-19 virus Diarrhea due to COVID-19 Nausea & vomiting Abdominal pain Hypoxia COVID-19 Former smoker COPD (chronic obstructive pulmonary disease) Small cell lung cancer in adult Post radiation 06/16 Surgical History History of appendectomy Family History Father Cancer Lung cancer Social History Smoking and tobacco/nicotine status: former use of tobacco/nicotine Alcohol intake: never Substance/Drug Use: never Household members: family Housing: House Vitals/I&O/Wt Last Vital Signs Temp 98.2 F 07/11/24 16:19 Pulse 76 07/11/24 18:48 Resp 15 07/11/24 17:30 BP 126/74 07/11/24 18:48 Pulse Ox 92 07/11/24 18:48 O2 Del Method Nasal Cannula 07/11/24 16:31 O2 Flow Rate 3 07/11/24 16:31 Weight last 48 hrs Weight 64.41 kg Physical Exam 2 Narrative: General: No acute distress, AO x3, on nasal cannula, having difficulty breathing on minimal conversation HEENT: PERRLA, pupils bilaterally equal and reactive Chest: Bilateral bronchial breath sounds all over lung avelar with occasional rhonchi CVS: S1-S2 regular, no murmurs, no tachycardia, no gallops, no rubs Abdomen: Soft, nontender, no organomegaly, bowel sounds present Neuro: No focal deficits, no facial deformity, AO x3, power 5/5 in all limbs Data 07/11/24 16:34 07/11/24 16:34 Micro: Microbiology 07/11/24 16:47 Blood Culture - Preliminary Blood SPECIMEN COLLECTED 07/11/24 16:43 Blood Culture - Preliminary Blood SPECIMEN COLLECTED A&P Assessment and plan (1) Hypoxic respiratory failure: COPD exacerbation. COVID-19, influenza negative in the ER. Third admission with the last 1-1/2 months for COPD exacerbation with hypoxia. Intubated within last 2 months. Check D-dimer, sputum culture, urine Legionella, bacterial antigen. Solu-Medrol 40 mg every 6 hour. Nebulization with ipratropium, Xopenex every 6 hours, Pulmicort twice daily. Ox supplementation keeping saturation over 88%. Start on empiric Levaquin 750 mg daily for now. Appreciate last echocardiogram from 2020 showing normal EF with concerns for mild to moderate AI and TR with PASP of 29 mmHg. Repeat echocardiogram. IV Lasix 40 mg one-time. Strict and proper charting. Plan for CT chest versus CTA depending on the D-dimer. D-dimer was mildly elevated on previous admission. 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 Plan CODE STATUS: Discussed in detail with the patient. Patient's son will be the DPOA. Full code. Protonix OPD prophylaxis Regular diet Heparin for DVT prophylaxis Attestations 2 Medical Necessity Statement*: Admission for more than 2 midnights for management of hypoxic respiratory failure in setting of COPD exacerbation and the patient with history of small cell lung cancer Diagnoses Hypoxic respiratory failure J96.91 Chronic obstructive pulmonary disease with (acute) exacerbation J44.1 Small cell lung cancer in adult C34.90
[2024-07-11 19:42] LABS: Procalcitonin 0.04 ng/mL (0-0.5)
[2024-07-11 19:56] LABS: D Dimer 0.75 ug/mLFEU (0-0.59)
[2024-07-11] MEDS: FUROsemide 10 mg/mL SDV 4mL 40 MG IVP (20:15)
[2024-07-11 22:55] LABS: Bilirubin Urine Negative (Negative); Blood Urine Negative (Negative); Glucose Urine UA 1+ (Normal); Ketones Urine Negative (Negative); Leukocyte Esterase Urine 2+ (Negative); Nitrate Urine Positive (Negative); Protein Urine Negative (Negative); Specific Gravity, Urine 1.014 (1.005-1.030); Urine Appearance Clear (CLEAR); Urine Color Yellow (Yellow); Urobilinogen Urine 0.2 mg/dL (Negative); pH Urine 6.5 (5-7)
[2024-07-11 22:57] LABS: Add Urine Microscopic? YES; Bacteria Urine 4+ /hpf; Hyaline Casts Urine 0-4 /lpf; RBC Urine 0-2 /hpf (0-2); Squamous Epithelial Cell Urine 0-5 /hpf (0-5)
[2024-07-11] MEDS: methylPREDNISolone sod succ 40 mg/mL INJ IVP (22:58)
[2024-07-11] MEDS: heparin 5,000 unit/mL INJ 1 mL 5000 UNIT SUBCUT (22:59)
[2024-07-11] MEDS: acetaminophen 325 mg Tablet 650 MG PO (22:59)
[2024-07-11 23:02] LABS: Troponin 5 6HR 6.04 ng/L (0-10)
[2024-07-11 23:04] LABS: Troponin 5 6HR Delta -4.96 ng/L (0-12)
[2024-07-11 23:04] LABS: Add Urine Culture? Yes
--- NOTE | 2024-07-11 23:06 | ECG_ITS ---
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1960 Requested By: Lisa Roy Order Number: [id number] Reading MD: PATRICIA CARUSO Measurements Intervals [place] Rate: 93 P: 70 VT: 196 QRS: 68 QRSD: 86 T: 59 QT: 364 QTc: 453 Interpretive Statements SINUS RHYTHM POSSIBLE RIGHT VENTRICULAR CONDUCTION DELAY [RSR (QR) IN V1/V2] SEPTAL MYOCARDIAL INFARCTION , OF INDETERMINATE AGE [40+ ms Q WAVE IN V1/V2] Compared to ECG 07/11/2024 18:33:26 Incomplete right bundle-branch block no longer present Myocardial infarct finding still present Electronically Signed On 07-14-2024 21:23:34 CDT by PATRICIA CARUSO [id number]
[2024-07-11] MEDS: ipratropium 0.5 mg/2.5 mL Neb INHALATION (23:30)
[2024-07-11] MEDS: levalbuterol 0.63 mg/3 mL Neb INHALATION (23:30)
[2024-07-12] VITALS (15 sets, daily range): BP systolic 100–135; BP diastolic 6–95; PULSE 83–113; RESP 16–20; TEMP 36.4–37; O2SAT 90–96; BMI 26.1
[2024-07-12] MEDS: ipratropium 0.5 mg/2.5 mL Neb INHALATION ×4 (03:17→20:22)
[2024-07-12] MEDS: levalbuterol 0.63 mg/3 mL Neb INHALATION ×4 (03:17→20:22)
[2024-07-12] MEDS: methylPREDNISolone sod succ 40 mg/mL INJ IVP ×3 (05:14→21:17)
[2024-07-12] MEDS: levoFLOXacin 750 mg Tablet PO (05:15)
[2024-07-12] MEDS: allopurinol 300 mg Tablet PO (05:15)
[2024-07-12 05:44] LABS: Basophils % 0.2 %; Eosinophils % 0.2 %; Hematocrit 33.8 % (36-47); Lymphocytes # 0.4 10^3/uL (0.8-4.8); Lymphocytes % 6.9 %; Mean Corpuscular HGB Conc 30.8 g/dL (30-55); Mean Corpuscular Hemoglobin 27.4 pg (27-33); Mean Corpuscular Volume 88.9 fl (85-98); Mean Platelet Volume 9.5 fL (7.4-10.4); Monocytes % 0.4 %; Neutrophils # 4.67 10^3/uL (1.8-7.7); Neutrophils % 91.7 %; Nucleated Red Blood Cells % 0 %; Platelet Count 196 10^3/cmm (157-399); Red Cell Distribution Width 14.1 % (12.1-15.1); White Blood Count 5.09 10^3/uL (3.29-11.43)
[2024-07-12 06:10] LABS: Alanine Aminotransferase 11 U/L (0-33); Albumin Level 3.7 g/dL (3.5-5.2); Alkaline Phosphatase 82 U/L (35-105); Anion Gap 16.9 (5-19); Aspartate Amino Transferase 21 U/L (0-32); Blood Urea Nitrogen 10 mg/dL (8-23); Calcium 8.2 mg/dL (8.5-10.5); Carbon Dioxide 26 mmol/L (22-29); Chloride 99 mmol/L (98-107); Creatinine Clr Calc Pharmacy 75.5225; Globulin 2.7 g/dL (1.3-4.6); Glomerular Filtration Rate 84.5 mL/min (90-130); Glucose 218 mg/dL (65-115); Magnesium 1.6 mg/dL (1.7-2.3); Osmolality Calculated 292 mOsm/kg (285-295); Phosphorus 2.4 mg/dL (2.5-4.5); Potassium 3.9 mmol/L (3.5-5.1); Sodium 138 mmol/L (136-145); Total Bilirubin 0.2 mg/dL (0.15-1.2); Total Protein 6.4 g/dL (6.6-8.7)
[2024-07-12 06:15] LABS: Procalcitonin 0.02 ng/mL (0-0.5)
--- NOTE | 2024-07-12 07:16 | USCV_ITS ---
Zulma Garcia Age: 63 Gender: F : 1960 Exam Date: 07/12/2024 08:35 Ordering Phys: Jong Trimble MD Technologist: Aneudy Jacobsen Exam Location: [facility] [place] Indication: chf BP: 122 / 84 HR: 109 Rhythm: Sinus Technical Quality: Adequate MEASUREMENTS (Male / Female) Normal Values 2D ECHO LV Diastolic Diameter PLAX 4.0 cm 4.2 - 5.9 / 3.9 - 5.3 cm IVS Diastolic Thickness 0.9 cm 0.6 - 1.0 / 0.6 - 0.9 cm IVS Systolic Thickness 1.2 cm LVPW Diastolic Thickness 1.2 cm 0.6 - 1.0 / 0.6 - 0.9 cm LVPW Systolic Thickness 1.6 cm LVOT Diameter 2.0 cm LV Ejection Fraction 2D Teich 78.7 % LV Ejection Fraction MOD 4C 65.4 % LV Ejection Fraction MOD 2C 81.2 % LV Ejection Fraction 2C AL 81.1 % LA Diameter 3.0 cm RA Systolic Volume 4C AL 24.9 ml RA Systolic Volume 4C MOD 24.7 ml LA Sys Volume AL 24.7 cm cubed LA Sys Volume Index AL 14.2 cm cubed/m squared Aorta at Sinotubular Diameter 2.7 cm IVC Diameter 1.9 cm M-MODE LA Ao Ratio MM 1.2 AV Cusp Separation MM 1.8 cm DOPPLER AV Peak Velocity 173.0 cm/s LVOT Peak Velocity 156.0 cm/s AV Area Cont Eq vti 2.7 cm squared AV Area Cont Eq pk 2.9 cm squared MV Peak Velocity 135.3 cm/s MV Area PHT 8.4 cm squared Mitral E to A Ratio 0.6 TV Peak Velocity 220.7 cm/s TR Peak Velocity 311.0 cm/s TR Peak Gradient 38.7 mmHg TR Mean Velocity 256.0 cm/s TR Mean Gradient 28.2 mmHg TR Velocity Time Integral 74.0 cm PV Peak Velocity 125.0 cm/s RV Ejection Time 0.2 s FINDINGS Left Ventricle Normal left ventricular size, systolic function and wall thickness, with no regional wall motion abnormalities. Left ventricular ejection fraction is estimated at 60 %. Grade I/IV diastolic dysfunction (abnormal relaxation filling pattern), normal to mildly elevated filling pressures. Right Ventricle The right ventricle is normal in size and function. Right Atrium The right atrium is normal in size. Left Atrium The left atrium is normal in size. Mitral Valve Moderately thickened mitral valve. Mitral annular calcification. No mitral valve stenosis. Mild mitral valve regurgitation. Aortic Valve Moderate aortic valve calcification. No aortic valve stenosis. Trace to mild aortic valve regurgitation. Tricuspid Valve Structurally normal tricuspid valve without significant stenosis or regurgitation. Pulmonary artery systolic pressure is normal. Pulmonic Valve Mild pulmonary valve regurgitation. Pericardium Normal pericardium without effusion. Aorta Normal ascending aorta dimension. IVC The inferior vena cava appears normal. CONCLUSIONS Normal left ventricular size, systolic function and wall thickness, with no regional wall motion abnormalities. Left ventricular ejection fraction is estimated at 60 %. Grade I/IV diastolic dysfunction (abnormal relaxation filling pattern), normal to mildly elevated filling pressures. Moderately thickened mitral valve. Mitral annular calcification. No mitral valve stenosis. Mild mitral valve regurgitation. Moderate aortic valve calcification. No aortic valve stenosis. Trace to mild aortic valve regurgitation. Structurally normal tricuspid valve without significant stenosis or regurgitation. Pulmonary artery systolic pressure is normal. There is no pericardial effusion. Right atrial pressure is around 5 mm of mercury. Jerri Olivares MD (Electronically Signed) Final Date: 12 July 2024 16:20 S
[2024-07-12] MEDS: budesonide 0.5 mg/2 mL Neb INHALATION ×2 (08:30→20:21)
[2024-07-12] MEDS: heparin 5,000 unit/mL INJ 1 mL 5000 UNIT SUBCUT ×2 (09:47→21:15)
[2024-07-12] MEDS: nortriptyline 25 mg Capsule 50 MG PO (09:47)
[2024-07-12] MEDS: levothyroxine 88 mcg Tablet PO (09:47)
[2024-07-12] MEDS: duloxetine 60 mg Capsule PO (09:47)
[2024-07-12] MEDS: acetaminophen 325 mg Tablet 650 MG PO (10:47)
--- NOTE | 2024-07-12 13:50 | P.PN_ITS ---
Subjective 2 Subjective: No problems overnight. Today morning states she is feeling slightly better but still not back to her baseline. She is saturating in low 90s on 2 L. Denies any nausea, vomiting, headache. Vitals/I&O/Wt Last Vital Signs Temp 98.0 F 07/12/24 07:22 Pulse 101 H 07/12/24 08:30 Resp 20 H 07/12/24 08:30 BP 135/95 07/12/24 07:22 Pulse Ox 92 07/12/24 08:30 O2 Del Method Nasal Cannula 07/12/24 08:30 O2 Flow Rate 2 07/12/24 08:30 07/11/24 07/12/24 07/12/24 22:59 06:59 14:59 Intake Total 100 / 100 480 / 480 Output Total 300 / 300 Balance -200 / -200 480 / 480 Weight last 48 hrs Weight 66.791 kg Weight 66.791 kg Weight 66.315 kg Weight 64.41 kg Physical Exam 2 Narrative: General: No acute distress, AO x3, on 2 L nasal cannula HEENT: PERRLA, pupils bilaterally equal and reactive Chest: Bilateral bronchial breath sounds all over lung avelar with occasional rhonchi CVS: S1-S2 regular, no murmurs, no tachycardia, no gallops, no rubs Abdomen: Soft, nontender, no organomegaly, bowel sounds present Neuro: No focal deficits, no facial deformity, AO x3, power 5/5 in all limbs Data 07/12/24 04:17 07/12/24 04:17 Micro: Microbiology 07/11/24 22:43 Bacterial Antigens - Final Urine Kidney 07/11/24 22:43 Legionella Urinary Antigen - Final Unknown Source 07/11/24 16:47 Blood Culture - Preliminary Blood SPECIMEN COLLECTED 07/11/24 16:43 Blood Culture - Preliminary Blood SPECIMEN COLLECTED A&P Assessment and plan (1) Hypoxic respiratory failure: COPD exacerbation. COVID-19, influenza negative in the ER. Third admission with the last 1-1/2 months for COPD exacerbation with hypoxia. Intubated within last 2 months. D-dimer elevated but better than last time. CTA negative on previous admission. Sputum culture pending. Urinary catheter antigen negative. Continue with Solu-Medrol 40 mg every 6 hour. Will plan to wean in next 24 to 48 hours. Nebulization with ipratropium, Xopenex every 6 hours, Pulmicort twice daily. Oxygen supplementation keeping saturation over 88%. Continue with empiric Levaquin 750 mg daily for now. Appreciate last echocardiogram from 2020 showing normal EF with concerns for mild to moderate AI and TR with PASP of 29 mmHg. Echocardiogram pending. Start on oral Lasix 40 mg daily. Will monitor for contraction alkalosis. Replace 40 mg oral potassium. Monitor potassium daily for now. Strict and proper charting. 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 Plan CODE STATUS: Discussed in detail with the patient. Patient's son will be the DPOA. Full code. Protonix OPD prophylaxis Regular diet Heparin for DVT prophylaxis Attestations 2 Medical Necessity Statement*: Requires further hospitalization for management of hypoxia with respiratory failure in setting of COPD in a patient with small cell cancer postradiation Diagnoses Hypoxic respiratory failure J96.91 Chronic obstructive pulmonary disease with (acute) exacerbation J44.1 Small cell lung cancer in adult C34.90
[2024-07-12] MEDS: potassium chloride oral liq 20 mEq/15 mL UDC 40 MEQ PO (15:18)
[2024-07-12] MEDS: FUROsemide 40 mg Tablet PO (15:19)
[2024-07-12] MEDS: morphine 4 mg/mL SDV 1 mL 2 MG IVP ×2 (15:27→21:21)
[2024-07-12] MEDS: gabapentin 300 mg Capsule PO (16:59)
--- NOTE | 2024-07-12 21:30 | PC.NURSE ---
Patient provided with specimen cup and educated on need for sputum sample. Patient states my cough has been dry.
[2024-07-13] VITALS (16 sets, daily range): BP systolic 100–128; BP diastolic 48–67; PULSE 91–113; RESP 15–20; TEMP 36.5–37; O2SAT 92–98; BMI 25.4
[2024-07-13] MEDS: ipratropium 0.5 mg/2.5 mL Neb INHALATION ×4 (02:44→19:42)
[2024-07-13] MEDS: levalbuterol 0.63 mg/3 mL Neb INHALATION ×4 (02:44→19:42)
[2024-07-13] MEDS: acetaminophen 325 mg Tablet 650 MG PO (03:05)
[2024-07-13 04:05] LABS: Basophils % 0.1 %; Hematocrit 34.2 % (36-47); Lymphocytes # 0.4 10^3/uL (0.8-4.8); Lymphocytes % 4.9 %; Mean Corpuscular Hemoglobin 27.7 pg (27-33); Mean Corpuscular Volume 89.3 fl (85-98); Monocytes # 0.1 10^3/uL (0.2-0.9); Monocytes % 1.7 %; Neutrophils % 92.9 %; Nucleated Red Blood Cells % 0 %; Platelet Count 223 10^3/cmm (157-399); Red Blood Count 3.83 10^6/uL (3.85-5.65); Red Cell Distribution Width 14.5 % (12.1-15.1); White Blood Count 8.29 10^3/uL (3.29-11.43)
[2024-07-13 04:40] LABS: Alanine Aminotransferase 12 U/L (0-33); Albumin Level 3.9 g/dL (3.5-5.2); Alkaline Phosphatase 78 U/L (35-105); Anion Gap 13.8 (5-19); Aspartate Amino Transferase 16 U/L (0-32); Blood Urea Nitrogen 14 mg/dL (8-23); Calcium 8.3 mg/dL (8.5-10.5); Carbon Dioxide 28 mmol/L (22-29); Chloride 94 mmol/L (98-107); Creatinine Clr Calc Pharmacy 66.0822; Globulin 2.7 g/dL (1.3-4.6); Glomerular Filtration Rate 72.4 mL/min (90-130); Glucose 206 mg/dL (65-115); Osmolality Calculated 280 mOsm/kg (285-295); Potassium 3.8 mmol/L (3.5-5.1); Sodium 132 mmol/L (136-145); Total Bilirubin 0.2 mg/dL (0.15-1.2); Total Protein 6.6 g/dL (6.6-8.7)
[2024-07-13] MEDS: levoFLOXacin 750 mg Tablet PO (05:01)
[2024-07-13] MEDS: allopurinol 300 mg Tablet PO (05:02)
[2024-07-13] MEDS: methylPREDNISolone sod succ 40 mg/mL INJ IVP ×3 (05:02→21:43)
[2024-07-13] MEDS: morphine 4 mg/mL SDV 1 mL 2 MG IVP ×3 (05:18→21:52)
[2024-07-13] MEDS: levothyroxine 88 mcg Tablet PO (07:52)
[2024-07-13] MEDS: FUROsemide 40 mg Tablet PO (07:52)
[2024-07-13] MEDS: duloxetine 60 mg Capsule PO (07:52)
[2024-07-13] MEDS: budesonide 0.5 mg/2 mL Neb INHALATION ×2 (08:38→19:42)
[2024-07-13] MEDS: heparin 5,000 unit/mL INJ 1 mL 5000 UNIT SUBCUT ×2 (09:43→21:43)
[2024-07-13] MEDS: nortriptyline 25 mg Capsule 50 MG PO (09:43)
--- NOTE | 2024-07-13 09:57 | PC.SOCIAL ---
IMM Update pg 2 of IMM Updated and reviewed w/ patient. Copy provided and copy dated, initialed and placed in chart.
--- NOTE | 2024-07-13 10:39 | PC.CHAP ---
Pastoral Care Encounter/Spiritual Assessment Type of Contact [] Declined school janitor visit [] Patient/Family/Request visit [] Outpatient visit [] Follow-up visit [] Physician referral [] Code/Alert [x] Routine visit [] Staff referral [] Actively dying [] Patient sleeping [] Family support [] [] Out of room [] Palliative care [] [] Receiving care in room [] Pre-surgical visit [] Trauma [] Long length of stay [] ICU visit [] Other: Relational/Emotional Strength [] Patient feels connected with others/family/visitors/staff [] Distress [] Loneliness/isolation [] Abandonment Spirituality of Patient [x] Person of Ann[place] [] Attends Anabaptist of their Nancy [x] Believes in Prayer [] Reads Bible or Moravian materials [] There are Spiritual issues to be addressed Bottle 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 Interventions [x] Prayer [x] Active listening [] Non-anxious presence [] Spiritual/emotional support [] Crisis/trauma care [] Spiritual counseling [] Bereavement support [] Provided bereavement packet [x] Provided Bible/devotional materials [] Provided toy/stuffed animal, coloring book to patient or family member [] Provided Communion [] Anointing/[place] [] Salvation [x] Completed spiritual assessment [] Other: Impact on Illness or Injury [] Angry [] Fearful [] Anxious [] Often cries [] Exhaustion [] Unable to work [] Unable to attend jainism [] Unable to walk/stand [] Unable to read [] Unable to drive [] Unable to eat/drink [] Unable to sleep [] Unable to be with family [] Patient intubated [] Other: Summary Time spent with patient 5 min
--- NOTE | 2024-07-13 14:39 | P.PN_ITS ---
Subjective 2 Subjective: Patient was seen this morning, she continues to complain of wheezing, shortness of breath, cough, no nausea, no vomiting, no abdominal pain she tells me that she has had a stroke, she has chronic left-sided deficits she can transfer without assistance but she needs to use a walker with assistance, she needs to use a wheelchair, she follows up with cancer care here in [place] but originally used to follow-up with cancer specialist in [facility], her last radiation therapy was 5 weeks ago, she is not currently smoking Vitals/I&O/Wt Last Vital Signs Temp 98.1 F 07/13/24 11:38 Pulse 108 H 07/13/24 13:29 Resp 18 07/13/24 13:19 BP 128/67 07/13/24 11:38 Pulse Ox 96 07/13/24 13:19 O2 Del Method Nasal Cannula 07/13/24 13:19 O2 Flow Rate 3 07/13/24 13:19 07/12/24 07/13/24 07/13/24 22:59 06:59 14:59 Intake Total 240 / 720 120 / 840 480 / 480 Output Total 500 / 500 600 / 1100 Balance -260 / 220 -480 / -260 480 / 480 Weight last 48 hrs Weight 65.227 kg Weight 65.227 kg Weight 66.791 kg Weight 66.791 kg Weight 66.315 kg Weight 64.41 kg Physical Exam 2 Const: COMMON NORMALS: no acute distress and patient oriented x3 Resp: COMMON NORMALS: normal respiratory effort, No retractions and No use of accessory muscles AUSCULTATION: wheezes Cardio: COMMON NORMALS: regular rate, regular rhythm, S1 normal heart sound present and S2 normal heart sound present RATE: regular rate RHYTHM: r egular rhythm HEART SOUNDS: S1 normal heart sound present and S2 normal heart sound present GI: COMMON NORMALS: Normal to inspection, nondistended, normoactive bowel sounds present and non-tender Extremity: COMMON NORMALS: no pedal edema Neuro: COMMON NORMALS: patient oriented x3 Psych: COMMON NORMALS: mental status grossly normal Data 07/13/24 03:47 07/13/24 03:47 Micro: Microbiology 07/11/24 22:43 Urine Culture - Preliminary Urine,Clean Catch Gram Negative Rods 07/11/24 16:47 Blood Culture - Preliminary Blood NEGATIVE TO DATE 07/11/24 16:43 Blood Culture - Preliminary Blood NEGATIVE TO DATE 07/11/24 22:43 Bacterial Antigens - Final Urine Kidney A&P Assessment and plan (1) Hypoxic respiratory failure: Secondary to COPD exacerbation. Third admission with the last 1-1/2 months for COPD exacerbation with hypoxia Intubated within last 2 months. Plan Continue with Solu-Medrol 40 mg every 6 hour. Nebulization with ipratropium, Xopenex every 6 hours, Pulmicort twice daily. Oxygen supplementation keeping saturation over 88%. Continue with empiric Levaquin 750 mg daily for now. Appreciate last echocardiogram from 2020 showing normal EF with concerns for mild to moderate AI and TR with PASP of 29 mmHg. Continue Lasix 40 mg daily Potassium replacement therapy Strict and proper charting. 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 Plan History of CVA with residual left-sided deficits CODE STATUS: Discussed in detail with the patient. Patient's son will be the DPOA. Full code. Protonix OPD prophylaxis Regular diet Heparin for DVT prophylaxis Attestations 2 Medical Necessity Statement*: Patient requires hospitalization for acute hypoxic respiratory failure secondary to COPD Diagnoses Hypoxic respiratory failure J96.91 Chronic obstructive pulmonary disease with (acute) exacerbation J44.1 Small cell lung cancer in adult C34.90
[2024-07-13] MEDS: gabapentin 300 mg Capsule PO (17:03)
[2024-07-14] VITALS (8 sets, daily range): BP systolic 95–141; BP diastolic 52–68; PULSE 86–100; RESP 12–18; TEMP 36.7–36.9; O2SAT 94–98
[2024-07-14] MEDS: acetaminophen 325 mg Tablet 650 MG PO (00:40)
[2024-07-14] MEDS: ipratropium 0.5 mg/2.5 mL Neb INHALATION ×2 (02:48→08:18)
[2024-07-14] MEDS: levalbuterol 0.63 mg/3 mL Neb INHALATION ×2 (02:48→08:18)
[2024-07-14 05:19] LABS: Hematocrit 33.8 % (36-47); Lymphocytes # 0.4 10^3/uL (0.8-4.8); Lymphocytes % 4.9 %; Mean Corpuscular HGB Conc 30.8 g/dL (30-55); Mean Corpuscular Volume 87.8 fl (85-98); Mean Platelet Volume 9.3 fL (7.4-10.4); Monocytes # 0.2 10^3/uL (0.2-0.9); Monocytes % 2.2 %; Neutrophils # 6.79 10^3/uL (1.8-7.7); Neutrophils % 92.5 %; Nucleated Red Blood Cells % 0 %; Platelet Count 225 10^3/cmm (157-399); Red Blood Count 3.85 10^6/uL (3.85-5.65); Red Cell Distribution Width 14.9 % (12.1-15.1); White Blood Count 7.34 10^3/uL (3.29-11.43)
[2024-07-14] MEDS: levoFLOXacin 750 mg Tablet PO (05:38)
[2024-07-14] MEDS: allopurinol 300 mg Tablet PO (05:38)
[2024-07-14] MEDS: morphine 4 mg/mL SDV 1 mL 2 MG IVP (05:42)
[2024-07-14] MEDS: methylPREDNISolone sod succ 40 mg/mL INJ IVP (05:42)
[2024-07-14 05:46] LABS: Anion Gap 13.8 (5-19); Blood Urea Nitrogen 16 mg/dL (8-23); Carbon Dioxide 29 mmol/L (22-29); Chloride 97 mmol/L (98-107); Creatinine Clr Calc Pharmacy 86.2546; Glucose 183 mg/dL (65-115); Osmolality Calculated 288 mOsm/kg (285-295); Potassium 3.8 mmol/L (3.5-5.1); Sodium 136 mmol/L (136-145)
[2024-07-14] MEDS: levothyroxine 88 mcg Tablet PO (07:35)
[2024-07-14] MEDS: FUROsemide 40 mg Tablet PO (07:35)
[2024-07-14] MEDS: duloxetine 60 mg Capsule PO (08:10)
[2024-07-14] MEDS: nortriptyline 25 mg Capsule 50 MG PO (08:10)
[2024-07-14] MEDS: budesonide 0.5 mg/2 mL Neb INHALATION (08:18)
[2024-07-14] MEDS: heparin 5,000 unit/mL INJ 1 mL 5000 UNIT SUBCUT (11:17)
--- NOTE | 2024-07-14 11:42 | P.DS_ITS ---
Discharge Providers Date of Admission: 07/11/24 18:18 Date of Discharge: July 14, 2024 Attending Provider at Admission: Jong Trimble MD Attending Provider at Discharge: Damir Santoro MD Primary Care Provider: Adela Stout Diagnoses at Discharge Discharge Diagnosis (1) Hypoxic respiratory failure: Status: Acute (2) Chronic obstructive pulmonary disease with (acute) exacerbation: Status: Acute (3) Small cell lung cancer in adult: Status: Acute Permanent problem details: Post radiation 06/16 Reason for Visit Reason for Visit: SOB Hospital Course Hospital Course This is a 63-year-old female with a past medical history of COPD, small cell lung cancer s/p radiation therapy who presents [facility] for shortness of breath Patient was admitted to [facility] for shortness of breath secondary to COPD exacerbation, with recent history intubation in the last 2 months for COPD exacerbation, last hospitalization for COPD about 2 weeks ago. Patient was managed with steroid therapy, antibiotic therapy, oxygen therapy, monitored as inpatient. Overall patient's clinical condition improved, with nebulizers, steroid therapy, antibiotic therapy patient's clinical condition improved. She will be discharged on a steroid taper, Levaquin, with a close follow-up with primary care provider as outpatient. For small cell lung cancer please follow- up with oncology as outpatient Physical Exam Const: COMMON NORMALS: no acute distress and patient oriented x3 Resp: COMMON NORMALS: normal respiratory effort, No retractions, No use of accessory muscles and clear to auscultation bilaterally AUSCULTATION: clear to auscultation bilaterally Cardio: COMMON NORMALS: regular rate, regular rhythm, S1 normal heart sound present and S2 normal heart sound present RATE: regular rate RHYTHM: regular rhythm HEART SOUNDS: S1 normal heart sound present and S2 normal heart sound present GI: COMMON NORMALS: Normal to inspection, nondistended, normoactive bowel sounds present and non-tender Extremity: COMMON NORMALS: no pedal edema Neuro: COMMON NORMALS: patient oriented x3 Psych: COMMON NORMALS: mental status grossly normal Discharge Data Studies Completed and Pending Completed Studies During Hospitalization Category Date Time Status XR chest 1V portable [id number] Stat Exams 07/11/24 16:21 Completed CV. echo complete* [id number] Routine Ultrasound 07/12/24 07:16 Completed Pending at discharge Category Date Time Status Basic Metabolic Panel AM LABS Lab 07/15/24 04:00 Ordered Basic Metabolic Panel AM LABS Lab 07/16/24 04:00 Ordered Blood Culture Stat Lab 07/11/24 16:47 Results Complete Blood Count w/Auto AM LABS Lab 07/15/24 04:00 Ordered Complete Blood Count w/Auto AM LABS Lab 07/16/24 04:00 Ordered Sputum Culture and Gram Stain Stat Lab 07/11/24 19:16 Uncollected Urine Culture Stat Lab 07/11/24 22:43 Results Radiology Impressions Chest X-Ray 07/11/24 16:21 IMPRESSION: 1. No radiographically apparent acute cardiopulmonary disease. Chronic findings as above. Laboratory Results WBC 7.34 10^3/uL (3.29-11.43) 07/14/24 04:32 RBC 3.85 10^6/uL (3.85-5.65) 07/14/24 04:32 Hgb 10.40 g/dL (11.27-16.99) L 07/14/24 04:32 Hct 33.8 % (36-47) L 07/14/24 04:32 MCV 87.8 fl (85-98) 07/14/24 04:32 MCH 27.0 pg (27-33) 07/14/24 04:32 MCHC 30.8 g/dL (30-55) 07/14/24 04:32 RDW 14.9 % (12.1-15.1) 07/14/24 04:32 Plt Count 225 10^3/cmm (157-399) 07/14/24 04:32 MPV 9.3 fL (7.4-10.4) 07/14/24 04:32 Neut % (Auto) 92.5 % 07/14/24 04:32 Lymph % (Auto) 4.9 % 07/14/24 04:32 [place] % (Auto) 2.2 % 07/14/24 04:32 Eos % (Auto) 0.0 % 07/14/24 04:32 Baso % (Auto) 0.0 % 07/14/24 04:32 Neut # (Auto) 6.79 10^3/uL (1.8-7.7) 07/14/24 04:32 Lymph # (Auto) 0.4 10^3/uL (0.8-4.8) L 07/14/24 04:32 [place] # (Auto) 0.2 10^3/uL (0.2-0.9) 07/14/24 04:32 Eos # (Auto) 0.0 10^3/uL (0.0-0.8) 07/14/24 04:32 Baso # (Auto) 0.0 10^3/uL (0.0-0.1) 07/14/24 04:32 Nucleated RBC % (auto) 0 % 07/14/24 04:32 Nucleated RBCs # 0.0 /100WBC 07/14/24 04:32 D-Dimer 0.75 ug/mLFEU (0-0.59) H 07/11/24 16:34 Specimen Type Arterial 07/11/24 16:29 Sample Site Radial, left 07/11/24 16:29 ABG pH 7.35 (7.35-7.45) 07/11/24 16:29 ABG pCO2 61.6 mmHg (35-45) H* 07/11/24 16:29 ABG pO2 74.2 mmHg (80.0-100.0) L 07/11/24 16:29 ABG HCO3 34.0 mmol/L (22-26) H 07/11/24 16:29 ABG O2 Saturation 95.2 07/11/24 16:29 ABG Base Excess 6.9 mmol/L (-2.0-2.0) H 07/11/24 16:29 Darrel Test Pos 07/11/24 16:29 A-a O2 Gradient 0.3 mmHg (5-10) L 07/11/24 16:29 Hematocrit 31.9 % (37-47) L 07/11/24 16:29 Hgb O2 Saturation 93.5 % (95-100) L 07/11/24 16:29 Carboxyhemoglobin 0.7 %THgb (0.4-20.1) 07/11/24 16:29 Methemoglobin 1.1 % (0.4-1.5) 07/11/24 16:29 Total Hemoglobin 10.4 g/dL (12-16) L 07/11/24 16:29 Sodium 141.0 mmol/L (131-143) 07/11/24 16:29 Potassium 3.7 mmol/L (3.5-5.0) 07/11/24 16:29 Glucose 135.0 mg/dL (70-115) H 07/11/24 16:29 Ionized Calcium 1.2 mmol/L (1.1-1.4) 07/11/24 16:29 O2 Delivery Device Nc 07/11/24 16:29 O2 Liters/Min 3.0 % 07/11/24 16:29 Assistant Customer Service Manager ID Tu 07/11/24 16:29 Sodium 136 mmol/L (136-145) 07/14/24 04:32 Potassium 3.8 mmol/L (3.5-5.1) 07/14/24 04:32 Chloride 97 mmol/L (98-107) L 07/14/24 04:32 Carbon Dioxide 29 mmol/L (22-29) 07/14/24 04:32 Anion Gap 13.8 (5-19) 07/14/24 04:32 BUN 16 mg/dL (8-23) 07/14/24 04:32 Creatinine 0.6 mg/dL (0.5-0.9) 07/14/24 04:32 GFR Calculation 101.0 mL/min (90-130) 07/14/24 04:32 Glucose 183 mg/dL (65-115) H 07/14/24 04:32 Calculated Osmolality 288 mOsm/kg (285-295) 07/14/24 04:32 Lactic Acid 1.0 mmol/L (0.5-2.2) 07/11/24 16:34 Calcium 8.0 mg/dL (8.5-10.5) L 07/14/24 04:32 Phosphorus 2.4 mg/dL (2.5-4.5) L 07/12/24 04:17 Magnesium 1.6 mg/dL (1.7-2.3) L 07/12/24 04:17 Total Bilirubin 0.2 mg/dL (0.15-1.2) 07/13/24 03:47 AST 16 U/L (0-32) 07/13/24 03:47 ALT 12 U/L (0-33) 07/13/24 03:47 Alkaline Phosphatase 78 U/L (35-105) 07/13/24 03:47 Troponin T Baseline 11 ng/L (0-10) H 07/11/24 16:34 Troponin T 120 Minute 8.58 ng/L (0-10) 07/11/24 18:30 Delta Troponin T -2.42 ABS# (0-10) L 07/11/24 18:30 Troponin T Hi Sens 6Hr 6.04 ng/L (0-10) 07/11/24 22:39 Troponin T Hi Sens 6Hr Delta -4.96 ng/L (0-12) L 07/11/24 22:39 NT-Pro-B Natriuret Pep 190 pg/mL (0-125) H 07/11/24 16:34 Total Protein 6.6 g/dL (6.6-8.7) 07/13/24 03:47 Albumin 3.9 g/dL (3.5-5.2) 07/13/24 03:47 Globulin 2.7 g/dL (1.3-4.6) 07/13/24 03:47 Procalcitonin 0.02 ng/mL (0-0.5) 07/12/24 04:17 Urine Color Yellow (Yellow) 07/11/24 22:43 Urine Appearance Clear (CLEAR) 07/11/24 22:43 Urine pH 6.5 (5-7) 07/11/24 22:43 Ur Specific [place] 1.014 (1.005-1.030) 07/11/24 22:43 Urine Protein Negative (Negative) 07/11/24 22:43 Urine Glucose (UA) 1+ (Normal) H 07/11/24 22:43 Urine Ketones Negative (Negative) 07/11/24 22:43 Urine Blood Negative (Negative) 07/11/24 22:43 Urine Nitrate Positive (Negative) A 07/11/24 22:43 Urine Bilirubin Negative (Negative) 07/11/24 22:43 Urine Urobilinogen 0.2 mg/dL (Negative) 07/11/24 22:43 Ur Leukocyte Esterase 2+ (Negative) A 07/11/24 22:43 Urine RBC 0-2 /hpf (0-2) 07/11/24 22:43 Urine WBC 11-20 /hpf (0-5) H 07/11/24 22:43 Ur Squamous Epith Cells 0-5 /hpf (0-5) 07/11/24 22:43 Amorphous Sediment Not Reportable 07/11/24 22:43 Urine Bacteria 4+ /hpf (NONE) H 07/11/24 22:43 Hyaline Casts 0-4 /lpf H 07/11/24 22:43 Coronavirus (PCR) Negative (Negative) 07/11/24 16:54 Influenza A (PCR) Negative (Negative) 07/11/24 16:54 Influenza Type B (PCR) Negative (Negative) 07/11/24 16:54 RSV (PCR) Negative (Negative) 07/11/24 16:54 Vitals Last Vital Signs Temp 98.3 F 07/14/24 11:36 Pulse 95 07/14/24 11:36 Resp 18 07/14/24 11:36 BP 113/68 07/14/24 11:36 Pulse Ox 96 07/14/24 11:36 O2 Del Method Nasal Cannula 07/14/24 11:36 O2 Flow Rate 3 07/14/24 08:18 Discharge Plan Discharge Patient Disposition: Home Health Service Condition: Stable Prescriptions: New levofloxacin 750 mg Tablet 750 mg PO DAILY@0600 5 Days Qty: 5 0RF prednisone 20 mg tablet See Rx Instructions .ROUTE .COMPLEX Qty: 53 0RF Rx Instructions: 4 tabs a day for 5 days, 3 tabs for 5 days, 2 tabs for 5 days, 1 tab for 5 days, 0.5tab for 5 days Continued levothyroxine 88 mcg Tablet 88 mcg PO DAILY@0800 allopurinol 300 mg tablet 300 mg PO DAILY@0600 cholecalciferol (vitamin D3) [Vitamin D3] 2,000 unit Tablet 2,000 unit PO DAILY@0800 acetaminophen [Tylenol Extra Strength] 500 mg Tablet 1,000 mg PO PRN gabapentin 300 mg capsule 300 mg PO BEDTIME@1800 ktbsconz-nnw-FS-lycopen-lutein 500-300-250 mcg Tablet 1 tab PO DAILY@0800 nortriptyline 50 mg capsule 50 mg PO DAILY duloxetine 60 mg capsule,delayed release(DR/EC) 60 mg PO DAILY ipratropium bromide 0.02 % Solution 0.5 mg inhalation Q6H.RESP Qty: 150 0RF Rx Instructions: 4 times a day for next 2 weeks followed by twice daily levalbuterol HCl 0.63 mg/3 mL Solution For Nebulization 0.63 mg inhalation Q6H.RESP Qty: 90 0RF Held methenamine hippurate 1 gram tablet 1 g PO BID Hold Instructions: Resume on 07/21/24. Discharge Orders: Discharge Order (Routine); Ordered 07/14/24 Ordered By: Damir Santoro Referrals: [facility] [Outside] Adela Stout [Primary Care Provider] - 07/21/24 2:00 pm Discharge Diet: Cardiac Discharge Activity: Resume usual activity Patient Instructions: Opioid Safety Activity Restrictions/Additional Instructions: - Please see primary care provider next week -Please follow-up with oncology in 2 to 4 weeks -If you have worsening shortness of breath please go to the emergency room Discharge Attestations Time Spent in Discharge Care*: greater than 30 min Status at Discharge: Cognitive status at discharge: cognitively intact , Behavioral status at discharge: cooperative , Quality Metrics Clinical Quality Measures [ No reported AMI, CVA or VTE this stay] Coding Level of Care Code 15680 Total time (in minutes) for Discharge: 45 Diagnoses Hypoxic respiratory failure J96.91 Chronic obstructive pulmonary disease with (acute) exacerbation J44.1 Small cell lung cancer in adult C34.90
== END 2024-07-14 12:45 | disposition home health service (06) | DRG 190 ==
LOC: ER 18:28 → MEDSURG 20:53
PROVIDERS: Admitting Provider Student in an Organized Health Care Education/Training Program; Emergency Provider Emergency Medicine; PCP Internal Medicine; Visit Provider Family Medicine
DX: J44.1 Chronic obstructive pulmonary disease with (acute) exacerbation (principal); J96.21 Acute and chronic respiratory failure with hypoxia; C34.90 Malignant neoplasm of unspecified part of unspecified bronchus or lung; Z92.3 Personal history of irradiation; Z99.81 Dependence on supplemental oxygen; Z79.890 Hormone replacement therapy; Z86.73 Personal history of transient ischemic attack (TIA), and cerebral infarction without residual deficits; E03.9 Hypothyroidism, unspecified; Z87.891 Personal history of nicotine dependence; Z86.16 Personal history of COVID-19; Z11.52 Encounter for screening for COVID-19
CPT/HCPCS: 0241U; 36415; 36600; 71045; 80048; 80051; 80053; 81001; 82330; 82805; 83605; 83735; 83880; 84100; 84145; 84484; 85025; 85378; 86403; 87040; 87077; 87086; 87186; 87449; 93005; 93306; 94640; 94664; 96365; 96372; 96375; 99285; J1644; J1940; J2270; J2919; J3490; J7613; J7614; J7626; J7644

== ENCOUNTER 2024-07-14 17:58 | Emergency (ER) | payer MEDICARE, MEDICAID, SELFPAY ==
[2024-07-14 18:17] VITALS: BP 105/66; PULSE 94; TEMP 36.4; O2SAT 95
[2024-07-14 19:08] VITALS: BP 139/73; PULSE 85; O2SAT 95
[2024-07-14] MEDS: ondansetron 2 mg/ML SDV 2 mL 8 MG IVP (19:32)
[2024-07-14 19:52] LABS: Hematocrit 37.4 % (36-47); Lymphocytes # 0.8 10^3/uL (0.8-4.8); Lymphocytes % 9.9 %; Mean Corpuscular HGB Conc 31.6 g/dL (30-55); Mean Corpuscular Hemoglobin 26.9 pg (27-33); Mean Corpuscular Volume 85.2 fl (85-98); Mean Platelet Volume 9.6 fL (7.4-10.4); Monocytes # 0.6 10^3/uL (0.2-0.9); Monocytes % 7.8 %; Neutrophils # 6.55 10^3/uL (1.8-7.7); Neutrophils % 81.9 %; Nucleated Red Blood Cells % 0 %; Platelet Count 263 10^3/cmm (157-399); Red Blood Count 4.39 10^6/uL (3.85-5.65); Red Cell Distribution Width 14.8 % (12.1-15.1); White Blood Count 7.99 10^3/uL (3.29-11.43)
[2024-07-14 20:00] VITALS: BP 121/64; PULSE 89; O2SAT 99
[2024-07-14 20:05] LABS: Lactic Sepsis W/Reflex 1.3 mmol/L (0.5-2.2)
[2024-07-14 20:06] LABS: Alanine Aminotransferase 12 U/L (0-33); Albumin Level 4.4 g/dL (3.5-5.2); Alkaline Phosphatase 70 U/L (35-105); Anion Gap 11.5 (5-19); Aspartate Amino Transferase 15 U/L (0-32); Blood Urea Nitrogen 21 mg/dL (8-23); Carbon Dioxide 35 mmol/L (22-29); Chloride 92 mmol/L (98-107); Globulin 2.8 g/dL (1.3-4.6); Glomerular Filtration Rate 72.4 mL/min (90-130); Glucose 137 mg/dL (65-115); Osmolality Calculated 285 mOsm/kg (285-295); Potassium 3.5 mmol/L (3.5-5.1); Sodium 135 mmol/L (136-145); Total Bilirubin 0.4 mg/dL (0.15-1.2); Total Protein 7.2 g/dL (6.6-8.7)
[2024-07-14 20:18] LABS: Bilirubin Urine Negative (Negative); Blood Urine Negative (Negative); Glucose Urine UA Negative (Normal); Ketones Urine Trace (Negative); Leukocyte Esterase Urine Negative (Negative); Nitrate Urine Negative (Negative); Protein Urine Trace (Negative); Specific Gravity, Urine 1.022 (1.005-1.030); Urine Appearance Clear (CLEAR); Urine Color Yellow (Yellow)
--- NOTE | 2024-07-14 20:19 | ED_ITS ---
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 She says when she got home she went to eat and after she was eating she started vomiting and could not keep anything down. No focal abdominal pain. She still feels a bit nauseous. But has not been vomiting at this point. She is stable on her home 3 L nasal cannula. She does not think she aspirated. No chest pain. No increased shortness of breath. Related Data Home Medications Medication Instructions Recorded Confirmed allopurinol 300 mg tablet 300 mg PO DAILY@0600 10/17/19 07/13/24 cholecalciferol (vitamin D3) 50 2,000 unit PO DAILY@0800 10/17/19 07/13/24 mcg (2,000 unit) tablet (Vitamin D3) levothyroxine 88 mcg tablet 88 mcg PO DAILY@0800 10/17/19 07/13/24 acetaminophen 500 mg tablet 1,000 mg PO PRN 10/24/20 07/13/24 (Tylenol Extra Strength) gabapentin 300 mg capsule 300 mg PO BEDTIME@1800 10/24/20 07/13/24 ygwwaxww-fcn-vypqh acid 500 1 tab PO DAILY@0800 03/28/21 07/13/24 mcg-lycopene 300 mcg-lutein 250 mcg tablet duloxetine 60 mg capsule,delayed 60 mg PO DAILY 06/26/24 07/13/24 release methenamine hippurate 1 gram tablet 1 g PO BID 06/26/24 07/13/24 nortriptyline 50 mg capsule 50 mg PO DAILY 06/26/24 07/13/24 Previous Rx's Medication Instructions Recorded ipratropium bromide 0.02 % 0.5 mg (2.5 mL) inhalation 06/27/24 solution for inhalation Q6H.RESP #150 mL levalbuterol HCl 0.63 mg/3 mL 0.63 mg (3 mL) inhalation Q6H.RESP 06/27/24 solution for nebulization #90 mL levofloxacin 750 mg tablet 750 mg PO DAILY@0600 5 days #5 tabs 07/14/24 ondansetron 8 mg disintegrating 8 mg PO Q6H #14 tabs 07/14/24 tablet prednisone 20 mg tablet See Rx Instructions .Route 07/14/24 .COMPLEX #53 tabs Allergies Allergy/AdvReac Type Severity Reaction Status Date / Time ibuprofen Allergy [place] Verified 08/09/22 13:19 Lip/Tongue/Throat flu shot Allergy Unknown Uncoded 08/09/22 13:19 Review of Systems 2 Narrative: Constitutional symptoms: Negative except as documented in HPI. Skin symptoms: Negative except as documented in HPI. Eye symptoms: Negative except as documented in HPI. ENMT symptoms: Negative except as documented in HPI. Respiratory symptoms: Negative except as documented in HPI. Cardiovascular symptoms: Negative except as documented in HPI. Gastrointestinal symptoms: Negative except as documented in HPI. Genitourinary symptoms: Negative except as documented in HPI. Musculoskeletal symptoms: Negative except as documented in HPI. Neurologic symptoms: Negative except as documented in HPI. Psychiatric symptoms: Negative except as documented in HPI. Endocrine symptoms: Negative except as documented in HPI. PFSH ED 2 PFSH: Medical History (Updated 07/14/24 @ 20:48 by Lisa Lynch MD) Left-sided weakness Compression fracture of T7 vertebra Gout H/O: CVA (cerebrovascular accident) Hypothyroidism Pneumonia due to COVID-19 virus Diarrhea due to COVID-19 Nausea & vomiting Abdominal pain Hypoxia COVID-19 Former smoker COPD (chronic obstructive pulmonary disease) Small cell lung cancer in adult Post radiation 06/16 Surgical History History of appendectomy Family History Father Cancer Lung cancer Social History Smoking and tobacco/nicotine status: former use of tobacco/nicotine Alcohol intake: never Substance/Drug Use: never Household members: family Housing: House Physical Exam 2 Narrative: EXAM NARRATIVE: General: Alert, no acute distress. Skin: Warm, dry. Head: Normocephalic, atraumatic. Neck: Supple, trachea midline. Eye: Extraocular movements are intact. Ears, nose, mouth and throat: mucosa moist. Cardiovascular: Regular, Normal peripheral perfusion. Respiratory: Lungs are clear to auscultation, respirations are non-labored, breath sounds are equal, Symmetrical chest wall expansion. Gastrointestinal: Soft, Nontender, Non distended Musculoskeletal: Normal ROM, no deformity. Neurological: Alert and oriented, No focal neurological deficit observed. Psychiatric: Cooperative, appropriate mood & affect. Course 2 Vital Signs: Vital signs: Vital Signs Temperature 97.6 F 07/14/24 18:17 Pulse Rate 89 07/14/24 20:00 Blood Pressure 121/64 07/14/24 20:00 Pulse Oximetry 99 07/14/24 20:00 Oxygen Delivery Me thod Nasal Cannula 07/14/24 20:00 Oxygen Flow Rate 3 07/14/24 20:00 MDM - Nausea/Vomiting/Diarrhea Medical Decision Making Medical decision making: Differential diagnosis for this patient with nausea and vomiting including but not limited to and based on the above HPI, review of systems and physical exam: Urinary tract infection. Appendicitis. Cholecystis. colitis. small bowel obstruction. crohn's flare. pancreatitis. gastritis. peptic ulcer. cyclic vomiting. Viral illness. Influenza. COVID. - Workup - labwork and imaging ordered to evaluate, rule in and rule out above pathologies. Lab Review: Laboratory results were reviewed and interpreted by myself the emergency room physician. Lab work is unremarkable. No leukocytosis. No anemia. No renal failure. Urine is clear. I reviewed the patient's medical record. Reexamination: Patient is now taking p.o. Patient remained stable. No increased work of breathing. No altered mental status. No focal motor deficits. Assessment and plan: Acute nausea and vomiting. ?IV Zofran now tolerating p.o. - Discharged home - Discussed plan with patient. Answered any questions. - Evaluation and treatment of this problem were appropriate in the emergency setting. Lab Data 07/14/24 19:39 07/14/24 19:39 Laboratory Results WBC 7.99 10^3/uL (3.29-11.43) 07/14/24 19:39 RBC 4.39 10^6/uL (3.85-5.65) 07/14/24 19:39 Hgb 11.80 g/dL (11.27-16.99) 07/14/24 19:39 Hct 37.4 % (36-47) 07/14/24 19:39 MCV 85.2 fl (85-98) 07/14/24 19:39 MCH 26.9 pg (27-33) L 07/14/24 19:39 MCHC 31.6 g/dL (30-55) 07/14/24 19:39 RDW 14.8 % (12.1-15.1) 07/14/24 19:39 Plt Count 263 10^3/cmm (157-399) 07/14/24 19:39 MPV 9.6 fL (7.4-10.4) 07/14/24 19:39 Neut % (Auto) 81.9 % 07/14/24 19:39 Lymph % (Auto) 9.9 % 07/14/24 19:39 [place] % (Auto) 7.8 % 07/14/24 19:39 Eos % (Auto) 0.0 % 07/14/24 19:39 Baso % (Auto) 0.0 % 07/14/24 19:39 Neut # (Auto) 6.55 10^3/uL (1.8-7.7) 07/14/24 19:39 Lymph # (Auto) 0.8 10^3/uL (0.8-4.8) 07/14/24 19:39 [place] # (Auto) 0.6 10^3/uL (0.2-0.9) 07/14/24 19:39 Eos # (Auto) 0.0 10^3/uL (0.0-0.8) 07/14/24 19:39 Baso # (Auto) 0.0 10^3/uL (0.0-0.1) 07/14/24 19:39 Nucleated RBC % (auto) 0 % 07/14/24 19:39 Nucleated RBCs # 0.0 /100WBC 07/14/24 19:39 Sodium 135 mmol/L (136-145) L 07/14/24 19:39 Potassium 3.5 mmol/L (3.5-5.1) 07/14/24 19:39 Chloride 92 mmol/L (98-107) L 07/14/24 19:39 Carbon Dioxide 35 mmol/L (22-29) H 07/14/24 19:39 Anion Gap 11.5 (5-19) 07/14/24 19:39 BUN 21 mg/dL (8-23) 07/14/24 19:39 Creatinine 0.8 mg/dL (0.5-0.9) 07/14/24 19:39 GFR Calculation 72.4 mL/min (90-130) L 07/14/24 19:39 Glucose 137 mg/dL (65-115) H 07/14/24 19:39 Calculated Osmolality 285 mOsm/kg (285-295) 07/14/24 19:39 Lactic Acid 1.3 mmol/L (0.5-2.2) 07/14/24 19:39 Calcium 9.0 mg/dL (8.5-10.5) 07/14/24 19:39 Total Bilirubin 0.4 mg/dL (0.15-1.2) 07/14/24 19:39 AST 15 U/L (0-32) 07/14/24 19:39 ALT 12 U/L (0-33) 07/14/24 19:39 Alkaline Phosphatase 70 U/L (35-105) 07/14/24 19:39 Total Protein 7.2 g/dL (6.6-8.7) 07/14/24 19:39 Albumin 4.4 g/dL (3.5-5.2) 07/14/24 19:39 Globulin 2.8 g/dL (1.3-4.6) 07/14/24 19:39 Urine Color Yellow (Yellow) 07/14/24 20:10 Urine Appearance Clear (CLEAR) 07/14/24 20:10 Urine pH 6.0 (5-7) 07/14/24 20:10 Ur Specific [place] 1.022 (1.005-1.030) 07/14/24 20:10 Urine Protein Trace (Negative) A 07/14/24 20:10 Urine Glucose (UA) Negative (Normal) 07/14/24 20:10 Urine Ketones Trace (Negative) 07/14/24 20:10 Urine Blood Negative (Negative) 07/14/24 20:10 Urine Nitrate Negative (Negative) 07/14/24 20:10 Urine Bilirubin Negative (Negative) 07/14/24 20:10 Urine Urobilinogen 1.0 mg/dL (Negative) 07/14/24 20:10 Ur Leukocyte Esterase Negative (Negative) 07/14/24 20:10 Urine RBC 0-2 /hpf (0-2) 07/14/24 20:10 Urine WBC 0-5 /hpf (0-5) 07/14/24 20:10 Ur Squamous Epith Cells 0-5 /hpf (0-5) 07/14/24 20:10 Amorphous Sediment Not Reportable 07/14/24 20:10 Urine Bacteria None seen /hpf (NONE) 07/14/24 20:10 Hyaline Casts 0-4 /lpf H 07/14/24 20:10 No radiology studies performed this visit Discharge Plan Discharge Patient Disposition: Home Clinical Impression: Vomiting Condition: Stable Prescriptions: New ondansetron 8 mg tablet,disintegrating 8 mg PO Q6H Qty: 14 0RF Rx Instructions: Take 1/2-1 tab every 6 hours as needed for nausea and vomiting No Action levothyroxine 88 mcg Tablet 88 mcg PO DAILY@0800 allopurinol 300 mg tablet 300 mg PO DAILY@0600 cholecalciferol (vitamin D3) [Vitamin D3] 2,000 unit Tablet 2,000 unit PO DAILY@0800 acetaminophen [Tylenol Extra Strength] 500 mg Tablet 1,000 mg PO PRN gabapentin 300 mg capsule 300 mg PO BEDTIME@1800 xrczaryy-zvq-LW-lycopen-lutein 500-300-250 mcg Tablet 1 tab PO DAILY@0800 methenamine hippurate 1 gram tablet 1 g PO BID Hold Instructions: Resume on 07/21/24. nortriptyline 50 mg capsule 50 mg PO DAILY duloxetine 60 mg capsule,delayed release(DR/EC) 60 mg PO DAILY ipratropium bromide 0.02 % Solution 0.5 mg inhalation Q6H.RESP Qty: 150 0RF Rx Instructions: 4 times a day for next 2 weeks followed by twice daily levalbuterol HCl 0.63 mg/3 mL Solution For Nebulization 0.63 mg inhalation Q6H.RESP Qty: 90 0RF levofloxacin 750 mg Tablet 750 mg PO DAILY@0600 5 Days Qty: 5 0RF prednisone 20 mg tablet See Rx Instructions .ROUTE .COMPLEX Qty: 53 0RF Rx Instructions: 4 tabs a day for 5 days, 3 tabs for 5 days, 2 tabs for 5 days, 1 tab for 5 days, 0.5tab for 5 days Discharge Orders: Discharge ED (Routine); Ordered 07/14/24 Ordered By: Lisa Lynch Referrals: Adela Stout [Primary Care Provider] - Discharge Diet: Advance as tolerated Discharge Activity: Increase activity as tolerated Patient Instructions: Acute Nausea and Vomiting (ED) Activity Restrictions/Additional Instructions: Thank you for choosing [facility] for your healthcare needs today. Please realize this is an emergency room and that we are providing you with a medical screening exam and this may not be complete and all inclusive of all the testing and or work up that you may need to determine your ailment or severity of your illness. You have been screened and evaluated and felt safe for discharge. Health conditions do change or evolve sometimes and as such it is important that you follow up with your Primary Doctor to be re checked, 3-5 days is a general good time frame for follow up. You are always welcome to return to the ED for re assessment if your symptoms are worsening or you have new concerns Coding Level of Care Code ED Moisture Meter 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
[2024-07-14 20:23] LABS: Bacteria Urine None Seen /hpf; Hyaline Casts Urine 0-4 /lpf; RBC Urine 0-2 /hpf (0-2); Squamous Epithelial Cell Urine 0-5 /hpf (0-5); WBC Urine 0-5 /hpf (0-5)
[2024-07-14] MEDS: ondansetron 4 MG Tablet 8 MG PO (21:21)
[2024-07-14 21:33] VITALS: BP 115/80; PULSE 92; O2SAT 95
== END 2024-07-14 21:34 | disposition home or self-care (01) ==
PROVIDERS: Emergency Provider Emergency Medicine; PCP Internal Medicine
DX: R11.10 Vomiting, unspecified (principal); J44.9 Chronic obstructive pulmonary disease, unspecified; Z87.891 Personal history of nicotine dependence
CPT/HCPCS: 80053; 81001; 83605; 85025; 96374; 99284; J2405; Q0162

== ENCOUNTER 2024-07-16 18:25 | Emergency (ER) | payer MEDICARE, MEDICAID, SELFPAY ==
[2024-07-16] VITALS (8 sets, daily range): BP systolic 100–134; BP diastolic 53–62; PULSE 64–88; RESP 16–20; TEMP 36.7; O2SAT 93–100; BMI 25.1
--- NOTE | 2024-07-16 18:49 | ED_ITS ---
HPI - Nausea/Vomiting/Diarrhea 2 General: Chief complaint: Nausea/Vomiting/Diarrhea Stated complaint: nausea Time Seen by Provider: 07/16/24 18:39 History of Present Illness: Patient presents to the ER with complaints of nausea vomiting for several days. Patient has been seen here once 2 days ago for the same thing sent home with Neymar but she said it does not seem to help. Patient does have lung cancer and received radiation. Patient also has COPD. Related Data Home Medications Medication Instructions Recorded Confirmed allopurinol 300 mg tablet 300 mg PO DAILY@0600 10/17/19 07/13/24 cholecalciferol (vitamin D3) 50 2,000 unit PO DAILY@0800 10/17/19 07/13/24 mcg (2,000 unit) tablet (Vitamin D3) levothyroxine 88 mcg tablet 88 mcg PO DAILY@0800 10/17/19 07/13/24 acetaminophen 500 mg tablet 1,000 mg PO PRN 10/24/20 07/13/24 (Tylenol Extra Strength) gabapentin 300 mg capsule 300 mg PO BEDTIME@1800 10/24/20 07/13/24 yauhqrzs-qhz-ggvdc acid 500 1 tab PO DAILY@0800 03/28/21 07/13/24 mcg-lycopene 300 mcg-lutein 250 mcg tablet duloxetine 60 mg capsule,delayed 60 mg PO DAILY 06/26/24 07/13/24 release methenamine hippurate 1 gram tablet 1 g PO BID 06/26/24 07/13/24 nortriptyline 50 mg capsule 50 mg PO DAILY 06/26/24 07/13/24 Previous Rx's Medication Instructions Recorded ipratropium bromide 0.02 % 0.5 mg (2.5 mL) inhalation 06/27/24 solution for inhalation Q6H.RESP #150 mL levalbuterol HCl 0.63 mg/3 mL 0.63 mg (3 mL) inhalation Q6H.RESP 06/27/24 solution for nebulization #90 mL levofloxacin 750 mg tablet 750 mg PO DAILY@0600 5 days #5 tabs 07/14/24 ondansetron 8 mg disintegrating 8 mg PO Q6H #14 tabs 07/14/24 tablet prednisone 20 mg tablet See Rx Instructions .Route 07/14/24 .COMPLEX #53 tabs metoclopramide HCl 10 mg tablet 10 mg PO Q6H PRN nausea and 07/16/24 (Reglan) vomiting #14 tabs Allergies Allergy/AdvReac Type Severity Reaction Status Date / Time ibuprofen Allergy ALGY-Swell Verified 08/09/22 13:19 Lip/Tongue/Throat flu shot Allergy Unknown Uncoded 08/09/22 13:19 Review of Systems 2 General: Reports: 10 or more systems reviewed and unremarkable except in HPI and below PFSH ED 2 PFSH: Medical History Left-sided weakness Compression fracture of T7 vertebra Gout H/O: CVA (cerebrovascular accident) Hypothyroidism Pneumonia due to COVID-19 virus Diarrhea due to COVID-19 Nausea & vomiting Abdominal pain Hypoxia COVID-19 Former smoker COPD (chronic obstructive pulmonary disease) Small cell lung cancer in adult Post radiation 06/16 Surgical History History of appendectomy Family History Father Cancer Lung cancer Social History Smoking and tobacco/nicotine status: former use of tobacco/nicotine Alcohol intake: never Substance/Drug Use: never Household members: family Housing: House Physical Exam 2 Const: COMMON NORMALS: no acute distress, average body habitus, patient oriented x3, no limitations, healthy appearing, alert and well nourished HENMT: COMMON NORMALS: normocephalic, atraumatic, hearing grossly normal bilaterally, external ears normal, Normal external nose present and moist oral mucous membranes HEAD & SCALP: normocephalic and atraumatic NOSE: Normal external nose present EXTERNAL EAR: Yes external ears normal Neck/C-Spine: COMMON NORMALS: full ROM, no lymphadenopathy, supple, no meningeal signs, no JVD and Thyroid normal THYROID: Thyroid normal Chest: COMMONS NORMALS: normal inspection of the chest and normal palpation of entire chest wall Resp: COMMON NORMALS: normal respiratory effort, No retractions, No use of accessory muscles and clear to auscultation bilaterally AUSCULTATION: clear to auscultation bilaterally Cardio: COMMON NORMALS: no JVD, regular rate, regular rhythm, S1 normal heart sound present, S2 normal heart sound present, No gallops present (Cardio), No clicks present (Cardio), No murmurs present (Cardio) and No rub (Cardio) R ATE: regular rate RHYTHM: regular rhythm HEART SOUNDS: S1 normal heart sound present and S2 normal heart sound present GI: COMMON NORMALS: Normal to inspection, nondistended, normoactive bowel sounds present, Soft to palpation, No hepatosplenomegaly present and no masses; negative for non-tender (Mildly tender to palpate) PALPATION: Yes Soft to palpation and Yes No hepatosplenomegaly present Neuro: COMMON NORMALS: patient oriented x3 SENSORIUM/ORIENTATION: Yes alert MENINGEAL SIGNS: Yes no meningeal signs Course 2 Vital Signs: Vital signs: Vital Signs Temperature 98.1 F 07/16/24 18:37 Pulse Rate 77 07/16/24 20:39 Respiratory Rate 20 H 07/16/24 18:37 Blood Pressure 134/62 07/16/24 20:39 Pulse Oximetry 99 07/16/24 20:39 Oxygen Delivery Me thod Nasal Cannula 07/16/24 18:37 Oxygen Flow Rate 3 07/16/24 18:37 MDM - Nausea/Vomiting/Diarrhea Medical Decision Making Lab work was obtained and as well as CT scan of the abdomen pelvis with contrast, all of which was fairly benign. Except for equalization hypomotility. This results were discussed with the patient. Patient is nauseous feeling much better. Patient be discharged on Reglan. Medical Records I reviewed the patient's medical records. Lab Data I reviewed the patient's lab results. 07/16/24 19:01 07/16/24 19:01 Radiology Impressions Abdomen/Pelvis CT 07/16/24 19:26 IMPRESSION: 1. Fecalization of intraluminal contents in the distal ileum can be seen in the setting of hypomotility and/or enteritis. 2. Moderate stool in the proximal colon. Correlate for constipation. 3. Mild mural thickening near the rectosigmoid junction is likely related to underdistention. Mild proctocolitis not entirely excluded. 4. Submucosal fatty deposition in the stomach can be seen with chronic inflammation. Laboratory Results WBC 6.75 10^3/uL (3.29-11.43) 07/16/24 19:01 RBC 4.34 10^6/uL (3.85-5.65) 07/16/24 19:01 Hgb 11.80 g/dL (11.27-16.99) 07/16/24 19: Hct 36.8 % (36-47) 07/16/24 19: MCV 84.8 fl (85-98) L 07/16/24 19: MCH 27.2 pg (27-33) 07/16/24 19: MCHC 32.1 g/dL (30-55) 07/16/24 19: RDW 14.1 % (12.1-15.1) 07/16/24 19: Plt Count 233 10^3/cmm (157-399) 07/16/24 19: MPV 9.0 fL (7.4-10.4) 07/16/24 19: Neut % (Auto) 90.8 % 07/16/24 19: Lymph % (Auto) 6.4 % 07/16/24 19: [place] % (Auto) 2.5 % 07/16/24 19: Eos % (Auto) 0.0 % 07/16/24 19: Baso % (Auto) 0.0 % 07/16/24 19: Neut # (Auto) 6.13 10^3/uL (1.8-7.7) 07/16/24 19: Lymph # (Auto) 0.4 10^3/uL (0.8-4.8) L 07/16/24 19:01 [place] # (Auto) 0.2 10^3/uL (0.2-0.9) 07/16/24 19: Eos # (Auto) 0.0 10^3/uL (0.0-0.8) 07/16/24 19:01 Baso # (Auto) 0.0 10^3/uL (0.0-0.1) 07/16/24 19: Nucleated RBC % (auto) 0 % 07/16/24 19: Nucleated RBCs # 0.0 /100WBC 07/16/24 19:01 Sodium 132 mmol/L (136-145) L 07/16/24 19: Potassium 4.1 mmol/L (3.5-5.1) 07/16/24 19: Chloride 92 mmol/L (98-107) L 07/16/24 19: Carbon Dioxide 31 mmol/L (22-29) H 07/16/24 19:01 Anion Gap 13.1 (5-19) 07/16/24 19:01 BUN 23 mg/dL (8-23) 07/16/24 19:01 Creatinine 0.6 mg/dL (0.5-0.9) 07/16/24 19:01 GFR Calculation 101.0 mL/min (90-130) 07/16/24 19:01 Glucose 152 mg/dL (65-115) H 07/16/24 19:01 Calculated Osmolality 281 mOsm/kg (285-295) L 07/16/24 19:01 Calcium 8.4 mg/dL (8.5-10.5) L 07/16/24 19:01 Magnesium 2.3 mg/dL (1.7-2.3) 07/16/24 19:01 Total Bilirubin 0.5 mg/dL (0.15-1.2) 07/16/24 19:01 AST 18 U/L (0-32) 07/16/24 19: ALT 14 U/L (0-33) 07/16/24 19:01 Alkaline Phosphatase 69 U/L (35-105) 07/16/24 19:01 Total Protein 6.8 g/dL (6.6-8.7) 07/16/24 19:01 Albumin 3.9 g/dL (3.5-5.2) 07/16/24 19:01 Globulin 2.9 g/dL (1.3-4.6) 07/16/24 19: Lipase 12 U/L (13-60) L 07/16/24 19:07 All radiology interpretation(s) finalized by discharge Discharge Plan Discharge Patient Disposition: Home Clinical Impression: Nausea & vomiting Qualifiers: Vomiting type: unspecified Qualified Code(s): R11.2 - Nausea with vomiting, unspecified Condition: Stable Prescriptions: New metoclopramide HCl [Reglan] 10 mg tablet 10 mg PO Q6H PRN (Reason: nausea and vomiting) Qty: 14 0RF No Action levothyroxine 88 mcg Tablet 88 mcg PO DAILY@0800 allopurinol 300 mg tablet 300 mg PO DAILY@0600 cholecalciferol (vitamin D3) [Vitamin D3] 2,000 unit Tablet 2,000 unit PO DAILY@0800 acetaminophen [Tylenol Extra Strength] 500 mg Tablet 1,000 mg PO PRN gabapentin 300 mg capsule 300 mg PO BEDTIME@1800 fieibbbb-eei-TF-lycopen-lutein 500-300-250 mcg Tablet 1 tab PO DAILY@0800 ondansetron 8 mg tablet,disintegrating 8 mg PO Q6H Qty: 14 0RF Rx Instructions: Take 1/2-1 tab every 6 hours as needed for nausea and vomiting methenamine hippurate 1 gram tablet 1 g PO BID Hold Instructions: Resume on 07/21/24. nortriptyline 50 mg capsule 50 mg PO DAILY duloxetine 60 mg capsule,delayed release(DR/EC) 60 mg PO DAILY ipratropium bromide 0.02 % Solution 0.5 mg inhalation Q6H.RESP Qty: 150 0RF Rx Instructions: 4 times a day for next 2 weeks followed by twice daily levalbuterol HCl 0.63 mg/3 mL Solution For Nebulization 0.63 mg inhalation Q6H.RESP Qty: 90 0RF levofloxacin 750 mg Tablet 750 mg PO DAILY@0600 5 Days Qty: 5 0RF prednisone 20 mg tablet See Rx Instructions .ROUTE .COMPLEX Qty: 53 0RF Rx Instructions: 4 tabs a day for 5 days, 3 tabs for 5 days, 2 tabs for 5 days, 1 tab for 5 days, 0.5tab for 5 days Discharge Orders: Discharge ED (Routine); Ordered 07/16/24 Ordered By: Jordi Feliz Referrals: Adela Stout [Primary Care Provider] - 1 week Patient Instructions: Acute Nausea and Vomiting (ED) Activity Restrictions/Additional Instructions: Evaluation in the ER that included physical exam, lab work, contrasted CT scan of your abdomen pelvis all was essentially benign except your abdomen is full of stool. Please make sure you are getting up walking using your muscles throughout the day as this will help push to your bowel contents around and help you get rid of this. As well as please make sure drink plain water. Please follow-up with the practitioner in the next 7 days for further evaluation and treatment. Coding Level of Care Code ED Salvage Cutter for Beatrice Petersen
[2024-07-16] MEDS: diphenhydrAMINE 50 mg/mL SDV 1mL 25 MG IVP (19:06)
[2024-07-16] MEDS: metoclopramide 5 mg/mL SDV 2 mL 10 MG IVP (19:06)
[2024-07-16] MEDS: sodium chloride 0.9% 1,000 ML 999 ML IV (19:09)
[2024-07-16 19:10] LABS: Hematocrit 36.8 % (36-47); Lymphocytes # 0.4 10^3/uL (0.8-4.8); Lymphocytes % 6.4 %; Mean Corpuscular HGB Conc 32.1 g/dL (30-55); Mean Corpuscular Hemoglobin 27.2 pg (27-33); Mean Corpuscular Volume 84.8 fl (85-98); Monocytes # 0.2 10^3/uL (0.2-0.9); Monocytes % 2.5 %; Neutrophils # 6.13 10^3/uL (1.8-7.7); Neutrophils % 90.8 %; Nucleated Red Blood Cells % 0 %; Platelet Count 233 10^3/cmm (157-399); Red Blood Count 4.34 10^6/uL (3.85-5.65); Red Cell Distribution Width 14.1 % (12.1-15.1); White Blood Count 6.75 10^3/uL (3.29-11.43)
--- NOTE | 2024-07-16 19:26 | CTR_ITS ---
PROCEDURE INFORMATION: Exam: CT Abdomen And Pelvis With Contrast Exam date and time: 07/16/2024 8:08 PM Age: 63 years old Clinical indication: Abdominal pain; Prior surgery; Surgery date: 6+ months; Surgery type: Appy; Additional info: Abd pain n/v, current lung cancer TECHNIQUE: Imaging protocol: Computed tomography of the abdomen and pelvis with contrast. Radiation optimization: All CT scans at this facility use at least one of these dose optimization techniques: automated exposure control; mA and/or kV adjustment per patient size (includes targeted exams where dose is matched to clinical indication); or iterative reconstruction. Contrast material: OMNI 350; Contrast volume: 100 ml; Contrast route: INTRAVENOUS (IV); COMPARISON: CT abdomen pelvis wo con [id number] 11/01/2023 11:23 PM RADIATION DOSE METRICS: Total DLP (mGy-cm): 388.82 FINDINGS: Lungs: Mild bibasilar atelectasis, gjqpz-tusjlvd-hxut-left. Scattered benign calcified granulomas in the lung bases. Liver: Normal. No mass. Gallbladder and biliary ducts: Normal. No calcified stones. No ductal dilation. Pancreas: Pancreas is mildly atrophic. No ductal dilatation. Spleen: Normal. No splenomegaly. Adrenal glands: Normal. No mass. Kidneys and ureters: Normal. No hydronephrosis. Stomach and bowel: Submucosal fatty deposition within the stomach. Mild mural thickening near the rectosigmoid junction is likely exaggerated by underdistention. No evidence of bowel obstruction. Moderate stool in the proximal colon. Fecalization of intraluminal contents in the distal ileum. Appendix: No evidence of appendicitis. Intraperitoneal space: Unremarkable. No free air. No significant fluid collection. Vasculature: Moderate atherosclerotic aortoiliac calcifications. No aortic aneurysm. Lymph nodes: Unremarkable. No enlarged lymph nodes. Urinary bladder: Unremarkable as visualized. Reproductive: Unremarkable as visualized. Bones/joints: Unremarkable. No acute fracture. Soft tissues: Mild subcutaneous fat stranding anteriorly in the abdominal wall may be from post-injection changes. CT/CT abdomen pelvis w con* [id number] IMPRESSION: 1. Fecalization of intraluminal contents in the distal ileum can be seen in the setting of hypomotility and/or enteritis. 2. Moderate stool in the proximal colon. Correlate for constipation. 3. Mild mural thickening near the rectosigmoid junction is likely related to underdistention. Mild proctocolitis not entirely excluded. 4. Submucosal fatty deposition in the stomach can be seen with chronic inflammation.
[2024-07-16 19:42] LABS: Alanine Aminotransferase 14 U/L (0-33); Albumin Level 3.9 g/dL (3.5-5.2); Alkaline Phosphatase 69 U/L (35-105); Anion Gap 13.1 (5-19); Aspartate Amino Transferase 18 U/L (0-32); Blood Urea Nitrogen 23 mg/dL (8-23); Calcium 8.4 mg/dL (8.5-10.5); Carbon Dioxide 31 mmol/L (22-29); Chloride 92 mmol/L (98-107); Creatinine Clr Calc Pharmacy 86.6667; Globulin 2.9 g/dL (1.3-4.6); Glucose 152 mg/dL (65-115); Magnesium 2.3 mg/dL (1.7-2.3); Osmolality Calculated 281 mOsm/kg (285-295); Potassium 4.1 mmol/L (3.5-5.1); Sodium 132 mmol/L (136-145); Total Bilirubin 0.5 mg/dL (0.15-1.2); Total Protein 6.8 g/dL (6.6-8.7)
[2024-07-16] MEDS: iohexol 350 mg/mL 500 mL Btl (per mL) IV (20:12)
[2024-07-16 20:30] LABS: Lipase 12 U/L (13-60)
[2024-07-16] MEDS: metoclopramide 10 mg Tablet PO (21:28)
[2024-07-16] MEDS: morphine 4 mg/mL SDV 1 mL 2 MG IVP (21:30)
== END 2024-07-16 21:54 | disposition home or self-care (01) ==
PROVIDERS: Emergency Provider Emergency Medicine; PCP Internal Medicine
DX: R11.2 Nausea with vomiting, unspecified (principal); R19.7 Diarrhea, unspecified; J44.9 Chronic obstructive pulmonary disease, unspecified; Z85.118 Personal history of other malignant neoplasm of bronchus and lung; Z92.3 Personal history of irradiation
CPT/HCPCS: 74177; 80053; 83690; 83735; 85025; 96374; 96375; 99285; J1200; J2270; J2765; J7030; J8597

== ENCOUNTER 2024-07-18 08:23 | Emergency (ER) | payer MEDICARE, MEDICAID, SELFPAY ==
--- NOTE | 2024-07-18 08:29 | ECG_ITS ---
[facility] Test Date: 2024-07-18 Pat Name: Zulma Garcia Department: Room: Gender: Female Research Nurse: : 1960 Requested By: Prasanth Roy Order Number: [id number] Darci MD: Fe Negrete M.D. Measurements Intervals Stone Rate: 67 P: 50 MI: 136 QRS: 77 QRSD: 90 T: 57 QT: 367 QTc: 388 Interpretive Statements SINUS RHYTHM POSSIBLE RIGHT VENTRICULAR CONDUCTION DELAY [RSR (QR) IN V1/V2] SEPTAL MYOCARDIAL INFARCTION , OF INDETERMINATE AGE [40+ ms Q WAVE IN V1/V2] Compared to ECG 07/11/2024 23:06:42 No significant changes Electronically Signed On 07-20-2024 00:10:36 CDT by Fe Negrete M.D. [email or web address]
--- NOTE | 2024-07-18 08:29 | XRR_ITS ---
PROCEDURE INFORMATION: Exam: XR Chest Exam date and time: 07/18/2024 8:36 AM Age: 63 years old Clinical indication: Chest pressure; Patient HX: PT here via pov with C/O chest pain. PT states she awoke with chest pain during the night and went back to sleep and awoke this morning she had chest pain. PT reports wearing 3 L nc at baseline. PT reports HX of copd and lung cancer. TECHNIQUE: Imaging protocol: Radiologic exam of the chest. Views: 1 view. COMPARISON: CR (CHEST, ) 07/11/2024 4:59 PM FINDINGS: Lungs: The lungs are hyperinflated. Soft tissue prominence is noted in the left perihilar region with linear scarring projecting laterally from the left hilum. Please see report from CT thorax exam performed on 06/26/2024. No consolidated infiltrates are appreciated. Pleural spaces: Unremarkable. No pleural effusion. No pneumothorax. Heart/Mediastinum: Unremarkable. No cardiomegaly. Bones/joints: Methylmethacrylate cement is noted within a midthoracic vertebral body. XR/XR chest 1V portable [id number] IMPRESSION: 1. Lung hyperinflation. 2. Soft tissue nodularity within the left perihilar region with linear scarring projecting more peripherally into the left lung. Please see report from CT thorax exam date 06/26/2024.
[2024-07-18 08:32] VITALS: BP 131/64; PULSE 67; RESP 17; TEMP 36.4; O2SAT 98; BMI 25.1
[2024-07-18 08:41] LABS: Eosinophils # 0.2 10^3/uL (0.0-0.8); Eosinophils % 2.2 %; Lymphocytes # 2.3 10^3/uL (0.8-4.8); Lymphocytes % 24.5 %; Mean Corpuscular HGB Conc 31.9 g/dL (30-55); Mean Corpuscular Hemoglobin 26.7 pg (27-33); Mean Corpuscular Volume 83.7 fl (85-98); Mean Platelet Volume 8.4 fL (7.4-10.4); Monocytes # 0.5 10^3/uL (0.2-0.9); Monocytes % 5.4 %; Neutrophils # 6.42 10^3/uL (1.8-7.7); Neutrophils % 67.5 %; Nucleated Red Blood Cells % 0 %; Platelet Count 231 10^3/cmm (157-399); Red Blood Count 4.42 10^6/uL (3.85-5.65); Red Cell Distribution Width 13.9 % (12.1-15.1); White Blood Count 9.51 10^3/uL (3.29-11.43)
--- NOTE | 2024-07-18 08:45 | ED_ITS ---
HPI - Chest Pain 2 General: Chief Complaint: Chest Pain Stated Complaint: chest pain Time Seen by Provider: 07/18/24 08:28 History of Present Illness: 63-year-old female who presents to the e mergency room with complaint of chest pain. She had some nausea with it as well. She has a history of COPD has a recurrence of lung cancer. Chest pain on the right side worse with deep inspiration. Patient is on buprenorphine. She has a history of COPD she is chronically on oxygen at 3 L/min. No known history of coronary artery disease not related to exertion but she does note shortness of breath with exertion which is chronic and unchanged. Associated symptoms: Reports dyspnea; Deny abdominal pain or fever(s) Related Data Home Medications Medication Instructions Recorded Confirmed allopurinol 300 mg tablet 300 mg PO DAILY@0600 10/17/19 07/13/24 cholecalciferol (vitamin D3) 50 2,000 unit PO DAILY@0800 10/17/19 07/13/24 mcg (2,000 unit) tablet (Vitamin D3) levothyroxine 88 mcg tablet 88 mcg PO DAILY@0800 10/17/19 07/13/24 acetaminophen 500 mg tablet 1,000 mg PO PRN 10/24/20 07/13/24 (Tylenol Extra Strength) gabapentin 300 mg capsule 300 mg PO BEDTIME@1800 10/24/20 07/13/24 poauekdd-ctz-axgcl acid 500 1 tab PO DAILY@0800 03/28/21 07/13/24 mcg-lycopene 300 mcg-lutein 250 mcg tablet duloxetine 60 mg capsule,delayed 60 mg PO DAILY 06/26/24 07/13/24 release methenamine hippurate 1 gram tablet 1 g PO BID 06/26/24 07/13/24 nortriptyline 50 mg capsule 50 mg PO DAILY 06/26/24 07/13/24 Previous Rx's Medication Instructions Recorded ipratropium bromide 0.02 % 0.5 mg (2.5 mL) inhalation 06/27/24 solution for inhalation Q6H.RESP #150 mL levalbuterol HCl 0.63 mg/3 mL 0.63 mg (3 mL) inhalation Q6H.RESP 06/27/24 solution for nebulization #90 mL levofloxacin 750 mg tablet 750 mg PO DAILY@0600 5 days #5 tabs 07/14/24 ondansetron 8 mg disintegrating 8 mg PO Q6H #14 tabs 07/14/24 tablet prednisone 20 mg tablet See Rx Instructions .Route 07/14/24 .COMPLEX #53 tabs metoclopramide HCl 10 mg tablet 10 mg PO Q6H PRN nausea and 07/16/24 (Reglan) vomiting #14 tabs dexamethasone 2 mg tablet 2 mg PO BID #20 tabs 07/18/24 hydrocodone 5 mg-acetaminophen 325 1 tab PO Q6H PRN pain #15 tabs 07/18/24 mg tablet Allergies Allergy/AdvReac Type Severity Reaction Status Date / Time ibuprofen Allergy ALGY-Swell Verified 07/18/24 08:37 Lip/Tongue/Throat flu shot Allergy Unknown Uncoded 07/18/24 08:37 Review of Systems 2 Const: Denies: fever(s) or chills Card: Reports: chest pain Resp: Reports: dyspnea GI: Denies: abdominal pain : Denies: dysuria, urinary frequency or urinary urgency Musc: Denies: neck pain or back pain Skin/Breast: Denies: rash PFSH ED 2 PFSH: Medical History Left-sided weakness Compression fracture of T7 vertebra Gout H/O: CVA (cerebrovascular accident) Hypothyroidism Pneumonia due to COVID-19 virus Diarrhea due to COVID-19 Nausea & vomiting Abdominal pain Hypoxia COVID-19 Former smoker COPD (chronic obstructive pulmonary disease) Small cell lung cancer in adult Post radiation 06/16 Surgical History History of appendectomy Family History Father Cancer Lung cancer Social History Smoking and tobacco/nicotine status: former use of tobacco/nicotine Alcohol intake: never Substance/Drug Use: never Household members: family Housing: House Physical Exam 2 Const: GENERAL APPEARANCE: cooperative ORIENTATION/CONSCIOUSNESS: Yes awake, Yes oriented to person, Yes oriented to place and Yes oriented to time HENMT: COMMON NORMALS: normocephalic, atraumatic and hearing grossly normal bilaterally HEAD & SCALP: normocephalic and atraumatic Resp: COMMON NORMALS: normal respiratory effort, No retractions, No use of accessory muscles and clear to auscultation bilaterally AUSCULTATION: clear to auscultation bilaterally Cardio: COMMON NORMALS: regular rate, regular rhythm and No murmurs present (Cardio) RATE: regular rate RHYTHM: regular rhythm GI: COMMON NORMALS: Soft to palpation and No hepatosplenomegaly present A USCULTATION: Yes normoactive bowel sounds PALPATION: Yes Soft to palpation, No Tenderness to palpation present (GI), No Guarding due to palpation present (GI) and Yes No hepatosplenomegaly present Extremity: COMMON NORMALS: normal to inspection, capillary refill normal, no clubbing, cyanosis or edema, no calf tenderness and no pedal edema Neuro: SENSORIUM/ORIENTATION: Yes oriented to person, Yes oriented to place and Yes oriented to time Skin: COMMON NORMALS: no rashes or lesions noted GENERAL SKIN EXAM: no rashes or lesions noted Course 2 Vital Signs: Vital signs: Vital Signs Temperature 97.6 F 07/18/24 08:32 Pulse Rate 88 07/18/24 12:33 Respiratory Rate 21 H 07/18/24 09:40 Blood Pressure 145/61 07/18/24 12:33 Pulse Oximetry 100 07/18/24 12:33 Oxygen Delivery Me thod Nasal Cannula 07/18/24 09:40 Oxygen Flow Rate 3 07/18/24 09:40 MDM - Chest Pain Medical Decision Making EKG and cardiac enzymes reviewed as found in the chart. No sign of acute coronary syndrome. Pain reproducible with inspiration CTA of the chest does not show pneumonia PE dissecting aneurysm or pneumothorax. I suspect her pain is due to her cancer. Will start her on dexamethasone also start on hydrocodone to supplement buprenorphine. Follow-up with oncology as soon as she is able. Medical Records I reviewed the patient's medical records. Lab Data I reviewed the patient's lab results. 07/18/24 08:34 07/18/24 08:34 Radiology Impressions Chest X-Ray 07/18/24 08:29 IMPRESSION: 1. Lung hyperinflation. 2. Soft tissue nodularity within the left perihilar region with linear scarring projecting more peripherally into the left lung. Please see report from CT thorax exam date 06/26/2024. Chest CTA 07/18/24 10:30 IMPRESSION: 1. No pulmonary embolism. 2. No acute infiltrates. 3. Stable post surgical changes in the right lower lobe and soft thickening around the left hilum. No enlarging mediastinal lymph nodes. COMMENTS: The presence of pulmonary emphysema on CT is an independent risk factor for lung cancer. In the absence of a history or active diagnosis of lung cancer, it is recommended that this patient with emphysema be evaluated for enrollment in a low dose CT lung cancer screening program. Laboratory Results WBC 9.51 10^3/uL (3.29-11.43) 07/18/24 08:34 RBC 4.42 10^6/uL (3.85-5.65) 07/18/24 08:34 Hgb 11.80 g/dL (11.27-16.99) 07/18/24 08:34 Hct 37.0 % (36-47) 07/18/24 08:34 MCV 83.7 fl (85-98) L 07/18/24 08:34 MCH 26.7 pg (27-33) L 07/18/24 08:34 MCHC 31.9 g/dL (30-55) 07/18/24 08:34 RDW 13.9 % (12.1-15.1) 07/18/24 08:34 Plt Count 231 10^3/cmm (157-399) 07/18/24 08:34 MPV 8.4 fL (7.4-10.4) 07/18/24 08:34 Neut % (Auto) 67.5 % 07/18/24 08:34 Lymph % (Auto) 24.5 % 07/18/24 08:34 [place] % (Auto) 5.4 % 07/18/24 08:34 Eos % (Auto) 2.2 % 07/18/24 08:34 Baso % (Auto) 0.0 % 07/18/24 08:34 Neut # (Auto) 6.42 10^3/uL (1.8-7.7) 07/18/24 08:34 Lymph # (Auto) 2.3 10^3/uL (0.8-4.8) 07/18/24 08:34 [place] # (Auto) 0.5 10^3/uL (0.2-0.9) 07/18/24 08:34 Eos # (Auto) 0.2 10^3/uL (0.0-0.8) 07/18/24 08:34 Baso # (Auto) 0.0 10^3/uL (0.0-0.1) 07/18/24 08:34 Nucleated RBC % (auto) 0 % 07/18/24 08:34 Nucleated RBCs # 0.0 /100WBC 07/18/24 08:34 Sodium 132 mmol/L (136-145) L 07/18/24 08:34 Potassium 3.4 mmol/L (3.5-5.1) L 07/18/24 08:34 Chloride 91 mmol/L (98-107) L 07/18/24 08:34 Carbon Dioxide 32 mmol/L (22-29) H 07/18/24 08:34 Anion Gap 12.4 (5-19) 07/18/24 08:34 BUN 14 mg/dL (8-23) 07/18/24 08:34 Creatinine 0.7 mg/dL (0.5-0.9) 07/18/24 08:34 GFR Calculation 84.5 mL/min (90-130) L 07/18/24 08:34 Glucose 103 mg/dL (65-115) 07/18/24 08:34 Calculated Osmolality 275 mOsm/kg (285-295) L 07/18/24 08:34 Calcium 8.2 mg/dL (8.5-10.5) L 07/18/24 08:34 Total Bilirubin 0.8 mg/dL (0.15-1.2) 07/18/24 08:34 AST 18 U/L (0-32) 07/18/24 08:34 ALT 11 U/L (0-33) 07/18/24 08:34 Alkaline Phosphatase 66 U/L (35-105) 07/18/24 08:34 Troponin T Baseline 12 ng/L (0-10) H 07/18/24 08:34 Troponin T 120 Minute 9.65 ng/L (0-10) 07/18/24 10:37 Delta Troponin T -2.35 ABS# (0-10) L 07/18/24 10:37 Total Protein 6.0 g/dL (6.6-8.7) L 07/18/24 08:34 Albumin 4.1 g/dL (3.5-5.2) 07/18/24 08:34 Globulin 1.9 g/dL (1.3-4.6) 07/18/24 08:34 All radiology interpretation(s) finalized by discharge Discharge Plan Discharge Patient Disposition: Home Clinical Impression: Small cell lung cancer in adult, Atypical chest pain Condition: Stable Prescriptions: New hydrocodone-acetaminophen 5-325 mg tablet 1 tab PO Q6H PRN (Reason: pain) Qty: 15 0RF dexamethasone 2 mg tablet 2 mg PO BID Qty: 20 0RF No Action levothyroxine 88 mcg Tablet 88 mcg PO DAILY@0800 allopurinol 300 mg tablet 300 mg PO DAILY@0600 cholecalciferol (vitamin D3) [Vitamin D3] 2,000 unit Tablet 2,000 unit PO DAILY@0800 acetaminophen [Tylenol Extra Strength] 500 mg Tablet 1,000 mg PO PRN gabapentin 300 mg capsule 300 mg PO BEDTIME@1800 gwnzmsyn-zvg-YY-lycopen-lutein 500-300-250 mcg Tablet 1 tab PO DAILY@0800 ondansetron 8 mg tablet,disintegrating 8 mg PO Q6H Qty: 14 0RF Rx Instructions: Take 1/2-1 tab every 6 hours as needed for nausea and vomiting methenamine hippurate 1 gram tablet 1 g PO BID Hold Instructions: Resume on 07/21/24. nortriptyline 50 mg capsule 50 mg PO DAILY duloxetine 60 mg capsule,delayed release(DR/EC) 60 mg PO DAILY ipratropium bromide 0.02 % Solution 0.5 mg inhalation Q6H.RESP Qty: 150 0RF Rx Instructions: 4 times a day for next 2 weeks followed by twice daily levalbuterol HCl 0.63 mg/3 mL Solution For Nebulization 0.63 mg inhalation Q6H.RESP Qty: 90 0RF levofloxacin 750 mg Tablet 750 mg PO DAILY@0600 5 Days Qty: 5 0RF prednisone 20 mg tablet See Rx Instructions .ROUTE .COMPLEX Qty: 53 0RF Rx Instructions: 4 tabs a day for 5 days, 3 tabs for 5 days, 2 tabs for 5 days, 1 tab for 5 days, 0.5tab for 5 days metoclopramide HCl [Reglan] 10 mg tablet 10 mg PO Q6H PRN (Reason: nausea and vomiting) Qty: 14 0RF Discharge Orders: Discharge ED (Routine); Ordered 07/18/24 Ordered By: Prasanth Michaud Referrals: Adela Stout [Primary Care Provider] - Discharge Diet: Usual diet Discharge Activity: Resume usual activity Patient Instructions: Opioid Safety, Pain Management Activity Restrictions/Additional Instructions: Thank you for choosing [facility] for your healthcare needs today. It is very important that you follow up as instructed or that you return to the Emergency Department should you have concerns or if your condition changes or worsens in any way. You were seen in the emergency room with chest pain and shortness of breath. CT of your chest did not show any pneumonia pneumothorax thoracic aneurysm or PE. It did visualize the known lung cancer which has been previously diagnosed. Cardiac enzymes and EKG did not show signs of acute coronary syndrome. Suspect the chest pain is secondary to lung cancer. Coding Level of Care Code ED Plant Physiology Teacher for Beatrice Petersen
[2024-07-18 08:55] LABS: Troponin(5th) Baseline 12 ng/L (0-10)
[2024-07-18 08:57] LABS: Alanine Aminotransferase 11 U/L (0-33); Albumin Level 4.1 g/dL (3.5-5.2); Alkaline Phosphatase 66 U/L (35-105); Anion Gap 12.4 (5-19); Aspartate Amino Transferase 18 U/L (0-32); Blood Urea Nitrogen 14 mg/dL (8-23); Calcium 8.2 mg/dL (8.5-10.5); Carbon Dioxide 32 mmol/L (22-29); Chloride 91 mmol/L (98-107); Creatinine Clr Calc Pharmacy 74.2858; Globulin 1.9 g/dL (1.3-4.6); Glomerular Filtration Rate 84.5 mL/min (90-130); Glucose 103 mg/dL (65-115); Osmolality Calculated 275 mOsm/kg (285-295); Potassium 3.4 mmol/L (3.5-5.1); Sodium 132 mmol/L (136-145); Total Bilirubin 0.8 mg/dL (0.15-1.2)
[2024-07-18 09:40] VITALS: BP 142/62; PULSE 79; RESP 21; O2SAT 100; O2SAT 99
[2024-07-18] MEDS: morphine 4 mg/mL SDV 1 mL IVP (09:40)
[2024-07-18] MEDS: ondansetron 2 mg/ML SDV 2 mL 4 MG IVP (09:40)
--- NOTE | 2024-07-18 10:29 | ECG_ITS ---
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 Measurements Intervals [place] Rate: 68 P: 71 CA: 146 QRS: 72 QRSD: 90 T: 60 QT: 380 QTc: 406 Interpretive Statements SINUS RHYTHM SEPTAL MYOCARDIAL INFARCTION , OF INDETERMINATE AGE [40+ ms Q WAVE IN V1/V2] Compared to ECG 07/11/2024 23:06:42 No significant changes Electronically Signed On 07-21-2024 00:57:16 CDT by Fe Negrete M.D. [email or web address]
--- NOTE | 2024-07-18 10:30 | CTR_ITS ---
PROCEDURE INFORMATION: Exam: CTA Chest With Contrast Exam date and time: 07/18/2024 10:39 AM Age: 63 years old Clinical indication: Shortness of breath; Additional info: Dyspnea/chest pain/lung CA TECHNIQUE: Imaging protocol: Computed tomographic angiography of the chest with contrast. Exam focused on the arteries. 3D rendering (Not supervised by radiologist): MIP and/or 3D reconstructed images were created by the technologist. Radiation optimization: All CT scans at this facility use at least one of these dose optimization techniques: automated exposure control; mA and/or kV adjustment per patient size (includes targeted exams where dose is matched to clinical indication); or iterative reconstruction. Contrast material: OMNI 350; Contrast volume: 60 ml; Contrast route: INTRAVENOUS (IV); COMPARISON: CT angio chest PE protcl [id number] 06/26/2024 2:48 PM RADIATION DOSE METRICS: Total DLP (mGy-cm): 250.26 FINDINGS: Pulmonary arteries: Vascular calcifications. Aorta: Unremarkable. No aortic aneurysm. No aortic dissection. Lungs: Calcified granulomas in the bilateral lungs. Mild bilateral apical predominant emphysematous changes. Fibrotic changes with surgical clips in the superior segment of the right lower lobe. Right lower lobe atelectasis. Chronic left infrahilar fibrotic changes. Pleural spaces: Unremarkable. No pneumothorax. No pleural effusion. Heart: Unremarkable. No cardiomegaly. No pericardial effusion. Coronary arteries: Mild coronary calcifications. Lymph nodes: Unremarkable. No enlarged lymph nodes. Bones/joints: Mild curvature of the thoracic spine convex the right. Demineralization of the visualized bones. Post T7 vertebroplasty. Soft tissues: Unremarkable. CT/CT angio chest PE protcl [id number] IMPRESSION: 1. No pulmonary embolism. 2. No acute infiltrates. 3. Stable post surgical changes in the right lower lobe and soft thickening around the left hilum. No enlarging mediastinal lymph nodes. COMMENTS: The presence of pulmonary emphysema on CT is an independent risk factor for lung cancer. In the absence of a history or active diagnosis of lung cancer, it is recommended that this patient with emphysema be evaluated for enrollment in a low dose CT lung cancer screening program.
[2024-07-18] MEDS: iohexol 350 mg/mL 500 mL Btl (per mL) IV (10:48)
[2024-07-18 11:03] LABS: Troponin 5 2HR 9.65 ng/L (0-10)
[2024-07-18 11:09] LABS: Troponin 5 2HR Delta -2.35 ABS# (0-10)
[2024-07-18 12:30] VITALS: PULSE 88; O2SAT 100
[2024-07-18 12:33] VITALS: BP 145/61; PULSE 88; O2SAT 100
== END 2024-07-18 13:07 | disposition home or self-care (01) ==
PROVIDERS: Emergency Provider Family Medicine; PCP Internal Medicine
DX: R07.89 Other chest pain (principal); C34.90 Malignant neoplasm of unspecified part of unspecified bronchus or lung; J44.9 Chronic obstructive pulmonary disease, unspecified; Z99.81 Dependence on supplemental oxygen; Z87.891 Personal history of nicotine dependence
CPT/HCPCS: 71045; 71275; 80053; 84484; 85025; 93005; 96374; 96375; 99285; J2270; J2405

== ENCOUNTER 2024-07-26 13:35 | Inpatient (IN) | payer MEDICARE, MEDICAID, SELFPAY ==
[2024-07-26] VITALS (11 sets, daily range): BP systolic 137–149; BP diastolic 58–71; PULSE 62–91; RESP 16–21; TEMP 36.9–37.3; O2SAT 93–100; BMI 25.1; BMI 24.7
--- NOTE | 2024-07-26 13:50 | XRR_ITS ---
PROCEDURE INFORMATION: Exam: XR Abdomen Exam date and time: 07/26/2024 2:06 PM Age: 63 years old Clinical indication: Constipation TECHNIQUE: Imaging protocol: Radiologic exam of the abdomen. Views: Frontal supine view of the abdomen. 1 View. COMPARISON: CT abdomen pelvis w con* [id number] 07/16/2024 8:08 PM FINDINGS: Gastrointestinal tract: There is excessive colonic stool content. Consistent with constipation. There is a dilated loop of bowel measuring up to 5 centimeters in the right lower quadrant. Bones/joints: Unremarkable. XR/XR KUB [id number] IMPRESSION: 1. There is a dilated loop of bowel measuring up to 5 centimeters in the right lower quadrant. Further evaluation with CT of the abdomen and pelvis with IV contrast may be obtained 2. There is excessive colonic stool content. Consistent with constipation.
--- NOTE | 2024-07-26 13:53 | ECG_ITS ---
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 Measurements Intervals [place] Rate: 68 P: 31 MD: 149 QRS: 61 QRSD: 85 T: 47 QT: 388 QTc: 415 Interpretive Statements SINUS RHYTHM Nonspecific ST changes Compared to ECG 07/18/2024 10:54:04 Myocardial infarct finding no longer present Electronically Signed On 07-30-2024 21:48:19 SEXUAL ASSAULT SOCIAL WORKER by Fe Negrete M.D. [email or web address]
--- NOTE | 2024-07-26 13:58 | ED_ITS ---
HPI - Neuro Symptoms/Deficit 2 General: Chief Complaint: Neuro Symptoms/Deficit Stated Complaint: right side face numb, not feeling well Time Seen by Provider: 07/26/24 13:38 Source: patient Mode of arrival: ambulatory Limitations: no limitations History of Present Illness: 63-year-old female who states that she w betty up having some numbness right side of her face along with sharp pain to the right side of her face. She does have a rash to the right side and in her hairline that appears to be likely shingles. States it is painful to touch she states she is also been having ongoing constipation going on for almost a month. Has had some vomiting denies any fevers Associated symptoms: Reports nausea; Deny chest pain, headache(s) or vomiting Related Data Home Medications Medication Instructions Recorded Confirmed allopurinol 300 mg tablet 300 mg PO DAILY@0600 10/17/19 07/26/24 cholecalciferol (vitamin D3) 50 2,000 unit PO DAILY@0800 10/17/19 07/26/24 mcg (2,000 unit) tablet (Vitamin D3) levothyroxine 88 mcg tablet 88 mcg PO DAILY@0800 10/17/19 07/26/24 acetaminophen 500 mg tablet 1,000 mg PO PRN pain 10/24/20 07/26/24 (Tylenol Extra Strength) gabapentin 300 mg capsule 300 mg PO TID 10/24/20 07/26/24 duloxetine 60 mg capsule,delayed 60 mg PO DAILY 06/26/24 07/26/24 release methenamine hippurate 1 gram tablet 1 g PO BID 06/26/24 07/26/24 nortriptyline 50 mg capsule 50 mg PO QPM 06/26/24 07/26/24 buprenorphine HCl 2 mg sublingual 2 mg sublingual Q12H 07/26/24 07/26/24 tablet celecoxib 200 mg capsule 200 mg PO BID 07/26/24 07/26/24 dexamethasone 4 mg tablet 4 mg PO DAILY 07/26/24 07/26/24 dicyclomine 10 mg capsule 10 mg PO TID 07/26/24 07/26/24 diphenhydramine HCl 12.5 mg/5 mL 12.5 mg PO TID PRN Nausea 07/26/24 07/26/24 oral liquid levalbuterol HCl 0.63 mg/3 mL 0.63 mg inhalation Q6H PRN 07/26/24 07/26/24 solution for nebulization Shortness Of Breath naloxegol 25 mg tablet (Movantik) 25 mg PO .[id number] 07/26/24 07/26/24 ondansetron 8 mg disintegrating 4 - 8 mg PO Q6H PRN Nausea And 07/26/24 07/26/24 tablet Vomiting potassium chloride 20 mEq 20 meq PO .[id number] 07/26/24 07/26/24 tablet,extended release(part/cryst) prochlorperazine maleate 5 mg 5 mg PO TID PRN Nausea And Vomiting 07/26/24 07/26/24 tablet Previous Rx's Medication Instructions Recorded ipratropium bromide 0.02 % 0.5 mg (2.5 mL) inhalation 06/27/24 solution for inhalation Q6H.RESP #150 mL prednisone 20 mg tablet See Rx Instructions .Route 07/14/24 .COMPLEX #53 tabs metoclopramide HCl 10 mg tablet 10 mg PO Q6H PRN nausea and 07/16/24 (Reglan) vomiting #14 tabs hydrocodone 5 mg-acetaminophen 325 1 tab PO Q6H PRN pain #15 tabs 07/18/24 mg tablet Allergies Allergy/AdvReac Type Severity Reaction Status Date / Time ibuprofen Allergy ALGY-Swell Verified 07/26/24 13:54 Lip/Tongue/Throat flu shot Allergy Unknown Uncoded 07/18/24 08:37 Review of Systems 2 Const: Denies: fever(s), chills, body aches or change in appetite ENMT: Reports: sinus pain; Denies: throat pain or dental pain Card: Denies: chest pain Resp: Denies: dyspnea GI: Reports: abdominal pain, nausea and constipation; Denies: vomiting or diarrhea Musc: Denies: neck pain or back pain Skin/Breast: Denies: rash Neuro: Denies: headache(s) PFSH ED 2 PFSH: Medical History Left-sided weakness Compression fracture of T7 vertebra Gout H/O: CVA (cerebrovascular accident) Hypothyroidism Pneumonia due to COVID-19 virus Diarrhea due to COVID-19 Nausea & vomiting Abdominal pain Hypoxia COVID-19 Former smoker COPD (chronic obstructive pulmonary disease) Small cell lung cancer in adult Post radiation 06/16 Surgical History History of appendectomy Family History Father Cancer Lung cancer Social History Smoking and tobacco/nicotine status: former use of tobacco/nicotine Alcohol intake: never Substance/Drug Use: never Household members: family Housing: House Physical Exam 2 Const: COMMON NORMALS: no acute distress, patient oriented x3 and healthy appearing HENMT: COMMON NORMALS: normocephalic and atraumatic HEAD & SCALP: n ormocephalic and atraumatic OTHER: Testicular rash right side of face and hairline consistent with shingles Eye: COMMON NORMALS: Equal, round and reactive pupils present and EOMs intact bilaterally PUPIL: Yes Equal, round and reactive pupils present OTHER: Dendrites noted on fluorescein stain exam Neck/C-Spine: COMMON NORMALS: full ROM and supple Chest: COMMONS NORMALS: normal inspection of the chest and normal palpation of entire chest wall Resp: COMMON NORMALS: normal respiratory effort, No retractions, No use of accessory muscles and clear to auscultation bilaterally AUSCULTATION: clear to auscultation bilaterally Cardio: COMMON NORMALS: regular rate, regular rhythm and No murmurs present (Cardio) RATE: regular rate RHYTHM: regular rhythm GI: COMMON NORMALS: Normal to inspection, nondistended, normoactive bowel sounds present, Soft to palpation, non-tender and no masses PALPATION: Yes Soft to palpation Extremity: COMMON NORMALS: normal to inspection and full ROM Neuro: COMMON NORMALS: patient oriented x3, moves all extremities and no focal motor deficits Psych: COMMON NORMALS: mental status grossly normal, Normal thought process present and cooperative THOUGHT PROCESS: Normal thought process present Skin: COMMON NORMALS: no rashes or lesions noted and no wounds GENERAL SKIN EXAM: no rashes or lesions noted Course 2 Vital Signs: Vital signs: Vital Signs Temperature 99.2 F 07/26/24 13:49 Pulse Rate 62 07/26/24 13:49 Respiratory Rate 18 07/26/24 13:49 Blood Pressure 148/58 07/26/24 13:49 Pulse Oximetry 93 07/26/24 13:49 Oxygen Delivery Me thod Room Air 07/26/24 13:49 MDM - Neuro Symptoms/Deficit Medical Decision Making Patient presents here with abdominal pain with severe constipation she is failed outpatient treatment will admit for constipation likely needs enemas she also has some facial numbness facial pain does have shingles the right side of her face also has dendrites on her ocular exam consistent with herpes ophthalmicus I did speak to ophthalmology who recommended valacyclovir they will follow-up when she gets discharge Lab Data I reviewed the patient's lab results. 07/26/24 14:30 07/26/24 14:30 Radiology Impressions KUB X-Ray 07/26/24 13:50 IMPRESSION: 1. There is a dilated loop of bowel measuring up to 5 centimeters in the right lower quadrant. Further evaluation with CT of the abdomen and pelvis with IV contrast may be obtained 2. There is excessive colonic stool content. Consistent with constipation. Laboratory Results WBC 5.74 10^3/uL (3.29-11.43) 07/26/24 14:30 RBC 3.88 10^6/uL (3.85-5.65) 07/26/24 14:30 Hgb 10.80 g/dL (11.27-16.99) L 07/26/24 14:30 Hct 34.2 % (36-47) L 07/26/24 14:30 MCV 88.1 fl (85-98) 07/26/24 14:30 MCH 27.8 pg (27-33) 07/26/24 14:30 MCHC 31.6 g/dL (30-55) 07/26/24 14:30 RDW 14.4 % (12.1-15.1) 07/26/24 14:30 Plt Count 214 10^3/cmm (157-399) 07/26/24 14:30 MPV 9.0 fL (7.4-10.4) 07/26/24 14:30 Neut % (Auto) 83.1 % 07/26/24 14:30 Lymph % (Auto) 8.7 % 07/26/24 14:30 Green % (Auto) 6.4 % 07/26/24 14:30 Eos % (Auto) 0.9 % 07/26/24 14:30 Baso % (Auto) 0.2 % 07/26/24 14:30 Neut # (Auto) 4.77 10^3/uL (1.8-7.7) 07/26/24 14:30 Lymph # (Auto) 0.5 10^3/uL (0.8-4.8) L 07/26/24 14:30 Green # (Auto) 0.4 10^3/uL (0.2-0.9) 07/26/24 14:30 Eos # (Auto) 0.1 10^3/uL (0.0-0.8) 07/26/24 14:30 Baso # (Auto) 0.0 10^3/uL (0.0-0.1) 07/26/24 14:30 Nucleated RBC % (auto) 0 % 07/26/24 14:30 Nucleated RBCs # 0.0 /100WBC 07/26/24 14:30 Sodium 138 mmol/L (136-145) 07/26/24 14:30 Potassium 3.5 mmol/L (3.5-5.1) 07/26/24 14:30 Chloride 93 mmol/L (98-107) L 07/26/24 14:30 Carbon Dioxide 36 mmol/L (22-29) H 07/26/24 14:30 Anion Gap 12.5 (5-19) 07/26/24 14:30 BUN 10 mg/dL (8-23) 07/26/24 14:30 Creatinine 0.6 mg/dL (0.5-0.9) 07/26/24 14:30 GFR Calculation 101.0 mL/min (90-130) 07/26/24 14:30 Glucose 153 mg/dL (65-115) H 07/26/24 14:30 Calculated Osmolality 288 mOsm/kg (285-295) 07/26/24 14:30 Calcium 8.3 mg/dL (8.5-10.5) L 07/26/24 14:30 Total Bilirubin 0.2 mg/dL (0.15-1.2) 07/26/24 14:30 AST 18 U/L (0-32) 07/26/24 14:30 ALT < 5 U/L (0-33) 07/26/24 14:30 Alkaline Phosphatase 76 U/L (35-105) 07/26/24 14:30 Total Protein 6.1 g/dL (6.6-8.7) L 07/26/24 14:30 Albumin 3.7 g/dL (3.5-5.2) 07/26/24 14:30 Globulin 2.4 g/dL (1.3-4.6) 07/26/24 14:30 Lipase 12 U/L (13-60) L 07/26/24 14:30 All radiology interpretation(s) finalized by discharge Discharge Plan Discharge Patient Disposition: Placed in Observation Clinical Impression: Abdominal pain, Vomiting, Shingles, Ophthalmic herpes zoster Condition: Stable Prescriptions: No Action levothyroxine 88 mcg Tablet 88 mcg PO DAILY@0800 allopurinol 300 mg tablet 300 mg PO DAILY@0600 cholecalciferol (vitamin D3) [Vitamin D3] 2,000 unit Tablet 2,000 unit PO DAILY@0800 acetaminophen [Tylenol Extra Strength] 500 mg Tablet 1,000 mg PO PRN gabapentin 300 mg capsule 300 mg PO TID dexamethasone 4 mg tablet 4 mg PO DAILY levalbuterol HCl 0.63 mg/3 mL solution for nebulization 0.63 mg inhalation Q6H PRN (Reason: Shortness Of Breath) ondansetron 8 mg tablet,disintegrating 4 - 8 mg PO Q6H PRN (Reason: Nausea And Vomiting) celecoxib 200 mg capsule 200 mg PO BID diphenhydramine HCl 12.5 mg/5 mL liquid 12.5 mg PO TID PRN (Reason: Nausea) prochlorperazine maleate 5 mg tablet 5 mg PO TID PRN (Reason: Nausea And Vomiting) potassium chloride 20 mEq tablet,ER particles/crystals 20 meq PO .[id number] dicyclomine 10 mg capsule 10 mg PO TID buprenorphine HCl 2 mg tablet, sublingual 2 mg SUBLINGUAL Q12H Movantik 25 mg tablet 25 mg PO .[id number] methenamine hippurate 1 gram tablet 1 g PO BID Hold Instructions: Resume on 07/21/24. nortriptyline 50 mg capsule 50 mg PO QPM duloxetine 60 mg capsule,delayed release(DR/EC) 60 mg PO DAILY ipratropium bromide 0.02 % Solution 0.5 mg inhalation Q6H.RESP Qty: 150 0RF Rx Instructions: Inhale 0.5mg 4 times a day for next 2 weeks followed by twice daily prednisone 20 mg tablet See Rx Instructions .ROUTE .COMPLEX Qty: 53 0RF Rx Instructions: 4 tabs a day for 5 days, 3 tabs for 5 days, 2 tabs for 5 days, 1 tab for 5 days, 0.5tab for 5 days metoclopramide HCl [Reglan] 10 mg tablet 10 mg PO Q6H PRN (Reason: nausea and vomiting) Qty: 14 0RF hydrocodone-acetaminophen 5-325 mg tablet 1 tab PO Q6H PRN (Reason: pain) Qty: 15 0RF Referrals: Adela Stout [Primary Care Provider] - Coding Level of Care Code ED E [employer] for Beatrice Petersen
[2024-07-26] MEDS: fluorescein 1 mg Strip EYE-RIGHT (13:59)
[2024-07-26] MEDS: tetracaine 0.5% Op Soln 4 mL Btl 1 DROP EYE-BOTH (14:03)
[2024-07-26 14:46] LABS: Basophils % 0.2 %; Eosinophils # 0.1 10^3/uL (0.0-0.8); Eosinophils % 0.9 %; Hematocrit 34.2 % (36-47); Lymphocytes # 0.5 10^3/uL (0.8-4.8); Lymphocytes % 8.7 %; Mean Corpuscular HGB Conc 31.6 g/dL (30-55); Mean Corpuscular Hemoglobin 27.8 pg (27-33); Mean Corpuscular Volume 88.1 fl (85-98); Monocytes # 0.4 10^3/uL (0.2-0.9); Monocytes % 6.4 %; Neutrophils # 4.77 10^3/uL (1.8-7.7); Neutrophils % 83.1 %; Nucleated Red Blood Cells % 0 %; Platelet Count 214 10^3/cmm (157-399); Red Blood Count 3.88 10^6/uL (3.85-5.65); Red Cell Distribution Width 14.4 % (12.1-15.1); White Blood Count 5.74 10^3/uL (3.29-11.43)
[2024-07-26 15:01] LABS: Alanine Aminotransferase < 5 U/L (0-33); Albumin Level 3.7 g/dL (3.5-5.2); Alkaline Phosphatase 76 U/L (35-105); Anion Gap 12.5 (5-19); Aspartate Amino Transferase 18 U/L (0-32); Blood Urea Nitrogen 10 mg/dL (8-23); Calcium 8.3 mg/dL (8.5-10.5); Carbon Dioxide 36 mmol/L (22-29); Chloride 93 mmol/L (98-107); Creatinine Clr Calc Pharmacy 86.6667; Globulin 2.4 g/dL (1.3-4.6); Glucose 153 mg/dL (65-115); Lipase 12 U/L (13-60); Osmolality Calculated 288 mOsm/kg (285-295); Potassium 3.5 mmol/L (3.5-5.1); Sodium 138 mmol/L (136-145); Total Bilirubin 0.2 mg/dL (0.15-1.2); Total Protein 6.1 g/dL (6.6-8.7)
--- NOTE | 2024-07-26 15:06 | CTR_ITS ---
PROCEDURE INFORMATION: Exam: CT Abdomen And Pelvis With Contrast Exam date and time: 07/26/2024 4:33 PM Age: 63 years old Clinical indication: Abdominal pain; Generalized; Prior surgery; Surgery date: 6+ months; Surgery type: Appy; Patient HX: T and family reporting right sided facial numbness, tingling, pain, that was noticed around 0830, last known well 0200 this morning. PT has also had an ongoing issue with constipation vs sbo per family and had hasn't had a bm in 3 weeks. PT wretching in triage. PT has redness to the right forehead that stops at the midline. Css negative on the right, marked weakness on the left, residual from previous stroke. ; Additional info: Abd pain TECHNIQUE: Imaging protocol: Computed tomography of the abdomen and pelvis with contrast. Radiation optimization: All CT scans at this facility use at least one of these dose optimization techniques: automated exposure control; mA and/or kV adjustment per patient size (includes targeted exams where dose is matched to clinical indication); or iterative reconstruction. Contrast material: OMNI 350; Contrast volume: 100 ml; Contrast route: INTRAVENOUS (IV); COMPARISON: CT abdomen pelvis w con* [id number] 07/16/2024 8:08 PM RADIATION DOSE METRICS: Total DLP (mGy-cm): 397.88 FINDINGS: Lungs: Lower lung base centrilobular emphysema Liver: Normal. No mass. Gallbladder and biliary ducts: Normal. No calcified stones. No ductal dilation. Pancreas: Normal. No ductal dilation. Spleen: Normal. No splenomegaly. Adrenal glands: Normal. No mass. Kidneys and ureters: Normal. No hydronephrosis. Stomach and bowel: There is excessive colonic stool content. Consistent with constipation. Appendix: No evidence of appendicitis. Intraperitoneal space: Unremarkable. No free air. No significant fluid collection. Vasculature: Scattered calcified atherosclerotic plaques of the abdominal aorta and iliac arteries without significant stenosis. Lymph nodes: Unremarkable. No enlarged lymph nodes. Urinary bladder: Unremarkable as visualized. Reproductive: Unremarkable as visualized. Bones/joints: Unremarkable. No acute fracture. Soft tissues: Unremarkable. CT/CT abdomen pelvis w con* [id number] IMPRESSION: 1. There is excessive colonic stool content. Consistent with constipation. 2. No mechanical bowel obstruction 3. Multiple gaseous filled loops of bowel
[2024-07-26] MEDS: ondansetron 2 mg/ML SDV 2 mL 4 MG IVP ×2 (15:26→17:39)
[2024-07-26] MEDS: lactulose oral liq 20 gm/30 mL UDC 30 GM PO (15:27)
[2024-07-26] MEDS: valACYclovir 1,000 mg Tablet 1000 MG PO (15:27)
[2024-07-26] MEDS: iohexol 350 mg/mL 500 mL Btl (per mL) IV (15:38)
--- NOTE | 2024-07-26 16:03 | P.HP_ITS ---
Providers/Chief Complaint 2 Admitting Physician: Jong Trimble MD Primary Care Provider: Adela Stout Chief Complaint: right side face numb, not feeling well History of Present Illness Zulma Garcia is a 63 year old female with past medical COPD, small cell lung cancer post-radiation therapy within last 3 months, recent intubation within the last 3 months, multiple hospitalization with the last 2 months presents to the ER because of her right eye pain along with discharge with started all of a sudden today morning. Patient did have mild irritation and itching overnight. She is also complaining of nausea with 1 episode of vomiting. Denies any abdominal pain. Last bowel movement was more than 5 days ago. Patient is still on steroids as per her radiation oncologist. Review of Systems 2 General: Reports: 10 or more systems reviewed and unremarkable except in HPI and below Const: Denies: fever(s), chills, body aches, change in appetite, change in weight, malaise, night sweats, diaphoresis, change in sleep pattern, daytime sleepiness or snoring Eyes: Denies: change in vision, blurry vision, photophobia, eye discomfort or eye discharge ENMT: Denies: throat pain, enlarged tonsils, hoarseness, mouth pain, oral sores, dry mouth, tinnitus, nasal congestion or post nasal drip Card: Denies: chest pain, palpitations, irregular heart rhythm, edema, swelling of feet/ankles, lightheadedness, syncope, pre-syncope, dyspnea on exertion, orthopnea, leg pain with exertion or acrocyanosis Resp: Denies: dyspnea, productive cough, non-productive cough, wheezing, stridor, pain on inspiration, change in phlegm color, hemoptysis or chest congestion GI: Denies: abdominal pain, nausea, vomiting, hematemesis, coffee ground emesis, dysphagia, heartburn, diarrhea, constipation, bloating, GI cramping, change in bowel habits, pain on defecation, hematochezia or melena : Denies: flank pain, dysuria, urinary frequency, urinary urgency, urinary hesitancy, nocturia or hematuria Musc: Denies: neck pain, back pain, extremity pain, joint pain, joint swelling, joint redness, joint stiffness or limited range of motion Neuro: Denies: headache(s), numbness in extremities, weakness in extremities, sensory changes, lack of coordination, difficulty walking, frequent falls, dizziness, vertigo, confusion, Slurred speech present, difficulty communicating thoughts or seizure-like activity Psych: Denies: anxiety, depression, mood swings, panic attacks, hopelessness or irritability Endo: Denies: polyuria, polydipsia, tired all the time, cold intolerance, excessive sweating, flushing or heat intolerance Grabiel/Lymph: Denies: easy bruising or easy bleeding All/Imm: Denies: tongue swelling, facial swelling or acute wheezing Medications/Allergies Home Medications Medication Instructions Recorded Confirmed Last Taken Type allopurinol 300 mg tablet 300 mg PO DAILY@0600 10/17/19 07/26/24 07/26/24 History cholecalciferol (vitamin D3) 50 2,000 unit PO DAILY@0800 10/17/19 07/26/24 07/26/24 History mcg (2,000 unit) tablet (Vitamin D3) levothyroxine 88 mcg tablet 88 mcg PO DAILY@0800 10/17/19 07/26/24 07/26/24 History acetaminophen 500 mg tablet 1,000 mg PO PRN pain 10/24/20 07/26/24 07/10/24 History (Tylenol Extra Strength) gabapentin 300 mg capsule 300 mg PO TID 10/24/20 07/26/24 07/26/24 History duloxetine 60 mg capsule,delayed 60 mg PO DAILY 06/26/24 07/26/24 07/26/24 History release methenamine hippurate 1 gram tablet 1 g PO BID 06/26/24 07/26/24 07/26/24 History nortriptyline 50 mg capsule 50 mg PO QPM 06/26/24 07/26/24 07/25/24 History ipratropium bromide 0.02 % 0.5 mg (2.5 mL) inhalation 06/27/24 07/26/24 07/25/24 Rx solution for inhalation Q6H.RESP #150 mL prednisone 20 mg tablet See Rx Instructions .Route 07/14/24 07/26/24 07/26/24 Rx .COMPLEX #53 tabs metoclopramide HCl 10 mg tablet 10 mg PO Q6H PRN nausea and 07/16/24 07/26/24 Unknown Rx (Reglan) vomiting #14 tabs hydrocodone 5 mg-acetaminophen 325 1 tab PO Q6H PRN pain #15 tabs 07/18/24 07/26/24 Unknown Rx mg tablet buprenorphine HCl 2 mg sublingual 2 mg sublingual Q12H 07/26/24 07/26/24 07/26/24 History tablet celecoxib 200 mg capsule 200 mg PO BID 07/26/24 07/26/24 07/26/24 History dexamethasone 4 mg tablet 4 mg PO DAILY 07/26/24 07/26/24 07/26/24 History dicyclomine 10 mg capsule 10 mg PO TID 07/26/24 07/26/24 07/25/24 History diphenhydramine HCl 12.5 mg/5 mL 12.5 mg PO TID PRN Nausea 07/26/24 07/26/24 Unknown History oral liquid levalbuterol HCl 0.63 mg/3 mL 0.63 mg inhalation Q6H PRN 07/26/24 07/26/24 Unknown History solution for nebulization Shortness Of Breath naloxegol 25 mg tablet (Movantik) 25 mg PO .[id number] 07/26/24 07/26/24 07/26/24 History ondansetron 8 mg disintegrating 4 - 8 mg PO Q6H PRN Nausea And 07/26/24 07/26/24 Unknown History tablet Vomiting potassium chloride 20 mEq 20 meq PO .[id number] 07/26/24 07/26/24 07/26/24 History tablet,extended release(part/cryst) prochlorperazine maleate 5 mg 5 mg PO TID PRN Nausea And Vomiting 07/26/24 07/26/24 Unknown History tablet Allergies Allergy/AdvReac Type Severity Reaction Status Date / Time ibuprofen Allergy FREDDYY-Swell Verified 07/26/24 13:54 Lip/Tongue/Throat flu shot Allergy Unknown Uncoded 07/18/24 08:37 PFSH Acute 2 PFSH: Medical History (Updated 07/26/24 @ 16:44 by Jong Trimble MD) History of left foot drop Left-sided weakness Compression fracture of T7 vertebra Gout H/O: CVA (cerebrovascular accident) Hypothyroidism Pneumonia due to COVID-19 virus Diarrhea due to COVID-19 Nausea & vomiting Abdominal pain Hypoxia COVID-19 Former smoker COPD (chronic obstructive pulmonary disease) Small cell lung cancer in adult Post radiation 06/16 Surgical History History of appendectomy Family History Father Cancer Lung cancer Social History Smoking and tobacco/nicotine status: former use of tobacco/nicotine Alcohol intake: never Substance/Drug Use: never Household members: family Housing: House Vitals/I&O/Wt Last Vital Signs Temp 99.2 F 07/26/24 13:49 Pulse 82 07/26/24 15:49 Resp 21 H 07/26/24 15:49 BP 137/71 07/26/24 15:49 Pulse Ox 100 07/26/24 15:49 O2 Del Method Room Air 07/26/24 13:49 Weight last 48 hrs Weight 64.41 kg Physical Exam 2 Narrative: General: No acute distress, AO x3 HEENT: PERRLA, pupils bilaterally equal and reactive Chest: Normal vesicular breath sounds, no added sounds, equal good air entry bilaterally CVS: S1-S2 regular, no murmurs, no tachycardia, no gallops, no rubs Abdomen: Soft, nontender, no organomegaly, bowel sounds present Neuro: No focal deficits, no facial deformity, AO x3, power 5/5 in all limbs Extremity: Redness over the right forehead along with redness of the eye and watery discharge Skin: OTHER: Data 07/26/24 14:30 07/26/24 14:30 A&P Assessment and plan (1) Ophthalmic herpes zoster: Given the involvement of the eye for now we will have to do IV acyclovir 10 mg/kg body weight every 8 hourly. Patient will most likely need to follow-up with ophthalmology as an outpatient. Morphine 2 mg every 4 hours as needed for pain control. Continue with home dose of gabapentin. As patient is on acyclovir we will start on IV fluids with normal saline 50 cc/h. (2) Shingles: (3) Fecal impaction: Aggressive bowel regimen with milk of mag, senna Colace. Enema (4) Small cell lung cancer in adult: Postradiation. Follows up with oncology. Continue with home dose of steroid taper. (5) COPD (chronic obstructive pulmonary disease): No exacerbation currently. Continue with ipratropium, Xopenex every 6 hourly. Plan Continue other chronic medications. Full code Clear liquid diet Protonix for PUD prophylaxis Heparin for DVT prophylaxis Attestations 2 Medical Necessity Statement*: Admission for than 2 midnights for management of ophthalmic herpes zoster, fecal impaction in a patient with small cell lung cancer recent radiation therapy on steroids, COPD with recurrent admissions Diagnoses Ophthalmic herpes zoster B02.30 Shingles B02.9 Fecal impaction K56.41 Small cell lung cancer in adult C34.90 COPD (chronic obstructive pulmonary disease) J44.9
[2024-07-26 17:22] LABS: Lactic Sepsis W/Reflex 1.6 mmol/L (0.5-2.2)
[2024-07-26] MEDS: ACYCLOVIR IV (17:39)
[2024-07-26] MEDS: docusate sodium 100 mg Capsule PO (17:39)
[2024-07-26] MEDS: heparin 5,000 unit/mL INJ 1 mL 5000 UNIT SUBCUT (17:39)
[2024-07-26] MEDS: sodium chloride 0.9% 1,000 ML 50 ML IV (17:39)
[2024-07-26] MEDS: SODIUM CHLORIDE 0.9% IV (17:39)
[2024-07-26] MEDS: Fleet Enema 133 mL Enema PR (17:40)
--- OUTSIDE RECORDS SUMMARY | 2024-07-26 19:41 | XMS_ITS ---
Author Name Unknown Organization [facility] Address [address] [place] [address] Care Team Providers Care Handling Tech Name Role Phone Claudio Vila Primary Care Provider Medications Medication SIG (Take, Route, Frequency, Duration) Notes Start Date End Date Status Tylenol 325 MG 1 tablet as needed Orally every 4 hrs Unknown CeleBREX 200 MG 1 capsule with food Orally Once a day Active Subutex 2 MG 1 tablet under the tongue and allow to dissolve Sublingual Once a day Unknown Compazine 10 MG as directed Orally Unknown Allopurinol 300 MG 1 tablet Orally Once a day Active Levothyroxine Sodium 88 MCG/ML 1 mL in the morning before breakfast Orally Once a day Unknown Gabapentin 600 MG 1 tablet Orally Once a day Unknown Cymbalta 60 MG 1 capsule Orally Onc e a day Unknown Hiprex 1 GM 1 tablet Orally Twic e a day Unknown Vitamin D3 - as directed Unkno wn predniSONE 20 MG 2 tabs for 7 days; 1 tab for 7 days; 1/2 tab for 7 days Orally Once a day Unknown Zofran 4 MG 1 tablet Orally Once a day Unknown Pamelor 25 MG 1 capsule Orally Onc e a day Active Encounters Encounter Location Date Provider [facility] [address] [place] [id number] 12/24/2023 Claudio Vila Plan Of Treatment No Information Progress Notes * [place]OR[place] RAIMUNDOBLAKEOB:1960 (63 yo F)Acc No.[id number]:12/24/2023 Patient:?EMILY COLORADO :1960???Age:63 Y???Sex:Female Address:[address] [place] [address] [place] [address] Subjective: * Chief Complaints: * ??? * Medical History:? * Surgical History:? * Hospitalization/Major Diagno stic Procedure:? * Medications:?TakingPamelor 2 5 MG Capsule 1 capsule Orally Once a day CeleBREX 200 MG Capsule 1 capsule with food Orally Once a day Allopurinol 300 MG Tablet 1 tablet Orally Once a day Taking Pamelor 25 MG Capsule 1 capsule Orally Once a day Taking CeleBREX 200 MG Capsule 1 capsule with food Orally Once a day Taking Allopurinol 300 MG Tablet 1 tablet Orally Once a day UnknownCompazine 10 MG Capsule Extended Release as directed Orally predniSONE 20 MG Tablet 2 tabs for 7 days; 1 tab for 7 days; 1/2 tab for 7 days Orally Once a day Zofran 4 MG Tablet 1 tablet Orally Once a day Hiprex 1 GM Tablet 1 tablet Orally Twice a day Levothyroxine Sodium 88 MCG/ML Solution 1 mL in the morning before breakfast Orally Once a day Gabapentin 600 MG Tablet 1 tablet Orally Once a day Cymbalta 60 MG Capsule Delayed Release Particles 1 capsule Orally Once a day Vitamin D3 - Liquid as directed Subutex 2 MG Tablet Sublingual 1 tablet under the tongue and allow to dissolve Sublingual Once a day Tylenol 325 MG Tablet 1 tablet as needed Orally every 4 hrs Unknown Compazine 10 MG Capsule Extended Release as directed Orally Unknown predniSONE 20 MG Tablet 2 tabs for 7 days; 1 tab for 7 days; 1/2 tab for 7 days Orally Once a day Unknown Zofran 4 MG Tablet 1 tablet Orally Once a day Unknown Hiprex 1 GM Tablet 1 tablet Orally Twice a day Unknown Levothyroxine Sodium 88 MCG/ML Solution 1 mL in the morning before breakfast Orally Once a day Unknown Gabapentin 600 MG Tablet 1 tablet Orally Once a day Unknown Cymbalta 60 MG Capsule Delayed Release Particles 1 capsule Orally Once a day Unknown Vitamin D3 - Liquid as directed Unknown Subutex 2 MG Tablet Sublingual 1 tablet under the tongue and allow to dissolve Sublingual Once a day Unknown Tylenol 325 MG Tablet 1 tablet as needed Orally every 4 hrs Objective: * Vitals:? * Physical Examination:? Assessment: Plan: * Treatment: * Procedure Codes:? * true * Date:? Generated for Thad singer/Eliza/Marcell on:?07/26/2024 07:41 PM LOOPING INSPECTOR
--- OUTSIDE RECORDS SUMMARY | 2024-07-26 19:41 | XMS_ITS | Continuity of Care Document ---
Author Name Unknown Organization [facility] Address [id number] [address] Phone Care Team Providers Care Crm Dynamics Developer Name Role Phone Tamera Matson DDS Unavailable Unavailable Allergies, Adverse Reactions, Alerts Substance Reaction Status Criticality ibuprofen Active No Information Medications Medication Instructions Dosage Effective Dates (start - stop) Status Comments amoxicillin 500 mg capsule take 1 capsule by oral route every 8 hours 500 MG - Active D3-2000 50 mcg (2,000 unit) capsule - Active baclofen 5 mg tablet take 1 tablet by oral route 3 times every day 5 MG - Active methenamine hippurate 1 gram tablet take 1 tablet by oral route 2 times every day 1 G - Active allopurinol 100 mg tablet take 1 tablet by oral route every day 100 MG - Active celecoxib 200 mg capsule take 1 capsule by oral route every day 200 MG - Active duloxetine 60 mg capsule,delayed release take 1 capsule by oral route every day 60 MG - Active gabapentin 300 mg capsule take 1 capsule by oral route 3 times every day 300 MG - Active gabapentin 600 mg tablet take 1 tablet by oral route 3 times every day 600 MG - Active levothyroxine 88 mcg capsule take 1 capsule by oral route every day 88 MCG - Active nortriptyline 25 mg capsule take 1 capsule by oral route 3 times every day 25 MG - Active MULTIVITAMIN (unknown strength) Not Available - Active oxycodone 15 mg tablet take 1 tablet by oral route every 6 hours 15 MG - No Longer Active As per patient privacy policy some of the clinical information may not be visible. Procedures Procedure Date Panoramic Film Extraction, Erupted Tooth Or Exposed Evie t (Elevati Extraction, Erupted Tooth Or Exposed Evie t (Elevati Extraction, Erupted Tooth Or Exposed Evie t (Elevati Extraction, Erupted Tooth Or Exposed Evie t (Elevati Extraction, Erupted Tooth Or Exposed Evie t (Elevati Extraction, Erupted Tooth Or Exposed Evie t (Elevati Extraction, Erupted Tooth Or Exposed Evie t (Elevati Extraction, Erupted Tooth Or Exposed Evie t (Elevati Extraction, Erupted Tooth Or Exposed Evie t (Elevati Extraction, Erupted Tooth Or Exposed Evie t (Elevati Extraction, Erupted Tooth Or Exposed Evie t (Elevati Extraction, Erupted Tooth Or Exposed Evie t (Elevati Extraction, Erupted Tooth Or Exposed Evie t (Elev Extraction, Erupted Tooth Or Exposed Evie t (Elevati Extraction, Erupted Tooth Or Exposed Evie t (Elevati Extraction, Erupted Tooth Or Exposed Evie t (Elevati Extraction, Erupted Tooth Or Exposed Evie t (Elevati Bitewings ??? Four Films Intraoral ??? Periapical Each Additional Film Intraoral ??? Periapical Each Additional Film Intraoral ??? Periapical Each Additional Film Intraoral ??? Periapical Each Additional Film Comprehensive Oral Evaluation ??? New Or Established Limited Oral Evaluation ??? Problem Focu sed Intraoral ??? Periapical First Film Extraction, Erupted Tooth Or Exposed Evie t (Elevati EDR Approval Note Pre-Pay For Services Advance Directives Directive Yes / No Effective Date File Name No Information Encounters Encounter Description Practice Location Reason(s) For Visit Diagnoses Date Provider Providers Copied on Encounter [facility], [id number], [id number], [place] tel:[phone] [facility] Encounter for dental exam and cleaning w/o abnormal findings Huyen Philip. [address], [place], [address], [place]. tel:[phone] Referring Provider: Tamera Matson, [address] [place], [address]. tel:[phone] [facility], [id number], [id number], [place] tel:[phone] [facility] No Information Huyen Philip. [address], [place], [address], [place]. tel:[phone] Referring Provider: Tamera Matson, [address] [place], [address]. tel:[phone] [facility], [id number] [place], [address], [place] tel:[phone] [facility] Encounter for dental exam and cleaning w/o abnormal findings Krysten Sanches. [address], [place], [address], [place]. tel:[phone] Referring Provider: Myron Dubon, [address] [place], [address]. tel:[phone] Family History Family Member Type Diagnosis Age At Onset Father Problem (finding) malignant neoplasm of l kelly Brother Problem (finding) Cancer, unknown Mother Problem (finding) breast cancer Payers Payer name Insurance type Covered libertarian ID Authorisaiaha bianca(s) D [facility] Advantage [id number] D Medicaid [id number] Social History Type Description Quantity Date Captured Comments Alcohol Use Details No Caffeine Use Details Unknown Tobacco Use Status No Information Smoking Status No Information Sex Female Sexual Orientation Don't Know Gender Identity Female Vital Signs Date / Time: Height Weight BMI Pulse Rate Blood Pressure Temperature Respiratory Rate Body Surface Area Head Circumference Head Circ. Percentile Wt./[place]. Percentile BMI percentile Pulse Ox Inhaled Ox 8:08 AM 165/84 mm[Hg] Chief Complaint And Reason For Visit No Information Reason For Referral Reason For Referral No Information History Of Present Illness Encounter Date Complaint History Of Prese nt Illness No Information Functional Status Date Functional Assessmen t No Information Instructions Date Instruction Additional Infor mation No Information Assessments Type Assessment Date No Information Patient Care Teams Name Effective Dates (start - stop) Status Members No Information
--- OUTSIDE RECORDS SUMMARY | 2024-07-26 19:42 | XMS_ITS ---
Author Name Unknown Organization [facility] Address [address] [place] [address] Care Team Providers Care Chief Electrician Name Role Phone Claudio Vila Primary Care Provider REASON FOR VISIT discharge Medications Medication SIG (Take, Route, Frequency, Duration) Notes Start Date End Date Status Tylenol 325 MG 1 tablet as needed Orally every 4 hrs Unknown Allopurinol 300 MG 1 tablet Orally Once a day Unknown Subutex 2 MG 1 tablet under the tongue and allow to dissolve Sublingual Once a day Unknown CeleBREX 200 MG 1 capsule with food Orally Once a day Unknown Vitamin D3 - as directed Unkno wn Pamelor 25 MG 1 capsule Orally Onc e a day Unknown Hiprex 1 GM 1 tablet Orally Twic e a day Unknown Cymbalta 60 MG 1 capsule Orally Onc e a day Unknown Gabapentin 600 MG 1 tablet Orally Once a day Unknown Levothyroxine Sodium 88 MCG/ML 1 mL in the morning before breakfast Orally Once a day Unknown predniSONE 20 MG 2 tabs for 7 days; 1 tab for 7 days; 1/2 tab for 7 days Orally Once a day Unknown Compazine 10 MG as directed Orally Unknown Zofran 4 MG 1 tablet Orally Once a day Unknown Encounters Encounter Location Date Provider Diagnosis [facility] [address] [place] [address] 11/18/2023 Claudio Vila Chronic obstructive pulmonary disease with (acute) exacerbation J44.1 ; Generalized abdominal pain R10.84 ; Pain in thoracic spine M54.6 ; Nausea and vomiting, unspecified vomiting type R11.2 ; Anxiety disorder, unspecified type F41.9 ; Current episode of major depressive disorder without prior episode, unspecified depression episode severity F32.9 ; Postprocedural hypothyroidism E89.0 ; Malignant neoplasm of unspecified part of unspecified bronchus or lung C34.90 ; Other nonspecific abnormal finding of lung field R91.8 ; Abnormal weight loss R63.4 ; Chronic bronchitis, unspecified chronic bronchitis type J42 ; Cachexia R64 ; Polyneuropathy, unspecified G62.9 ; Slow transit constipation K59.01 ; Hypokalemia E87.6 ; Moderate protein-calorie malnutrition E44.0 ; Hypo-osmolality and hyponatremia E87.1 ; Other malaise R53.81 ; Acute cystitis without hematuria N30.00 ; 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 ; Chronic cough R05.3 ; Syncope and collapse R55 ; Dizziness and giddiness R42 ; Tubulo-interstitial nephritis, 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 ; Abnormal results of pulmonary function studies R94.2 ; Mixed incontinence N39.46 ; Personal history of urinary (tract) infections Z87.440 and Dorsalgia, unspecified M54.9 Assessments Encounter Date Diagnosis (ICD Code) Assessment Notes Treat ment Notes Treatment Clinical Notes 11/18/2023 Chronic obstructive pulmonary disease with (acute) exacerbation (ICD-10 - J44.1) 11/18/2023 Generalized abdomina l pain (ICD-10 - R10.84) 11/18/2023 Pain in thoracic spine (ICD-10 - M54.6) 11/18/2023 Nausea and vomiting, unspecified vomiting type (ICD-10 - R11.2) 11/18/2023 Anxiety disorder, unspecified type (ICD-10 - F41.9) 11/18/2023 Current episode of major depressive disorder without prior episode, unspecified depression episode severity (ICD-10 - F32.9) 11/18/2023 Postprocedural hypothyroidism (ICD-10 - E89.0) 11/18/2023 Malignant neoplasm o f unspecified part of unspecified bronchus or lung (ICD-10 - C34.90) 11/18/2023 Other nonspecific abnormal finding of lung field (ICD-10 - R91.8) 11/18/2023 Abnormal weight loss (ICD-10 - R63.4) 11/18/2023 Chronic bronchitis, unspecified chronic bronchitis type (ICD-10 - J42) 11/18/2023 Cachexia (ICD-10 - R64) 11/18/2023 Polyneuropathy, unspecified (ICD-10 - G62.9) 11/18/2023 Slow transit constipation (ICD-10 - K59.01) 11/18/2023 Hypokalemia (ICD-10 - E87.6) 11/18/2023 Moderate protein-calorie malnutrition (ICD-10 - E44.0) 11/18/2023 Hypo-osmolality and hyponatremia (ICD-10 - E87.1) 11/18/2023 Other malaise (ICD-1 0 - R53.81) 11/18/2023 Acute cystitis without hematuria (ICD-10 - N30.00) 11/18/2023 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 Vitals taken and recorded at [facility]. Pt approved for discharge. Plan Of Treatment Treatment Notes Assessment Notes Other Medications reviewed , orders signed and documented with nursing staff. Vitals taken and recorded at [facility]. Pt approved for discharge. Next Appt Details Follow Up: 4 Weeks, Reason: Progress Notes * CHRISTIE COLORADOOB:1960 (63 yo F)Acc No.[id number]:11/18/2023 Patient:?EMILY COLORADO Provider:?Claudio Vila MD :1960???Age:62 Y???Sex:Female D ate:11/18/2023 Address:[facility] [place] [facility] [phone] Subjective: * Chief Complaints: * ???Discharge * HPI: ???::? The patient is seen in the detention today for discharge from [facility]. Staff reports pt is stable for transport. The review of systems and exam are unchanged from previous. Patient denies pain and is comfortable. All orders, prescriptions, home care assessments and DME are completed. Will follow up with patient in office as appropriate. * Medical History:? * Surgical History:? * Hospitalization/Major Diagno stic Procedure:? * Medications:?UnknownCompazin e 10 MG Capsule Extended Release as directed Orally predniSONE 20 MG Tablet 2 tabs for 7 days; 1 tab for 7 days; 1/2 tab for 7 days Orally Once a day Zofran 4 MG Tablet 1 tablet Orally Once a day Pamelor 25 MG Capsule 1 capsule Orally Once a day Hiprex 1 GM Tablet 1 tablet Orally Twice a day Levothyroxine Sodium 88 MCG/ML Solution 1 mL in the morning before breakfast Orally Once a day Gabapentin 600 MG Tablet 1 tablet Orally Once a day Cymbalta 60 MG Capsule Delayed Release Particles 1 capsule Orally Once a day Vitamin D3 - Liquid as directed CeleBREX 200 MG Capsule 1 capsule with food Orally Once a day Subutex 2 MG Tablet Sublingual 1 tablet under the tongue and allow to dissolve Sublingual Once a day Allopurinol 300 MG Tablet 1 tablet Orally Once a day Tylenol 325 MG Tablet [...] Once a day Unknown Pamelor 25 MG Capsule 1 capsule Orally Once a day Unknown Hiprex 1 [...] Vitamin D3 - Liquid as directed Unknown CeleBREX 200 MG Capsule 1 capsule with food Orally Once a day Unknown Subutex 2 MG Tablet Sublingual 1 tablet under the tongue and allow to dissolve Sublingual Once a day Unknown Allopurinol 300 MG Tablet 1 tablet Orally Once a day Unknown Tylenol 325 MG Tablet 1 tablet as needed Orally every 4 hrs Objective: * Vitals:? * Examination: ???General Examination: ?GENERAL APPEARANCE:?in no acute distress. Vital signs as documented..?NECK/THYROID:?no JVD.?SKIN:?warm and dry, without overt rashes..?HEART:?notable for regular rhythym, normal sounds and absence of murmurs, rubs or gallops..?LUNGS:?Lungs clear.?ABDOMEN:?unremarkable, no organomegaly , no masses, or abdominal aortic enlargement..? Assessment: * Assessment: 1.?Chronic obstructive pulmo nary disease with (acute) exacerbation - J44.1 (Primary)?2.?Generalized abdominal pain - R10.84?3.?Pain in thoracic spine - M54.6?4.?Nausea and vomiting, unspecified vomiting type - R11.2?5.?Anxiety disorder, unspecified type - F41.9?6.?Current episode of major depressive disorder without prior episode, unspecified depression episode severity - F32.9?7.?Postprocedural hypothyroidism - E89.0?8.?Malignant neoplasm of unspecified part of unspecified bronchus or lung - C34.90?9.?Other nonspecific abnormal finding of lung field - R91.8?10.?Abnormal weight loss - R63.4?11.?Chronic bronchitis, unspecified chronic bronchitis type - J42?12.?Cachexia - R64 13.?Polyneuropathy, unspecified - G62.9?14.?Slow transit constipation - K59.01?15.?Hypokalemia - E87.6?16.?Moderate protein-calorie malnutrition - E44.0?17.?Hypo-osmolality and hyponatremia - E87.1?18.?Other malaise - R53.81?19.?Acute cystitis without hematuria - N30.00?20.?Neoplasm related pain (acute) (chronic) - G89.3?21.?Chronic cough - R05.3?22.?Syncope and collapse - R55?23.?Dizziness and giddiness - R42?24.?Tubulo-interstitial nephritis, not specified as acute or chronic - N12?25.?Abnormal results of pulmonary function studies - R94.2?26.?Mixed incontinence - N39.46?27.?Personal history of urinary (tract) infections - Z87.440?28.?Dorsalgia, unspecified - M54.9? Plan: * Treatment: * Procedure Codes:?26603 LTC F acility, Discharge under 30 min * Follow Up:?4 Weeks * Billing Information: * Visit Code:? * Procedure Codes:? 60748 LT Facility, Discharge under 30 min. * ER HAND Sign off status: Completed true * Provider:?Claudio Vila MD Chele e:?11/18/2023 Generated for Thad singer/Eliza/Tasharansmitting on:?07/26/2024 07:41 PM SANDER HAND History and Physical Notes * Examination Category Sub-Category Detail Notes General Examination GENERAL APPEARANCE: in no ac mary jo distress. Vital signs as documented. NECK/THYROID: no JVD HEART: notable for regular rhythym, normal sounds and absence of murmurs, rubs or gallops. LUNGS: Lungs clear ABDOMEN: unremarkable, no org anomegaly , no masses, or abdominal aortic enlargement. SKIN: warm and dry, withou t overt rashes.
--- OUTSIDE RECORDS SUMMARY | 2024-07-26 19:42 | XMS_ITS ---
Author Name Unknown Organization [facility] Address [address] [place] [address] Care Team Providers Care Manager Machine Name Role Phone Claudio Vila Primary Care Provider Allergies Allergen (clinical drug ingredient) Drug/Non Drug Allergy documented on EMR Reaction Allergy Type Onset Date Status buprenorphine / naloxone Buprenorphine HCl-Naloxone HCl Unknown Drug Allergy Active ibuprofen Ibuprofen Unknown Drug Allergy Active Medications Medication SIG (Take, Route, Frequency, Duration) Notes Start Date End Date Status Zofran 4 MG 1 tablet Orally Once a day Active Pamelor 25 MG 1 capsule Orally Onc e a day Active Hiprex 1 GM 1 tablet Orally Twic e a day Active Levothyroxine Sodium 88 MCG/ML 1 mL in the morning before breakfast Orally Once a day Active Gabapentin 600 MG 1 tablet Orally Once a day Active Subutex 2 MG 1 tablet under the tongue and allow to dissolve Sublingual Once a day Active Compazine 10 MG as directed Orally Active Allopurinol 300 MG 1 tablet Orally Once a day Active predniSONE 20 MG 2 tabs for 7 days; 1 tab for 7 days; 1/2 tab for 7 days Orally Once a day Active Tylenol 325 MG 1 tablet as needed Orally every 4 hrs Active Cymbalta 60 MG 1 capsule Orally Onc e a day Active Vitamin D3 - as directed Activ e CeleBREX 200 MG 1 capsule with food Orally Once a day Active Problems Problem Type SNOMED Code ICD Code Onset Dates Problem Status W/U Status Risk Notes Problem 913472299 Chronic obstructive pulmonary disease with (acute) exacerbation (J44.1) Active confirmed Problem 077950451 Anxiety disorder , unspecified type (F41.9) Active confirmed Problem 33477573 Current episode of major depressive disorder without prior episode, unspecified depression episode severity (F32.9) Active confirmed Problem 18618275 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) Active confirmed Problem 903057091 Malignant neopla sm of unspecified part of unspecified bronchus or lung (C34.90) Active confirmed Problem 58309622 Chronic bronchitis, unspecified chronic bronchitis type (J42) Active confirmed Problem 56370715 Polyneuropathy, unspecified (G62.9) Active confirmed Problem 54817783 Slow transit constipation (K59.01) Active confirmed Problem 868013274 Moderate protein-calorie malnutrition (E44.0) Active confirmed Problem 30875472114209 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) Active confirmed Problem 14571916 Mixed incontinen ce (N39.46) Active confirmed Encounters Encounter Location Date Provider Diagnosis [facility] [address] [place] [phone] 11/06/2023 Claudio Vila Chronic obstructive pulmonary disease with [...] Notes Treat ment Notes Treatment Clinical Notes 11/06/2023 Chronic obstructive pulmonary disease with (acute) exacerbation (ICD-10 - J44.1) 11/06/2023 Generalized abdomina l pain (ICD-10 - R10.84) 11/06/2023 Pain in thoracic spine (ICD-10 - M54.6) 11/06/2023 Nausea and vomiting, unspecified vomiting type (ICD-10 - R11.2) 11/06/2023 Anxiety disorder, unspecified type (ICD-10 - F41.9) 11/06/2023 Current episode of major depressive disorder without prior episode, unspecified depression episode severity (ICD-10 - F32.9) 11/06/2023 Postprocedural hypothyroidism (ICD-10 - E89.0) 11/06/2023 Malignant neoplasm o f unspecified part of unspecified bronchus or lung (ICD-10 - C34.90) 11/06/2023 Other nonspecific abnormal finding of lung field (ICD-10 - R91.8) 11/06/2023 Abnormal weight loss (ICD-10 - R63.4) 11/06/2023 Chronic bronchitis, unspecified chronic bronchitis type (ICD-10 - J42) 11/06/2023 Cachexia (ICD-10 - R64) 11/06/2023 Polyneuropathy, unspecified (ICD-10 - G62.9) 11/06/2023 Slow transit constipation (ICD-10 - K59.01) 11/06/2023 Hypokalemia (ICD-10 - E87.6) 11/06/2023 Moderate protein-calorie malnutrition (ICD-10 - E44.0) 11/06/2023 Hypo-osmolality and hyponatremia (ICD-10 - E87.1) 11/06/2023 Other malaise (ICD-1 0 - R53.81) 11/06/2023 Acute cystitis without hematuria (ICD-10 - N30.00) 11/06/2023 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.3) 11/06/2023 Chronic cough (ICD-1 0 - R05.3) 11/06/2023 Syncope and collapse (ICD-10 - R55) 11/06/2023 Dizziness and giddiness (ICD-10 - R42) 11/06/2023 Tubulo-interstitial nephritis, not specified as acute or chronic (ICD-10 - N12) 11/06/2023 Abnormal results of pulmonary function studies (ICD-10 - R94.2) 11/06/2023 Mixed incontinence (ICD-10 - N39.46) 11/06/2023 Personal history of urinary (tract) infections (ICD-10 - Z87.440) 11/06/2023 Dorsalgia, unspecified (ICD-10 - M54.9) Plan Of Treatment No Information Progress Notes * [place]:1960 (62 yo F)Acc No.[id number]:11/06/2023 Patient:?EMILY [place] :1960???Age:62 Y???Sex:Female Address:[address] [place] [phone] Subjective: * Chief Complaints: * ??? * Medical History:? * Surgical History:? * Hospitalization/Major Diagno stic Procedure:? * Medications:?TakingCompazine 10 MG Capsule Extended Release as directed Orally predniSONE 20 MG Tablet 2 tabs for 7 days; 1 tab for 7 days; 1/2 tab for 7 days Orally Once a dayZofran 4 MG Tablet 1 tablet Orally Once a dayPamelor 25 MG Capsule 1 capsule Orally Once a dayHiprex 1 GM Tablet 1 tablet Orally Twice a dayLevothyroxine Sodium 88 MCG/ML Solution 1 mL in the morning before breakfast Orally Once a dayGabapentin 600 MG Tablet 1 tablet Orally Once a dayCymbalta 60 MG Capsule Delayed Release Particles 1 capsule Orally Once a dayVitamin D3 - Liquid as directed CeleBREX 200 MG Capsule 1 capsule with food Orally Once a daySubutex 2 MG Tablet Sublingual 1 tablet under the tongue and allow to dissolve Sublingual Once a dayAllopurinol 300 MG Tablet 1 tablet Orally Once a dayTylenol 325 MG Tablet 1 tablet as needed Orally every 4 hrsTaking Compazine 10 MG Capsule Extended Release as directed Orally Taking predniSONE 20 MG Tablet 2 tabs for 7 days; 1 tab for 7 days; 1/2 tab for 7 days Orally Once a dayTaking Zofran 4 MG Tablet 1 tablet Orally Once a dayTaking Pamelor 25 MG Capsule 1 capsule Orally Once a dayTaking Hiprex 1 GM Tablet 1 tablet Orally Twice a dayTaking Levothyroxine Sodium 88 MCG/ML Solution 1 mL in the morning before breakfast Orally Once a dayTaking Gabapentin 600 MG Tablet 1 tablet Orally Once a dayTaking Cymbalta 60 MG Capsule Delayed Release Particles 1 capsule Orally Once a dayTaking Vitamin D3 - Liquid as directed Taking CeleBREX 200 MG Capsule 1 capsule with food Orally Once a dayTaking Subutex 2 MG Tablet Sublingual 1 tablet under the tongue and allow to dissolve Sublingual Once a dayTaking Allopurinol 300 MG Tablet 1 tablet Orally Once a dayTaking Tylenol 325 MG Tablet 1 tablet as needed Orally every 4 hrs * Allergies:?IbuprofenBuprenor phine HCl-Naloxone HCl Objective: Assessment: * Assessment: 1.?Chronic obstructive pulmo nary [...] - M54.9? Plan: * Treatment: * Procedure Codes:? * true * Date:? 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
--- OUTSIDE RECORDS SUMMARY | 2024-07-26 19:42 | XMS_ITS | Continuity of Care Document ---
Author Name Unknown Organization [facility] Address [address] [id number][place] [address] Phone Care Team Providers Care Local Sales Manager Name Role Phone Tamera Matson DDS Unavailable [...] Diagnoses Date Provider Providers Copied on Encounter [facility], [id number], [address], [place] tel:[phone] [facility] Encounter for dental exam and cleaning w/o abnormal findings Huyen Philip. [address], [place], [address], [place]. tel:[phone] Referring Provider: Tamera Matson, [address] [place], [address]. tel:[phone] [facility], [id number] 516766GZ[place], [address], [place] tel:[phone] [facility] No Information Huyen Philip. [address], [place], [address], [place]. tel:[phone] Referring Provider: Tamera Matson, [address] [place], [address]. tel:[phone] [facility], [id number] 187348JM[place], [address], [place] tel:[phone] [facility] Encounter for dental exam and cleaning w/o abnormal findings Krysten Sanches. [address], [place], [address], [place]. tel:[phone] Referring Provider: Myron Dubon, [address] [place], [address]. tel:[phone] Family History Family Member Type Diagnosis Age At Onset Father Problem (finding) malignant neoplasm of l kelly Brother Problem (finding) Cancer, unknown Mother Problem (finding) breast cancer Payers Payer name Insurance type Covered democrat ID Authorisaiaha bianca(s) D [facility] Advantage [id number] D Medicaid [id number] Social History Type Description Quantity Date Captured [...]
--- OUTSIDE RECORDS SUMMARY | 2024-07-26 19:42 | XMS_ITS | Patient Health Record ---
Author Name Unknown Organization [facility] Address [address] [place] [address] Care Team Providers Care Dba Developer Name Role Phone Claudio Vila Primary Care Provider Allergies Allergen (clinical drug ingredient) Drug/Non Drug Allergy documented on EMR Reaction Allergy Type Onset Date Status buprenorphine / naloxone Buprenorphine HCl-Naloxone HCl Unknown Drug Allergy Active ibuprofen Ibuprofen Unknown Drug Allergy Active Reason For Referral No Information Medications Medication SIG (Take, Route, Frequency, Duration) Notes Start Date End Date Status Levothyroxine Sodium 88 MCG/ML 1 mL in the morning before breakfast Orally Once a day Unknown Gabapentin 600 MG 1 tablet Orally Once a day Unknown Cymbalta 60 MG 1 capsule Orally Onc e a day Unknown predniSONE 20 MG 2 tabs for 7 days; 1 tab for 7 days; 1/2 tab for 7 days Orally Once a day Unknown Tylenol 325 MG 1 tablet as needed Orally every 4 hrs Unknown Zofran 4 MG 1 tablet Orally Once a day Unknown Pamelor 25 MG 1 capsule Orally Onc e a day Active Hiprex 1 GM 1 tablet Orally Twic e a day Unknown Vitamin D3 - as directed Unkno wn CeleBREX 200 MG 1 capsule with food Orally Once a day Active Subutex 2 MG 1 tablet under the tongue and allow to dissolve Sublingual Once a day Unknown Compazine 10 MG as directed Orally Unknown Allopurinol 300 MG 1 tablet Orally Once a day Active Problems Problem Type SNOMED Code ICD Code Onset Dates Problem Status W/U Status Risk Notes Problem 579334626 Malignant neopla sm of unspecified part of unspecified bronchus or lung (C34.90) Active confirmed Problem 321468471 Moderate protein-calorie malnutrition (E44.0) Active confirmed Problem 59282147 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) Active confirmed Problem 57202466 Polyneuropathy, unspecified (G62.9) Active confirmed Problem 47366331221661 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) Active confirmed Problem 984909185 Chronic obstructive pulmonary disease with (acute) exacerbation (J44.1) Active confirmed Problem 50445288 Slow transit constipation (K59.01) Active confirmed Problem 70619915 Mixed incontinen ce (N39.46) Active confirmed Problem 58043705 Current episode of major depressive disorder without prior episode, unspecified depression episode severity (F32.9) Active confirmed Problem 77244711 Chronic bronchitis, unspecified chronic bronchitis type (J42) Active confirmed Problem 897103451 Anxiety disorder , unspecified type (F41.9) Active confirmed Encounters Encounter Location Date Provider Diagnosis [facility] [address] [place] [address] 11/05/2023 Claudio Vila Chronic obstructive pulmonary disease with (acute) exacerbation J44.1 ; Anxiety disorder, unspecified type F41.9 ; Current episode of major depressive disorder without prior episode, unspecified depression episode severity F32.9 ; Postprocedural hypothyroidism E89.0 ; Malignant neoplasm of unspecified part of unspecified bronchus or lung C34.90 ; Chronic bronchitis, unspecified chronic bronchitis type J42 ; Polyneuropathy, unspecified G62.9 ; Slow transit constipation K59.01 ; Moderate protein-calorie malnutrition E44.0 ; 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 and Mixed incontinence N39.46 [facility] [address] [place] [address] 11/18/2023 Claudio Vila Chronic obstructive pulmonary disease [...] (tract) infections Z87.440 and Dorsalgia, unspecified M54.9 [facility] [address] [place] [phone] 11/06/2023 Claudio Vila Chronic obstructive pulmonary disease [...] (tract) infections Z87.440 and Dorsalgia, unspecified M54.9 [facility] [address] [place] [phone] 12/24/2023 Claudio Vila Assessments Encounter Date Diagnosis (ICD Code) Assessment Notes Treat ment Notes Treatment Clinical Notes 11/06/2023 Chronic obstructive pulmonary disease with (acute) exacerbation (ICD-10 - J44.1) 11/06/2023 Generalized abdomina l pain (ICD-10 - R10.84) 11/05/2023 Chronic obstructive pulmonary disease with (acute) exacerbation (ICD-10 - J44.1) 11/05/2023 Anxiety disorder, unspecified type (ICD-10 - F41.9) 11/18/2023 Chronic obstructive pulmonary disease with (acute) exacerbation (ICD-10 - J44.1) 11/18/2023 Generalized abdomina l pain (ICD-10 - R10.84) 11/05/2023 Current episode of major depressive disorder without prior episode, unspecified depression episode severity (ICD-10 - F32.9) 11/06/2023 Pain in thoracic spine (ICD-10 - M54.6) 11/06/2023 Nausea and vomiting, unspecified vomiting type (ICD-10 - R11.2) 11/05/2023 Postprocedural hypothyroidism (ICD-10 - E89.0) 11/18/2023 Pain in thoracic spine (ICD-10 - M54.6) 11/18/2023 Nausea and vomiting, unspecified vomiting type (ICD-10 - R11.2) 11/05/2023 Malignant neoplasm o f unspecified part of unspecified bronchus or lung (ICD-10 - C34.90) 11/06/2023 Anxiety disorder, unspecified type (ICD-10 - F41.9) 11/06/2023 Current episode of major depressive disorder without prior episode, unspecified depression episode severity (ICD-10 - F32.9) 11/05/2023 Chronic bronchitis, unspecified chronic bronchitis type (ICD-10 - J42) 11/18/2023 Anxiety disorder, unspecified type (ICD-10 - F41.9) 11/18/2023 Current episode of major depressive disorder without prior episode, unspecified depression episode severity (ICD-10 - F32.9) 11/05/2023 Polyneuropathy, unspecified (ICD-10 - G62.9) 11/06/2023 Postprocedural hypothyroidism (ICD-10 - E89.0) 11/06/2023 Malignant neoplasm o f unspecified part of unspecified bronchus or lung (ICD-10 - C34.90) 11/05/2023 Slow transit constipation (ICD-10 - K59.01) 11/18/2023 Postprocedural hypothyroidism (ICD-10 - E89.0) 11/18/2023 Malignant neoplasm o f unspecified part of unspecified bronchus or lung (ICD-10 - C34.90) 11/05/2023 Moderate protein-calorie malnutrition (ICD-10 - E44.0) 11/06/2023 Other nonspecific abnormal finding of lung field (ICD-10 - R91.8) 11/06/2023 Abnormal weight loss (ICD-10 - R63.4) 11/05/2023 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.3) 11/18/2023 Other nonspecific abnormal finding of lung field (ICD-10 - R91.8) 11/18/2023 Abnormal weight loss (ICD-10 - R63.4) 11/05/2023 Mixed incontinence (ICD-10 - N39.46) 11/06/2023 Chronic bronchitis, unspecified chronic bronchitis type (ICD-10 - J42) 11/06/2023 Cachexia (ICD-10 - R64) 11/18/2023 Chronic bronchitis, unspecified chronic bronchitis type (ICD-10 - J42) 11/18/2023 Cachexia (ICD-10 - R64) 11/06/2023 Polyneuropathy, unspecified (ICD-10 - G62.9) 11/06/2023 Slow transit constipation (ICD-10 - K59.01) 11/18/2023 Polyneuropathy, unspecified (ICD-10 - G62.9) 11/18/2023 Slow transit constipation (ICD-10 - K59.01) 11/06/2023 Hypokalemia (ICD-10 - E87.6) 11/06/2023 Moderate protein-calorie malnutrition (ICD-10 - E44.0) 11/18/2023 Hypokalemia (ICD-10 - E87.6) 11/18/2023 Moderate protein-calorie malnutrition (ICD-10 - E44.0) 11/06/2023 Hypo-osmolality and hyponatremia (ICD-10 - E87.1) 11/06/2023 Other malaise (ICD-1 0 - R53.81) 11/18/2023 Hypo-osmolality and hyponatremia (ICD-10 - E87.1) 11/18/2023 Other malaise (ICD-1 0 - R53.81) 11/06/2023 Acute cystitis without hematuria (ICD-10 - N30.00) 11/06/2023 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.3) 11/18/2023 Acute cystitis without hematuria (ICD-10 - N30.00) 11/18/2023 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.3) 11/06/2023 Chronic cough (ICD-1 0 - R05.3) 11/06/2023 Syncope and collapse (ICD-10 - R55) 11/18/2023 Chronic cough (ICD-1 0 - R05.3) 11/18/2023 Syncope and collapse (ICD-10 - R55) 11/06/2023 Dizziness and giddiness (ICD-10 - R42) 11/06/2023 Tubulo-interstitial nephritis, not specified as acute or chronic (ICD-10 - N12) 11/18/2023 Dizziness and giddiness (ICD-10 - R42) 11/18/2023 Tubulo-interstitial nephritis, not specified as acute or chronic (ICD-10 - N12) 11/06/2023 Abnormal results of pulmonary function studies (ICD-10 - R94.2) 11/06/2023 Mixed incontinence (ICD-10 - N39.46) 11/18/2023 Abnormal results of pulmonary function studies (ICD-10 - R94.2) 11/18/2023 Mixed incontinence (ICD-10 - N39.46) 11/06/2023 Personal history of urinary (tract) infections (ICD-10 - Z87.440) 11/06/2023 Dorsalgia, unspecified (ICD-10 - M54.9) 11/18/2023 Personal history of urinary (tract) infections (ICD-10 - Z87.440) 11/18/2023 Dorsalgia, unspecified (ICD-10 - M54.9) 11/05/2023 Other Medications reviewed, orders signed and documented with nursing staff. Vitals taken and recorded at [facility]. 11/18/2023 Other Medications reviewed, orders signed and documented with nursing staff. Vitals taken and recorded at [facility]. Pt approved for discharge. Plan Of Treatment No Information Insurance Providers Payer Name Payer Address Payer Phone Subscriber Number Group Number Insured Name Patient Relationship to Insured Coverage Start Date Coverage End Date [place] Medicaid [address] [place] [address] [id number] [place] Self - patient is the insured [place] [address] [address] [place] [address] [id number] [employer] [place] Self - patient is the insured [facility] [employer] [address] [place] [address] [id number] STANISLAV EMILY Self - patient is the insured
--- OUTSIDE RECORDS SUMMARY | 2024-07-26 19:42 | XMS_ITS | Continuity of Care Document ---
Author Name Unknown Organization [facility] Address [address] [id number][place] [address] Phone Care Team Providers Care Adding Machine Servicer Name Role Phone Tamera Matson DDS Unavailable [...] Diagnoses Date Provider Providers Copied on Encounter [facility], [id number] [id number], [address], [place] tel:[phone] [facility] Encounter for dental exam and cleaning w/o abnormal findings Huyen Philip. [address], [place], [address], [place]. tel:[phone] Referring Provider: Tamera Matson, [address] [place], [address]. tel:[phone] [facility], [id number] 490639[place], [address], [place] tel:[phone] [facility] No Information Huyen Philip. [address], [place], [address], [place]. tel:[phone] Referring Provider: Tamera Matson, [address] [place], [address]. tel:[phone] [facility], [id number] 425780[place], [address], [place] tel:[phone] [facility] Encounter for dental exam and cleaning w/o abnormal findings Krysten Sanches. [address], [place], [address], [place]. tel:[phone] Referring Provider: Myron Dubon, [address] [place], [address]. tel:[phone] Family History Family Member Type Diagnosis Age At Onset Father Problem (finding) malignant neoplasm of l kelly Brother Problem (finding) Cancer, unknown Mother Problem (finding) breast cancer Payers Payer name Insurance type Covered green party ID Authorisaiaha bianca(s) D [facility] Advantage [id number] D Medicaid [id number] Social History Type Description Quantity Date Captured [...]
[2024-07-26 19:47] LABS: Bilirubin Urine Negative (Negative); Blood Urine Negative (Negative); Glucose Urine UA 2+ (Normal); Ketones Urine Negative (Negative); Leukocyte Esterase Urine Negative (Negative); Nitrate Urine Negative (Negative); Protein Urine Trace (Negative); Urine Appearance Clear (CLEAR); Urine Color Yellow (Yellow); pH Urine 7.5 (5-7)
[2024-07-26 19:49] LABS: Add Urine Microscopic? YES; Bacteria Urine 3+ /hpf; Hyaline Casts Urine 0-4 /lpf; RBC Urine 0-2 /hpf (0-2); Squamous Epithelial Cell Urine 0-5 /hpf (0-5); WBC Urine 0-5 /hpf (0-5)
[2024-07-26 19:50] LABS: Specific Gravity, Urine 1.046 (1.005-1.030)
[2024-07-26] MEDS: ipratropium 0.5 mg/2.5 mL Neb INHALATION (19:53)
[2024-07-26] MEDS: levalbuterol 0.63 mg/3 mL Neb INHALATION (19:53)
[2024-07-26] MEDS: sennosides 8.6 mg Tablet 17.2 MG PO (20:01)
[2024-07-26] MEDS: HYDROcodone-acetaminophen 5-325 mg Tablet 1 TAB PO (20:01)
[2024-07-26] MEDS: nortriptyline 25 mg Capsule 50 MG PO (20:01)
[2024-07-26] MEDS: gabapentin 300 mg Capsule PO (20:01)
[2024-07-27] VITALS (15 sets, daily range): BP systolic 132–157; BP diastolic 55–74; PULSE 72–89; RESP 14–18; TEMP 36.6–37.4; O2SAT 90–98
[2024-07-27] MEDS: ACYCLOVIR IV ×3 (00:50→16:28)
[2024-07-27] MEDS: SODIUM CHLORIDE 0.9% IV ×3 (00:50→16:28)
[2024-07-27] MEDS: ipratropium 0.5 mg/2.5 mL Neb INHALATION ×4 (02:47→19:49)
[2024-07-27] MEDS: levalbuterol 0.63 mg/3 mL Neb INHALATION ×4 (02:47→19:49)
[2024-07-27] MEDS: allopurinol 300 mg Tablet PO (05:14)
[2024-07-27] MEDS: HYDROcodone-acetaminophen 5-325 mg Tablet 1 TAB PO ×2 (05:14→15:54)
[2024-07-27] MEDS: heparin 5,000 unit/mL INJ 1 mL 5000 UNIT SUBCUT ×2 (05:14→15:53)
[2024-07-27 05:54] LABS: Basophils % 0.5 %; Eosinophils # 0.1 10^3/uL (0.0-0.8); Eosinophils % 2.7 %; Hematocrit 31.9 % (36-47); Lymphocytes # 0.6 10^3/uL (0.8-4.8); Lymphocytes % 16.6 %; Mean Corpuscular HGB Conc 31.3 g/dL (30-55); Mean Corpuscular Hemoglobin 27.5 pg (27-33); Mean Corpuscular Volume 87.9 fl (85-98); Mean Platelet Volume 9.2 fL (7.4-10.4); Monocytes # 0.3 10^3/uL (0.2-0.9); Monocytes % 7.3 %; Neutrophils # 2.67 10^3/uL (1.8-7.7); Neutrophils % 72.6 %; Nucleated Red Blood Cells % 0 %; Platelet Count 179 10^3/cmm (157-399); Red Blood Count 3.63 10^6/uL (3.85-5.65); Red Cell Distribution Width 14.3 % (12.1-15.1); White Blood Count 3.68 10^3/uL (3.29-11.43)
[2024-07-27 06:24] LABS: Alanine Aminotransferase 10 U/L (0-33); Albumin Level 3.6 g/dL (3.5-5.2); Alkaline Phosphatase 71 U/L (35-105); Anion Gap 9.4 (5-19); Aspartate Amino Transferase 16 U/L (0-32); Blood Urea Nitrogen 8 mg/dL (8-23); Calcium 7.8 mg/dL (8.5-10.5); Carbon Dioxide 37 mmol/L (22-29); Chloride 93 mmol/L (98-107); Creatinine Clr Calc Pharmacy 103.9339; Globulin 1.6 g/dL (1.3-4.6); Glomerular Filtration Rate 124.6 mL/min (90-130); Glucose 114 mg/dL (65-115); Magnesium 1.9 mg/dL (1.7-2.3); Osmolality Calculated 281 mOsm/kg (285-295); Phosphorus 3.8 mg/dL (2.5-4.5); Potassium 3.4 mmol/L (3.5-5.1); Sodium 136 mmol/L (136-145); Total Bilirubin 0.3 mg/dL (0.15-1.2); Total Protein 5.2 g/dL (6.6-8.7)
[2024-07-27] MEDS: predniSONE 20 mg Tablet 80 MG PEG-TUBE (09:07)
[2024-07-27] MEDS: docusate sodium 100 mg Capsule PO ×2 (09:08→17:39)
[2024-07-27] MEDS: levothyroxine 88 mcg Tablet PO (09:08)
[2024-07-27] MEDS: pantoprazole DR 40 mg Tablet PO (09:08)
[2024-07-27] MEDS: gabapentin 300 mg Capsule PO ×3 (09:08→20:25)
[2024-07-27] MEDS: duloxetine 60 mg Capsule PO (09:08)
--- NOTE | 2024-07-27 10:06 | PC.CHAP ---
Pastoral Care Encounter/Spiritual Assessment Type of Contact [] Declined guest services associate visit [] Patient/Family/Request visit [] Outpatient visit [] Follow-up visit [] Physician referral [] Code/Alert [x] Routine visit [] Staff referral [] Actively dying [] Patient sleeping [x] Family support [] [] Out of room [] Palliative care [] [] Receiving care in room [] Pre-surgical visit [] Trauma [] Long length of stay [] ICU visit [] Other: Relational/Emotional Strength [] Patient feels connected with others/family/visitors/staff [] Distress [] Loneliness/isolation [] Abandonment Spirituality of Patient [x] Person of Nancy [] Attends Faith of their Nancy [x] Believes in Prayer [] Reads Bible or Restoration materials [] There are Spiritual issues to be addressed Nurse Wound Interventions [x] Prayer [x] Active listening [] Non-anxious presence [] Spiritual/emotional support [] Crisis/trauma care [] Spiritual counseling [] Bereavement support [] Provided bereavement packet [x] Provided Bible/devotional materials [] Provided toy/stuffed animal, coloring book to patient or family member [] Provided Communion [] Anointing/[place] [] Salvation [x] Completed spiritual assessment [] Other: Impact on Illness or Injury [] Angry [] Fearful [] Anxious [] Often cries [] Exhaustion [] Unable to work [] Unable to attend caodaism [] Unable to walk/stand [] Unable to read [] Unable to drive [] Unable to eat/drink [] Unable to sleep [] Unable to be with family [] Patient intubated [] Other: Summary Time spent with patient 5 min
--- NOTE | 2024-07-27 17:42 | PM.PN ---
Subjective Subjective: Today she feels similar, no additional changes. No further worsening of her vision in the right eye, although has not shown improvement. Vitals/I&O/Wt Last Vital Signs Temp 98.7 F 07/27/24 15:49 Pulse 86 07/27/24 15:49 Resp 14 07/27/24 15:49 BP 155/71 07/27/24 15:49 Pulse Ox 96 07/27/24 15:49 O2 Del Method Nasal Cannula 07/27/24 15:49 O2 Flow Rate 3 07/27/24 13:51 07/27/24 07/27/24 07/27/24 06:59 14:59 22:59 Intake Total 262.8 / 525.6 1922.8 / 1922.8 Balance 262.8 / 525.6 1922.8 / 1922.8 Weight last 48 hrs Weight 63.503 kg Weight 64.319 kg Weight 63.321 kg Weight 64.41 kg Physical Exam Const: COMMON NORMALS: patient oriented x3 and alert GENERAL APPEARANCE: cooperative ORIENTATION/CONSCIOUSNESS: Yes awake Eye: OTHER: Mild erythema right side forehead, crusting over upper and lower eyelashes. Minimal conjunctival injection. Neck/C-Spine: COMMON NORMALS: no JVD Resp: COMMON NORMALS: normal respiratory effort and clear to auscultation bilaterally AUSCULTATION: clear to auscultation bilaterally Cardio: COMMON NORMALS: no JVD, regular rhythm, S1 normal heart sound present, S2 normal heart sound present and No murmurs present (Cardio) RHYTHM: regular rhythm HEART SOUNDS: S1 normal heart sound present and S2 normal heart sound present GI: COMMON NORMALS: Normal to inspection, nondistended, normoactive bowel sounds present, Soft to palpation and non-tender PALPATION: Yes Soft to palpation Extremity: COMMON NORMALS: no joint enlargement and no pedal edema Neuro: COMMON NORMALS: patient oriented x3 and moves all extremities SENSORIUM/ORIENTATION: Yes alert Skin: COMMON NORMALS: no rashes or lesions noted GENERAL SKIN EXAM: no rashes or lesions noted Data 07/27/24 05:21 07/27/24 05:21 A&P Assessment and plan (1) Ophthalmic herpes zoster: Reviewed vitals, CBC, CMP, UA. Reviewed ER note. Discussed with nursing, bilingual patient support caseworker. Continue IV acyclovir. 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 Patient will most likely need to follow-up with ophthalmology as an outpatient. Continue morphine 2 mg every 4 hours as needed for pain control. Continue with home dose of gabapentin. (2) Shingles: (3) Fecal impaction: Noted she had a bowel movement. Continue bowel regimen. Aggressive bowel regimen with milk of mag, senna Colace. 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 Follows up with oncology. Continue with home dose of steroid taper. (5) COPD (chronic obstructive pulmonary disease): No exacerbation currently. Continue with ipratropium, Xopenex every 6 hourly. Plan Continue other chronic medications. 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 and High MDM includes amount and/or complexity of data reviewed/ordered [ previous or external records, resulted lab(s)/test(s) and other healthcare professional discussion] and described risk of complication, morbidity or mortality of management as documented Diagnoses Ophthalmic herpes zoster B02.30 Shingles B02.9 Fecal impaction K56.41 Small cell lung cancer in adult C34.90 COPD (chronic obstructive pulmonary disease) J44.9
[2024-07-27] MEDS: nortriptyline 25 mg Capsule 50 MG PO (20:25)
[2024-07-27] MEDS: sennosides 8.6 mg Tablet 17.2 MG PO (20:25)
[2024-07-27] MEDS: morphine 4 mg/mL SDV 1 mL 2 MG IVP (20:28)
[2024-07-28] VITALS (14 sets, daily range): BP systolic 125–155; BP diastolic 61–72; PULSE 66–105; RESP 16–20; TEMP 36.6–37.2; O2SAT 90–99
[2024-07-28] MEDS: ACYCLOVIR IV ×3 (00:39→16:58)
[2024-07-28] MEDS: SODIUM CHLORIDE 0.9% IV ×3 (00:39→16:58)
[2024-07-28] MEDS: levalbuterol 0.63 mg/3 mL Neb INHALATION ×3 (02:27→20:35)
[2024-07-28] MEDS: ipratropium 0.5 mg/2.5 mL Neb INHALATION ×3 (02:27→20:35)
[2024-07-28] MEDS: allopurinol 300 mg Tablet PO (04:58)
[2024-07-28] MEDS: HYDROcodone-acetaminophen 5-325 mg Tablet 1 TAB PO ×3 (04:58→23:10)
[2024-07-28] MEDS: heparin 5,000 unit/mL INJ 1 mL 5000 UNIT SUBCUT ×2 (04:59→16:58)
[2024-07-28 05:25] LABS: Basophils % 0.3 %; Eosinophils % 0.5 %; Lymphocytes # 0.9 10^3/uL (0.8-4.8); Lymphocytes % 23.1 %; Mean Corpuscular HGB Conc 31.7 g/dL (30-55); Mean Corpuscular Hemoglobin 27.4 pg (27-33); Mean Corpuscular Volume 86.5 fl (85-98); Mean Platelet Volume 9.7 fL (7.4-10.4); Monocytes # 0.2 10^3/uL (0.2-0.9); Monocytes % 5.9 %; Neutrophils # 2.71 10^3/uL (1.8-7.7); Neutrophils % 69.4 %; Nucleated Red Blood Cells % 0 %; Platelet Count 194 10^3/cmm (157-399); Red Blood Count 4.16 10^6/uL (3.85-5.65); Red Cell Distribution Width 13.8 % (12.1-15.1)
[2024-07-28 05:47] LABS: Anion Gap 11.4 (5-19); Blood Urea Nitrogen 7 mg/dL (8-23); Calcium 8.2 mg/dL (8.5-10.5); Carbon Dioxide 37 mmol/L (22-29); Chloride 87 mmol/L (98-107); Creatinine Clr Calc Pharmacy 103.3405; Glomerular Filtration Rate 124.6 mL/min (90-130); Glucose 127 mg/dL (65-115); Osmolality Calculated 274 mOsm/kg (285-295); Potassium 3.4 mmol/L (3.5-5.1); Slide Review Slide Review Perform; Sodium 132 mmol/L (136-145)
[2024-07-28] MEDS: predniSONE 20 mg Tablet 80 MG PEG-TUBE (09:39)
[2024-07-28] MEDS: gabapentin 300 mg Capsule PO ×3 (09:40→20:42)
[2024-07-28] MEDS: docusate sodium 100 mg Capsule PO ×2 (09:40→16:58)
[2024-07-28] MEDS: levothyroxine 88 mcg Tablet PO (09:40)
[2024-07-28] MEDS: duloxetine 60 mg Capsule PO (09:40)
[2024-07-28] MEDS: pantoprazole DR 40 mg Tablet PO (09:40)
--- NOTE | 2024-07-28 19:54 | P.PN_ITS ---
Subjective 2 Subjective: Feeling about the same. So far without significant improvement. Having pain over the right side forehead, over the right eye. Vitals/I&O/Wt Last Vital Signs Temp 98.7 F 07/28/24 16:00 Pulse 87 07/28/24 16:00 Resp 17 07/28/24 16:00 BP 125/61 07/28/24 16:00 Pulse Ox 93 07/28/24 16:00 O2 Del Method Nasal Cannula 07/28/24 16:00 O2 Flow Rate 2 07/28/24 16:00 07/28/24 07/28/24 07/28/24 06:59 14:59 22:59 Intake Total 262.8 / 4128.4 622.8 / 622.8 240 / 862.8 Output Total 600 / 600 Balance 262.8 / 4128.4 22.8 / 22.8 240 / 262.8 Weight last 48 hrs Weight 63.775 kg Weight 63.503 kg Weight 64.319 kg Physical Exam 2 Const: COMMON NORMALS: patient oriented x3 and alert GENERAL APPEARANCE: c ooperative ORIENTATION/CONSCIOUSNESS: Yes awake Eye: OTHER: Small blisters noted over the right forehead, few shallow crusted lesions. Mild erythema right side forehead, crusting over upper and lower eyelashes. Minimal conjunctival injection. Neck/C-Spine: COMMON NORMALS: no JVD Resp: COMMON NORMALS: normal respiratory effort and clear to auscultation bilaterally AUSCULTATION: clear to auscultation bilaterally Cardio: COMMON NORMALS: no JVD, regular rhythm, S1 normal heart sound present, S2 normal heart sound present and No murmurs present (Cardio) RHYTHM: regular rhythm HEART SOUNDS: S1 normal heart sound present and S2 normal heart sound present GI: COMMON NORMALS: Normal to inspection, nondistended, normoactive bowel sounds present, Soft to palpation and non-tender PALPATION: Yes Soft to palpation Extremity: COMMON NORMALS: no joint enlargement and no pedal edema Neuro: COMMON NORMALS: patient oriented x3 and moves all extremities S ENSORIUM/ORIENTATION: Yes alert Skin: COMMON NORMALS: no rashes or lesions noted GENERAL SKIN EXAM: no rashes or lesions noted Data 07/28/24 04:36 07/28/24 04:36 A&P Assessment and plan (1) Ophthalmic herpes zoster: So far without significant improvement, still small acute blister rations noted. Few shallow crusted lesions. She is having pain. So far without improvement in vision. Continue IV acyclovir due to risk of significant damage to the eye, vision loss; Monitor for risk of kidney injury. Reassess chemistry. Reviewed CBC, BMP. Noted hypokalemia, replace mild hypokalemia. 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 Continue gabapentin, acetaminophen for pain. Patient will most likely need to follow-up with ophthalmology as an outpatient. Continue morphine 2 mg every 4 hours as needed for pain control. Continue with home dose of gabapentin. , Monitor for risk of kidney injury. Reassess chemistry. (2) Shingles: (3) Fecal impaction: Noted she had a bowel movement. Continue bowel regimen. Aggressive bowel regimen with milk of mag, senna Colace. 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 Follows up with oncology. Continue with home dose of steroid taper. (5) COPD (chronic obstructive pulmonary disease): No exacerbation currently. Continue with ipratropium, Xopenex every 6 hourly. Plan Continue other chronic medications. 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 and High MDM includes number and complexity of problems actively addressed during encounter and described risk of complication, morbidity or mortality of management as documented Diagnoses Ophthalmic herpes zoster B02.30 Shingles B02.9 Fecal impaction K56.41 Small cell lung cancer in adult C34.90 COPD (chronic obstructive pulmonary disease) J44.9
[2024-07-28] MEDS: nortriptyline 25 mg Capsule 50 MG PO (20:33)
[2024-07-28] MEDS: sennosides 8.6 mg Tablet 17.2 MG PO (20:34)
[2024-07-29] VITALS (12 sets, daily range): BP systolic 91–142; BP diastolic 52–77; PULSE 68–98; RESP 12–18; TEMP 36.6–37.1; O2SAT 93–98; BMI 24.5
[2024-07-29] MEDS: SODIUM CHLORIDE 0.9% IV ×3 (01:06→16:27)
[2024-07-29] MEDS: ACYCLOVIR IV ×3 (01:06→16:27)
[2024-07-29] MEDS: levalbuterol 0.63 mg/3 mL Neb INHALATION ×3 (03:34→14:02)
[2024-07-29] MEDS: ipratropium 0.5 mg/2.5 mL Neb INHALATION ×3 (03:35→14:02)
[2024-07-29] MEDS: allopurinol 300 mg Tablet PO (04:35)
[2024-07-29] MEDS: heparin 5,000 unit/mL INJ 1 mL 5000 UNIT SUBCUT ×2 (04:36→16:27)
[2024-07-29 05:36] LABS: Basophils % 0.2 %; Eosinophils % 0.7 %; Hematocrit 33.2 % (36-47); Lymphocytes # 1.5 10^3/uL (0.8-4.8); Lymphocytes % 32.2 %; Mean Corpuscular HGB Conc 31.6 g/dL (30-55); Mean Corpuscular Hemoglobin 27.7 pg (27-33); Mean Corpuscular Volume 87.6 fl (85-98); Mean Platelet Volume 9.5 fL (7.4-10.4); Monocytes # 0.3 10^3/uL (0.2-0.9); Monocytes % 5.4 %; Neutrophils % 60.8 %; Nucleated Red Blood Cells % 0 %; Platelet Count 170 10^3/cmm (157-399); Red Blood Count 3.79 10^6/uL (3.85-5.65); Red Cell Distribution Width 14.1 % (12.1-15.1)
[2024-07-29 05:55] LABS: Blood Urea Nitrogen 11 mg/dL (8-23); Calcium 7.9 mg/dL (8.5-10.5); Carbon Dioxide 33 mmol/L (22-29); Chloride 91 mmol/L (98-107); Creatinine Clr Calc Pharmacy 86.2819; Glucose 127 mg/dL (65-115); Osmolality Calculated 273 mOsm/kg (285-295); Sodium 131 mmol/L (136-145)
[2024-07-29 05:59] LABS: Slide Review Slide Review Perform
[2024-07-29 06:04] LABS: Anion Gap 10.4 (5-19); Potassium 3.4 mmol/L (3.5-5.1)
[2024-07-29] MEDS: duloxetine 60 mg Capsule PO (08:29)
[2024-07-29] MEDS: magnesium hydroxide 30 mL UDC PO (08:29)
[2024-07-29] MEDS: levothyroxine 88 mcg Tablet PO (08:30)
[2024-07-29] MEDS: gabapentin 300 mg Capsule PO ×2 (08:30→15:22)
[2024-07-29] MEDS: docusate sodium 100 mg Capsule PO ×2 (08:30→18:03)
[2024-07-29] MEDS: pantoprazole DR 40 mg Tablet PO (08:30)
[2024-07-29] MEDS: HYDROcodone-acetaminophen 5-325 mg Tablet 1 TAB PO ×3 (08:31→23:07)
--- NOTE | 2024-07-29 08:46 | PC.SOCIAL ---
IMM Updated Updated pt on IMM. No questions voiced. Provided pt a copy. Initialed, dated, & timed a copy & placed in chart.
[2024-07-29] MEDS: predniSONE 20 mg Tablet 80 MG PO (09:07)
--- NOTE | 2024-07-29 19:19 | PM.PN ---
Subjective Subjective: Still some burning pain at the right forehead, scalp. Vitals/I&O/Wt Last Vital Signs Temp 98.8 F 07/29/24 15:13 Pulse 97 07/29/24 15:13 Resp 17 07/29/24 15:13 BP 91/53 07/29/24 15:13 Pulse Ox 93 07/29/24 15:13 O2 Del Method Nasal Cannula 07/29/24 15:13 O2 Flow Rate 2 07/29/24 14:00 FiO2 2 07/29/24 03:37 07/29/24 07/29/24 07/29/24 06:59 14:59 22:59 Intake Total 502.8 / 1628.4 622.8 / 622.8 240 / 862.8 Balance 502.8 / 1028.4 622.8 / 622.8 240 / 862.8 Weight last 48 hrs Weight 63.673 kg Weight 62.9 kg Weight 63.775 kg Physical Exam Const: COMMON NORMALS: patient oriented x3 and alert GENERAL APPEARANCE: cooperative ORIENTATION/CONSCIOUSNESS: Yes awake Eye: OTHER: Today improving erythema and swelling around the right eye, has easier time opening the right eye. few shallow crusted lesions. Mild erythema right side forehead, crusting over upper and lower eyelashes. Minimal conjunctival injection. Neck/C-Spine: COMMON NORMALS: no JVD Resp: COMMON NORMALS: normal respiratory effort and clear to auscultation bilaterally AUSCULTATION: clear to auscultation bilaterally Cardio: COMMON NORMALS: no JVD, regular rhythm, S1 normal heart sound present, S2 normal heart sound present and No murmurs present (Cardio) RHYTHM: regular rhythm HEART SOUNDS: S1 normal heart sound present and S2 normal heart sound present GI: COMMON NORMALS: Normal to inspection, nondistended, normoactive bowel sounds present, Soft to palpation and non-tender PALPATION: Yes Soft to palpation Extremity: COMMON NORMALS: no joint enlargement and no pedal edema Neuro: COMMON NORMALS: patient oriented x3 and moves all extremities SENSORIUM/ORIENTATION: Yes alert Data 07/29/24 04:50 07/29/24 04:50 A&P Assessment and plan (1) Ophthalmic herpes zoster: Still symptomatic, but today it does appear to show some improvement in erythema and symptoms around the right eye. Is able to open the right eye. Still having burning pain. Still some residual erythema, lesions on the right forehead, anterior scalp. Continue IV acyclovir, reassess. 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 Reassess chemistry. Reviewed renal function, BUN, creatinine, potassium. Discussed with nursing, machine adjuster leader case trim. She is immunocompromise also on prednisone taper. Continue gabapentin, acetaminophen for pain. Patient will most likely need to follow-up with ophthalmology as an outpatient. Continue morphine 2 mg every 4 hours as needed for pain control. Continue with home dose of gabapentin. , Monitor for risk of kidney injury. Reassess chemistry. (2) Shingles: (3) Fecal impaction: had a bowel movement. Continue bowel regimen. Aggressive bowel regimen with milk of mag, senna Colace. 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 Follows up with oncology. Continue with home dose of steroid taper. (5) COPD (chronic obstructive pulmonary disease): No exacerbation currently. Continue with ipratropium, Xopenex every 6 hourly. Plan Hypokalemia: Replace potassium. Check magnesium. Soft blood pressure: Hold gabapentin. Reassess. Continue other chronic medications. 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 and High MDM includes amount and/or complexity of data reviewed/ordered [ resulted lab(s)/test(s), ordered lab(s)/test(s) and other healthcare professional discussion] and described risk of complication, morbidity or mortality of management as documented Diagnoses Ophthalmic herpes zoster B02.30 Shingles B02.9 Fecal impaction K56.41 Small cell lung cancer in adult C34.90 COPD (chronic obstructive pulmonary disease) J44.9
[2024-07-29] MEDS: potassium chloride ER 20 mEq Tablet 40 MEQ PO (21:05)
[2024-07-29] MEDS: sennosides 8.6 mg Tablet 17.2 MG PO (21:05)
[2024-07-29] MEDS: nortriptyline 25 mg Capsule 50 MG PO (21:05)
[2024-07-30] VITALS (15 sets, daily range): BP systolic 102–156; BP diastolic 52–75; PULSE 69–107; RESP 14–18; TEMP 36.6–36.9; O2SAT 90–98
[2024-07-30] MEDS: ACYCLOVIR IV ×3 (00:52→16:43)
[2024-07-30] MEDS: SODIUM CHLORIDE 0.9% IV ×3 (00:52→16:43)
[2024-07-30] MEDS: ipratropium 0.5 mg/2.5 mL Neb INHALATION ×4 (02:50→21:47)
[2024-07-30] MEDS: levalbuterol 0.63 mg/3 mL Neb INHALATION ×4 (02:50→21:47)
[2024-07-30] MEDS: heparin 5,000 unit/mL INJ 1 mL 5000 UNIT SUBCUT ×2 (05:15→16:43)
[2024-07-30] MEDS: allopurinol 300 mg Tablet PO (05:16)
[2024-07-30 05:31] LABS: Eosinophils % 0.2 %; Hematocrit 31.7 % (36-47); Lymphocytes # 1.4 10^3/uL (0.8-4.8); Lymphocytes % 28.7 %; Mean Corpuscular HGB Conc 31.9 g/dL (30-55); Mean Corpuscular Hemoglobin 27.4 pg (27-33); Mean Corpuscular Volume 85.9 fl (85-98); Mean Platelet Volume 10.2 fL (7.4-10.4); Monocytes # 0.3 10^3/uL (0.2-0.9); Monocytes % 6.7 %; Neutrophils # 3.16 10^3/uL (1.8-7.7); Neutrophils % 63.8 %; Nucleated Red Blood Cells % 0 %; Platelet Count 216 10^3/cmm (157-399); Red Blood Count 3.69 10^6/uL (3.85-5.65); Red Cell Distribution Width 14.6 % (12.1-15.1); White Blood Count 4.95 10^3/uL (3.29-11.43)
[2024-07-30 05:50] LABS: Anion Gap 12.9 (5-19); Blood Urea Nitrogen 13 mg/dL (8-23); Calcium 7.8 mg/dL (8.5-10.5); Carbon Dioxide 32 mmol/L (22-29); Chloride 94 mmol/L (98-107); Creatinine Clr Calc Pharmacy 102.8787; Glomerular Filtration Rate 124.6 mL/min (90-130); Glucose 117 mg/dL (65-115); Osmolality Calculated 281 mOsm/kg (285-295); Potassium 3.9 mmol/L (3.5-5.1); Sodium 135 mmol/L (136-145)
[2024-07-30 05:52] LABS: Magnesium 2.2 mg/dL (1.7-2.3)
[2024-07-30] MEDS: levothyroxine 88 mcg Tablet PO (08:20)
[2024-07-30] MEDS: predniSONE 20 mg Tablet 80 MG PO (08:20)
[2024-07-30] MEDS: duloxetine 60 mg Capsule PO (08:20)
[2024-07-30] MEDS: docusate sodium 100 mg Capsule PO (08:20)
[2024-07-30] MEDS: pantoprazole DR 40 mg Tablet PO (08:20)
--- NOTE | 2024-07-30 12:11 | P.PN_ITS ---
Subjective 2 Subjective: Symptoms are improving. Still pain over the right upper eyelid, painful lesions over the right forehead, scalp. Vitals/I&O/Wt Last Vital Signs Temp 98.5 F 07/30/24 11:28 Pulse 94 07/30/24 11:28 Resp 16 07/30/24 11:28 BP 147/58 07/30/24 11:28 Pulse Ox 90 07/30/24 11:28 O2 Del Method Nasal Cannula 07/30/24 11:28 O2 Flow Rate 2 07/30/24 11:28 FiO2 2 07/29/24 03:37 07/29/24 07/30/24 07/30/24 22:59 06:59 14:59 Intake Total 982.8 / 1605.6 382.8 / 1988.4 360 / 360 Balance 982.8 / 1605.6 382.8 / 1987.4 360 / 360 Weight last 48 hrs Weight 62.868 kg Weight 62.868 kg Weight 63.673 kg Weight 62.9 kg Physical Exam 2 Const: COMMON NORMALS: patient oriented x3 and alert GENERAL APPEARANCE: c ooperative ORIENTATION/CONSCIOUSNESS: Yes awake Eye: OTHER: Improving erythema and swelling around the right eye, has easier time opening the right eye. few shallow crusted lesions. Mild erythema right side forehead, crusting over upper and lower eyelashes. Minimal conjunctival injection. Neck/C-Spine: COMMON NORMALS: no JVD Resp: COMMON NORMALS: normal respiratory effort and clear to auscultation bilaterally AUSCULTATION: clear to auscultation bilaterally Cardio: COMMON NORMALS: no JVD, regular rhythm, S1 normal heart sound present, S2 normal heart sound present and No murmurs present (Cardio) RHYTHM: regular rhythm HEART SOUNDS: S1 normal heart sound present and S2 normal heart sound present GI: COMMON NORMALS: Normal to inspection, nondistended, normoactive bowel sounds present, Soft to palpation and non-tender PALPATION: Yes Soft to palpation Extremity: COMMON NORMALS: no joint enlargement and no pedal edema Neuro: COMMON NORMALS: patient oriented x3 and moves all extremities S ENSORIUM/ORIENTATION: Yes alert Skin: COMMON NORMALS: no rashes or lesions noted GENERAL SKIN EXAM: no rashes or lesions noted Data 07/30/24 05:19 07/30/24 05:19 A&P Assessment and plan (1) Ophthalmic herpes zoster: Still pain over the right upper eyelid, right forehead, scalp with painful lesions. I do not see fracture blisters. Overall is showing improvement. If continues to improve discussed with her consideration of switching to oral acyclovir and possibly discharge tomorrow if all goes well, which she would like to do. Discussed with adult protective caseworker. Discussed with nursing, continue IV acyclovir, reassess. 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 Repeat chemistry. So far renal function is doing well. Reviewed BUN, creatinine normal. She is immunocompromise also on prednisone taper. Cut down prednisone dose. Continue gabapentin, acetaminophen for pain. Patient will most likely need to follow-up with ophthalmology as an outpatient. Continue morphine 2 mg every 4 hours as needed for pain control. Continue with home dose of gabapentin. , Monitor for risk of kidney injury. Reassess chemistry. (2) Shingles: (3) Fecal impaction: had a bowel movement. Continue bowel regimen. Aggressive bowel regimen with milk of mag, senna Colace. 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 Follows up with oncology. Continue with home dose of steroid taper. (5) COPD (chronic obstructive pulmonary disease): No exacerbation currently. Continue with ipratropium, Xopenex every 6 hourly. Cut down prednisone dose to 60 mg. Plan Hypokalemia: Reviewed potassium, normal today. Reviewed magnesium, 2.2 Soft blood pressure: Improved. Resume gabapentin. Continue other chronic medications. 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 and High MDM includes amount and/or complexity of data reviewed/ordered [ resulted lab(s)/test(s), ordered lab(s)/test(s) and other healthcare professional discussion] and described risk of complication, morbidity or mortality of management as documented Diagnoses Ophthalmic herpes zoster B02.30 Shingles B02.9 Fecal impaction K56.41 Small cell lung cancer in adult C34.90 COPD (chronic obstructive pulmonary disease) J44.9
[2024-07-30] MEDS: HYDROcodone-acetaminophen 5-325 mg Tablet 1 TAB PO ×2 (13:14→22:39)
[2024-07-30] MEDS: gabapentin 300 mg Capsule PO ×2 (16:42→20:18)
[2024-07-30] MEDS: nortriptyline 25 mg Capsule 50 MG PO (20:18)
[2024-07-30] MEDS: sennosides 8.6 mg Tablet 17.2 MG PO (20:18)
[2024-07-31] VITALS (10 sets, daily range): BP systolic 111–125; BP diastolic 49–61; PULSE 72–83; RESP 16–18; TEMP 36.6–36.9; O2SAT 96–98
[2024-07-31] MEDS: ACYCLOVIR IV (00:50)
[2024-07-31] MEDS: SODIUM CHLORIDE 0.9% IV (00:50)
[2024-07-31] MEDS: levalbuterol 0.63 mg/3 mL Neb INHALATION ×2 (04:00→09:05)
[2024-07-31] MEDS: ipratropium 0.5 mg/2.5 mL Neb INHALATION ×2 (04:00→09:06)
[2024-07-31] MEDS: HYDROcodone-acetaminophen 5-325 mg Tablet 1 TAB PO (05:46)
[2024-07-31] MEDS: allopurinol 300 mg Tablet PO (05:46)
[2024-07-31] MEDS: heparin 5,000 unit/mL INJ 1 mL 5000 UNIT SUBCUT (05:46)
[2024-07-31 06:11] LABS: Basophils % 0.2 %; Eosinophils % 0.2 %; Lymphocytes # 1.5 10^3/uL (0.8-4.8); Lymphocytes % 29.6 %; Mean Corpuscular HGB Conc 29.7 g/dL (30-55); Mean Corpuscular Hemoglobin 26.8 pg (27-33); Mean Corpuscular Volume 90.2 fl (85-98); Mean Platelet Volume 9.2 fL (7.4-10.4); Monocytes # 0.3 10^3/uL (0.2-0.9); Monocytes % 5.9 %; Neutrophils # 3.13 10^3/uL (1.8-7.7); Neutrophils % 63.3 %; Nucleated Red Blood Cells % 0 %; Platelet Count 190 10^3/cmm (157-399); Red Blood Count 3.77 10^6/uL (3.85-5.65); Red Cell Distribution Width 14.8 % (12.1-15.1); White Blood Count 4.94 10^3/uL (3.29-11.43)
[2024-07-31 06:29] LABS: Anion Gap 12.6 (5-19); Blood Urea Nitrogen 12 mg/dL (8-23); Calcium 7.8 mg/dL (8.5-10.5); Carbon Dioxide 28 mmol/L (22-29); Chloride 95 mmol/L (98-107); Creatinine Clr Calc Pharmacy 73.6027; Glomerular Filtration Rate 84.5 mL/min (90-130); Glucose 115 mg/dL (65-115); Osmolality Calculated 275 mOsm/kg (285-295); Potassium 3.6 mmol/L (3.5-5.1); Sodium 132 mmol/L (136-145)
[2024-07-31] MEDS: duloxetine 60 mg Capsule PO (08:28)
[2024-07-31] MEDS: gabapentin 300 mg Capsule PO (08:28)
[2024-07-31] MEDS: docusate sodium 100 mg Capsule PO (08:29)
[2024-07-31] MEDS: pantoprazole DR 40 mg Tablet PO (08:29)
[2024-07-31] MEDS: predniSONE 20 mg Tablet 60 MG PO (08:29)
[2024-07-31] MEDS: levothyroxine 88 mcg Tablet PO (08:29)
--- NOTE | 2024-07-31 09:47 | P.DS_ITS ---
Discharge Providers Date of Admission: 07/26/24 16:40 Date of Discharge: July 31, 2024 Attending Provider at Admission: Jong Trimble MD Attending Provider at Discharge: Matt Loredo Primary Care Provider: Adela Stout Diagnoses at Discharge Discharge Diagnosis (1) Ophthalmic herpes zoster: Status: Acute (2) Shingles: Status: Acute (3) Fecal impaction: Status: Acute (4) Small cell lung cancer in adult: Status: Acute Permanent problem details: Post radiation 06/16 (5) COPD (chronic obstructive pulmonary disease): Status: Acute Reason for Visit Reason for Visit: right side face numb, not feeling well Hospital Course Hospital Course Pleasant 63-year-old lady with lung cancer, radiation therapy, multiple hospitalizations for COPD, on steroid taper after recent discharge on 07/14, was admitted after presenting to the ER due to some numbness along with sharp pain over the right side of her upper face and eye. Initial evaluation revealed herpes zoster with eye involvement. She was admitted for IV acyclovir. On presentation also with fecal impaction started on bowel regimen including an enema. Eventually with successful bowel movements. Continues on bowel regimen. Reduce/avoid opioids when possible. Zoster has shown slow but gradual continued improvement, with resolution of blistering lesions, with significant improvement and decrease in redness and swelling over the right upper face, she is able to open her right eye, without any further worsening of vision, and with improving symptoms. She was continued on gabapentin. She still has crusted/open ulcerations on the right forehead/scalp without any fresh blisters. As she has been showing significant improvement she would like to continue therapy with valacyclovir, and is referred for follow-up with ophthalmology and dermatology. Upon recovery please arrange for shingles vaccination. Physical Exam Const: COMMON NORMALS: patient oriented x3 and alert GENERAL APPEARANCE: cooperative ORIENTATION/CONSCIOUSNESS: Yes awake Eye: OTHER: Improving erythema and swelling around the right eye, has easier time opening the right eye. few shallow crusted lesions. Mild erythema right side forehead, crusting over upper and lower eyelashes. Minimal conjunctival injection. Neck/C-Spine: COMMON NORMALS: no JVD Resp: COMMON NORMALS: normal respiratory effort and clear to auscultation bilaterally AUSCULTATION: clear to auscultation bilaterally Cardio: COMMON NORMALS: no JVD, regular rhythm, S1 normal heart sound present, S2 normal heart sound present and No murmurs present (Cardio) RHYTHM: regular rhythm HEART SOUNDS: S1 normal heart sound present and S2 normal heart sound present GI: COMMON NORMALS: Normal to inspection, nondistended, normoactive bowel sounds present, Soft to palpation and non-tender PALPATION: Yes Soft to palpation Extremity: COMMON NORMALS: no joint enlargement and no pedal edema Neuro: COMMON NORMALS: patient oriented x3 and moves all extremities SENSORIUM/ORIENTATION: Yes alert Skin: COMMON NORMALS: no rashes or lesions noted GENERAL SKIN EXAM: no rashes or lesions noted Discharge Data Studies Completed and Pending Completed Studies During Hospitalization Category Date Time Status CT abdomen pelvis w con* [id number] Stat Cat Scan 07/26/24 15:06 Completed XR KUB [id number] Stat Exams 07/26/24 13:50 Completed Radiology Impressions KUB X-Ray 07/26/24 13:50 IMPRESSION: 1. There is a dilated loop of bowel measuring up to 5 centimeters in the right lower quadrant. Further evaluation with CT of the abdomen and pelvis with IV contrast may be obtained 2. There is excessive colonic stool content. Consistent with constipation. Abdomen/Pelvis CT 07/26/24 15:06 IMPRESSION: 1. There is excessive colonic stool content. Consistent with constipation. 2. No mechanical bowel obstruction 3. Multiple gaseous filled loops of bowel Laboratory Results WBC 4.94 10^3/uL (3.29-11.43) 07/31/24 05:56 RBC 3.77 10^6/uL (3.85-5.65) L 07/31/24 05:56 Hgb 10.10 g/dL (11.27-16.99) L 07/31/24 05:56 Hct 34.0 % (36-47) L 07/31/24 05:56 MCV 90.2 fl (85-98) 07/31/24 05:56 MCH 26.8 pg (27-33) L 07/31/24 05:56 MCHC 29.7 g/dL (30-55) L D 07/31/24 05:56 RDW 14.8 % (12.1-15.1) 07/31/24 05:56 Plt Count 190 10^3/cmm (157-399) 07/31/24 05:56 MPV 9.2 fL (7.4-10.4) 07/31/24 05:56 Neut % (Auto) 63.3 % 07/31/24 05:56 Lymph % (Auto) 29.6 % 07/31/24 05:56 Nobles % (Auto) 5.9 % 07/31/24 05:56 Eos % (Auto) 0.2 % 07/31/24 05:56 Baso % (Auto) 0.2 % 07/31/24 05:56 Neut # (Auto) 3.13 10^3/uL (1.8-7.7) 07/31/24 05:56 Lymph # (Auto) 1.5 10^3/uL (0.8-4.8) 07/31/24 05:56 Nobles # (Auto) 0.3 10^3/uL (0.2-0.9) 07/31/24 05:56 Eos # (Auto) 0.0 10^3/uL (0.0-0.8) 07/31/24 05:56 Baso # (Auto) 0.0 10^3/uL (0.0-0.1) 07/31/24 05:56 Nucleated RBC % (auto) 0 % 07/31/24 05:56 Nucleated RBCs # 0.0 /100WBC 07/31/24 05:56 Sodium 132 mmol/L (136-145) L 07/31/24 05:56 Potassium 3.6 mmol/L (3.5-5.1) 07/31/24 05:56 Chloride 95 mmol/L (98-107) L 07/31/24 05:56 Carbon Dioxide 28 mmol/L (22-29) 07/31/24 05:56 Anion Gap 12.6 (5-19) 07/31/24 05:56 BUN 12 mg/dL (8-23) 07/31/24 05:56 Creatinine 0.7 mg/dL (0.5-0.9) 07/31/24 05:56 GFR Calculation 84.5 mL/min (90-130) L 07/31/24 05:56 Glucose 115 mg/dL (65-115) 07/31/24 05:56 Calculated Osmolality 275 mOsm/kg (285-295) L 07/31/24 05:56 Lactic Acid 1.6 mmol/L (0.5-2.2) 07/26/24 16:55 Calcium 7.8 mg/dL (8.5-10.5) L 07/31/24 05:56 Phosphorus 3.8 mg/dL (2.5-4.5) 07/27/24 05:21 Magnesium 2.2 mg/dL (1.7-2.3) 07/30/24 05:19 Total Bilirubin 0.3 mg/dL (0.15-1.2) 07/27/24 05:21 AST 16 U/L (0-32) 07/27/24 05:21 ALT 10 U/L (0-33) 07/27/24 05:21 Alkaline Phosphatase 71 U/L (35-105) 07/27/24 05:21 Total Protein 5.2 g/dL (6.6-8.7) L 07/27/24 05:21 Albumin 3.6 g/dL (3.5-5.2) 07/27/24 05:21 Globulin 1.6 g/dL (1.3-4.6) 07/27/24 05:21 Lipase 12 U/L (13-60) L 07/26/24 14:30 Urine Color Yellow (Yellow) 07/26/24 18:30 Urine Appearance Clear (CLEAR) 07/26/24 18:30 Urine pH 7.5 (5-7) 07/26/24 18:30 Ur Specific [place] 1.046 (1.005-1.030) H 07/26/24 18:30 Urine Protein Trace (Negative) A 07/26/24 18:30 Urine Glucose (UA) 2+ (Normal) H 07/26/24 18:30 Urine Ketones Negative (Negative) 07/26/24 18:30 Urine Blood Negative (Negative) 07/26/24 18:30 Urine Nitrate Negative (Negative) 07/26/24 18:30 Urine Bilirubin Negative (Negative) 07/26/24 18:30 Urine Urobilinogen 1.0 mg/dL (Negative) 07/26/24 18:30 Ur Leukocyte Esterase Negative (Negative) 07/26/24 18:30 Urine RBC 0-2 /hpf (0-2) 07/26/24 18:30 Urine WBC 0-5 /hpf (0-5) 07/26/24 18:30 Ur Squamous Epith Cells 0-5 /hpf (0-5) 07/26/24 18:30 Amorphous Sediment Not Reportable 07/26/24 18:30 Urine Bacteria 3+ /hpf (NONE) H 07/26/24 18:30 Hyaline Casts 0-4 /lpf H 07/26/24 18:30 Vitals Last Vital Signs Temp 97.8 F 07/31/24 07:31 Pulse 72 07/31/24 09:13 Resp 17 07/31/24 09:05 BP 116/49 07/31/24 07:31 Pulse Ox 97 07/31/24 09:05 O2 Del Method Nasal Cannula 07/31/24 09:05 O2 Flow Rate 2 07/31/24 09:05 FiO2 2 07/29/24 03:37 Discharge Plan Discharge Patient Disposition: Home Condition: Stable Prescriptions: New docusate sodium 100 mg Capsule 100 mg PO BID Qty: 90 1RF sennosides [senna] 8.6 mg Tablet 17.2 mg PO BEDTIME Qty: 90 0RF valacyclovir 1 gram tablet 1,000 mg PO TID 7 Days Qty: 21 0RF Continued levothyroxine 88 mcg Tablet 88 mcg PO DAILY@0800 allopurinol 300 mg tablet 300 mg PO DAILY@0600 cholecalciferol (vitamin D3) [Vitamin D3] 2,000 unit Tablet 2,000 unit PO DAILY@0800 acetaminophen [Tylenol Extra Strength] 500 mg Tablet 1,000 mg PO PRN gabapentin 300 mg capsule 300 mg PO TID dexamethasone 4 mg tablet 4 mg PO DAILY levalbuterol HCl 0.63 mg/3 mL solution for nebulization 0.63 mg inhalation Q6H PRN (Reason: Shortness Of Breath) ondansetron 8 mg tablet,disintegrating 4 - 8 mg PO Q6H PRN (Reason: Nausea And Vomiting) diphenhydramine HCl 12.5 mg/5 mL liquid 12.5 mg PO TID PRN (Reason: Nausea) prochlorperazine maleate 5 mg tablet 5 mg PO TID PRN (Reason: Nausea And Vomiting) potassium chloride 20 mEq tablet,ER particles/crystals 20 meq PO .[id number] dicyclomine 10 mg capsule 10 mg PO TID buprenorphine HCl 2 mg tablet, sublingual 2 mg SUBLINGUAL Q12H Movantik 25 mg tablet 25 mg PO .[id number] methenamine hippurate 1 gram tablet 1 g PO BID Hold Instructions: Resume on 07/21/24. nortriptyline 50 mg capsule 50 mg PO QPM duloxetine 60 mg capsule,delayed release(DR/EC) 60 mg PO DAILY ipratropium bromide 0.02 % Solution 0.5 mg inhalation Q6H.RESP Qty: 150 0RF Rx Instructions: Inhale 0.5mg 4 times a day for next 2 weeks followed by twice daily prednisone 20 mg tablet See Rx Instructions .ROUTE .COMPLEX Qty: 53 0RF Rx Instructions: 4 tabs a day for 5 days, 3 tabs for 5 days, 2 tabs for 5 days, 1 tab for 5 days, 0.5tab for 5 days metoclopramide HCl [Reglan] 10 mg tablet 10 mg PO Q6H PRN (Reason: nausea and vomiting) Qty: 14 0RF hydrocodone-acetaminophen 5-325 mg tablet 1 tab PO Q6H PRN (Reason: pain) Qty: 15 0RF Discontinued celecoxib 200 mg capsule 200 mg PO BID Discharge Orders: Discharge Order (Routine); Ordered 07/31/24 Ordered By: Matt Loredo Referrals: Dermatology [facility] [Provider Group] - 1 week (Facial/scalp zoster We have notified your physician's clinic of the need for a follow-up appointment to be scheduled. If you have not heard from them within the next 2 business days, please call them directly. DR HO OFFICE WILL CALL WITH APPOINTMENT ) [facility] [Provider Group] - 4-7 days (Zoster ophthalmicus We have notified your physician's clinic of the need for a follow-up appointment to be scheduled. If you have not heard from them within the next 2 business days, please call them directly. PLEASE CALL FOR APPOINTMENT) Adela Stout [Primary Care Provider] - 08/04/24 11:20 am Patient Instructions: Valacyclovir (By mouth), Shingles (GEN), Opioid Safety Activity Restrictions/Additional Instructions: Please complete acyclovir course. Follow-up with your primary doctor for reassessment of recovery from herpes zoster including herpes ophthalmicus. Follow-up with the eye doctor. Please note that any blisters or freshly open lesions can be contagious, although you have not had fresh blisters over the last 2 days. Still avoid touching any open lesions and contaminating other areas. Due to risk of recurrence, please speak with your primary doctor regarding shingles vaccine. To avoid constipation, continue bowel regimen, avoid opioids whenever possible as they are very constipating, include high-fiber foods in diet, avoid dehydration. Continue to decrease down steroid dose incrementally as per prior instructions. Discharge Attestations Time Spent in Discharge Care*: greater than 30 min Status at Discharge: Cognitive status at discharge: cognitively intact , Behavioral status at discharge: cooperative , Quality Metrics Clinical Quality Measures [ No reported AMI, CVA or VTE this stay] Coding Level of Care Code Acute Code for Chg Fwd Diagnoses Ophthalmic herpes zoster B02.30 Shingles B02.9 Fecal impaction K56.41 Small cell lung cancer in adult C34.90 COPD (chronic obstructive pulmonary disease) J44.9
--- NOTE | 2024-07-31 10:49 | PC.SOCIAL ---
IMM Updated Updated pt on IMM. No questions voiced. Provided pt a copy. Initialed, dated, & timed copy in chart.
== END 2024-07-31 12:59 | disposition home health service (06) | DRG 125 ==
LOC: ER 15:14 → MEDSURG 16:17
PROVIDERS: Admitting Provider Student in an Organized Health Care Education/Training Program; Emergency Provider Emergency Medicine; PCP Internal Medicine; Visit Provider Internal Medicine
DX: B02.30 Zoster ocular disease, unspecified (principal); C34.90 Malignant neoplasm of unspecified part of unspecified bronchus or lung; I69.954 Hemiplegia and hemiparesis following unspecified cerebrovascular disease affecting left non-dominant side; D84.821 Immunodeficiency due to drugs; J44.9 Chronic obstructive pulmonary disease, unspecified; Z92.3 Personal history of irradiation; M10.9 Gout, unspecified; E03.9 Hypothyroidism, unspecified; Z87.01 Personal history of pneumonia (recurrent); Z86.16 Personal history of COVID-19; Z87.891 Personal history of nicotine dependence; K56.41 Fecal impaction; T38.0X5A Adverse effect of glucocorticoids and synthetic analogues, initial encounter; E87.6 Hypokalemia
CPT/HCPCS: 36415; 74018; 74177; 80048; 80053; 81001; 83605; 83690; 83735; 84100; 85025; 93005; 94640; 94664; 96372; 96374; 99285; J0133; J1644; J2270; J2405; J7030; J7050; J7512; J7614; J7644

== ENCOUNTER 2024-08-08 19:38 | Emergency (ER) | payer MEDICARE, MEDICAID, SELFPAY ==
[2024-08-08 19:46] VITALS: BP 81/50; PULSE 122; RESP 18; TEMP 36.6; O2SAT 94
--- NOTE | 2024-08-08 20:02 | ED_ITS ---
HPI - Skin/Abscess/Foreign Bdy General: Chief complaint: Skin/Abscess/Foreign Body Stated complaint: shingles Left side of face in eye Time Seen by Provider: 08/08/24 19:54 History of Present Illness: Patient presents to the ER with complaints of herpes zoster ophthalmicus. Patient was discharged from this hospital recently on prednisone and Valtrex and she only has 1 more day of each 1 left. And in the last 24 hours she noticed her vision in her right eye was getting blurry. Patient went to [place] ER today to see what could be done they told her nothing. So then patient proceeded to come here for second opinion. I reviewed the hospital notes discharge summary from her stay at our facility. Patient should have followed up within 1 week with the dermatology group Dr. Faulkner's office and within 4 to 7 days with the ophthalmology group. Related Data Home Medications Medication Instructions Recorded Confirmed allopurinol 300 mg tablet 300 mg PO DAILY@0600 10/17/19 07/26/24 cholecalciferol (vitamin D3) 50 2,000 unit PO DAILY@0800 10/17/19 07/26/24 mcg (2,000 unit) tablet (Vitamin D3) levothyroxine 88 mcg tablet 88 mcg PO DAILY@0800 10/17/19 07/26/24 acetaminophen 500 mg tablet 1,000 mg PO PRN pain 10/24/20 07/26/24 (Tylenol Extra Strength) gabapentin 300 mg capsule 300 mg PO TID 10/24/20 07/26/24 duloxetine 60 mg capsule,delayed 60 mg PO DAILY 06/26/24 07/26/24 release methenamine hippurate 1 gram tablet 1 g PO BID 06/26/24 07/26/24 nortriptyline 50 mg capsule 50 mg PO QPM 06/26/24 07/26/24 buprenorphine HCl 2 mg sublingual 2 mg sublingual Q12H 07/26/24 07/26/24 tablet dexamethasone 4 mg tablet 4 mg PO DAILY 07/26/24 07/26/24 dicyclomine 10 mg capsule 10 mg PO TID 07/26/24 07/26/24 diphenhydramine HCl 12.5 mg/5 mL 12.5 mg PO TID PRN Nausea 07/26/24 07/26/24 oral liquid levalbuterol HCl 0.63 mg/3 mL 0.63 mg inhalation Q6H PRN 07/26/24 07/26/24 solution for nebulization Shortness Of Breath naloxegol 25 mg tablet (Movantik) 25 mg PO .[id number] 07/26/24 07/26/24 ondansetron 8 mg disintegrating 4 - 8 mg PO Q6H PRN Nausea And 07/26/24 07/26/24 tablet Vomiting potassium chloride 20 mEq 20 meq PO .[id number] 07/26/24 07/26/24 tablet,extended release(part/cryst) prochlorperazine maleate 5 mg 5 mg PO TID PRN Nausea And Vomiting 07/26/24 07/26/24 tablet Previous Rx's Medication Instructions Recorded ipratropium bromide 0.02 % 0.5 mg (2.5 mL) inhalation 06/27/24 solution for inhalation Q6H.RESP #150 mL prednisone 20 mg tablet See Rx Instructions .Route 07/14/24 .COMPLEX #53 tabs metoclopramide HCl 10 mg tablet 10 mg PO Q6H PRN nausea and 07/16/24 (Reglan) vomiting #14 tabs hydrocodone 5 mg-acetaminophen 325 1 tab PO Q6H PRN pain #15 tabs 07/18/24 mg tablet docusate sodium 100 mg capsule 100 mg PO BID #90 caps 07/31/24 sennosides 8.6 mg tablet (senna) 17.2 mg (2 x 8.6 mg) PO BEDTIME 07/31/24 #90 tabs prednisone 20 mg tablet 80 mg (4 x 20 mg) PO DAILY 5 days 08/08/24 #20 tabs valacyclovir 1 gram tablet 1,000 mg PO Q8H 7 days #21 tabs 08/08/24 (Valtrex) Allergies Allergy/AdvReac Type Severity Reaction Status Date / Time ibuprofen Allergy ALGY-Swell Verified 08/08/24 19:50 Lip/Tongue/Throat Influenza Virus Vaccines Allergy Unknown Verified 08/08/24 19:50 [facility] ED PFSH: Medical History History of left foot drop Left-sided weakness Compression fracture of T7 vertebra Gout H/O: CVA (cerebrovascular accident) Hypothyroidism Pneumonia due to COVID-19 virus Diarrhea due to COVID-19 Nausea & vomiting Abdominal pain Hypoxia COVID-19 Former smoker COPD (chronic obstructive pulmonary disease) Small cell lung cancer in adult Post radiation 06/16 Surgical History History of appendectomy Family History Father Cancer Lung cancer Social History Smoking and tobacco/nicotine status: former use of tobacco/nicotine Alcohol intake: never Substance/Drug Use: never Household members: family Housing: House Physical Exam Const: COMMON NORMALS: no acute distress, average body habitus, patient oriented x3, no limitations, healthy appearing, alert and well nourished HENMT: COMMON NORMALS: normocephalic, atraumatic, hearing grossly normal bilaterally, external ears normal, Normal external nose present and moist oral mucous membranes HEAD & SCALP: normocephalic and atraumatic NOSE: Normal external nose present EXTERNAL EAR: Yes external ears normal Eye: COMMON NORMALS: Equal, round and reactive pupils present, EOMs intact bilaterally, conjunctivae normal and no scleral icterus CONJUNCTIVA: Yes conjunctivae normal PUPIL: Yes Equal, round and reactive pupils present Neck/C-Spine: COMMON NORMALS: no JVD Chest: COMMONS NORMALS: normal inspection of the chest and normal palpation of entire chest wall Resp: COMMON NORMALS: normal respiratory effort, No retractions, No use of accessory muscles and clear to auscultation bilaterally AUSCULTATION: clear to auscultation bilaterally Cardio: COMMON NORMALS: no JVD, regular rate, regular rhythm, S1 normal heart sound present, S2 normal heart sound present, No gallops present (Cardio), No clicks present (Cardio), No murmurs present (Cardio) and No rub (Cardio) RATE: regular rate RHYTHM: regular rhythm HEART SOUNDS: S1 normal heart sound present and S2 normal heart sound present Neuro: COMMON NORMALS: patient oriented x3 SENSORIUM/ORIENTATION: Yes alert Course Vital Signs: Vital signs: Vital Signs Temperature 97.9 F 08/08/24 19:46 Pulse Rate 122 H 08/08/24 19:46 Respiratory Rate 18 08/08/24 19:46 Blood Pressure 81/50 08/08/24 19:46 Pulse Oximetry 94 08/08/24 19:46 Oxygen Delivery Me thod Room Air 08/08/24 19:46 MDM - Skin/Abscess/Foreign Bdy Medicial Decision Making Upon research it appears that there probably does not need to be anything else done however we will extend the prednisone and Valtrex out at least through Saturday till she can follow-up with the ophthalmology group for further evaluation and treatment. Medical Records I reviewed the patient's medical records. Lab Data I reviewed the patient's lab results. No radiology studies performed this visit Discharge Plan Discharge Patient Disposition: Home Clinical Impression: Ophthalmic herpes zoster Condition: Stable Prescriptions: New valacyclovir [Valtrex] 1 gram tablet 1,000 mg PO Q8H 7 Days Qty: 21 0RF prednisone 20 mg tablet 80 mg PO DAILY 5 Days Qty: 20 0RF No Action levothyroxine 88 mcg Tablet 88 mcg PO DAILY@0800 allopurinol 300 mg tablet 300 mg PO DAILY@0600 cholecalciferol (vitamin D3) [Vitamin D3] 2,000 unit Tablet 2,000 unit PO DAILY@0800 acetaminophen [Tylenol Extra Strength] 500 mg Tablet 1,000 mg PO PRN gabapentin 300 mg capsule 300 mg PO TID dexamethasone 4 mg tablet 4 mg PO DAILY levalbuterol HCl 0.63 mg/3 mL solution for nebulization 0.63 mg inhalation Q6H PRN (Reason: Shortness Of Breath) ondansetron 8 mg tablet,disintegrating 4 - 8 mg PO Q6H PRN (Reason: Nausea And Vomiting) diphenhydramine HCl 12.5 mg/5 mL liquid 12.5 mg PO TID PRN (Reason: Nausea) prochlorperazine maleate 5 mg tablet 5 mg PO TID PRN (Reason: Nausea And Vomiting) potassium chloride 20 mEq tablet,ER particles/crystals 20 meq PO .[id number] dicyclomine 10 mg capsule 10 mg PO TID buprenorphine HCl 2 mg tablet, sublingual 2 mg SUBLINGUAL Q12H Movantik 25 mg tablet 25 mg PO .[id number] sennosides [senna] 8.6 mg Tablet 17.2 mg PO BEDTIME Qty: 90 0RF docusate sodium 100 mg Capsule 100 mg PO BID Qty: 90 1RF methenamine hippurate 1 gram tablet 1 g PO BID Hold Instructions: Resume on 07/21/24. nortriptyline 50 mg capsule 50 mg PO QPM duloxetine 60 mg capsule,delayed release(DR/EC) 60 mg PO DAILY ipratropium bromide 0.02 % Solution 0.5 mg inhalation Q6H.RESP Qty: 150 0RF Rx Instructions: Inhale 0.5mg 4 times a day for next 2 weeks followed by twice daily prednisone 20 mg tablet See Rx Instructions .ROUTE .COMPLEX Qty: 53 0RF Rx Instructions: 4 tabs a day for 5 days, 3 tabs for 5 days, 2 tabs for 5 days, 1 tab for 5 days, 0.5tab for 5 days metoclopramide HCl [Reglan] 10 mg tablet 10 mg PO Q6H PRN (Reason: nausea and vomiting) Qty: 14 0RF hydrocodone-acetaminophen 5-325 mg tablet 1 tab PO Q6H PRN (Reason: pain) Qty: 15 0RF Discharge Orders: Discharge ED (Routine); Ordered 08/08/24 Ordered By: Jordi Feliz Referrals: Adela Stout [Primary Care Provider] - 1 week Patient Instructions: [place] (ED) Activity Restrictions/Additional Instructions: Please continue your current tapering dose of prednisone as directed previously. We have extended your Valtrex dose out for another 1 week. Make for sure you call Saturday morning your boiler mechanic to get an appointment to be seen as soon as possible. They are more than likely as no further treatment needed however please let the specialist evaluate and treat you. Activity r estrictions/additional instructions: Please realize that you were seen in the emergency department and that we are providing you with an emergency medical screening exam and this may not be a complete and all exclusive of all testing and/or medical workup we may need to determine your element or severity of your illness. It is very important that you follow-up as instructed with your primary care provider or specialist for the additional evaluation and to discuss your medical treatment plan. You may return to the emergency department should you have concerns or if your condition changes or worsens in any way. Coding Level of Care Code ED [employer] for Beatrice Petersen
== END 2024-08-08 20:24 | disposition home or self-care (01) ==
PROVIDERS: Emergency Provider Emergency Medicine; PCP Internal Medicine
DX: B02.30 Zoster ocular disease, unspecified (principal); Z87.891 Personal history of nicotine dependence; J44.9 Chronic obstructive pulmonary disease, unspecified
CPT/HCPCS: 99283

== ENCOUNTER 2024-08-23 15:03 | Emergency (ER) | payer MEDICARE, MEDICAID, SELFPAY ==
[2024-08-23 15:20] VITALS: BP 124/55; PULSE 121; RESP 18; TEMP 36.4; O2SAT 97; BMI 23.7
[2024-08-23 16:49] VITALS: RESP 18; O2SAT 97
[2024-08-23] MEDS: acetaminophen 500 mg Tablet 1000 MG PO (16:49)
[2024-08-23] MEDS: morphine 4 mg/mL SDV 1 mL IM ×2 (16:49→18:05)
--- NOTE | 2024-08-23 16:50 | W.ED.SKABFB ---
HPI - Skin/Abscess/Foreign Bdy General: Chief complaint: Skin/Abscess/Foreign Body Stated complaint: Pain all over mostly face and head Time Seen by Provider: 08/23/24 16:12 History of Present Illness: This patient is a 63-year-old female presenting with facial and head pain. About a month ago she was diagnosed with shingles and this progressed to cellulitis with MRSA. She was admitted until 2 days ago. She had been on antibiotics and aggressive pain control. She apparently was sent home on oxycodone and gabapentin for pain. She says this is not controlling her pain in the least. She is crying and holding her head. Prior to this she was on hydrocodone and gabapentin as well as buprenorphine. She has a history of cancer. She said she was on the buprenorphine for pain control not due to an opiate addiction. She is not currently on the hydrocodone or the buprenorphine. She denies any new areas of pain or change to character of the pain but says it is worse . She does not have pain in the eye itself. But the rash does extend around her right eye. Her daughter showed me pictures of her during the worst of the cellulitis in her entire forehead and around both eyes were swollen. She looks significantly better today. Related Data Home Medications Medication Instructions Recorded Confirmed allopurinol 300 mg tablet 300 mg PO DAILY@0600 10/17/19 08/27/24 cholecalciferol (vitamin D3) 50 2,000 unit PO DAILY@0810/17/19 08/27/24 mcg (2,000 unit) tablet (Vitamin D3) levothyroxine 88 mcg tablet 88 mcg PO DAILY@0810/17/19 08/27/24 acetaminophen 500 mg tablet 1,000 mg PO PRN pain 10/24/20 08/27/24 (Tylenol Extra Strength) gabapentin 300 mg capsule 300 mg PO TID 10/24/20 08/27/24 duloxetine 60 mg capsule,delayed 60 mg PO DAILY 06/26/24 08/27/24 release nortriptyline 50 mg capsule 50 mg PO QPM 06/26/24 08/27/24 buprenorphine HCl 2 mg sublingual 2 mg sublingual Q12H 07/26/24 08/27/24 tablet levalbuterol HCl 0.63 mg/3 mL 0.63 mg inhalation Q6H PRN 07/26/24 08/27/24 solution for nebulization Shortness Of Breath Previous Rx's Medication Instructions Recorded ipratropium bromide 0.02 % 0.5 mg (2.5 mL) inhalation 06/27/24 solution for inhalation Q6H.RESP #150 mL docusate sodium 100 mg capsule 100 mg PO BID #90 caps 07/31/24 sennosides 8.6 mg tablet (senna) 17.2 mg (2 x 8.6 mg) PO BEDTIME 07/31/24 #90 tabs morphine 15 mg immediate release 15 mg PO Q6H PRN pain #14 tabs 08/23/24 tablet Allergies Allergy/AdvReac Type Severity Reaction Status Date / Time ibuprofen Allergy ALGY-Swell Verified 08/27/24 16:02 Lip/Tongue/Throat Influenza Virus Vaccines Allergy Unknown Verified 08/27/24 16:02 flu shot Allergy Unknown Unknown Uncoded 08/28/24 11:12 PFS ED PFSH: Medical History History of left foot drop Left-sided weakness Compression fracture of T7 vertebra Gout H/O: CVA (cerebrovascular accident) Hypothyroidism Pneumonia due to COVID-19 virus Diarrhea due to COVID-19 Nausea & vomiting Abdominal pain Hypoxia COVID-19 Former smoker COPD (chronic obstructive pulmonary disease) Small cell lung cancer in adult Post radiation 06/16 Surgical History History of appendectomy Family History Father Cancer Lung cancer Social History Smoking and tobacco/nicotine status: former use of tobacco/nicotine Alcohol intake: never Substance/Drug Use: never Household members: family Housing: House Physical Exam Const: COMMON NORMALS: patient oriented x3, no limitations and alert GENERAL APPEARANCE: cooperative HENMT: OTHER: Scabbing from the area around the right orbit to just past the hairline on the right side of the forehead. She has tenderness on the whole right side of her scalp. There is no induration, fluctuance. There is some redness of the skin under the scabbing which to me appears to be healing rather than infection. The eye itself looks normal. The cornea is clear without abnormalities. Eye: OTHER: Normal cornea. Normal pupillary reactivity. Neck/C-Spine: COMMON NORMALS: supple, no meningeal signs and no JVD Chest: COMMONS NORMALS: normal inspection of the chest Resp: COMMON NORMALS: normal respiratory effort, No use of accessory muscles and clear to auscultation bilaterally AUSCULTATION: clear to auscultation bilaterally Cardio: COMMON NORMALS: no JVD, regular rate, regular rhythm and No murmurs present (Cardio) RATE: regular rate RHYTHM: regular rhythm GI: COMMON NORMALS: Normal to inspection, nondistended, normoactive bowel sounds present, Soft to palpation and non-tender INSPECTION: Yes normal to inspection AUSCULTATION: Yes normoactive bowel sounds PALPATION: Yes Soft to palpation Back/Pelvis: COMMON NORMALS: thoracic and lumbar spine normal to inspection Extremity: COMMON NORMALS: normal to inspection Neuro: COMMON NORMALS: patient oriented x3, moves all extremities, no focal motor deficits and no sensory deficits noted SENSORIUM/ORIENTATION: Yes alert MENINGEAL SIGNS: Yes no meningeal signs Psych: COMMON NORMALS: mental status grossly normal, cooperative and normal affect Skin: COMMON NORMALS: no rashes or lesions noted and turgor normal GENERAL SKIN EXAM: no rashes or lesions noted and turgor normal Course Vital Signs: Vital signs: Vital Signs Temperature 97.6 F 08/23/24 15:20 Pulse Rate 106 H 08/23/24 18:36 Respiratory Rate 17 08/23/24 18:05 Blood Pressure 110/66 08/23/24 18:36 Pulse Oximetry 93 08/23/24 18:36 Oxygen Delivery Me thod Room Air 08/23/24 15:20 MDM - Skin/Abscess/Foreign Bdy Medicial Decision Making Patient with a resolving cellulitis and shingles outbreak. She has been on antibiotics. She was on high-dose pain medicine in the hospital. Although on high doses of oxycodone and gabapentin currently she has not had pain control. She was given IM morphine in the ER as well as IV Tylenol. She reported absolutely no relief from these. She was given another dose of IM morphine and 0.5 mg of Ativan. She will be discharged home on oral morphine with follow-up with her primary care doctor. No radiology studies performed this visit Discharge Plan Discharge Patient Disposition: Home Clinical Impression: Shingles, Neuralgia, post-herpetic, Opiate dependence Condition: Stable Prescriptions: New morphine 15 mg tablet 15 mg PO Q6H PRN (Reason: pain) Qty: 14 0RF No Action levothyroxine 88 mcg Tablet 88 mcg PO DAILY@0800 allopurinol 300 mg tablet 300 mg PO DAILY@0600 cholecalciferol (vitamin D3) [Vitamin D3] 2,000 unit Tablet 2,000 unit PO DAILY@0800 acetaminophen [Tylenol Extra Strength] 500 mg Tablet 1,000 mg PO PRN gabapentin 300 mg capsule 300 mg PO TID levalbuterol HCl 0.63 mg/3 mL solution for nebulization 0.63 mg inhalation Q6H PRN (Reason: Shortness Of Breath) buprenorphine HCl 2 mg tablet, sublingual 2 mg SUBLINGUAL Q12H sennosides [senna] 8.6 mg Tablet 17.2 mg PO BEDTIME Qty: 90 0RF docusate sodium 100 mg Capsule 100 mg PO BID Qty: 90 1RF nortriptyline 50 mg capsule 50 mg PO QPM duloxetine 60 mg capsule,delayed release(DR/EC) 60 mg PO DAILY ipratropium bromide 0.02 % Solution 0.5 mg inhalation Q6H.RESP Qty: 150 0RF Rx Instructions: Inhale 0.5mg 4 times a day for next 2 weeks followed by twice daily Discharge Orders: Discharge ED (Routine); Ordered 08/23/24 Ordered By: Elizabeth Alfonso Referrals: Adela Stout [Primary Care Provider] - Patient Instructions: Opioid Safety, Pain Management Activity Restrictions/Additional Instructions: Do not take oxycodone and morphine to gather. Take 1 or the other, but not both. Separate doses by at least 4 hours. Continue gabapentin. Follow-up with your primary care doctor as soon as possible to discuss further pain management. Coding Level of Care Code ED Directional Survey Drafter for Beatrice Petersen
[2024-08-23 17:07] VITALS: BP 137/57; PULSE 96; O2SAT 95
[2024-08-23 18:05] VITALS: RESP 17; O2SAT 100
[2024-08-23] MEDS: LORazepam 0.5 mg Tablet PO (18:05)
[2024-08-23 18:36] VITALS: BP 110/66; PULSE 106; O2SAT 93
== END 2024-08-23 18:37 | disposition home or self-care (01) ==
PROVIDERS: Emergency Provider Emergency Medicine; PCP Internal Medicine
DX: B02.9 Zoster without complications (principal); B02.29 Other postherpetic nervous system involvement; F11.20 Opioid dependence, uncomplicated; Z87.891 Personal history of nicotine dependence; Z86.73 Personal history of transient ischemic attack (TIA), and cerebral infarction without residual deficits; J44.9 Chronic obstructive pulmonary disease, unspecified; Z85.118 Personal history of other malignant neoplasm of bronchus and lung
CPT/HCPCS: 96372; 99284; J2270

== ENCOUNTER 2024-08-27 15:15 | Emergency (ER) | payer MEDICARE, MEDICAID, SELFPAY ==
[2024-08-27] VITALS (7 sets, daily range): BP systolic 122–162; BP diastolic 61–79; PULSE 98–116; RESP 18–22; TEMP 36.4; O2SAT 92–95; BMI 23.7
--- NOTE | 2024-08-27 18:45 | W.ED.GENADLT ---
HPI - General Adult General: Chief complaint: General Medical Stated complaint: pain on R. side of face, nothing to eat or drink Time Seen by Provider: 08/27/24 18:20 Source: patient and family Mode of arrival: ambulatory Limitations: no limitations History of Present Illness: Patient is a 63-year-old female who presents to the ED today with continued postherpetic neuralgia pain involving the right side of her face and scalp. Patient was diagnosed with shingles almost a month ago-she was admitted here at that time. She has since had two (this makes her third) return ER visits as well as another hospitalization at [facility] after she developed cellulitis/MRSA. Patient states she has been on hydrocodone, oxycodone, gabapentin 600mg TID all without relief. Family states she doesn't want to eat/drink and are concerned. Her pain has not changed and still located in the distribution of where her rash was. Her rash has significantly improved since onset. She is not running fevers. No neck pain/stiffness. No AMS. Onset (ago): week(s) Location: head and face Severity: severe Severity scale (1-10): >10 Quality: burning and sharp Pain Consistency: constant Relieving factors: none Exacerbating factors: none Associated symptoms: Reports headache(s); Deny chest pain, confusion, dyspnea, malaise, nausea or vomiting Treatments prior to arrival: none Related Data Home Medications Medication Instructions Recorded Confirmed allopurinol 300 mg tablet 300 mg PO DAILY@0600 10/17/19 08/27/24 cholecalciferol (vitamin D3) 50 2,000 unit PO DAILY@79910/17/19 08/27/24 mcg (2,000 unit) tablet (Vitamin D3) levothyroxine 88 mcg tablet 88 mcg PO DAILY@0800 10/17/19 08/27/24 acetaminophen 500 mg tablet 1,000 mg PO PRN pain 10/24/20 08/27/24 (Tylenol Extra Strength) gabapentin 300 mg capsule 300 mg PO TID 10/24/20 08/27/24 duloxetine 60 mg capsule,delayed 60 mg PO DAILY 06/26/24 08/27/24 release nortriptyline 50 mg capsule 50 mg PO QPM 06/26/24 08/27/24 buprenorphine HCl 2 mg sublingual 2 mg sublingual Q12H 07/26/24 08/27/24 tablet levalbuterol HCl 0.63 mg/3 mL 0.63 mg inhalation Q6H PRN 07/26/24 08/27/24 solution for nebulization Shortness Of Breath Previous Rx's Medication Instructions Recorded ipratropium bromide 0.02 % 0.5 mg (2.5 mL) inhalation 06/27/24 solution for inhalation Q6H.RESP #150 mL docusate sodium 100 mg capsule 100 mg PO BID #90 caps 07/31/24 sennosides 8.6 mg tablet (senna) 17.2 mg (2 x 8.6 mg) PO BEDTIME 07/31/24 #90 tabs morphine 15 mg immediate release 15 mg PO Q6H PRN pain #14 tabs 08/23/24 tablet Allergies Allergy/AdvReac Type Severity Reaction Status Date / Time ibuprofen Allergy ALGY-Swell Verified 08/27/24 16:02 Lip/Tongue/Throat Influenza Virus Vaccines Allergy Unknown Verified 08/27/24 16:02 Review of Systems Const: Denies: fever(s), chills, body aches, fatigue or malaise Eyes: Denies: change in vision, blurry vision, photophobia, floaters or seeing flashes Card: Denies: chest pain Resp: Denies: dyspnea GI: Denies: abdominal pain, nausea, vomiting, diarrhea or change in bowel habits Musc: Denies: neck pain, back pain, extremity pain, extremity swelling, joint pain or joint swelling Neuro: Reports: headache(s); Denies: numbness in extremities, weakness in extremities, sensory changes, lack of coordination, frequent falls, dizziness, confusion, behavioral changes, Slurred speech present, difficulty communicating thoughts or seizure-like activity [facility] ED PFSH: Medical History History of left foot drop Left-sided weakness Compression fracture of T7 vertebra Gout H/O: CVA (cerebrovascular accident) Hypothyroidism Pneumonia due to COVID-19 virus Diarrhea due to COVID-19 Nausea & vomiting Abdominal pain Hypoxia COVID-19 Former smoker COPD (chronic obstructive pulmonary disease) Small cell lung cancer in adult Post radiation 06/16 Surgical History History of appendectomy Family History Father Cancer Lung cancer Social History Smoking and tobacco/nicotine status: former use of tobacco/nicotine Alcohol intake: never Substance/Drug Use: never Household members: family Housing: House Physical Exam Const: COMMON NORMALS: no acute distress, average body habitus, patient oriented x3, no limitations, healthy appearing, alert and well nourished GENERAL APPEARANCE: cooperative ORIENTATION/CONSCIOUSNESS: Yes awake, Yes oriented to person, Yes oriented to place and Yes oriented to time HENMT: FACE & SINUS: face symmetric and other (scab and healing erythema involving forehead) OTHER: family states rash/lesions are vastly improved from previous and have no concerns regarding this Eye: COMMON NORMALS: Equal, round and reactive pupils present and EOMs intact bilaterally GENERAL EYE: appearance normal, both eyes and all related structures and normal light reflex PUPIL: Yes Equal, round and reactive pupils present DIRECT OPHTHALMOSCOPY: Yes normal light reflex Neck/C-Spine: COMMON NORMALS: full ROM, no lymphadenopathy and no meningeal signs GENERAL: Yes normal visual inspection CERVICAL SPINE: Yes cervical ROM normal and No pain with cervical ROM Resp: COMMON NORMALS: normal respiratory effort and clear to auscultation bilaterally AUSCULTATION: clear to auscultation bilaterally Cardio: COMMON NORMALS: regular rate and regular rhythm RATE: regular rate RHYTHM: regular rhythm Back/Pelvis: COMMON NORMALS: thoracic and lumbar spine normal to inspection Extremity: GENERAL: Yes normal exam except as noted Neuro: COMMON NORMALS: patient oriented x3, moves all extremities, no focal motor deficits and no sensory deficits noted SENSORIUM/ORIENTATION: Yes alert, Yes oriented to person, Yes oriented to place and Yes oriented to time MENINGEAL SIGNS: Yes no meningeal signs Course Vital Signs: Vital signs: Vital Signs Temperature 97.6 F 08/27/24 15:56 Pulse Rate 116 H 08/27/24 15:56 Respiratory Rate 18 08/27/24 19:22 Blood Pressure 123/68 08/27/24 15:56 Pulse Oximetry 94 08/27/24 19:22 Oxygen Delivery Me thod Room Air 08/27/24 15:56 [facility] - General Adult Medical Decision Making Patient clinically appears in no acute distress but she is rating her pain at a 10/10. She was given IV Dilaudid as well as IV Valproic acid. On re-assessment she is sleeping comfortably but wakes up stating that her pain has not improved at all. Her pain has not changed at all since onset. Is located directly over the site of her previous rash consistent with a postherpetic neuralgia. She is not getting any benefit of the oral opiates at home. We discussed discontinuing these as the risk is clearly exceeding benefit. Family states she has not been taking any of her medications. We were able to get a medication list and she is supposed to be taking duloxetine and nortriptyline. We discussed how these medications can potentially help with postherpetic neuralgia and recommend she continue taking these. I will place a case management referral to get her set up with neurology to see if they have any further recommendations for continued pain. Blood work today overall is nonactionable. She has chronic hyponatremia. Potassium was mildly low at 3.2. She was given oral supplementation for this. Recommend oral hydration at home. IV hydration here omitted due to significant IV fluid shortage at the hospital. I have no concern at this time for other ominous etiologies for her pain such as meningitis or encephalitis. Medical Records I reviewed the patient's medical records. Lab Data I reviewed the patient's lab results. 08/27/24 19:13 08/27/24 19:13 Laboratory Results WBC 7.54 10^3/uL (3.29-11.43) 08/27/24 19:13 RBC 4.76 10^6/uL (3.85-5.65) 08/27/24 19:13 Hgb 13.50 g/dL (11.27-16.99) 08/27/24 19:13 Hct 40.7 % (36-47) 08/27/24 19:13 MCV 85.5 fl (85-98) 08/27/24 19:13 MCH 28.4 pg (27-33) 08/27/24 19:13 MCHC 33.2 g/dL (30-55) 08/27/24 19:13 RDW 16.1 % (12.1-15.1) H 08/27/24 19:13 Plt Count 464 10^3/cmm (157-399) H 08/27/24 19:13 MPV 8.6 fL (7.4-10.4) 08/27/24 19:13 Neut % (Auto) 71.9 % 08/27/24 19:13 Lymph % (Auto) 17.6 % 08/27/24 19:13 Kings % (Auto) 7.7 % 08/27/24 19:13 Eos % (Auto) 0.9 % 08/27/24 19:13 Baso % (Auto) 1.1 % 08/27/24 19:13 Neut # (Auto) 5.42 10^3/uL (1.8-7.7) 08/27/24 19:13 Lymph # (Auto) 1.3 10^3/uL (0.8-4.8) 08/27/24 19:13 Kings # (Auto) 0.6 10^3/uL (0.2-0.9) 08/27/24 19:13 Eos # (Auto) 0.1 10^3/uL (0.0-0.8) 08/27/24 19:13 Baso # (Auto) 0.1 10^3/uL (0.0-0.1) 08/27/24 19:13 Nucleated RBC % (auto) 0 % 08/27/24 19:13 Nucleated RBCs # 0.0 /100WBC 08/27/24 19:13 Sodium 129 mmol/L (136-145) L 08/27/24 19:13 Potassium 3.2 mmol/L (3.5-5.1) L 08/27/24 19:13 Chloride 85 mmol/L (98-107) L 08/27/24 19:13 Carbon Dioxide 25 mmol/L (22-29) 08/27/24 19:13 Anion Gap 22.2 (5-19) H 08/27/24 19:13 BUN 16 mg/dL (8-23) 08/27/24 19:13 Creatinine 0.6 mg/dL (0.5-0.9) 08/27/24 19:13 GFR Calculation 101.0 mL/min (90-130) 08/27/24 19:13 Glucose 125 mg/dL (65-115) H 08/27/24 19:13 Calculated Osmolality 271 mOsm/kg (285-295) L 08/27/24 19:13 Calcium 10.1 mg/dL (8.5-10.5) 08/27/24 19:13 Total Bilirubin 0.5 mg/dL (0.15-1.2) 08/27/24 19:13 AST 26 U/L (0-32) 08/27/24 19:13 ALT 13 U/L (0-33) 08/27/24 19:13 Alkaline Phosphatase 117 U/L (35-105) H 08/27/24 19:13 Total Protein 7.7 g/dL (6.6-8.7) 08/27/24 19:13 Albumin 4.6 g/dL (3.5-5.2) 08/27/24 19:13 Globulin 3.1 g/dL (1.3-4.6) 08/27/24 19:13 No radiology studies performed this visit Discharge Plan Discharge Patient Disposition: Home Clinical Impression: Neuralgia, post-herpetic Condition: Stable Prescriptions: No Action levothyroxine 88 mcg Tablet 88 mcg PO DAILY@0800 allopurinol 300 mg tablet 300 mg PO DAILY@0600 cholecalciferol (vitamin D3) [Vitamin D3] 2,000 unit Tablet 2,000 unit PO DAILY@0800 acetaminophen [Tylenol Extra Strength] 500 mg Tablet 1,000 mg PO PRN gabapentin 300 mg capsule 300 mg PO TID levalbuterol HCl 0.63 mg/3 mL solution for nebulization 0.63 mg inhalation Q6H PRN (Reason: Shortness Of Breath) buprenorphine HCl 2 mg tablet, sublingual 2 mg SUBLINGUAL Q12H sennosides [senna] 8.6 mg Tablet 17.2 mg PO BEDTIME Qty: 90 0RF docusate sodium 100 mg Capsule 100 mg PO BID Qty: 90 1RF morphine 15 mg tablet 15 mg PO Q6H PRN (Reason: pain) Qty: 14 0RF nortriptyline 50 mg capsule 50 mg PO QPM duloxetine 60 mg capsule,delayed release(DR/EC) 60 mg PO DAILY ipratropium bromide 0.02 % Solution 0.5 mg inhalation Q6H.RESP Qty: 150 0RF Rx Instructions: Inhale 0.5mg 4 times a day for next 2 weeks followed by twice daily Discharge Orders: Discharge ED (Routine); Ordered 08/27/24 Ordered By: Vandana Holly Referrals: Adela Stout [Primary Care Provider] - Activity Restrictions/Additional Instructions: As we discussed, I will place a case management referral with neurology to get you follow-up. You need to take your duloxetine and nortriptyline that are on your medication list-you had indicated you have not been taking these. We discussed discontinuing opiate pain medications as you are not reporting any form of benefit and these medications have obvious risks. Coding Level of Care Code ED Geosciences Associate Professor for Beatrice Petersen
[2024-08-27] MEDS: HYDROmorphone 1 mg/mL INJ 1 mL IVP (19:22)
[2024-08-27] MEDS: valproic acid inj 500 MG in sodium chloride 0.9% 50 ML 55 MG IV (19:22)
[2024-08-27 19:23] LABS: Basophils # 0.1 10^3/uL (0.0-0.1); Basophils % 1.1 %; Eosinophils # 0.1 10^3/uL (0.0-0.8); Eosinophils % 0.9 %; Hematocrit 40.7 % (36-47); Lymphocytes # 1.3 10^3/uL (0.8-4.8); Lymphocytes % 17.6 %; Mean Corpuscular HGB Conc 33.2 g/dL (30-55); Mean Corpuscular Hemoglobin 28.4 pg (27-33); Mean Corpuscular Volume 85.5 fl (85-98); Mean Platelet Volume 8.6 fL (7.4-10.4); Monocytes # 0.6 10^3/uL (0.2-0.9); Monocytes % 7.7 %; Neutrophils # 5.42 10^3/uL (1.8-7.7); Neutrophils % 71.9 %; Nucleated Red Blood Cells % 0 %; Platelet Count 464 10^3/cmm (157-399); Red Blood Count 4.76 10^6/uL (3.85-5.65); Red Cell Distribution Width 16.1 % (12.1-15.1); White Blood Count 7.54 10^3/uL (3.29-11.43)
[2024-08-27 19:50] LABS: Alanine Aminotransferase 13 U/L (0-33); Albumin Level 4.6 g/dL (3.5-5.2); Alkaline Phosphatase 117 U/L (35-105); Anion Gap 22.2 (5-19); Aspartate Amino Transferase 26 U/L (0-32); Blood Urea Nitrogen 16 mg/dL (8-23); Calcium 10.1 mg/dL (8.5-10.5); Carbon Dioxide 25 mmol/L (22-29); Chloride 85 mmol/L (98-107); Creatinine Clr Calc Pharmacy 84.4675; Globulin 3.1 g/dL (1.3-4.6); Glucose 125 mg/dL (65-115); Osmolality Calculated 271 mOsm/kg (285-295); Potassium 3.2 mmol/L (3.5-5.1); Sodium 129 mmol/L (136-145); Total Bilirubin 0.5 mg/dL (0.15-1.2); Total Protein 7.7 g/dL (6.6-8.7)
[2024-08-27] MEDS: potassium chloride ER 20 mEq Tablet 40 MEQ PO (20:34)
--- NOTE | 2024-08-28 07:56 | DCPLANNER ---
messaged neuro for er f/u
== END 2024-08-27 20:59 | disposition home or self-care (01) ==
PROVIDERS: Emergency Provider Physician Assistant; PCP Internal Medicine
DX: B02.29 Other postherpetic nervous system involvement (principal); Z87.891 Personal history of nicotine dependence; Z86.73 Personal history of transient ischemic attack (TIA), and cerebral infarction without residual deficits; J44.9 Chronic obstructive pulmonary disease, unspecified; Z85.118 Personal history of other malignant neoplasm of bronchus and lung
CPT/HCPCS: 36415; 80053; 85025; 96365; 96375; 99284; J1171; J3490

== ENCOUNTER 2024-10-26 10:20 | Emergency (ER) | payer MEDICAID, MEDICARE, SELFPAY ==
[2024-10-26] VITALS (9 sets, daily range): BP systolic 96–127; BP diastolic 54–74; PULSE 80–109; RESP 16–22; TEMP 36.5; O2SAT 92–95; BMI 24.0
--- NOTE | 2024-10-26 10:30 | XRR_ITS ---
PROCEDURE INFORMATION: Exam: XR Chest Exam date and time: 10/26/2024 10:41 AM Age: 63 years old Clinical indication: Cough and dyspnea; HX of lung cancer; Additional info: Dyspnea/cough TECHNIQUE: Imaging protocol: Radiologic exam of the chest. Views: 1 view. COMPARISON: CT angio chest PE protcl [id number] 07/18/2024 10:39 AM FINDINGS: Lungs: There are mild interstitial lung changes present right mid-lower lung zone more apparent on the current study, nonspecific. There is also an indistinct nodular density left hilum with adjacent linear density more apparent on the current study concerning for possible malignancy. There are postsurgical donaldo lateral to the right hilum redemonstrated. Pleural spaces: Unremarkable. No pleural effusion. No pneumothorax. Heart/Mediastinum: Unremarkable. No cardiomegaly. Bones/joints: Evidence of previous vertebroplasty midthoracic spine. No acute bony abnormalities detected. XR/XR chest 1V portable [id number] IMPRESSION: 1. Enlarging indistinct nodular density left hilum, nonspecific. Recommend follow-up nonemergent CT chest for further assessment. 2. Mild interstitial lung changes present peripherally right mid to lower lung zone more pronounced on the current study could also be assessed on CT exam of the chest.
--- NOTE | 2024-10-26 11:24 | ECG_ITS ---
[facility] Date: 2024-10-26 Pat Name: Zulma Garcia Department: Room: Gender: Female Analysis Or Research Safety Inspector: : 1960 Requested By: Ely Feliciano Order Number: [id number] Darci MD: Keanu Lawson M.D. Measurements Intervals [place] Rate: 99 P: 79 ND: 168 QRS: 80 QRSD: 83 T: 63 QT: 347 QTc: 445 Interpretive Statements SINUS RHYTHM POSSIBLE LEFT ATRIAL ENLARGEMENT [-0.1mV P-WAVE IN V1/V2] Compared to ECG 07/26/2024 13:53:47 ST (T wave) deviation no longer present Electronically Signed On 10-29-2024 22:08:19 PATIENT SERVICES MANAGER by Keanu Lawson M.D. [email or web address]
--- NOTE | 2024-10-26 11:44 | ED_ITS ---
HPI - SOB/Dyspnea 2 General: Chief Complaint: Shortness of Breath/Dyspnea Stated Complaint: SOB Time Seen by Provider: 10/26/24 11:23 Source: patient Mode of arrival: ambulatory Limitations: no limitations History of Present Illness: HPI Narrative: 63-year-old female has a history of COPD states the last 2 days she has had cough congestion along with low-grade fevers and bodyaches. States she feels like she may have the flu states that making her COPD worse she has been having worsening wheezing along with dyspnea she denies any fever she is on 3 L oxygen at baseline. Related Data Home Medications Medication Instructions Recorded Confirmed allopurinol 300 mg tablet 300 mg PO DAILY@0610/17/19 10/26/24 cholecalciferol (vitamin D3) 50 2,000 unit PO DAILY@79910/17/19 10/26/24 mcg (2,000 unit) tablet (Vitamin D3) levothyroxine 88 mcg tablet 88 mcg PO DAILY@0810/17/19 10/26/24 acetaminophen 500 mg tablet 1,000 mg PO PRN pain 10/24/20 10/26/24 (Tylenol Extra Strength) duloxetine 60 mg capsule,delayed 60 mg PO DAILY 06/26/24 10/26/24 release buprenorphine HCl 2 mg sublingual 2 mg sublingual TID 07/26/24 10/26/24 tablet levalbuterol HCl 0.63 mg/3 mL 0.63 mg inhalation Q6H PRN 07/26/24 10/26/24 solution for nebulization Shortness Of Breath celecoxib 200 mg capsule 200 mg PO BID 10/26/24 10/26/24 gabapentin 300 mg capsule See Rx Instructions .Route .COMPLEX 10/26/24 10/26/24 ipratropium bromide 0.02 % 0.5 mg inhalation BID PRN 10/26/24 10/26/24 solution for inhalation Shortness Of Breath nortriptyline 25 mg capsule 25 mg PO QPM 10/26/24 10/26/24 Previous Rx's Medication Instructions Recorded doxycycline hyclate 100 mg tablet 100 mg PO BID 7 days #14 tabs 10/26/24 prednisone 50 mg tablet 50 mg PO DAILY #5 tabs 10/26/24 Allergies Allergy/AdvReac Type Severity Reaction Status Date / Time ibuprofen Allergy ALGY-Swell Verified 02/03/25 10:50 Lip/Tongue/Throat Influenza Virus Vaccines Allergy Unknown Verified 10/26/24 10:50 flu shot Allergy Unknown Unknown Uncoded 10/26/24 10:50 PFSH ED 2 PFSH: Medical History History of left foot drop Left-sided weakness Compression fracture of T7 vertebra Gout H/O: CVA (cerebrovascular accident) Hypothyroidism Pneumonia due to COVID-19 virus Diarrhea due to COVID-19 Nausea & vomiting Abdominal pain Hypoxia COVID-19 Former smoker COPD (chronic obstructive pulmonary disease) Small cell lung cancer in adult Post radiation 06/16 Surgical History History of appendectomy Family History Father Cancer Lung cancer Social History Smoking and tobacco/nicotine status: former use of tobacco/nicotine Alcohol intake: never Substance/Drug Use: never Household members: family Housing: House Physical Exam 2 Const: COMMON NORMALS: no acute distress, patient oriented x3 and healthy appearing HENMT: COMMON NORMALS: normocephalic and atraumatic HEAD & SCALP: n ormocephalic and atraumatic Neck/C-Spine: COMMON NORMALS: full ROM and supple Chest: COMMONS NORMALS: normal inspection of the chest Resp: COMMON NORMALS: normal respiratory effort, No retractions and No use of accessory muscles AUSCULTATION: wheezes Cardio: COMMON NORMALS: regular rate, regular rhythm and No murmurs present (Cardio) RATE: regular rate RHYTHM: regular rhythm Extremity: COMMON NORMALS: normal to inspection and full ROM Neuro: COMMON NORMALS: patient oriented x3, moves all extremities and no focal motor deficits Psych: COMMON NORMALS: mental status grossly normal, Normal thought process present and cooperative THOUGHT PROCESS: Normal thought process present Skin: COMMON NORMALS: no rashes or lesions noted and no wounds GENERAL SKIN EXAM: no rashes or lesions noted Course 2 Vital Signs: Vital signs: Vital Signs Temperature 97.7 F 10/26/24 10:45 Pulse Rate 80 10/26/24 13:05 Respiratory Rate 16 10/26/24 13:05 Blood Pressure 127/56 10/26/24 13:05 Pulse Oximetry 93 10/26/24 13:05 Oxygen Delivery Me thod Nasal Cannula 10/26/24 12:47 Oxygen Flow Rate 2 10/26/24 12:47 MDM - SOB/Dyspnea Medical Decision Making Patient presents here with COPD exacerbation likely bronchitis and did go over x-ray findings inform her she has not followed her PCP for an outpatient CT we will start her on antibiotics along with steroids she has been at her baseline here on oxygen she is stable for discharge return if worsening. Medical Records I reviewed the patient's medical records. Lab Data I reviewed the patient's lab results. 10/26/24 11:15 10/26/24 11:15 Labs/Radiology: Radiology Impressions Chest X-Ray 10/26/24 10:30 IMPRESSION: 1. Enlarging indistinct nodular density left hilum, nonspecific. Recommend follow-up nonemergent CT chest for further assessment. 2. Mild interstitial lung changes present peripherally right mid to lower lung zone more pronounced on the current study could also be assessed on CT exam of the chest. Laboratory Results WBC 3.45 10^3/uL (3.29-11.43) 10/26/24 11:15 RBC 3.58 10^6/uL (3.85-5.65) L 10/26/24 11:15 Hgb 10.00 g/dL (11.27-16.99) L 10/26/24 11:15 Hct 33.7 % (36-47) L 10/26/24 11:15 MCV 94.1 fl (85-98) 10/26/24 11:15 MCH 27.9 pg (27-33) 10/26/24 11:15 MCHC 29.7 g/dL (30-55) L 10/26/24 11:15 RDW 14.6 % (12.1-15.1) 10/26/24 11:15 Plt Count 175 10^3/cmm (157-399) 10/26/24 11:15 MPV 10.5 fL (7.4-10.4) H 10/26/24 11:15 Neut % (Auto) 63.2 % 10/26/24 11:15 Lymph % (Auto) 25.8 % 10/26/24 11:15 [place] % (Auto) 8.4 % 10/26/24 11:15 Eos % (Auto) 1.7 % 10/26/24 11:15 Baso % (Auto) 0.6 % 10/26/24 11:15 Neut # (Auto) 2.18 10^3/uL (1.8-7.7) 10/26/24 11:15 Lymph # (Auto) 0.9 10^3/uL (0.8-4.8) 10/26/24 11:15 [place] # (Auto) 0.3 10^3/uL (0.2-0.9) 10/26/24 11:15 Eos # (Auto) 0.1 10^3/uL (0.0-0.8) 10/26/24 11:15 Baso # (Auto) 0.0 10^3/uL (0.0-0.1) 10/26/24 11:15 Nucleated RBC % (auto) 0 % 10/26/24 11:15 Nucleated RBCs # 0.0 /100WBC 10/26/24 11:15 Sodium 138 mmol/L (136-145) 10/26/24 11:15 Potassium 3.8 mmol/L (3.5-5.1) 10/26/24 11:15 Chloride 94 mmol/L (98-107) L 10/26/24 11:15 Carbon Dioxide 33 mmol/L (22-29) H 10/26/24 11:15 Anion Gap 14.8 (5-19) 10/26/24 11:15 BUN 11 mg/dL (8-23) 10/26/24 11:15 Creatinine 0.5 mg/dL (0.5-0.9) 10/26/24 11:15 GFR Calculation 124.6 mL/min (90-130) 10/26/24 11:15 Glucose 123 mg/dL (65-115) H 10/26/24 11:15 Calculated Osmolality 287 mOsm/kg (285-295) 10/26/24 11:15 Calcium 8.3 mg/dL (8.5-10.5) L 10/26/24 11:15 Total Bilirubin 0.2 mg/dL (0.15-1.2) 10/26/24 11:15 AST 37 U/L (0-32) H 10/26/24 11:15 ALT 14 U/L (0-33) 10/26/24 11:15 Alkaline Phosphatase 84 U/L (35-105) 10/26/24 11:15 NT-Pro-B Natriuret Pep 165 pg/mL (0-125) H 10/26/24 11:15 Total Protein 6.4 g/dL (6.6-8.7) L 10/26/24 11:15 Albumin 3.7 g/dL (3.5-5.2) 10/26/24 11:15 Globulin 2.7 g/dL (1.3-4.6) 10/26/24 11:15 Coronavirus (PCR) Negative (Negative) 10/26/24 10:57 Influenza A (PCR) Negative (Negative) 10/26/24 10:57 Influenza Type B (PCR) Negative (Negative) 10/26/24 10:57 RSV (PCR) Negative (Negative) 10/26/24 10:57 All radiology interpretation(s) finalized by discharge EKG Data EKG 1: I personally reviewed and interpreted this EKG as follows: EKG Interpretation Date: 10/26/24 EKG interpretation time: 11:30 Interpretation: nsr hr [address] elevation qrs 83 qtc 403 Discharge Plan Discharge Patient Disposition: Home Clinical Impression: Chronic obstructive pulmonary disease with (acute) exacerbation Condition: Stable Prescriptions: New prednisone 50 mg tablet 50 mg PO DAILY Qty: 5 0RF doxycycline hyclate 100 mg tablet 100 mg PO BID 7 Days Qty: 14 0RF No Action levothyroxine 88 mcg Tablet 88 mcg PO DAILY@0800 allopurinol 300 mg tablet 300 mg PO DAILY@0600 cholecalciferol (vitamin D3) [Vitamin D3] 2,000 unit Tablet 2,000 unit PO DAILY@0800 acetaminophen [Tylenol Extra Strength] 500 mg Tablet 1,000 mg PO PRN levalbuterol HCl 0.63 mg/3 mL solution for nebulization 0.63 mg inhalation Q6H PRN (Reason: Shortness Of Breath) buprenorphine HCl 2 mg tablet, sublingual 2 mg SUBLINGUAL TID duloxetine 60 mg capsule,delayed release(DR/EC) 60 mg PO DAILY celecoxib 200 mg capsule 200 mg PO BID nortriptyline 25 mg capsule 25 mg PO QPM gabapentin 300 mg capsule See Rx Instructions .ROUTE .COMPLEX Rx Instructions: TAKE 2 CAPSULES BY MOUTH TWICE DAILY AND 3 CAPSULES DAILY AT BEDTIME. ipratropium bromide 0.02 % solution 0.5 mg inhalation BID PRN (Reason: Shortness Of Breath) Discharge Orders: Discharge ED (Routine); Ordered 10/26/24 Ordered By: Ely Feliciano Referrals: Adela Stout [Primary Care Provider] - 4-7 days Discharge Diet: Advance as tolerated Discharge Activity: Resume usual activity Patient Instructions: COPD (Chronic Obstructive Pulmonary Disease) (ED) Coding Level of Care Code ED [employer] Consultant for Beatrice Petersen
[2024-10-26 11:48] LABS: Covid PCR NEGATIVE (Negative); Influenza A NEGATIVE (Negative); Influenza B NEGATIVE (Negative); Respiratory Syncytial Virus Ce NEGATIVE (Negative)
[2024-10-26 12:01] LABS: Basophils % 0.6 %; Eosinophils # 0.1 10^3/uL (0.0-0.8); Eosinophils % 1.7 %; Hematocrit 33.7 % (36-47); Lymphocytes # 0.9 10^3/uL (0.8-4.8); Lymphocytes % 25.8 %; Mean Corpuscular HGB Conc 29.7 g/dL (30-55); Mean Corpuscular Hemoglobin 27.9 pg (27-33); Mean Corpuscular Volume 94.1 fl (85-98); Mean Platelet Volume 10.5 fL (7.4-10.4); Monocytes # 0.3 10^3/uL (0.2-0.9); Monocytes % 8.4 %; Neutrophils # 2.18 10^3/uL (1.8-7.7); Neutrophils % 63.2 %; Nucleated Red Blood Cells % 0 %; Platelet Count 175 10^3/cmm (157-399); Red Blood Count 3.58 10^6/uL (3.85-5.65); Red Cell Distribution Width 14.6 % (12.1-15.1); White Blood Count 3.45 10^3/uL (3.29-11.43)
[2024-10-26 12:32] LABS: Alanine Aminotransferase 14 U/L (0-33); Albumin Level 3.7 g/dL (3.5-5.2); Alkaline Phosphatase 84 U/L (35-105); Anion Gap 14.8 (5-19); Aspartate Amino Transferase 37 U/L (0-32); Blood Urea Nitrogen 11 mg/dL (8-23); Calcium 8.3 mg/dL (8.5-10.5); Carbon Dioxide 33 mmol/L (22-29); Chloride 94 mmol/L (98-107); Creatinine Clr Calc Pharmacy 102.0213; Globulin 2.7 g/dL (1.3-4.6); Glomerular Filtration Rate 124.6 mL/min (90-130); Glucose 123 mg/dL (65-115); NT Pro B Type Natriuretic Pept 165 pg/mL (0-125); Osmolality Calculated 287 mOsm/kg (285-295); Potassium 3.8 mmol/L (3.5-5.1); Sodium 138 mmol/L (136-145); Total Bilirubin 0.2 mg/dL (0.15-1.2); Total Protein 6.4 g/dL (6.6-8.7)
[2024-10-26] MEDS: methylPREDNISolone sod succ 125 mg/2 mL INJ IVP (12:42)
[2024-10-26] MEDS: ipratropium-albuterol 3 mL Neb INHALATION (12:51)
== END 2024-10-26 13:21 | disposition home or self-care (01) ==
PROVIDERS: Family Medicine; Emergency Provider Emergency Medicine; PCP Internal Medicine
DX: J44.1 Chronic obstructive pulmonary disease with (acute) exacerbation (principal); Z11.52 Encounter for screening for COVID-19; Z87.891 Personal history of nicotine dependence; Z86.73 Personal history of transient ischemic attack (TIA), and cerebral infarction without residual deficits
CPT/HCPCS: 36415; 71045; 80053; 83880; 85025; 87637; 93005; 94640; 96374; 99285; J2919

== ENCOUNTER 2025-02-04 08:35 | Emergency (ER) | payer MEDICARE, MEDICAID, SELFPAY ==
[2025-02-04] VITALS (8 sets, daily range): BP systolic 117–151; BP diastolic 47–64; PULSE 83–120; RESP 16–18; TEMP 36.7; O2SAT 93–95; BMI 24.4
--- NOTE | 2025-02-04 08:47 | XR_ITS ---
WS: [id number] Exam: XR chest 1V portable [id number] Date/Time of Exam: 02/04/2025 8:54 AM Reason For Exam: dyspnea/cough Comparison 10/26/2024. Again noted is possible LEFT hilar pulmonary nodule. The lungs are hyperinflated and otherwise free of infiltrate. RIGHT perihilar surgical clips. Normal cardiomediastinal silhouette. Scattered calcified granulomas. No pleural effusion or pneumothorax. Signs of mid thoracic kyphoplasty. Bony structures are intact. XR/XR chest 1V portable [id number] IMPRESSION: 1. LEFT hilar pulmonary density unchanged in appearance. Pulmonary malignancy n ot excluded. 2. RIGHT perihilar postoperative changes. Hyperinflation.
[2025-02-04 09:05] LABS: ABG PH Result 7.39 (7.35-7.45); Alveolar-Arterial Oxygen Gradi 1.5 mmHg (5-10); Arterial Blood Gas Hematocrit 34.4 % (37-47); Blood Gas Allen Test Pos; Blood Gas Operator Identificat WALCI; Blood Gas Sample Site Radial, right; Blood Gas Sample Type Arterial; Carboxyhemoglobin 1.1 %THgb (0.4-20.1); HCO3 ABG 33.5 mmol/L (22-26); HGB O2 Sat 93.2 % (95-100); Ionized Calcium Level - ABG 1.2 mmol/L (1.1-1.4); Methemoglobin 0.3 % (0.4-1.5); Oxygen Device NC; Oxygen Saturation ABG 94.4; PO2 ABG 67.8 mmHg (80.0-100.0); Potassium Level - ABG 3.4 mmol/L (3.5-5.0); Total Hemoglobin 11.2 g/dL (12-16)
[2025-02-04] MEDS: ipratropium-albuterol 3 mL Neb INHALATION ×2 (09:09→09:29)
--- NOTE | 2025-02-04 09:11 | ECG_ITS ---
[employer] Test Date: 2025-02-04 Pat Name: Zulma Garcia Department: Room: Gender: Female Client Services Assistant: : 1960 Requested By: Prasanth Roy Order Number: [id number] Reading MD: PATRICIA CARUSO Measurements Intervals [place] Rate: 99 P: 80 CA: 209 QRS: 76 QRSD: 81 T: 57 QT: 315 QTc: 405 Interpretive Statements SINUS RHYTHM POSSIBLE RIGHT VENTRICULAR CONDUCTION DELAY [RSR (QR) IN V1/V2] NONSPECIFIC T-WAVE ABNORMALITY Compared to ECG 10/26/2024 11:30:04 T-wave abnormality now present Electronically Signed On 02-04-2025 23:29:50 CDT by PATRICIA CARUSO [email or web address]
--- NOTE | 2025-02-04 09:12 | W.ED.GENADLT ---
HPI - General Adult General: Chief complaint: General Medical Stated complaint: n,sweats, dizzy Time Seen by Provider: 02/04/25 08:47 History of Present Illness: 64-year-old female presents to the emergency room with sweats and dizziness that began overnight. She normally wears 3 L by nasal cannula with a history of COPD also has a history of lung CA. Complaining of chest pain at times worse with deep inspiration. Known history of COPD as well. Course of review of systems patient reports a month ago she had an episode of hematochezia that resolved and occurred Associated symptoms: Reports dyspnea; Deny chest pain or rash Related Data Home Medications ?Medication ?Instructions ?Recorded ?Confirmed allopurinol 300 mg tablet 300 mg PO DAILY@0610/17/19 02/04/25 cholecalciferol (vitamin D3) 50 2,000 unit PO DAILY@79910/17/19 02/04/25 mcg (2,000 unit) tablet (Vitamin D3) levothyroxine 88 mcg tablet 88 mcg PO DAILY@79910/17/19 02/04/25 acetaminophen 500 mg tablet 1,000 mg PO PRN pain 10/24/20 02/04/25 (Tylenol Extra Strength) duloxetine 60 mg capsule,delayed 60 mg PO DAILY 06/26/24 02/04/25 release buprenorphine HCl 2 mg sublingual 2 mg sublingual TID 07/26/24 02/04/25 tablet celecoxib 200 mg capsule 200 mg PO BID 10/26/24 02/04/25 gabapentin 300 mg capsule See Rx Instructions .Route .COMPLEX 10/26/24 02/04/25 nortriptyline 25 mg capsule 25 mg PO QPM 10/26/24 02/04/25 amitriptyline 10 mg tablet 10 mg PO BEDTIME 02/04/25 02/04/25 Previous Rx's ?Medication ?Instructions ?Recorded oxycodone 5 mg tablet 5 mg PO Q8H PRN pain #15 tabs 02/04/25 Allergies Allergy/AdvReac Type Severity Reaction Status Date / Time ibuprofen Allergy ALGY-Swell Verified 10/26/24 10:50 Lip/Tongue/Throat Influenza Virus Vaccines Allergy Unknown Verified 10/26/24 10:50 flu shot Allergy Unknown Unknown Uncoded 10/26/24 10:50 Review of Systems Const: Denies: fever(s) or chills Card: Denies: chest pain Resp: Reports: dyspnea, non-productive cough, wheezing and chest congestion GI: Denies: abdominal pain : Denies: dysuria, urinary frequency or urinary urgency Musc: Denies: neck pain or back pain Skin/Breast: Denies: rash PFSH ED PFSH: Medical History History of left foot drop Left-sided weakness Compression fracture of T7 vertebra Gout H/O: CVA (cerebrovascular accident) Hypothyroidism Pneumonia due to COVID-19 virus Diarrhea due to COVID-19 Nausea & vomiting Abdominal pain Hypoxia COVID-19 Former smoker COPD (chronic obstructive pulmonary disease) Small cell lung cancer in adult Post radiation 06/16 Surgical History History of appendectomy Family History Father Cancer Lung cancer Social History Smoking and tobacco/nicotine status: former use of tobacco/nicotine Alcohol intake: never Substance/Drug Use: never Household members: family Housing: House Physical Exam Const: GENERAL APPEARANCE: cooperative ORIENTATION/CONSCIOUSNESS: Yes awake, Yes oriented to person, Yes oriented to place and Yes oriented to time HENMT: COMMON NORMALS: normocephalic, atraumatic and hearing grossly normal bilaterally HEAD & SCALP: normocephalic and atraumatic Resp: AUSCULTATION: rhonchi and wheezes Cardio: COMMON NORMALS: regular rate, regular rhythm and No murmurs present (Cardio) RATE: regular rate RHYTHM: regular rhythm GI: COMMON NORMALS: Soft to palpation and No hepatosplenomegaly present AUSCULTATION: Yes normoactive bowel sounds PALPATION: Yes Soft to palpation, No Tenderness to palpation present (GI), No Guarding due to palpation present (GI) and Yes No hepatosplenomegaly present Extremity: COMMON NORMALS: normal to inspection, capillary refill normal, no clubbing, cyanosis or edema, no calf tenderness and no pedal edema Neuro: SENSORIUM/ORIENTATION: Yes oriented to person, Yes oriented to place and Yes oriented to time Skin: COMMON NORMALS: no rashes or lesions noted GENERAL SKIN EXAM: no rashes or lesions noted Course Vital Signs: Vital signs: Vital Signs Temperature 98.0 F 02/04/25 09:11 Pulse Rate 105 H 02/04/25 13:55 Respiratory Rate 18 02/04/25 13:55 Blood Pressure 118/63 02/04/25 13:55 Pulse Oximetry 94 02/04/25 13:55 Oxygen Delivery Me thod Nasal Cannula 02/04/25 09:29 Oxygen Flow Rate 3 02/04/25 09:29 [facility] - General Adult Medical Decision Making Labs and imaging reviewed. Her hemoglobin is stable. Blood gas with well compensated chemistries did not show any significant abnormality. Her troponins trended normally urine was negative. Chest x-ray showed a right lower lateral nodule which was thought to be evidence of posttreatment changes. Residual or recurrent malignancy was not excluded. There was no sign of pulmonary embolism. Patient was discharged home on pain medications and encouraged follow-up with oncology. She was satting normally on her usual 3 L. Differential Diagnosis Pneumonia pneumothorax pulmonary embolism acute coronary syndrome dissecting aneurysm recurrence of lung cancer empyema pleurisy Medical Records I reviewed the patient's medical records. Lab Data I reviewed the patient's lab results. 02/04/25 09:08 02/04/25 09:08 Radiology Impressions Chest X-Ray 02/04/25 08:47 IMPRESSION: 1. LEFT hilar pulmonary density unchanged in appearance. Pulmonary malignancy not excluded. 2. RIGHT perihilar postoperative changes. Hyperinflation. Chest CTA 02/04/25 10:56 IMPRESSION: 1. Evolving now completely solid right lower lobe pulmonary nodule is favored to reflect posttreatment changes, but residual or recurrent malignancy is not excluded. 2. Unchanged left infrahilar fibrosis. Laboratory Results WBC 6.83 10^3/uL (3.29-11.43) 02/04/25 09:08 RBC 3.92 10^6/uL (3.85-5.65) 02/04/25 09:08 Hgb 10.60 g/dL (11.27-16.99) L 02/04/25 09:08 Hct 34.1 % (36-47) L 02/04/25 09:08 MCV 87.0 fl (85-98) 02/04/25 09:08 MCH 27.0 pg (27-33) 02/04/25 09:08 MCHC 31.1 g/dL (30-55) 02/04/25 09:08 RDW 13.3 % (12.1-15.1) 02/04/25 09:08 Plt Count 194 10^3/cmm (157-399) 02/04/25 09:08 MPV 9.4 fL (7.4-10.4) 02/04/25 09:08 Neut % (Auto) 73.9 % 02/04/25 09:08 Lymph % (Auto) 15.7 % 02/04/25 09:08 [place] % (Auto) 4.8 % 02/04/25 09:08 Eos % (Auto) 4.7 % 02/04/25 09:08 Baso % (Auto) 0.6 % 02/04/25 09:08 Neut # (Auto) 5.05 10^3/uL (1.8-7.7) 02/04/25 09:08 Lymph # (Auto) 1.1 10^3/uL (0.8-4.8) 02/04/25 09:08 [place] # (Auto) 0.3 10^3/uL (0.2-0.9) 02/04/25 09:08 Eos # (Auto) 0.3 10^3/uL (0.0-0.8) 02/04/25 09:08 Baso # (Auto) 0.0 10^3/uL (0.0-0.1) 02/04/25 09:08 Nucleated RBC % (auto) 0 % 02/04/25 09:08 Nucleated RBCs # 0.0 /100WBC 02/04/25 09:08 Specimen Type Arterial 02/04/25 08:53 Sample Site Radial, right 02/04/25 08:53 ABG pH 7.39 (7.35-7.45) 02/04/25 08:53 ABG pCO2 56.0 mmHg (35-45) H 02/04/25 08:53 ABG pO2 67.8 mmHg (80.0-100.0) L 02/04/25 08:53 ABG HCO3 33.5 mmol/L (22-26) H 02/04/25 08:53 ABG O2 Saturation 94.4 02/04/25 08:53 ABG Base Excess 7.0 mmol/L (-2.0-2.0) H 02/04/25 08:53 Darrel Test Pos 02/04/25 08:53 A-a O2 Gradient 1.5 mmHg (5-10) L 02/04/25 08:53 Hematocrit 34.4 % (37-47) L 02/04/25 08:53 Hgb O2 Saturation 93.2 % (95-100) L 02/04/25 08:53 Carboxyhemoglobin 1.1 %THgb (0.4-20.1) 02/04/25 08:53 Methemoglobin 0.3 % (0.4-1.5) L 02/04/25 08:53 Total Hemoglobin 11.2 g/dL (12-16) L 02/04/25 08:53 Sodium 141.0 mmol/L (131-143) 02/04/25 08:53 Potassium 3.4 mmol/L (3.5-5.0) L 02/04/25 08:53 Glucose 135.0 mg/dL (70-115) H 02/04/25 08:53 Ionized Calcium 1.2 mmol/L (1.1-1.4) 02/04/25 08:53 O2 Delivery Device Nc 02/04/25 08:53 O2 Liters/Min 3.0 % 02/04/25 08:53 Dsp Engineer ID [place] 02/04/25 08:53 Sodium 139 mmol/L (136-145) 02/04/25 09:08 Potassium 3.5 mmol/L (3.5-5.1) 02/04/25 09:08 Chloride 98 mmol/L (98-107) 02/04/25 09:08 Carbon Dioxide 30 mmol/L (22-29) H 02/04/25 09:08 Anion Gap 14.5 (5-19) 02/04/25 09:08 BUN 10 mg/dL (8-23) 02/04/25 09:08 Creatinine 0.6 mg/dL (0.5-0.9) 02/04/25 09:08 GFR Calculation 100.6 mL/min (90-130) 02/04/25 09:08 Glucose 124 mg/dL (65-115) H 02/04/25 09:08 Calculated Osmolality 288 mOsm/kg (285-295) 02/04/25 09:08 Lactic Acid 1.4 mmol/L (0.5-2.2) 02/04/25 09:08 Calcium 8.8 mg/dL (8.5-10.5) 02/04/25 09:08 Total Bilirubin 0.3 mg/dL (0.15-1.2) 02/04/25 09:08 AST 23 U/L (0-32) 02/04/25 09:08 ALT 9 U/L (0-33) 02/04/25 09:08 Alkaline Phosphatase 90 U/L (35-105) 02/04/25 09:08 Troponin T Baseline 12 ng/L (0-10) H 02/04/25 09:08 Troponin T 120 Minute 12.37 ng/L (0-10) H 02/04/25 11:42 Delta Troponin T 0.37 ABS# (0-10) 02/04/25 11:42 NT-Pro-B Natriuret Pep 210 pg/mL (0-125) H 02/04/25 09:08 Total Protein 7.5 g/dL (6.6-8.7) 02/04/25 09:08 Albumin 4.1 g/dL (3.5-5.2) 02/04/25 09:08 Globulin 3.4 g/dL (1.3-4.6) 02/04/25 09:08 Urine Color Yellow (Yellow) 02/04/25 10:14 Urine Appearance Slightly cloudy (CLEAR) 02/04/25 10:14 Urine pH Not Reportable 02/04/25 10:14 Ur Specific [place] Not Reportable 02/04/25 10:14 Urine Protein Not Reportable 02/04/25 10:14 Urine Glucose (UA) Not Reportable 02/04/25 10:14 Urine Ketones Not Reportable 02/04/25 10:14 Urine Blood Not Reportable 02/04/25 10:14 Urine Nitrate Not Reportable 02/04/25 10:14 Urine Bilirubin Not Reportable 02/04/25 10:14 Urine Urobilinogen Not Reportable 02/04/25 10:14 Ur Leukocyte Esterase Not Reportable 02/04/25 10:14 Amorphous Sediment Not Reportable 02/04/25 10:14 Influenza A (PCR) Negative (Negative) 02/04/25 11:23 Influenza Type B (PCR) Negative (Negative) 02/04/25 11:23 RSV (PCR) Negative (Negative) 02/04/25 11:23 SARS-CoV-2 (PCR) Negative (Negative) 02/04/25 11:23 All radiology interpretation(s) finalized by discharge Discharge Plan Discharge Patient Disposition: Home Clinical Impression: Pleuritic chest pain Condition: Stable Prescriptions: New oxycodone 5 mg tablet 5 mg PO Q8H PRN (Reason: pain) Qty: 15 0RF No Action levothyroxine 88 mcg Tablet 88 mcg PO DAILY@0800 allopurinol 300 mg tablet 300 mg PO DAILY@0600 cholecalciferol (vitamin D3) [Vitamin D3] 2,000 unit Tablet 2,000 unit PO DAILY@0800 acetaminophen [Tylenol Extra Strength] 500 mg Tablet 1,000 mg PO PRN buprenorphine HCl 2 mg tablet, sublingual 2 mg SUBLINGUAL TID amitriptyline 10 mg tablet 10 mg PO BEDTIME duloxetine 60 mg capsule,delayed release(DR/EC) 60 mg PO DAILY celecoxib 200 mg capsule 200 mg PO BID nortriptyline 25 mg capsule 25 mg PO QPM gabapentin 300 mg capsule See Rx Instructions .ROUTE .COMPLEX Rx Instructions: TAKE 2 CAPSULES BY MOUTH TWICE DAILY AND 3 CAPSULES DAILY AT BEDTIME. Discharge Orders: Discharge ED (Routine); Ordered 02/04/25 Ordered By: Prasanth Michaud Referrals: Clementina Jean MD [Physician, Family Practice] Isabel James MD [Staff Physician, Family Practice] Jordi Moise MD [Physician, Family Practice] Discharge Diet: Usual diet Discharge Activity: Increase activity as tolerated Patient Instructions: Opioid Safety, Pain Management Activity Restrictions/Additional Instructions: Thank you for choosing [facility] for your healthcare needs today. It is very important that you follow up as instructed or that you return to the Emergency Department should you have concerns or if your condition changes or worsens in any way. You were seen in the emergency room with complaints of chest discomfort. Evaluation for pulmonary embolism pneumonia and cardiac causes was all negative. There is no signs of recurrence of your cancer either. Based on your description of symptoms suspect that your discomfort is pleuritic in nature. Will give you Percocet to use as needed. Listed 3 doctors that you can contact to possibly establish with as well. Print Language: Italian Coding Level of Care Code ED Refractory Mixer for Beatrice Petersen
[2025-02-04 09:17] LABS: Basophils % 0.6 %; Eosinophils # 0.3 10^3/uL (0.0-0.8); Eosinophils % 4.7 %; Hematocrit 34.1 % (36-47); Lymphocytes # 1.1 10^3/uL (0.8-4.8); Lymphocytes % 15.7 %; Mean Corpuscular HGB Conc 31.1 g/dL (30-55); Mean Platelet Volume 9.4 fL (7.4-10.4); Monocytes # 0.3 10^3/uL (0.2-0.9); Monocytes % 4.8 %; Neutrophils # 5.05 10^3/uL (1.8-7.7); Neutrophils % 73.9 %; Nucleated Red Blood Cells % 0 %; Platelet Count 194 10^3/cmm (157-399); Red Blood Count 3.92 10^6/uL (3.85-5.65); Red Cell Distribution Width 13.3 % (12.1-15.1); White Blood Count 6.83 10^3/uL (3.29-11.43)
[2025-02-04 09:30] LABS: Alanine Aminotransferase 9 U/L (0-33); Albumin Level 4.1 g/dL (3.5-5.2); Alkaline Phosphatase 90 U/L (35-105); Anion Gap 14.5 (5-19); Aspartate Amino Transferase 23 U/L (0-32); Blood Urea Nitrogen 10 mg/dL (8-23); Calcium 8.8 mg/dL (8.5-10.5); Carbon Dioxide 30 mmol/L (22-29); Chloride 98 mmol/L (98-107); Creatinine Clr Calc Pharmacy 84.4561; Globulin 3.4 g/dL (1.3-4.6); Glomerular Filtration Rate 100.6 mL/min (90-130); Glucose 124 mg/dL (65-115); Osmolality Calculated 288 mOsm/kg (285-295); Potassium 3.5 mmol/L (3.5-5.1); Sodium 139 mmol/L (136-145); Total Bilirubin 0.3 mg/dL (0.15-1.2); Total Protein 7.5 g/dL (6.6-8.7)
[2025-02-04] MEDS: methylPREDNISolone sod succ 125 mg/2 mL INJ IVP (09:48)
[2025-02-04 10:12] LABS: Lactic Sepsis W/Reflex 1.4 mmol/L (0.5-2.2)
[2025-02-04 10:22] LABS: NT Pro B Type Natriuretic Pept 210 pg/mL (0-125)
[2025-02-04 10:46] LABS: Urine Appearance Slightly Cloudy (CLEAR)
[2025-02-04 10:47] LABS: Add Urine Microscopic? YES
[2025-02-04 10:49] LABS: Add Urine Culture? Yes
[2025-02-04 10:50] LABS: Urine Color Yellow (Yellow)
[2025-02-04 10:51] LABS: UA Manual Slide Review YES
--- NOTE | 2025-02-04 10:56 | CTR_ITS ---
PROCEDURE INFORMATION: Exam: CTA Chest With Contrast Exam date and time: 02/04/2025 12:02 PM Age: 64 years old Clinical indication: Shortness of breath; Additional info: Dyspnea history of lung cancer TECHNIQUE: Imaging protocol: Computed tomographic angiography of the chest with contrast. Exam focused on the arteries. 3D rendering (Not supervised by radiologist): MIP and/or 3D reconstructed images were created by the technologist. Radiation optimization: All CT scans at this facility use at least one of these dose optimization techniques: automated exposure control; mA and/or kV adjustment per patient size (includes targeted exams where dose is matched to clinical indication); or iterative reconstruction. Contrast material: OMNI 350; Contrast volume: 61 ml; Contrast route: INTRAVENOUS (IV); COMPARISON: CT angio chest PE protcl [id number] 07/18/2024 10:39 AM RADIATION DOSE METRICS: Total DLP (mGy-cm): 191.39 FINDINGS: Pulmonary arteries: Normal. No pulmonary emboli. Aorta: Unremarkable. No aortic aneurysm. No aortic dissection. Lungs: Moderate emphysema. Bilateral calcified granuloma. Bibasilar atelectasis. Interval evolution of now completely solid nodule in the superior segment of the right lower lobe (series 6, image 211) measuring 1.6 cm, previously mixed cystic and solid measuring 1.9 cm. Chronic left infrahilar peribronchovascular fibrotic changes. No focal consolidation. Scattered mild bronchial wall thickening and mucous plugging. Right basilar atelectasis/scarring. Pleural spaces: Unremarkable. No pneumothorax. No pleural effusion. Heart: Unremarkable. No cardiomegaly. No pericardial effusion. Lymph nodes: Unremarkable. No enlarged lymph nodes. Bones/joints: Unremarkable. No acute fracture. Soft tissues: Unremarkable. CT/CT angio chest PE protcl [id number] IMPRESSION: 1. Evolving now completely solid right lower lobe pulmonary nodule is favored to reflect posttreatment changes, but residual or recurrent malignancy is not excluded. 2. Unchanged left infrahilar fibrosis.
[2025-02-04] MEDS: iohexol 350 mg/mL 500 mL Btl (per mL) IV (12:05)
[2025-02-04 12:11] LABS: Influenza A NEGATIVE (Negative); Influenza B NEGATIVE (Negative); Respiratory Syncytial Virus Ce NEGATIVE (Negative); SARS-CoV-2 PCR NEGATIVE (Negative)
[2025-02-04 13:03] LABS: Troponin(5th) Baseline 12 ng/L (0-10)
[2025-02-04 13:04] LABS: Troponin 5 2HR 12.37 ng/L (0-10); Troponin 5 2HR Delta 0.37 ABS# (0-10)
[2025-02-04] MEDS: ondansetron 2 mg/ML SDV 2 mL 4 MG IVP (13:12)
--- NOTE | 2025-02-04 13:20 | ECG_ITS ---
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: : 1960 Requested By: Prasanth Roy Order Number: [id number] Reading MD: PATRICIA CARUSO Measurements Intervals [place] Rate: 111 P: 76 WA: 148 QRS: 76 QRSD: 89 T: 49 QT: 290 QTc: 395 Interpretive Statements SINUS TACHYCARDIA POSSIBLE RIGHT VENTRICULAR CONDUCTION DELAY [RSR (QR) IN V1/V2] NONSPECIFIC ST & T-WAVE ABNORMALITY ABNORMAL RHYTHM ECG Compared to ECG 02/04/2025 09:11:14 Sinus rhythm no longer present T-wave abnormality still present Electronically Signed On 02-04-2025 23:37:55 CDT by PATRICIA CARUSO [id number] [id number]
== END 2025-02-04 13:49 | disposition home or self-care (01) ==
PROVIDERS: Emergency Provider Family Medicine; PCP Internal Medicine
DX: R07.81 Pleurodynia (principal); Z11.52 Encounter for screening for COVID-19; Z87.891 Personal history of nicotine dependence; Z86.73 Personal history of transient ischemic attack (TIA), and cerebral infarction without residual deficits; J44.9 Chronic obstructive pulmonary disease, unspecified; Z85.118 Personal history of other malignant neoplasm of bronchus and lung
CPT/HCPCS: 36415; 36600; 71045; 71275; 80051; 80053; 81001; 82330; 82805; 83605; 83880; 84484; 85025; 87040; 87077; 87086; 87186; 87637; 93005; 94640; 96374; 96375; 99285; J2405; J2919; J9999

== ENCOUNTER 2025-02-05 08:09 | Emergency (ER) | payer OTHER, MEDICAID, SELFPAY ==
[2025-02-05 08:10] VITALS: BP 132/78; PULSE 95; RESP 16; TEMP 36.7; O2SAT 97; BMI 24.4
--- NOTE | 2025-02-05 08:16 | ED_ITS ---
HPI - Back Pain/Injury 2 General: Chief Complaint: Back Pain/Injury Stated Complaint: BACK PAIN Time Seen by Provider: 02/05/25 08:13 History of Present Illness: 64-year-old female who was seen yesterda y complaining she just did not feel good also isolated to some pleuritic-like chest pain CTA of her chest was negative there was what appeared to be residual mass from previous cancer treatment. There was no PE she was encouraged to follow-up with oncologist given oxycodone for the pleuritic-like chest pain. Her pain is reproducible with movement and with deep inspiration troponins and EKG did not show any acute changes. Today she returns to the emergency room complaining of back pain. She is still satting normally on her usual 3 L of oxygen. She states she heard a pop in her back when she went to the bathroom and now has back pain. Associated symptoms: Deny abdominal pain, chills, dysuria, fatigue, fever(s), nausea, urinary urgency or vomiting Related Data Home Medications ?Medication ?Instructions ?Recorded ?Confirmed allopurinol 300 mg tablet 300 mg PO DAILY@0610/17/ 0 02/05/25 cholecalciferol (vitamin D3) 50 2,000 unit PO DAILY@08 10/17/19 02/05/25 mcg (2,000 unit) tablet (Vitamin D3) levothyroxine 88 mcg tablet 88 mcg PO DAILY@0800 10/1702/05/25 acetaminophen 500 mg tablet 1,000 mg PO PRN pain 10/2402/05/25 (Tylenol Extra Strength) duloxetine 60 mg capsule,delayed 60 mg PO DAILY 02/05/25 release buprenorphine HCl 2 mg sublingual 2 mg sublingual TID 07/26/24 02/05/25 tablet celecoxib 200 mg capsule 200 mg PO BID 10/26/2402/05 gabapentin 300 mg capsule See Rx Instructions .Route . COMPLEX 10/26/24 02/05/25 nortriptyline 25 mg capsule 25 mg PO QPM 10/26/2401/21 amitriptyline 10 mg tablet 10 mg PO BEDTIME 02/04/25 0 02/05/25 Previous Rx's ?Medication ?Instructions ?Recorded oxycodone 5 mg tablet 5 mg PO Q8H PRN pain #15 tab s 02/04/25 ciprofloxacin HCl 500 mg tablet 500 mg PO BID #10 tabs 02/05/25 (Cipro) promethazine 25 mg tablet 25 mg PO Q6H PRN nausea and 02/05/25 vomiting #20 tabs Allergies Allergy/AdvReac Type Severity Reaction Status Date / Time ibuprofen Allergy ALGY-Swell Verified 10/26/24 10:50 Lip/Tongue/Throat Influenza Virus Vaccines Allergy Unknown Verified 10/26/24 10:50 flu shot Allergy Unknown Unknown Uncoded 10/26/24 10:50 Review of Systems 2 Const: Denies: fever(s), chills, body aches, change in appetite, fatigue or malaise ENMT: Denies: throat pain, ear or mastoid pain, nasal discharge or nasal congestion Card: Denies: chest pain, edema, dyspnea on exertion or orthopnea Resp: Denies: dyspnea, productive cough or non-productive cough GI: Denies: abdominal pain, nausea, vomiting, hematemesis, coffee ground emesis, diarrhea, constipation, bloating, hematochezia or melena : Denies: flank pain, difficulty voiding, dysuria, urinary frequency or urinary urgency Musc: Reports: back pain; Denies: extremity pain Skin/Breast: Denies: rash or pruritus PFSH ED 2 PFSH: Medical History History of left foot drop Left-sided weakness Compression fracture of T7 vertebra Gout H/O: CVA (cerebrovascular accident) Hypothyroidism Pneumonia due to COVID-19 virus Diarrhea due to COVID-19 Nausea & vomiting Abdominal pain Hypoxia COVID-19 Former smoker COPD (chronic obstructive pulmonary disease) Small cell lung cancer in adult Post radiation 06/16 Surgical History History of appendectomy Family History Father Cancer Lung cancer Social History Smoking and tobacco/nicotine status: former use of tobacco/nicotine Alcohol intake: never Substance/Drug Use: never Household members: family Housing: House Physical Exam 2 Const: GENERAL APPEARANCE: cooperative ORIENTATION/CONSCIOUSNESS: Yes awake, Yes oriented to person, Yes oriented to place and Yes oriented to time HENMT: COMMON NORMALS: normocephalic, atraumatic, hearing grossly normal bilaterally, external ears normal, EAC's normal, TM's normal bilaterally, Normal nasal mucous membranes and turbinates present, moist oral mucous membranes and oropharynx normal HEAD & SCALP: normocephalic and atraumatic NOSE: Normal nasal mucous membranes and turbinates present EXTERNAL EAR: Yes external ears normal EXTERNAL AUDITORY CANAL: EAC's normal TYMPANIC MEMBRANE: TM's normal bilaterally Eye: COMMON NORMALS: Equal, round and reactive pupils present, EOMs intact bilaterally, conjunctivae normal and no scleral icterus CONJUNCTIVA: Yes conjunctivae normal PUPIL: Yes Equal, round and reactive pupils present Neck/C-Spine: COMMON NORMALS: full ROM, no lymphadenopathy, supple and no JVD Lymph: LYMPHATIC: no lymphadenopathy noted and no lymphedema noted Resp: COMMON NORMALS: normal respiratory effort, No retractions, No use of accessory muscles and clear to auscultation bilaterally AUSCULTATION: clear to auscultation bilaterally Cardio: COMMON NORMALS: no JVD, regular rate, regular rhythm and No murmurs present (Cardio) RATE: regular rate RHYTHM: regular rhythm GI: COMMON NORMALS: Soft to palpation and No hepatosplenomegaly present A USCULTATION: Yes normoactive bowel sounds PALPATION: Yes Soft to palpation, No Tenderness to palpation present (GI), No Guarding due to palpation present (GI) and Yes No hepatosplenomegaly present Extremity: COMMON NORMALS: normal to inspection, capillary refill normal, no clubbing, cyanosis or edema, no calf tenderness and no pedal edema Neuro: SENSORIUM/ORIENTATION: Yes oriented to person, Yes oriented to place and Yes oriented to time Skin: COMMON NORMALS: no rashes or lesions noted GENERAL SKIN EXAM: no rashes or lesions noted Course 2 Vital Signs: Vital signs: Vital Signs Temperature 98.1 F 02/05/25 08:10 Pulse Rate 90 02/05/25 11:26 Respiratory Rate 16 02/05/25 08:10 Blood Pressure 140/59 02/05/25 11:26 Pulse Oximetry 100 02/05/25 11:26 Oxygen Delivery Me thod Nasal Cannula 02/05/25 09:40 Oxygen Flow Rate 3 02/05/25 09:40 MDM - Back Pain/Injury Medical Decision Making Incidental finding of cystitis to be treated with oral antibiotics. Discharge patient home with pain medications previously prescribed follow-up with primary care. Labs 02/05/25 09:01 02/05/25 09:01 Radiology Impressions Lumbar Spine CT 02/05/25 08:32 IMPRESSION: 1. No destructive bone lesions or evidence for metastatic disease to the spine. 2. Diffuse annular disc bulging with a central disc protrusion at L4-5. There is disc contacting the traversing L5 nerve roots, RIGHT greater than LEFT. Only mild subarticular recess and central stenosis. 3. Minimal disc encroachment upon the subarticular recesses of L3-4. Laboratory Results WBC 6.73 10^3/uL (3.29-11.43) 02/05/25 09:01 RBC 4.10 10^6/uL (3.85-5.65) 02/05/25 09:01 Hgb 11.30 g/dL (11.27-16.99) 02/05/25 09:01 Hct 35.8 % (36-47) L 02/05/25 09:01 MCV 87.3 fl (85-98) 02/05/25 09:01 MCH 27.6 pg (27-33) 02/05/25 09:01 MCHC 31.6 g/dL (30-55) 02/05/25 09:01 RDW 13.5 % (12.1-15.1) 02/05/25 09:01 Plt Count 227 10^3/cmm (157-399) 02/05/25 09:01 MPV 9.7 fL (7.4-10.4) 02/05/25 09:01 Neut % (Auto) 78.5 % 02/05/25 09:01 Lymph % (Auto) 13.7 % 02/05/25 09:01 [place] % (Auto) 7.1 % 02/05/25 09:01 Eos % (Auto) 0.3 % 02/05/25 09:01 Baso % (Auto) 0.1 % 02/05/25 09:01 Neut # (Auto) 5.28 10^3/uL (1.8-7.7) 02/05/25 09:01 Lymph # (Auto) 0.9 10^3/uL (0.8-4.8) 02/05/25 09:01 [place] # (Auto) 0.5 10^3/uL (0.2-0.9) 02/05/25 09:01 Eos # (Auto) 0.0 10^3/uL (0.0-0.8) 02/05/25 09:01 Baso # (Auto) 0.0 10^3/uL (0.0-0.1) 02/05/25 09:01 Nucleated RBC % (auto) 0 % 02/05/25 09:01 Nucleated RBCs # 0.0 /100WBC 02/05/25 09:01 Sodium 137 mmol/L (136-145) 02/05/25 09: Potassium 3.7 mmol/L (3.5-5.1) 02/05/25 09: Chloride 94 mmol/L (98-107) L 02/05/25 09:01 Carbon Dioxide 32 mmol/L (22-29) H 02/05/25 09: Anion Gap 14.7 (5-19) 02/05/25 09: BUN 19 mg/dL (8-23) 02/05/25 09: Creatinine 0.6 mg/dL (0.5-0.9) 02/05/25 09: GFR Calculation 100.6 mL/min (90-130) 02/05/25 09: Glucose 124 mg/dL (65-115) H 02/05/25 09:01 Calculated Osmolality 288 mOsm/kg (285-295) 02/05/25 09: Calcium 9.2 mg/dL (8.5-10.5) 02/05/25 09: Total Bilirubin 0.3 mg/dL (0.15-1.2) 02/05/25 09: AST 24 U/L (0-32) 02/05/25 09:01 ALT 9 U/L (0-33) 02/05/25 09:01 Alkaline Phosphatase 83 U/L (35-105) 02/05/25 09:01 Total Protein 7.7 g/dL (6.6-8.7) 02/05/25 09: Albumin 4.5 g/dL (3.5-5.2) 02/05/25 09: Globulin 3.2 g/dL (1.3-4.6) 02/05/25 09:01 Urine Color Yellow (Yellow) 02/05/25 10:17 Urine Appearance Clear (CLEAR) 02/05/25 10:17 Urine pH 7.0 (5-7) 02/05/25 10:17 Ur Specific [place] 1.024 (1.005-1.030) 02/05/25 10:17 Urine Protein 1+ (Negative) A 02/05/25 10:17 Urine Glucose (UA) Negative (Normal) 02/05/25 10:17 Urine Ketones 2+ (Negative) H 02/05/25 10:17 Urine Blood Negative (Negative) 02/05/25 10:17 Urine Nitrate Negative (Negative) 02/05/25 10:17 Urine Bilirubin Negative (Negative) 02/05/25 10:17 Urine Urobilinogen 1.0 mg/dL (Negative) 02/05/25 10:17 Ur Leukocyte Esterase 1+ (Negative) A 02/05/25 10:17 Urine RBC 0-2 /hpf (0-2) 02/05/25 10:17 Urine WBC 6-10 /hpf (0-5) 02/05/25 10:17 Ur Squamous Epith Cells 0-5 /hpf (0-5) 02/05/25 10:17 Amorphous Sediment Not Reportable 02/05/25 10:17 Urine Bacteria None seen /hpf (NONE) 02/05/25 10:17 Hyaline Casts 1.21 /lpf 02/05/25 10:17 All radiology interpretation(s) finalized by discharge Discharge Plan Discharge Patient Disposition: Home Clinical Impression: Lumbar back pain, Cystitis Condition: Stable Prescriptions: New ciprofloxacin HCl [Cipro] 500 mg tablet 500 mg PO BID Qty: 10 0RF promethazine 25 mg tablet 25 mg PO Q6H PRN (Reason: nausea and vomiting) Qty: 20 0RF No Action levothyroxine 88 mcg Tablet 88 mcg PO DAILY@0800 allopurinol 300 mg tablet 300 mg PO DAILY@0600 cholecalciferol (vitamin D3) [Vitamin D3] 2,000 unit Tablet 2,000 unit PO DAILY@0800 acetaminophen [Tylenol Extra Strength] 500 mg Tablet 1,000 mg PO PRN buprenorphine HCl 2 mg tablet, sublingual 2 mg SUBLINGUAL TID amitriptyline 10 mg tablet 10 mg PO BEDTIME oxycodone 5 mg tablet 5 mg PO Q8H PRN (Reason: pain) Qty: 15 0RF duloxetine 60 mg capsule,delayed release(DR/EC) 60 mg PO DAILY celecoxib 200 mg capsule 200 mg PO BID nortriptyline 25 mg capsule 25 mg PO QPM gabapentin 300 mg capsule See Rx Instructions .ROUTE .COMPLEX Rx Instructions: TAKE 2 CAPSULES BY MOUTH TWICE DAILY AND 3 CAPSULES DAILY AT BEDTIME. Discharge Orders: Discharge ED (Routine); Ordered 02/05/25 Ordered By: Prasanth Michaud Referrals: Adela Stout [Primary Care Provider] Discharge Diet: Usual diet Discharge Activity: Increase activity as tolerated Patient Instructions: Opioid Safety, Pain Management Activity Restrictions/Additional Instructions: Thank you for choosing [facility] for your healthcare needs today. It is very important that you follow up as instructed or that you return to the Emergency Department should you have concerns or if your condition changes or worsens in any way. There is here today emergency room with complaint of back pain after you had bent over a long toilet. CT of the lumbar spine did not show any acute fractures. There are some chronic issues there but nothing that appears new or emergent. Continue your previously prescribed pain medications. You were given promethazine to use as needed. Additionally you were noted to have a mild bladder infection you are given initial dose of IV antibiotics here start the oral antibiotics tomorrow Print Language: Turkmen Coding Level of Care Code ED Swage Tender for Beatrice Petersen
--- NOTE | 2025-02-05 08:32 | CT_ITS ---
WS: [id number] CT LUMBAR SPINE, noncontrast. HISTORY: Pain, history of lung cancer. TECHNIQUE: Contiguous 2.0 mm axial imaging are performed. Sagittal and coronal reformats are submitted and reviewed. All CT scans at [facility] use at least one of these dose optimization techniques: automated exposure control; mA and/or kV adjustment per patient size (includes targeted exams where dose is matched to clinical indication); or iterative reconstruction. IV contrast: None DLP: 331.77 mGy.cm COMPARISON: None available. Posterior lumbar alignment is normal. Disc spaces and vertebral body heights are well-maintained. Facet joints are aligned. No destructive bone process. Slight increase sclerosis in S1 similar to 07/26/2024. No lytic or bone destructive changes. L1-2: Normal. L2-3: Normal. L3-4: Mild diffuse annular disc bulging mild encroachment upon the subarticular recesses. Mild subacromial stenosis. L4-5: Diffuse annular disc bulging. Central disc protrusion encroaching upon the ventral thecal sac and subarticular recesses. Ligamentum flavum hypertrophy. There is disc contacting the traversing L5 nerve roots, RIGHT greater than LEFT. L5-S1: Mild annular disc bulging asymmetric to the RIGHT. No significant contact on the S1 nerve roots. No obvious contact on the RIGHT L5 nerve root. Vicarious excretion of contrast into the gallbladder. Prior CT performed the day before. No adrenal mass. No renal obstruction. Mild plaque within the aorta. There is a very small lytic area involving the LEFT T12 pedicle. Lytic area was present on the prior study with no change. CT/CT lumbar spine wo con* [id number] IMPRESSION: 1. No destructive bone lesions or evidence for metastatic disease to the spine . 2. Diffuse annular disc bulging with a central disc protrusion at L4-5. There is disc contacting the traversing L5 nerve roots, RIGHT greater than LEFT. Only mild subarticular recess and central stenosis. 3. Minimal disc encroachment upon the subarticular recesses of L3-4.
[2025-02-05] MEDS: ondansetron 2 mg/ML SDV 2 mL 4 MG IVP (09:00)
[2025-02-05 09:07] LABS: Basophils % 0.1 %; Eosinophils % 0.3 %; Hematocrit 35.8 % (36-47); Lymphocytes # 0.9 10^3/uL (0.8-4.8); Lymphocytes % 13.7 %; Mean Corpuscular HGB Conc 31.6 g/dL (30-55); Mean Corpuscular Hemoglobin 27.6 pg (27-33); Mean Corpuscular Volume 87.3 fl (85-98); Mean Platelet Volume 9.7 fL (7.4-10.4); Monocytes # 0.5 10^3/uL (0.2-0.9); Monocytes % 7.1 %; Neutrophils # 5.28 10^3/uL (1.8-7.7); Neutrophils % 78.5 %; Nucleated Red Blood Cells % 0 %; Platelet Count 227 10^3/cmm (157-399); Red Cell Distribution Width 13.5 % (12.1-15.1); White Blood Count 6.73 10^3/uL (3.29-11.43)
[2025-02-05 09:24] LABS: Alanine Aminotransferase 9 U/L (0-33); Albumin Level 4.5 g/dL (3.5-5.2); Alkaline Phosphatase 83 U/L (35-105); Anion Gap 14.7 (5-19); Aspartate Amino Transferase 24 U/L (0-32); Blood Urea Nitrogen 19 mg/dL (8-23); Calcium 9.2 mg/dL (8.5-10.5); Carbon Dioxide 32 mmol/L (22-29); Chloride 94 mmol/L (98-107); Creatinine Clr Calc Pharmacy 84.4561; Globulin 3.2 g/dL (1.3-4.6); Glomerular Filtration Rate 100.6 mL/min (90-130); Glucose 124 mg/dL (65-115); Osmolality Calculated 288 mOsm/kg (285-295); Potassium 3.7 mmol/L (3.5-5.1); Sodium 137 mmol/L (136-145); Total Bilirubin 0.3 mg/dL (0.15-1.2); Total Protein 7.7 g/dL (6.6-8.7)
[2025-02-05 09:40] VITALS: BP 111/62; PULSE 86; O2SAT 96
[2025-02-05 10:29] LABS: Bilirubin Urine Negative (Negative); Blood Urine Negative (Negative); Glucose Urine UA Negative (Normal); Ketones Urine 2+ (Negative); Leukocyte Esterase Urine 1+ (Negative); Nitrate Urine Negative (Negative); Protein Urine 1+ (Negative); Specific Gravity, Urine 1.024 (1.005-1.030); Urine Appearance Clear (CLEAR); Urine Color Yellow (Yellow)
[2025-02-05 10:31] LABS: Add Urine Microscopic? YES; Bacteria Urine None Seen /hpf; Hyaline Casts Urine 1.21 /lpf; RBC Urine 0-2 /hpf (0-2); Squamous Epithelial Cell Urine 0-5 /hpf (0-5)
[2025-02-05] MEDS: cefTRIAXone 1,000 mg SDV 1000 MG IVP (11:25)
[2025-02-05 11:26] VITALS: BP 140/59; PULSE 90; O2SAT 100
== END 2025-02-05 11:34 | disposition home or self-care (01) ==
PROVIDERS: Emergency Provider Family Medicine; PCP Internal Medicine
DX: M54.50 Low back pain, unspecified (principal); N30.90 Cystitis, unspecified without hematuria; Z87.891 Personal history of nicotine dependence; J44.9 Chronic obstructive pulmonary disease, unspecified; Z85.118 Personal history of other malignant neoplasm of bronchus and lung; Z86.73 Personal history of transient ischemic attack (TIA), and cerebral infarction without residual deficits
CPT/HCPCS: 36415; 72131; 80053; 81001; 85025; 96374; 96375; 99285; J0696; J2405

== ENCOUNTER 2025-09-03 15:00 | Oncology outpatient (recurring) (ONCR) | payer MEDICARE, MEDICAID, SELFPAY ==
--- NOTE | 2025-08-25 13:23 | ONCRAD EPV_ITS ---
Radiation Oncology Established Patient Visit Patient: Jose Maya [id number] : 1960 Age: 64 Sex: Female Dictated by: Dr. Ni Hylton Date of Service: 08/25/2025 Referring Physician(s) : Diagnosis: C34.91 - Malignant neoplasm of unspecified part of right bronchus or lung, Diagnosed 05/18/2024 (Active) Radiotherapy to Date: Course: Rt Lung SBRT, Treatment Site: Rt Lung 48Gy, Ref. ID: [id number], Energy: 6X, Dose/Fx (cGy): 1,200, #Fx: 4 / 4, Dose Correction (cGy): 0, Total Dose Delivered (cGy): 4,800, Start Date: 06/01/2024, End Date: 06/09/2024, Elapsed Days: 8 Current History: Pt completed SBRT for a lung cancer in the right lung. She was lost to FU after she developed a severe case of shingles. Today she is in good spirits. She has a good appetite, denies any new aches or pains, respiratory status is stable, and she sleeps fair. Current Medications: Allergies: Current Complaints / Review of Systems: . Vital Signs: Performed on 08/25/2025 12:52 PM BMI - 24.76 kg/m2 (high), Height - 63.5 in, Weight - 142 lbs, Temperature - 97.5 f, Pulse - 93 /min, Respiration - 20 /min, O2 Sat - 99 %, Pain - 3, Fatigue - 0 and BP - 116/ 56 mm(hg)(/low). Physical Exam: General: Alert and oriented x 3. No acute distress. HEENT: Normocephalic, atraumatic. Extraocular Movements Intact: Her Right eye is opaque and injected. . . LUNGS:.respiratory rate is regular and non labored. HEART: Regular rate and rhythm,. ABDOMEN: thin with minimal adipose tissue Performance Status: 80 Lab: None pending. Pathology: Primary, c34.91 - malignant neoplasm of unspecified part of right bronchus or lung, Diagnosed 05/18/2024 (active) . Imaging: See HPI Impression: Lung cancer s/p SBRT in 2023 Plan: I will order a new PET for FU. Pt will be called with results. I have also ordered her FU CT in 6 months for which she will need a FU. She was in agreement. I also recommended she receive the shingles vaccine. She will be visiting with her [employer] Machine Operator about her eye. Signed by: 08/25/2025 1:21:43 PM <<Signature on File>> Time spent with patient:25 CPT Code: CPT Code:
--- NOTE | 2025-09-03 15:00 | PETR_ITS ---
PROCEDURE INFORMATION: Exam: PET/CT Skull Base to Mid-thigh Exam date and time: 09/03/2025 3:57 PM Age: 64 years old Clinical indication: Condition or disease; Primary cancer: Solitary lung cancer LABS AND CLINICAL REPORTS: Glucose: 111 mg/dl Treatment strategy for malignancy (PET staging): Restaging (PS) TECHNIQUE: Imaging protocol: Following at least four-hour fasting and following the injection of radiopharmaceutical, low dose CT images were obtained. Then, PET images were obtained. Attenuation corrected images were constructed using the CT scan. Fused images of PET and CT were reviewed. The standardized uptake values (SUV) reported below are maximum values within a region of interest, expressed in gm/ml. Exam includes orbital meatal line to mid-thigh. SUV normalization method: BodyWeight Radiopharmaceutical: 10.67 mCi F-18 FDG (Fluorodeoxyglucose), IV. Time of imaging post radiopharmaceutical administration: 45 minutes Injection site: RIGHT HAND COMPARISON: 1. CT angio chest PE protcl [id number] 02/04/2025 12:[address] PET Scan 03/10/2024 9:19 AM FINDINGS: Brain: Visualized brain has normal physiologic uptake. Pharynx: No abnormal uptake. Larynx: No abnormal uptake. Lungs, pleura and trachea: Moderate upper lung predominant emphysematous change. Intervally stable spiculated 1.3 cm right lower lobe nodule on axial image 77 shows low-level FDG uptake with SUV max 2.8, previously cystic and solid with SUV max 5.3. Small nearby metallic densities. Intervally stable mild posterior right pleural thickening (new from 03/10/2024) with associated FDG uptake showing SUV max 3.7 on axial image 74. Stable left perihilar soft tissue thickening compatible with scarring/fibrotic change. Bilateral calcified granulomata. Focal non FDG avid proximal left main bronchus narrowing, axial image 75. Heart: Normal physiologic uptake. Coronary arteries: Mild coronary artery calcification. Mediastinal space: No abnormal uptake. Liver: No abnormal uptake. Gallbladder and biliary ducts: No abnormal uptake. Pancreas: No abnormal uptake. Spleen: No abnormal uptake. Adrenal glands: No abnormal uptake. Kidneys and ureters: Normal physiologic uptake. Stomach and bowel: No abnormal uptake. Vasculature: No abnormal uptake. Mild systemic atherosclerotic calcification without aortic aneurysm. Lymph nodes: No abnormal uptake. No lymphadenopathy in the head, neck, chest, abdomen, pelvis, and extremities. Skeleton: No abnormal uptake in the visualized axial and appendicular skeleton. Redemonstrated augmentation of the T7 vertebral body. Soft tissues: No abnormal uptake in the visualized head, neck, chest, abdomen, pelvis, and extremities. METRICS: Mediastinal blood pool: SUV mean 2.4 Liver uptake: SUV mean 2.8 PET/PET skull to thigh SUBS [id number] IMPRESSION: 1. Intervally stable size and CT appearance of right lower lobe nodule (compared to 02/04/2025) with decreased low-level FDG uptake and developed adjacent mildly FDG avid posterior pleural thickening (compared to 03/10/2024). Favor posttreatment change, residual malignancy not entirely excluded. 2. No evidence of metastatic disease. 3. Stable left perihilar scarring/fibrotic change.
== END 2025-09-22 23:59 | disposition home or self-care (01) ==
LOC: ONCMED 09-06 09:10
PROVIDERS: Visit Provider Radiology Radiation Oncology
DX: C34.90 Malignant neoplasm of unspecified part of unspecified bronchus or lung; R91.1 Solitary pulmonary nodule; J43.9 Emphysema, unspecified; R91.8 Other nonspecific abnormal finding of lung field; J90 Pleural effusion, not elsewhere classified; J84.10 Pulmonary fibrosis, unspecified; I25.10 Atherosclerotic heart disease of native coronary artery without angina pectoris; I70.0 Atherosclerosis of aorta; R93.7 Abnormal findings on diagnostic imaging of other parts of musculoskeletal system; Z53.9 Procedure and treatment not carried out, unspecified reason
CPT/HCPCS: 78815; 99024; A9552